=== PATIENT | male | born 1950 | race Caucasian/White ===

== ENCOUNTER 2022-02-26 16:44 | Outpatient (CLI) | payer OTHER, SELFPAY | END 2022-02-26 16:45 | disposition home or self-care (01) | LOC: AMB 03-10 21:57 | PROVIDERS: PCP Family Medicine; Visit Provider Internal Medicine | DX: R42 Dizziness and giddiness (principal) | CPT/HCPCS: A0425; A0427 ==

== ENCOUNTER 2022-02-26 17:18 | Emergency (ER) | payer OTHER, SELFPAY ==
[2022-02-26 17:26] VITALS: BP 117/80; PULSE 68; RESP 20; TEMP 36.4; O2SAT 98; BMI 25.1
[2022-02-26 17:40] VITALS: BP 122/75; PULSE 65; RESP 20; O2SAT 96
[2022-02-26 18:03] LABS: Basophils Absolute Auto 0.03 K/uL (0.00-0.30); Basophils Percent Auto 0.6 % (0.0-3.0); Eosinophils Absolute Auto 0.11 K/uL (0.00-0.50); Eosinophils Percent Auto 2.3 % (0.0-7.0); Hematocrit 35.3 % (37.0-53.0); Hemoglobin* 12.3 gm/dL (13.5-17.5); Lymphocytes Absolute Auto 1.26 K/uL (0.90-2.90); Mean Corpuscular HGB Conc 35 gm/dL (32-36); Mean Corpuscular Hemoglobin 33 pg (26-34); Mean Corpuscular Volume 96 fL (80-100); Monocytes Percent Auto 7.9 % (0.0-11.0); Neutrophils Absolute Auto 3.06 K/uL (1.7-7.0); Neutrophils Percent Auto 63.2 % (42.0-72.0); Platelet Count* 150 K/uL (140-440); Red Blood Count 3.69 m/uL (4.30-5.90); White Blood Count* 4.84 K/uL (4.50-11.00)
[2022-02-26 18:05] LABS: Slide Review Reflex No
[2022-02-26] MEDS: 0.9 % SODIUM CHLORIDE 500 ML 500 ML IV (18:14)
[2022-02-26 18:40] VITALS: BP 114/69; PULSE 64; RESP 20; O2SAT 97
[2022-02-26 18:41] LABS: Chloride* 96 mmol/L (96-114); Potassium* 4.1 mmol/L (3.6-5.1); Sodium* 126 mmol/L (135-149)
[2022-02-26 18:44] LABS: Blood Urea Nitrogen* 16 mg/dL (7-30); Calcium* 8.4 mg/dL (8.4-10.6); Carbon Dioxide* 19 mmol/L (20-32); Estimated Glomerular Filt Rate 81 ml/min; Glucose* 83 mg/dL (60-115)
[2022-02-26 18:45] LABS: Ethanol* 0.13 % (0.01-0.03)
--- NOTE | 2022-02-26 19:08 | ED.GENADULT ---
HPI - General Adult General Chief complaint: Dizziness/Vertigo Stated complaint: Weakness Time Seen by Provider: 02/26/22 17:29 History of Present Illness HPI narrative: Patient is a 71-year-old transgender woman who has been drinking today. She went home and after sitting on the couch stood up and got lightheaded. She did not pass out she had no seizure activity and was not incontinent. Due to the lightheadedness she did call for an ambulance. Of note she has no air conditioning in her apartment. It is not really that warm out today. Patient states that she is feeling better and is not certain why she became lightheaded. He has no vertigo symptoms and otherwise is back to her baseline. Related Data Home Medications Medication Instructions Recorded Confirmed allopurinol 300 mg tablet mg 02/26/22 amlodipine 10 mg tablet mg 02/26/22 Allergies Allergy/AdvReac Type Severity Reaction Status Date / Time No Known Drug Allergies Allergy Verified 02/26/22 17:28 Review of Systems Status of ROS: Reports: 10 or more systems reviewed and unremarkable except as noted in History and below [facility] Medical History ETOH abuse GERD (gastroesophageal reflux disease) Hypertension Surgical History History of knee replacement Social History Smoking Status: Former smoker How often do you have a drink containing alcohol: 4 or more times a week AUDIT-C Alcohol total score: 4 Exam Narrative: Exam Narrative: EXAM GENERAL: Patient appears comfortable and well. EYES: No scleral icterus. LYMPH: No supraclavicular or cervical lymphadenopathy. SKIN: Visible skin seen during exam normal or with benign process only. EXT: No dependent lower extremity pedal edema. HEART: Regular rate and rhythm with no murmurs, rubs, or gallops. LUNGS: Clear to auscultation bilaterally with no crackles or wheezes. ABD: Soft, non tender, non distended. PSYCH: Good eye contact, speech is not pressured. Const: Vital Signs, click to edit/add: Vital Signs - 24 hr 02/26/22 17:26 Temperature 97.5 F L Pulse Rate [Pulse Oximeter] 68 Respiratory Rate 20 Blood Pressure [Le ft Upper Arm] 117/80 Pulse Oximetry 98 Oxygen Delivery Me thod Room Air Course Course Hospital Course: Patient given fluid bolus CBC basic metabolic panel ETOH ordered. EKG upon my review shows normal sinus rhythm with first-degree AV block. Reevaluation(s) Reevaluation #1: Patient has received 500 mL bolus of saline. She is feeling fine. She does have a sodium of 126 with a previous baseline of 130. Her blood alcohol is 0.13. Remainder of the labs are largely unremarkable. Time: 19:10 Vital Signs Vital signs: Initial Vital Signs Temperature 97.5 F L 02/26/22 17:26 Temperature Source Temporal Artery Scan 02/26/22 17:26 Pulse Rate 68 02/26/22 17:26 Respiratory Rate 20 02/26/22 17:26 Blood Pressure 117/80 02/26/22 17:26 Blood Pressure Mean 92 02/26/22 17:26 Blood Pressure Position Supine 02/26/22 17:26 Pulse Oximetry 98 02/26/22 17:26 Oxygen Delivery Method 02/26/22 17:26 Vital Signs Temperature 97.5 F L 02/26/22 17:26 Pulse Rate 68 02/26/22 17:26 Respiratory Rate 20 02/26/22 17:26 Blood Pressure 117/80 02/26/22 17:26 Pulse Oximetry 98 02/26/22 17:26 Oxygen Delivery Method 02/26/22 17:26 Temperature 97.5 F L 02/26/22 17:26 Pulse Rate 68 02/26/22 17:26 Respiratory Rate 20 02/26/22 17:26 Blood Pressure 117/80 02/26/22 17:26 Pulse Oximetry 98 02/26/22 17:26 Oxygen Delivery Method 02/26/22 17:26 Medical Decision Making Lab Data Labs: Lab Results 02/26/22 02/26/22 02/26/22 Range/Units 17:56 17:56 17:56 WBC 4.84 (4.50-11.00) K/uL RBC 3.69 L (4.30-5.90) m/uL Hgb 12.3 L (13.5-17.5) gm/dL Hct 35.3 L (37.0-53.0) % MCV 96 (80-100) fL MCH 33 (26-34) pg MCHC 35 (32-36) gm/dL RDW Coeff of Delvis 14.0 (11.5-15.5) % Plt Count 150 (140-440) K/uL Neut % (Auto) 63.2 (42.0-72.0) % Lymph % (Auto) 26.0 (20-44) % [place] % (Auto) 7.9 (0.0-11.0) % Eos % (Auto) 2.3 (0.0-7.0) % Baso % (Auto) 0.6 (0.0-3.0) % Neut # (Auto) 3.06 (1.7-7.0) K/uL Lymph # (Auto) 1.26 (0.90-2.90) K/uL Bowman # (Auto) 0.40 (0.00-0.90) K/UL Eos # (Auto) 0.11 (0.00-0.50) K/uL Baso # (Auto) 0.03 (0.00-0.30) K/uL Abs Immat Gran (auto) 0.00 (0.00-0.30) K/uL Sodium 126 L (135-149) mmol/L Potassium 4.1 (3.6-5.1) mmol/L Chloride 96 (96-114) mmol/L Carbon Dioxide 19 L (20-32) mmol/L BUN 16 (7-30) mg/dL Creatinine 1.0 (0.5-1.5) mg/dL Estimated Creat Clear 66.50 Estimated GFR 81 ml/min Glucose 83 (60-115) mg/dL Calcium 8.4 (8.4-10.6) mg/dL Ethyl Alcohol 0.13 H (0.01-0.03) % Discharge Plan Discharge Clinical Impression: Alcohol intoxication, Chronic hyponatremia Patient Disposition: Home, Self-Care Condition: Stable Instructions: Alcohol Intoxication (ED) Additional Instructions: Limited alcohol intake Activity Level: No Restrictions Discharge Diet: Regular Prescriptions: No Action amlodipine 10 mg tablet Label Comments: TAKE 1 TABLET BY MOUTH AT BEDTIME allopurinol 300 mg tablet Label Comments: TAKE 1 TABLET BY MOUTH AT BEDTIME Follow Up/Referrals: Darcy Allen MD [Primary Care Provider] - Stand Alone Forms: [employer] Info Instructions
== END 2022-02-26 19:22 | disposition home or self-care (01) ==
PROVIDERS: Emergency Provider Internal Medicine; PCP Family Medicine
DX: F10.129 Alcohol abuse with intoxication, unspecified (principal); E87.1 Hypo-osmolality and hyponatremia
CPT/HCPCS: 36415; 80048; 82077; 85025; 93005; 99283; 99284; J7120

== ENCOUNTER 2022-04-02 14:59 | Outpatient (CLI) | payer OTHER, SELFPAY | END 2022-04-02 15:00 | disposition home or self-care (01) | PROVIDERS: PCP Family Medicine; Visit Provider Internal Medicine | DX: F10.129 Alcohol abuse with intoxication, unspecified (principal) | CPT/HCPCS: A0425; A0429 ==

== ENCOUNTER 2022-04-02 15:36 | Observation (INO) | payer OTHER, SELFPAY ==
[2022-04-02] VITALS (8 sets, daily range): BP systolic 112–144; BP diastolic 78–89; PULSE 71–88; RESP 16–20; TEMP 36.1–36.6; O2SAT 97–100; BMI 24.3
--- NOTE | 2022-04-02 16:33 | ED_ITS ---
HPI - General Adult General Chief complaint: Weakness Stated complaint: ETOH Time Seen by Provider: 04/02/22 15:51 History of Present Illness HPI narrative: Pt is a 72 year old transgender woman who began feeling week at [employer] where is has been having cocktails this afternoon. Pt likes to go there as he can get some food with his alcohol. He's not sure if he has had any food today though. Pt began feeling weak and unwell. No chest pain, sob, fevers, chills, rash or focal defects. Pt did not fall or have any injuries. Pt did not vomit and is not nauseated. Pt actually feels back to normal now that he is here. Uncertain how much alcohol he has drunk today. Related Data Home Medications Medication Instructions Recorded Confirmed allopurinol 300 mg tablet mg 02/26/22 amlodipine 10 mg tablet mg 02/26/22 Allergies Allergy/AdvReac Type Severity Reaction Status Date / Time No Known Drug Allergies Allergy Verified 04/02/22 15:43 Review of Systems Status of ROS: Reports: 10 or more systems reviewed and unremarkable except as noted in History and below [facility] Medical History ETOH abuse GERD (gastroesophageal reflux disease) Hypertension Surgical History History of knee replacement Social History Smoking Status: Former smoker Do you use any of these nicotine containing products: None Second hand tobacco smoke exposure: No How often do you have a drink containing alcohol: 4 or more times a week How many standard drinks containing alcohol do you have on a typical day: 3 or 4 How often do you have six or more drinks on one occasion: Weekly AUDIT-C Alcohol total score: 8 Non-prescribed substance use: denies use service: Yes Exam Narrative: Exam Narrative: EXAM GENERAL: Patient appears comfortable and well. EYES: No scleral icterus. ENT: Tympanic membranes and oropharynx normal. THYROID: no thyroid nodules or thyromegaly. LYMPH: No supraclavicular or cervical lymphadenopathy. SKIN: Visible skin seen during exam normal or with benign process only. EXT: No dependent lower extremity pedal edema. HEART: Regular rate and rhythm with no murmurs, rubs, or gallops. LUNGS: Clear to auscultation bilaterally with no crackles or wheezes. ABD: Soft, non tender, non distended. PSYCH: Good eye contact, speech is not pressured. Pt appears intoxicated. Const: Vital Signs, click to edit/add: Vital Signs - 24 hr 04/02/22 15:39 04/02/22 15:57 Temperature 97.8 F Pulse Rate [Pulse Oximeter] 78 71 Respiratory Rate 20 18 Blood Pressure [Le ft Upper Arm] 130/80 112/80 Pulse Oximetry 100 97 Oxygen Delivery Me thod Room Air Room Air Course Course Hospital Course: EKG shows sinus rhythm with 1st degree AV Block upon my review. CBC, CMP, Amylase, Lactate, UA ordered. Pt resting comfortably currently. Reevaluation(s) Reevaluation #1: Lactate was noted to be elevated and sodium at 125. Pt given 1 liter of normal saline with second liter to follow. ETOH 0.17. Lactate only came down to 4.0 after 1 liter. Blood cultures urine culture collected. Pts UA and chest x ray unremarkable. Pt states he has no food and can not provide for himself. Time: 20:01 Vital Signs Vital signs: Initial Vital Signs Temperature 97.8 F 04/02/22 15:39 Temperature Source Temporal Artery Scan 04/02/22 15:39 Pulse Rate 78 04/02/22 15:39 Pulse Rhythm 04/02/22 15:39 Respiratory Rate 20 04/02/22 15:39 Blood Pressure 130/80 04/02/22 15:39 Blood Pressure Mean 96 04/02/22 15:39 Blood Pressure Position Sitting 04/02/22 15:39 Pulse Oximetry 100 04/02/22 15:39 Oxygen Delivery Method 04/02/22 15:39 Vital Signs Temperature 97.8 F 04/02/22 15:39 Pulse Rate 78 04/02/22 15:39 Respiratory Rate 20 04/02/22 15:39 Blood Pressure 130/80 04/02/22 15:39 Pulse Oximetry 100 04/02/22 15:39 Oxygen Delivery Method 04/02/22 15:39 Temperature 97.8 F 04/02/22 15:39 Pulse Rate 71 04/02/22 15:57 Respiratory Rate 18 04/02/22 15:57 Blood Pressure 112/80 04/02/22 15:57 Pulse Oximetry 97 04/02/22 15:57 Oxygen Delivery Method 04/02/22 15:57 Medical Decision Making MDM Narrative Medical decision making narrative: Pt is a chronic etoh drinker who presents intoxicated with elevated lactate and lower than normal sodium. Cultures collected. No obvious infection. Pt given IV hydration. Pt states he has no food and cant take care of self. Admitted for further evaluation and treatment. Differential Diagnosis Differential Diagnosis: Chronic Alcoholism, Hyponatremia, Infection, Wernickes, Failure to Thrive Lab Data Labs: Lab Results 04/02/22 04/02/22 04/02/22 Range/Units 16:30 16:30 16:30 WBC 8.73 (4.50-11.00) K/uL RBC 3.76 L (4.30-5.90) m/uL Hgb 12.7 L (13.5-17.5) gm/dL Hct 36.4 L (37.0-53.0) % MCV 97 (80-100) fL MCH 34 (26-34) pg MCHC 35 (32-36) gm/dL RDW Coeff of Delvis 13.4 (11.5-15.5) % Plt Count 193 (140-440) K/uL Neut % (Auto) 81.4 H (42.0-72.0) % Lymph % (Auto) 10.9 L (20-44) % [place] % (Auto) 6.4 (0.0-11.0) % Eos % (Auto) 0.6 (0.0-7.0) % Baso % (Auto) 0.6 (0.0-3.0) % Neut # (Auto) 7.10 H (1.7-7.0) K/uL Lymph # (Auto) 1.00 (0.90-2.90) K/uL [place] # (Auto) 0.60 (0.00-0.90) K/UL Eos # (Auto) 0.05 (0.00-0.50) K/uL Baso # (Auto) 0.05 (0.00-0.30) K/uL Abs Immat Gran (auto) 0.01 (0.00-0.30) K/uL Sodium 125 L (135-149) mmol/L Potassium 4.2 (3.6-5.1) mmol/L Chloride 93 L (96-114) mmol/L Carbon Dioxide 19 L (20-32) mmol/L BUN 15 (7-30) mg/dL Creatinine 1.3 (0.5-1.5) mg/dL Estimated Creat Clear 50.42 Estimated GFR 59 ml/min Glucose 85 (60-115) mg/dL Lactate 4.9 H* (0.5-1.9) mmol/L Calcium 8.8 (8.4-10.6) mg/dL Total Bilirubin 0.6 (0.1-1.5) mg/dL AST 26 (12-35) U/L ALT 10 (4-50) U/L Alkaline Phosphatase 63 (40-150) U/L Troponin I 0.02 (0.01-0.04) ng/mL Total Protein 7.1 (6.0-8.3) g/dL Albumin 4.3 (3.3-5.0) g/dL Urine Color (Yellow) Urine Appearance (Clear) Urine pH (5.0-8.5) Ur Specific [place] (1.000-1.030) Urine Protein (Negative) Urine Glucose (UA) (Negative) Urine Ketones (Negative) Urine Blood (Negative) Urine Nitrite (Negative) Urine Bilirubin (Negative) Urine Urobilinogen (0.2-1.0) Ur Leukocyte Esterase (Negative) Urine Opiates Screen (Negative) Ur Oxycodone Screen (Negative) Urine Methadone Screen (Negative) Ur Propoxyphene Screen (Negative) Ur Barbiturates Screen (Negative) U Tricyclic Antidepress (Negative) Ur Phencyclidine Scrn (Negative) Ur Amphetamines Screen (Negative) U Methamphetamines Scrn (Negative) U Benzodiazepines Scrn (Negative) Urine Cocaine Screen (Negative) U Marijuana (THC) Screen (Negative) Ur Drug Screen Comment Ethyl Alcohol 0.17 H (0.01-0.03) % 04/02/22 04/02/22 04/02/22 Range/Units 17:00 17:00 19:24 WBC (4.50-11.00) K/uL RBC (4.30-5.90) m/uL Hgb (13.5-17.5) gm/dL Hct (37.0-53.0) % MCV (80-100) fL MCH (26-34) pg MCHC (32-36) gm/dL RDW Coeff of Delvis (11.5-15.5) % Plt Count (140-440) K/uL Neut % (Auto) (42.0-72.0) % Lymph % (Auto) (20-44) % [place] % (Auto) (0.0-11.0) % Eos % (Auto) (0.0-7.0) % Baso % (Auto) (0.0-3.0) % Neut # (Auto) (1.7-7.0) K/uL Lymph # (Auto) (0.90-2.90) K/uL [place] # (Auto) (0.00-0.90) K/UL Eos # (Auto) (0.00-0.50) K/uL Baso # (Auto) (0.00-0.30) K/uL Abs Immat Gran (auto) (0.00-0.30) K/uL Sodium (135-149) mmol/L Potassium (3.6-5.1) mmol/L Chloride (96-114) mmol/L Carbon Dioxide (20-32) mmol/L BUN (7-30) mg/dL Creatinine (0.5-1.5) mg/dL Estimated Creat Clear Estimated GFR ml/min Glucose (60-115) mg/dL Lactate 4.0 H (0.5-1.9) mmol/L Calcium (8.4-10.6) mg/dL Total Bilirubin (0.1-1.5) mg/dL AST (12-35) U/L ALT (4-50) U/L Alkaline Phosphatase (40-150) U/L Troponin I (0.01-0.04) ng/mL Total Protein (6.0-8.3) g/dL Albumin (3.3-5.0) g/dL Urine Color Yellow (Yellow) Urine Appearance Clear (Clear) Urine pH 5.5 (5.0-8.5) Ur Specific [place] 1.015 (1.000-1.030) Urine Protein Negative (Negative) Urine Glucose (UA) Negative (Negative) Urine Ketones 1+ A (Negative) Urine Blood Negative (Negative) Urine Nitrite Negative (Negative) Urine Bilirubin Negative (Negative) Urine Urobilinogen 0.2 (0.2-1.0) Ur Leukocyte Esterase Negative (Negative) Urine Opiates Screen Negative (Negative) Ur Oxycodone Screen Negative (Negative) Urine Methadone Screen Negative (Negative) Ur Propoxyphene Screen Negative (Negative) Ur Barbiturates Screen Negative (Negative) U Tricyclic Antidepress Negative (Negative) Ur Phencyclidine Scrn Negative (Negative) Ur Amphetamines Screen Negative (Negative) U Methamphetamines Scrn Negative (Negative) U Benzodiazepines Scrn Negative (Negative) Urine Cocaine Screen Negative (Negative) U Marijuana (THC) Screen Negative (Negative) Ur Drug Screen Comment See Note Ethyl Alcohol (0.01-0.03) % Discharge Plan Discharge Clinical Impression: Intoxication, Chronic hyponatremia Patient Disposition: Admitted As Inpatient Condition: Stable Activity Level: Other Discharge Diet: Other Prescriptions: No Action amlodipine 10 mg tablet Label Comments: TAKE 1 TABLET BY MOUTH AT BEDTIME allopurinol 300 mg tablet Label Comments: TAKE 1 TABLET BY MOUTH AT BEDTIME Follow Up/Referrals: Darcy Allen MD [Primary Care Provider] -
[2022-04-02 16:36] LABS: Basophils Absolute Auto 0.05 K/uL (0.00-0.30); Basophils Percent Auto 0.6 % (0.0-3.0); Eosinophils Absolute Auto 0.05 K/uL (0.00-0.50); Eosinophils Percent Auto 0.6 % (0.0-7.0); Hematocrit 36.4 % (37.0-53.0); Hemoglobin* 12.7 gm/dL (13.5-17.5); Immature Granulocytes Abs Auto 0.01 K/uL (0.00-0.30); Lymphocytes Percent Auto 10.9 % (20-44); Mean Corpuscular HGB Conc 35 gm/dL (32-36); Mean Corpuscular Hemoglobin 34 pg (26-34); Mean Corpuscular Volume 97 fL (80-100); Monocytes Percent Auto 6.4 % (0.0-11.0); Neutrophils Percent Auto 81.4 % (42.0-72.0); Platelet Count* 193 K/uL (140-440); RDW Coefficient of Variation % 13.4 % (11.5-15.5); Red Blood Count 3.76 m/uL (4.30-5.90); White Blood Count* 8.73 K/uL (4.50-11.00)
[2022-04-02 16:42] LABS: Lactate* 4.9 mmol/L (0.5-1.9); Slide Review Reflex No
--- NOTE | 2022-04-02 16:43 | PC.NURSE ---
lactate 4.9, aware
[2022-04-02 16:59] LABS: Albumin* 4.3 g/dL (3.3-5.0)
[2022-04-02 17:00] LABS: Chloride* 93 mmol/L (96-114); Potassium* 4.2 mmol/L (3.6-5.1); Sodium* 125 mmol/L (135-149)
[2022-04-02 17:02] LABS: Aspartate Amino Transferase* 26 U/L (12-35); Bilirubin Total* 0.6 mg/dL (0.1-1.5); Carbon Dioxide* 19 mmol/L (20-32); Creatinine* 1.3 mg/dL (0.5-1.5); Est. Creatinine Clearance* 50.42; Estimated Glomerular Filt Rate 59 ml/min
[2022-04-02 17:03] LABS: Alanine Aminotransferase* 10 U/L (4-50); Alkaline Phosphatase* 63 U/L (40-150); Blood Urea Nitrogen* 15 mg/dL (7-30); Calcium* 8.8 mg/dL (8.4-10.6); Ethanol* 0.17 % (0.01-0.03); Glucose* 85 mg/dL (60-115); Total Protein* 7.1 g/dL (6.0-8.3)
[2022-04-02 17:13] LABS: Troponin I* 0.02 ng/mL (0.01-0.04)
[2022-04-02 17:22] LABS: Appearance Urine Clear (Clear); Bilirubin Urine Negative (Negative); Blood Urine Negative (Negative); Color Urine Yellow (Yellow); Glucose Urine Negative (Negative); Ketones Urine 1+ (Negative); Leukocyte Esterase Urine Negative (Negative); Nitrite Urine Negative (Negative); Protein Urine Negative (Negative); Specific Gravity Urine 1.015 (1.000-1.030); Urobilinogen Urine 0.2 (0.2-1.0); pH Urine 5.5 (5.0-8.5)
--- NOTE | 2022-04-02 17:24 | CRLHL7_ITS ---
For Patients: As a result of the Century Cures Act, medical imaging exams and procedure reports are released immediately into your electronic medical record. You may view this report before your referring provider. If you have questions, please contact your health care provider. INDICATION: Weakness. TECHNIQUE: Chest 1 views. COMPARISON: 04/05/2019. FINDINGS: Cardiovascular and mediastinum: Heart size and vasculature are normal in caliber and appearance. Lungs and pleural spaces: Lungs are clear. No sign of infiltrate or mass. No sign of pleural effusion. No pneumothorax. Bones and soft tissues: No significant findings. IMPRESSION: No acute findings and no significant changes from the prior exam. Dictated by Micky Rajan MD @ 04/02/2022 6:12:50 PM (Electronically Signed)
[2022-04-02 17:29] LABS: Amphetamine Screen Urine Negative (Negative); Barbiturate Screen Urine Negative (Negative); Benzodiazepines Screen Urine Negative (Negative); Cannabinoid Screen Urine Negative (Negative); Cocaine Screen Urine Negative (Negative); Methadone Screen Urine Negative (Negative); Methamphetamines Screen Urine Negative (Negative); Opiate Screen Urine Negative (Negative); Oxycodone Screen Urine Negative (Negative); Phencyclidine Screen Urine Negative (Negative); Tricyclic Antidepressant Urine Negative (Negative)
[2022-04-02] MEDS: 0.9 % SODIUM CHLORIDE 1000 ml 1,000 ML IV ×2 (17:41→20:00)
--- NOTE | 2022-04-02 23:12 | P.IMHP_ITS ---
Hospitalist- H&P: HPI History of Present Illness Time Seen by Provider: 23:00 Date Seen: 04/02/22 Chief complaint: Weakness Narrative: Danielito Valenzuela Sr is a 72 year old man who tells me he presents today at the behest of friends for concern of his becoming increasingly weak. This has been evolving over the last several weeks. Was recently seen in our emergency department when he had a very similar presentation with a serum sodium of 126 and elevated blood alcohol level at 0.16. Today's serum sodium is 125 blood alcohol level is 0.17. Has been having more episodes of falls. Manages to get up sometimes with help. Uses walker. Denies any head trauma, injury, loss of consciousness. Noteworthy is that the patient has chronic alcoholism. Eats 1 meal today, usually at noon, at a restaurant in town called [employer] and concurrently drinks 4-5 beers per day at that time. He tells me this is about all he eats or drinks all day. Takes only his prescribed medications of amlodipine and allopurinol. Does not take thiamin, folate, or multivitamin. Review of Systems Status of ROS: Reports: 10 or more systems reviewed and unremarkable except as noted in History and below Narrative: Denies fevers, rigors, diaphoresis. Denies dysuria, urgency, frequency, hematuria. Denies any skin lesions. Denies any cough or shortness o f breath. Denies any other focal or localizing symptoms. Denies angina, anginal equivalent, syncope, near syncope, nausea, vomiting, palpitations, paroxysmal nocturnal dyspnea, orthopnea. Has chronic intermittent bilateral lower extremity edema. Has not had unilateral edema. He acknowledges history of deep venous thrombosis of lower extremity. No longer on any anticoagulants. Denies focal motor neurologic deficits. Denies polyuria, polydipsia, polyphagia. Denies heat or cold intolerance. Acknowledges slow, gradual weight loss. [facility] Medical History (Updated 04/02/22 @ 23:47 by Franklin Mojica MD) Alcoholism Cognitive decline ETOH abuse GERD (gastroesophageal reflux disease) History of DVT of lower extremity Hypertension Multiple falls Personal history of peptic ulcer disease Polyarticular gout Poor dentition Unstable gait Wernicke encephalopathy Wernicke-Korsakoff syndrome Surgical History History of knee replacement Family History Father No problems noted. 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 Lives alone. Full resuscitation in event of cardiopulmonary demise. Designates son, Danielito, and daughter, Britta, as his power of deputy attorney general for health should that be required. Highest level of school completed/degree received: don't know Smoking Status: Former smoker Do you use any of these nicotine containing products: None Second hand tobacco smoke exposure: No How often do you have a drink containing alcohol: 4 or more times a week Alcohol type: beer How many standard drinks containing alcohol do you have on a typical day: 3 or 4 How often do you have six or more drinks on one occasion: Weekly AUDIT-C Alcohol total score: 8 Non-prescribed substance use: denies use service: Yes Meds Home Medications and Allergies Home Medications Medication Instructions Recorded Confirmed Type allopurinol 300 mg tablet mg 02/26/22 History amlodipine 10 mg tablet mg 02/26/22 History Allergies Allergy/AdvReac Type Severity Reaction Status Date / Time No Known Drug Allergies Allergy Verified 04/02/22 15:43 Exam Narrative: Exam Narrative: No acute distress. Appears comfortable. Disheveled. Poorly kempt. Cooperative, friendly. Articulate. Alert, oriented to self, place, time, and in great measure to situation. Seems to have difficulty with executive function including understanding the severity of his line condition, the association of his condition to his chronic consumption of alcohol, lacking insight about his limitations physically and possibly cognitively as well. Muscle wasting of upper and lower extremities. Accentuated bony prominences of face and neck. Chronic decreased hearing, not new. Vision grossly normal. Poor dentition. Dry buccal mucosa. No icterus or jaundice. Lungs are clear to auscultation, without wheezing, rhonchi. Heart tones with regular rhythm, normal S1-S2, without murmur, gallop, or rub. Abdomen with active bowel sounds, soft, nontender. Slight protuberant abdomen. Trace edema of bilateral lower extremities. Chronic bilateral lower extremity venous insufficiency changes. No focal motor neurologic deficits. Broad-based gait, need support from walker to transfer and ambulate short distances. Const: Vital Signs, click to edit/add: Vital Signs - 24 hr 04/02/22 15:39 04/02/22 15:57 04/02/22 19:00 Temperature 97.8 F Pulse Rate [Left B rachial] Pulse Rate [Pulse Oximeter] 78 71 80 Respiratory Rate 20 18 16 Blood Pressure [Le ft Arm] Blood Pressure [Le ft Upper Arm] 130/80 112/80 135/89 Pulse Oximetry 100 97 99 Oxygen Delivery Me thod Room Air Room Air 04/02/22 20:30 04/02/22 22:33 04/02/22 22:36 Temperature 97 F L Pulse Rate [Left B rachial] 88 Pulse Rate [Pulse Oximeter] 81 Respiratory Rate 18 16 Blood Pressure [Le ft Arm] 137/82 Blood Pressure [Le ft Upper Arm] 123/78 Pulse Oximetry 99 99 Oxygen Delivery Me thod Room Air Room Air Room Air Documenting provider has reviewed patient's vital signs: yes Hospitalist - H&P: Result Labs Labs: Short CBC 04/02/22 Range/Units 16:30 WBC 8.73 (4.50-11.00) K/uL Hgb 12.7 L (13.5-17.5) gm/dL Hct 36.4 L (37.0-53.0) % Plt Count 193 (140-440) K/uL BMP 04/02/22 16:30 Sodium 125 L Potassium 4.2 Chloride 93 L Carbon Dioxide 19 L BUN 15 Creatinine 1.3 Glucose 85 Calcium 8.8 Cardiac Enzymes 04/02/22 Range/Units 16:30 Troponin I 0.02 (0.01-0.04) ng/mL Liver Function 04/02/22 Range/Units 16:30 Total Bilirubin 0.6 (0.1-1.5) mg/dL AST 26 (12-35) U/L ALT 10 (4-50) U/L Alkaline Phosphatase 63 (40-150) U/L Albumin 4.3 (3.3-5.0) g/dL Urine 04/02/22 Range/Units 17:00 Urine Color Yellow (Yellow) Urine Appearance Clear (Clear) Urine pH 5.5 (5.0-8.5) Ur Specific [place] 1.015 (1.000-1.030) Urine Protein Negative (Negative) Urine Glucose (UA) Negative (Negative) ECG Attestation: I personally reviewed and interpreted this ECG as follows: ECG interpretation date: 04/02/22 ECG interpretation time: 23:30 Prior ECG tracings: not available for review Interpretation: Normal sinus rhythm. First-degree AV block. Voltage criteria for left ventricular hypertrophy, without ischemic or infarct pattern. Imaging Chest x-ray: Attestation: I have reviewed the pertinent imaging results. Radiologist's impression: No acute changes noted. Assessment and Plan Assessment and plan (1) Acute hyponatremia: Status: Acute Assessment and Plan: 1. Normal saline IV fluid. 2. Regular diet. 3. 1500 mL fluid restriction. 4. Consider oral saline tablets. 5. Monitor serum sodium. 6. Stop alcohol consumption. (2) Chronic hyponatremia: Status: Acute (3) Weakness: Status: Acute (4) Intoxication: Problem comment: Alcohol intoxication with blood alcohol level 0.17 Status: Acute Assessment and Plan: 1. CIWA protocol with lorazepam as needed. (5) Alcoholism: Status: Acute Assessment and Plan: 1. Pre contemplative about management of alcohol consumption. He tells me does not believe he has a problem. 2. I am concerned that is Wernicke he Korsakoff's syndrome is advanced enough so that he has lost a lot of his executive function in that he might not even benefit from chemical dependency treatment efforts due to his poor insight. (6) Wernicke-Korsakoff syndrome: Status: Acute Assessment and Plan: 1. Treat with thiamin 100 mg orally daily. 2. Also initiate folic acid 1 mg daily. 3. Also initiate multivitamin daily. 4. Physical therapy and occupational therapy consultation. (7) Poor dentition: Status: Acute Assessment and Plan: 1. A clear manifestation of his inability to care for himself or his apathy about caring for himself. (8) Mild protein-calorie malnutrition: Status: Acute Assessment and Plan: 1. Will ask our dietitian to see the patient in consultation and advise. (9) Dehydration: Status: Acute Assessment and Plan: 1. Rehydration. 2. Check orthostatic blood pressure and pulse tomorrow morning. 3. Daily weights. (10) High serum lactate: Status: Acute Assessment and Plan: 1. Blood cultures and urine cultures obtained. No obvious sepsis. Most likely related to dehydration. 2. Monitor lactate levels. 3. Alcohol consumption and rehydrate. (11) Unstable gait: Status: Acute Assessment and Plan: 1. Initiate thiamin. 2. Physical therapy to assist with assessment. (12) Adult failure to thrive: Status: Acute Assessment and Plan: 1. Hand Candy Cutter consultation to assist with discharge disposition planning. 2. It seems like he would benefit from placement in shelter facility possibly even for the long run. Clearly demonstrating inability to care for himself safely any longer at this juncture. Plan 1. Reviewed my impression with the patient. Answered his questions. 2. Patient agreeable to admission to the hospital this time with efforts directed toward addressing his hyponatremia, weakness. 3. Agreeable to assess for possible short-term transitional rehabilitation and possibly even long-term placement.
[2022-04-03] MEDS: 0.9 % SODIUM CHLORIDE 1000 ml 1,000 ML 125 ML IV ×2 (00:28→07:52)
[2022-04-03] MEDS: THIAMINE 100 MG TABLET PO (00:28)
[2022-04-03 04:08] VITALS: BP 140/72; PULSE 84; RESP 16; TEMP 36.5; O2SAT 97
--- NOTE | 2022-04-03 04:45 | PC.NURSE ---
[id number]: patient up with assist of 1 and cane, alert/oriented/cooperative. CIWAs remain 0, no pain or nausea. no c/o dizziness overnight.
[2022-04-03 06:11] LABS: SARS PCR* Negative SARS-CoV-2 (Negative)
[2022-04-03 07:20] LABS: HCO3 VBG 23 mmol/L (21-28); Lactate* 1.1 mmol/L (0.5-1.9); PCO2 VBG 40 mmHG (40-50); PO2 VBG 41.8 mmHG (25-47); pH VBG 7.361 (7.32-7.43)
[2022-04-03 07:45] VITALS: BP 135/78; PULSE 75; RESP 16; TEMP 36.7; O2SAT 99
[2022-04-03 07:51] LABS: Hemoglobin* 12.8 gm/dL (13.5-17.5)
--- NOTE | 2022-04-03 07:53 | CRLHL7_ITS ---
For Patients: As a result of the Century Cures Act, medical imaging exams and procedure reports are released immediately into your electronic medical record. You may view this report before your referring provider. If you have questions, please contact your health care provider. INDICATION: Gait change. Poor memory. TECHNIQUE: Multiplanar multisequence MR imaging acquired through the brain prior to and following intravenous contrast. COMPARISON: None. FINDINGS Prominence of the ventricles and sulci compatible with [id number] diffuse cerebral volume loss. No mass effect or midline shift. Patchy and confluent T2 FLAIR hyperintensities in the supratentorial white matter and jeovanny, typical for advanced chronic microvascular ischemic changes. 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 No pathologic intracranial enhancement. No recent intracranial hemorrhage or pathologic extra-axial fluid collection. No diffusion restriction to suggest acute infarction. The major arterial flow voids of the skullbase are preserved. The globes are symmetric. Minimal paranasal sinus mucosal thickening. Trace mastoid fluid bilaterally. IMPRESSION: 1. No acute intracranial abnormality. 2. 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 3. Advanced chronic microvascular ischemic changes and mild to moderate diffuse cerebral volume loss. Dictated by Christiano Hernandez MD @ 04/03/2022 12:15:55 PM (Electronically Signed)
[2022-04-03 07:55] LABS: Sodium* 130 mmol/L (135-149)
[2022-04-03 07:59] LABS: Magnesium* 1.7 mg/dL (1.5-2.6); Phosphorus* 3.5 mg/dL (2.5-4.5)
[2022-04-03 08:07] LABS: C Reactive Protein* < 0.5 mg/dL (0.5-1.0)
[2022-04-03 08:29] LABS: Iron* 81 ug/dL (49-181)
[2022-04-03 08:38] LABS: Percent Iron Saturation 25 % (20-50); Total Iron Binding Capacity 321 ug/dL (261-462)
[2022-04-03 08:49] LABS: Blood Urea Nitrogen* 13 mg/dL (7-30); Carbon Dioxide* 17 mmol/L (20-32); Chloride* 107 mmol/L (96-114); Potassium* 4.6 mmol/L (3.6-5.1)
[2022-04-03 08:50] LABS: Calcium* 8.6 mg/dL (8.4-10.6); Est. Creatinine Clearance* 67.75; Estimated Glomerular Filt Rate 80 ml/min; Gamma Glutamyl Transpeptidase* 26 U/L (8-55); Glucose* 81 mg/dL (60-115)
[2022-04-03] MEDS: AMLODIPINE 10 MG TABLET PO (09:36)
[2022-04-03] MEDS: MULTIVITAMIN/MINERALS 1 TABLET 1 TAB PO (09:37)
[2022-04-03] MEDS: FOLIC ACID 1 MG TABLET PO (09:37)
[2022-04-03] MEDS: THIAMINE 250 MG in 0.9 % SODIUM CHLORIDE 100 ml 100 ML 102.5 MG IVPB ×3 (09:39→21:15)
[2022-04-03 12:21] VITALS: BP 124/78; PULSE 98; RESP 16; TEMP 36.6; O2SAT 98
--- NOTE | 2022-04-03 14:35 | PC.NURSE ---
end of shift. pt has been pleasant. no pain. he prefers male pronouns. he is up with 1-2 assist walker and cane. CIWAs remain 0, he has been NPO since breakfast. he has a U/S at 1600. IV is patent. ua is needed/
--- NOTE | 2022-04-03 14:38 | PC.SOCIAL ---
Met with pt. who lives independently here in [place]. It has been recommended numerous times in the past that pt. move to an assisted living. Pt. states he eats out for his main meal each day and otherwise goes to the food shelf. Pt. was interested in exploring AL options again and was in agreement to have his information sent to [facility] [place] in [facility] at [phone], fax#[phone]. Pt. has had his information sent to [facility] in the past when he was a resident at the [facility] for rehab. [facility] has a policy now that they will not accept pt.'s with ETOH Hx unless they have had 6 months of sobriety. Pt. does not want to pursue going to a SNF. Updated pt.'s son Danielito on the recommendation that pt. move to an AL, also to see if pt. needs his apartment cleaned again and if he needs food at the food shelf. Metz prefers to lemon picker pt. this evening rather that tomorrow due to his work schedule. Updated the charge nurse on his preference.
--- NOTE | 2022-04-03 14:40 | P.DS_ITS ---
DS: Providers Provider Date Seen: 04/03/22 Date of admission: 04/02/22 23:18 Primary care physician: Darcy Allen MD Admitting Clinician: Franklin Mojica MD Consults: 04/02/22 23:12 Consult to Physical Therapy [CONS] Routine Comment: Reason(s) for PT Consult:: Evaluate and Treat Any Restrictions?:: See Comment Comment: unsteady gait; ataxia Consult to Anime Artist [CONS] Routine Comment: Reason for Consult:: Discharge Planning Needs 04/02/22 23:17 Consult to Occupational Therapy [CONS] Routine Comment: Reason(s) for OT Consult:: Evaluate and Treat Any Restrictions?:: No Restrictions Comment: ?memory; ?ADLs Attending Physician on discharge: Tiffanie Rodriguez MD [facility] Date of Discharge: 04/03/22 DS: Diagnosis Discharge Diagnosis (1) Wernicke-Korsakoff syndrome: Status: Acute (2) Chronic hyponatremia: Status: Acute (3) Adult failure to thrive: Status: Acute DS: Summary Hospital Course Hospital Course: EKG shows sinus rhythm with 1st degree AV Block upon my review. CBC, CMP, Amylase, Lactate, UA ordered. Pt resting comfortably currently. Time Spent with Patient Time attestation: Total time spent providing and/or coordinating discharge services: Exam Const: Vital Signs, click to edit/add: Vital Signs - 24 hr 04/02/22 15:39 04/02/22 15:57 04/02/22 19:00 Temperature 97.8 F Pulse Rate [Left B rachial] Pulse Rate [Pulse Oximeter] 78 71 80 Respiratory Rate 20 18 16 Blood Pressure [Le ft Arm] Blood Pressure [Le ft Upper Arm] 130/80 112/80 135/89 Pulse Oximetry 100 97 99 Oxygen Delivery Me thod Room Air Room Air 04/02/22 20:30 04/02/22 22:33 04/02/22 22:36 Temperature 97 F L Pulse Rate [Left B rachial] 88 Pulse Rate [Pulse Oximeter] 81 Respiratory Rate 18 16 Blood Pressure [Le ft Arm] 137/82 Blood Pressure [Le ft Upper Arm] 123/78 Pulse Oximetry 99 99 Oxygen Delivery Me thod Room Air Room Air Room Air 04/02/22 23:12 04/02/22 23:00 04/02/22 23:24 Temperature 97.7 F 97.7 F Pulse Rate [Left B rachial] 78 78 78 Pulse Rate [Pulse Oximeter] Respiratory Rate 16 16 16 Blood Pressure [Le ft Arm] 144/82 H 144/82 H Blood Pressure [Le ft Upper Arm] Pulse Oximetry 97 97 Oxygen Delivery Me thod Room Air Room Air 04/03/22 04:08 04/03/22 07:45 04/03/22 07:45 Temperature 97.7 F 98.1 F Pulse Rate [Left B rachial] 84 75 75 Pulse Rate [Pulse Oximeter] Respiratory Rate 16 16 16 Blood Pressure [Le ft Arm] 140/72 H 135/78 Blood Pressure [Le ft Upper Arm] Pulse Oximetry 97 99 Oxygen Delivery Me thod Room Air Room Air 04/03/22 12:21 Temperature 97.9 F Pulse Rate [Left B rachial] 98 Pulse Rate [Pulse Oximeter] Respiratory Rate 16 Blood Pressure [Le ft Arm] 124/78 Blood Pressure [Le ft Upper Arm] Pulse Oximetry 98 Oxygen Delivery Me thod Room Air DS: Data Data Completed and Pending Labs on day of discharge: Labs from last 24 hours 04/03/22 04/03/22 04/03/22 06:36 06:36 06:36 WBC RBC Hgb Hct MCV MCH MCHC RDW Coeff of [place] Plt Count Neut % (Auto) Lymph % (Auto) [place] % (Auto) Eos % (Auto) Baso % (Auto) Neut # (Auto) Lymph # (Auto) [place] # (Auto) Eos # (Auto) Baso # (Auto) Abs Immat Gran (auto) VBG pH 7.361 VBG pCO2 40 VBG pO2 41.8 VBG HCO3 23 Sodium 130 L Potassium 4.6 Chloride 107 Carbon Dioxide 17 L BUN 13 Creatinine 1.0 Estimated Creat Clear 67.75 Estimated GFR 80 Glucose 81 Lactate 1.1 Calcium 8.6 Phosphorus 3.5 Magnesium 1.7 Iron TIBC % Saturation Total Bilirubin GGT 26 AST ALT Alkaline Phosphatase Troponin I C-Reactive Protein < 0.5 L Total Protein Albumin TSH 2.480 Urine Color Urine Appearance Urine pH Ur Specific [place] Urine Protein Urine Glucose (UA) Urine Ketones Urine Blood Urine Nitrite Urine Bilirubin Urine Urobilinogen Ur Leukocyte Esterase Urine Opiates Screen Ur Oxycodone Screen Urine Methadone Screen Ur Propoxyphene Screen Ur Barbiturates Screen U Tricyclic Antidepress Ur Phencyclidine Scrn Ur Amphetamines Screen U Methamphetamines Scrn U Benzodiazepines Scrn Urine Cocaine Screen U Marijuana (THC) Screen Ur Drug Screen Comment Ethyl Alcohol SARS-CoV-2 (PCR) 04/03/22 04/03/22 04/02/22 06:36 06:36 20:25 WBC RBC Hgb 12.8 L Hct MCV MCH MCHC RDW Coeff of [place] Plt Count Neut % (Auto) Lymph % (Auto) [place] % (Auto) Eos % (Auto) Baso % (Auto) Neut # (Auto) Lymph # (Auto) [place] # (Auto) Eos # (Auto) Baso # (Auto) Abs Immat Gran (auto) VBG pH VBG pCO2 VBG pO2 VBG HCO3 Sodium Potassium Chloride Carbon Dioxide BUN Creatinine Estimated Creat Clear Estimated GFR Glucose Lactate Calcium Phosphorus Magnesium Iron 81 TIBC 321 % Saturation 25 Total Bilirubin GGT AST ALT Alkaline Phosphatase Troponin I C-Reactive Protein Total Protein Albumin TSH Urine Color Urine Appearance Urine pH Ur Specific [place] Urine Protein Urine Glucose (UA) Urine Ketones Urine Blood Urine Nitrite Urine Bilirubin Urine Urobilinogen Ur Leukocyte Esterase Urine Opiates Screen Ur Oxycodone Screen Urine Methadone Screen Ur Propoxyphene Screen Ur Barbiturates Screen U Tricyclic Antidepress Ur Phencyclidine Scrn Ur Amphetamines Screen U Methamphetamines Scrn U Benzodiazepines Scrn Urine Cocaine Screen U Marijuana (THC) Screen Ur Drug Screen Comment Ethyl Alcohol SARS-CoV-2 (PCR) Negative SARS-CoV-2 04/02/22 04/02/22 04/02/22 19:24 17:00 17:00 WBC RBC Hgb Hct MCV MCH MCHC RDW Coeff of [place] Plt Count Neut % (Auto) Lymph % (Auto) [place] % (Auto) Eos % (Auto) Baso % (Auto) Neut # (Auto) Lymph # (Auto) [place] # (Auto) Eos # (Auto) Baso # (Auto) Abs Immat Gran (auto) VBG pH VBG pCO2 VBG pO2 VBG HCO3 Sodium Potassium Chloride Carbon Dioxide BUN Creatinine Estimated Creat Clear Estimated GFR Glucose Lactate 4.0 H Calcium Phosphorus Magnesium Iron TIBC % Saturation Total Bilirubin GGT AST ALT Alkaline Phosphatase Troponin I C-Reactive Protein Total Protein Albumin TSH Urine Color Yellow Urine Appearance Clear Urine pH 5.5 Ur Specific [place] 1.015 Urine Protein Negative Urine Glucose (UA) Negative Urine Ketones 1+ A Urine Blood Negative Urine Nitrite Negative Urine Bilirubin Negative Urine Urobilinogen 0.2 Ur Leukocyte Esterase Negative Urine Opiates Screen Negative Ur Oxycodone Screen Negative Urine Methadone Screen Negative Ur Propoxyphene Screen Negative Ur Barbiturates Screen Negative U Tricyclic Antidepress Negative Ur Phencyclidine Scrn Negative Ur Amphetamines Screen Negative U Methamphetamines Scrn Negative U Benzodiazepines Scrn Negative Urine Cocaine Screen Negative U Marijuana (THC) Screen Negative Ur Drug Screen Comment See Note Ethyl Alcohol SARS-CoV-2 (PCR) 04/02/22 04/02/22 04/02/22 16:30 16:30 16:30 WBC 8.73 RBC 3.76 L Hgb 12.7 L Hct 36.4 L MCV 97 MCH 34 MCHC 35 RDW Coeff of [place] 13.4 Plt Count 193 Neut % (Auto) 81.4 H Lymph % (Auto) 10.9 L [place] % (Auto) 6.4 Eos % (Auto) 0.6 Baso % (Auto) 0.6 Neut # (Auto) 7.10 H Lymph # (Auto) 1.00 [place] # (Auto) 0.60 Eos # (Auto) 0.05 Baso # (Auto) 0.05 Abs Immat Gran (auto) 0.01 VBG pH VBG pCO2 VBG pO2 VBG HCO3 Sodium 125 L Potassium 4.2 Chloride 93 L Carbon Dioxide 19 L BUN 15 Creatinine 1.3 Estimated Creat Clear 50.42 Estimated GFR 59 Glucose 85 Lactate 4.9 H* Calcium 8.8 Phosphorus Magnesium Iron TIBC % Saturation Total Bilirubin 0.6 GGT AST 26 ALT 10 Alkaline Phosphatase 63 Troponin I 0.02 C-Reactive Protein Total Protein 7.1 Albumin 4.3 TSH Urine Color Urine Appearance Urine pH Ur Specific [place] Urine Protein Urine Glucose (UA) Urine Ketones Urine Blood Urine Nitrite Urine Bilirubin Urine Urobilinogen Ur Leukocyte Esterase Urine Opiates Screen Ur Oxycodone Screen Urine Methadone Screen Ur Propoxyphene Screen Ur Barbiturates Screen U Tricyclic Antidepress Ur Phencyclidine Scrn Ur Amphetamines Screen U Methamphetamines Scrn U Benzodiazepines Scrn Urine Cocaine Screen U Marijuana (THC) Screen Ur Drug Screen Comment Ethyl Alcohol 0.17 H SARS-CoV-2 (PCR) Discharge Plan Discharge Date of Admission: 04/02/22 23:18 Attending Physician on Admission: Franklin Mojica Primary Care Provider: Darcy Allen Condition: Stable Discharge Medications: No Action esomeprazole magnesium 20 mg capsule,delayed release(DR/EC) 20 mg PO DAILY amlodipine 10 mg tablet 10 mg PO HS allopurinol 300 mg tablet 300 mg PO HS Activity Level: Other Discharge Diet: Other Follow Up Appointments: Darcy Allen MD [Primary Care Provider] - Hospital Course: EKG shows sinus rhythm with 1st degree AV Block upon my review. CBC, CMP, Amylase, Lactate, UA ordered. Pt resting comfortably currently.
[2022-04-03 16:09] VITALS: BP 123/76; PULSE 83; RESP 20; TEMP 36.3; O2SAT 99
--- NOTE | 2022-04-03 16:24 | PM.IMPN1 ---
Progress Note: A&P Assessment and plan (1) Wernicke-Korsakoff syndrome: Problem details: Continue OT and PT. patient has chronic cerebrovascular changes, chronic alcoholism, patient should receive PT and OT as long as possible and cooperative. He should not be driving. He should be in a correction or some assisted living plan. Status: Acute (2) Chronic hyponatremia: Problem details: Improved, chronically low Status: Acute (3) Adult failure to thrive: Problem details: Summation of poor life choices, chronic alcoholism and addiction. Status: Acute Subjective Date Seen: 04/03/22 Interval history: Daily Progress Note - Hospital Medicine Day #: 2 CC: Chronic alcoholism with acute coarse cough, cerebrovascular disease OVERNIGHT UPDATES FROM STAFF & MED, LAB, IMAGING UPDATES Danielito had a relatively uneventful night. CIWA scales have been low. He is receiving IV thiamin. He has received PT and OT services here. The team seems to know him well. His brain MRI today was abnormal showing multiple areas of previous infarction with no acute abnormalities. His hemoglobin is stable this morning. His blood gas was unremarkable. Sodium has improved to 130. He is mildly probably chronically metabolically acidotic. His lactate is return to normal. Brain MRI 1. No acute intracranial abnormality. 2. 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 3. Advanced chronic microvascular ischemic changes and mild to moderate diffuse cerebral volume loss. Liver ultrasound pending at this time. Review of Systems: See subjective Cardiac: No new chest pain/pressure/palpitations. Respiratory: no new dyspnea. GI: No abdominal bloating Objective: Vitals: see above Lungs: Clear. Cardiac: S1S2. Disposition/Potential discharge - Likely to return to previous living situation. Total time is 35 minutes with greater than 50% spent in counseling and coordination of care. Exam Const: Vital Signs, click to edit/add: Vital Signs - 24 hr 04/02/22 19:00 04/02/22 20:30 04/02/22 22:33 Temperature Pulse Rate [Left B rachial] Pulse Rate [Pulse Oximeter] 80 81 Respiratory Rate 16 18 Blood Pressure [Le ft Arm] Blood Pressure [Le ft Upper Arm] 135/89 123/78 Pulse Oximetry 99 99 Oxygen Delivery Me thod Room Air Room Air 04/02/22 22:36 04/02/22 23:12 04/02/22 23:00 Temperature 97 F L 97.7 F Pulse Rate [Left B rachial] 88 78 78 Pulse Rate [Pulse Oximeter] Respiratory Rate 16 16 16 Blood Pressure [Le ft Arm] 137/82 144/82 H Blood Pressure [Le ft Upper Arm] Pulse Oximetry 99 97 Oxygen Delivery Me thod Room Air Room Air 04/02/22 23:24 04/03/22 04:08 04/03/22 07:45 Temperature 97.7 F 97.7 F 98.1 F Pulse Rate [Left B rachial] 78 84 75 Pulse Rate [Pulse Oximeter] Respiratory Rate 16 16 16 Blood Pressure [Le ft Arm] 144/82 H 140/72 H 135/78 Blood Pressure [Le ft Upper Arm] Pulse Oximetry 97 97 99 Oxygen Delivery Tx thod Room Air Room Air Room Air 04/03/22 07:45 04/03/22 12:21 Temperature 97.9 F Pulse Rate [Left B rachial] 75 98 Pulse Rate [Pulse Oximeter] Respiratory Rate 16 16 Blood Pressure [Le ft Arm] 124/78 Blood Pressure [Le ft Upper Arm] Pulse Oximetry 98 Oxygen Delivery Tx thod Room Air Labs Labs: Laboratory Results - last 24 hr 04/02/22 04/02/22 04/02/22 16:30 16:30 16:30 WBC 8.73 RBC 3.76 L Hgb 12.7 L Hct 36.4 L MCV 97 MCH 34 MCHC 35 RDW Coeff of Delvis 13.4 Plt Count 193 Neut % (Auto) 81.4 H Lymph % (Auto) 10.9 L [place] % (Auto) 6.4 Eos % (Auto) 0.6 Baso % (Auto) 0.6 Neut # (Auto) 7.10 H Lymph # (Auto) 1.00 [place] # (Auto) 0.60 Eos # (Auto) 0.05 Baso # (Auto) 0.05 Abs Immat Gran (auto) 0.01 VBG pH VBG pCO2 VBG pO2 VBG HCO3 Sodium 125 L Potassium 4.2 Chloride 93 L Carbon Dioxide 19 L BUN 15 Creatinine 1.3 Estimated Creat Clear 50.42 Estimated GFR 59 Glucose 85 Lactate 4.9 H* Calcium 8.8 Phosphorus Magnesium Iron TIBC % Saturation Total Bilirubin 0.6 GGT AST 26 ALT 10 Alkaline Phosphatase 63 Troponin I 0.02 C-Reactive Protein Total Protein 7.1 Albumin 4.3 TSH Urine Color Urine Appearance Urine pH Ur Specific [place] Urine Protein Urine Glucose (UA) Urine Ketones Urine Blood Urine Nitrite Urine Bilirubin Urine Urobilinogen Ur Leukocyte Esterase Urine Opiates Screen Ur Oxycodone Screen Urine Methadone Screen Ur Propoxyphene Screen Ur Barbiturates Screen U Tricyclic Antidepress Ur Phencyclidine Scrn Ur Amphetamines Screen U Methamphetamines Scrn U Benzodiazepines Scrn Urine Cocaine Screen U Marijuana (THC) Screen Ur Drug Screen Comment Ethyl Alcohol 0.17 H SARS-CoV-2 (PCR) 04/02/22 04/02/22 04/02/22 17:00 17:00 19:24 WBC RBC Hgb Hct MCV MCH MCHC RDW Coeff of [place]vis Plt Count Neut % (Auto) Lymph % (Auto) [place] % (Auto) Eos % (Auto) Baso % (Auto) Neut # (Auto) Lymph # (Auto) [place] # (Auto) Eos # (Auto) Baso # (Auto) Abs Immat Gran (auto) VBG pH VBG pCO2 VBG pO2 VBG HCO3 Sodium Potassium Chloride Carbon Dioxide BUN Creatinine Estimated Creat Clear Estimated GFR Glucose Lactate 4.0 H Calcium Phosphorus Magnesium Iron TIBC % Saturation Total Bilirubin GGT AST ALT Alkaline Phosphatase Troponin I C-Reactive Protein Total Protein Albumin TSH Urine Color Yellow Urine Appearance Clear Urine pH 5.5 Ur Specific [place] 1.015 Urine Protein Negative Urine Glucose (UA) Negative Urine Ketones 1+ A Urine Blood Negative Urine Nitrite Negative Urine Bilirubin Negative Urine Urobilinogen 0.2 Ur Leukocyte Esterase Negative Urine Opiates Screen Negative Ur Oxycodone Screen Negative Urine Methadone Screen Negative Ur Propoxyphene Screen Negative Ur Barbiturates Screen Negative U Tricyclic Antidepress Negative Ur Phencyclidine Scrn Negative Ur Amphetamines Screen Negative U Methamphetamines Scrn Negative U Benzodiazepines Scrn Negative Urine Cocaine Screen Negative U Marijuana (THC) Screen Negative Ur Drug Screen Comment See Note Ethyl Alcohol SARS-CoV-2 (PCR) 04/02/22 04/03/22 04/03/22 20:25 06:36 06:36 WBC RBC Hgb 12.8 L Hct MCV MCH MCHC RDW Coeff of Delvis Plt Count Neut % (Auto) Lymph % (Auto) [place] % (Auto) Eos % (Auto) Baso % (Auto) Neut # (Auto) Lymph # (Auto) [place] # (Auto) Eos # (Auto) Baso # (Auto) Abs Immat Gran (auto) VBG pH VBG pCO2 VBG pO2 VBG HCO3 Sodium Potassium Chloride Carbon Dioxide BUN Creatinine Estimated Creat Clear Estimated GFR Glucose Lactate Calcium Phosphorus Magnesium Iron 81 TIBC 321 % Saturation 25 Total Bilirubin GGT AST ALT Alkaline Phosphatase Troponin I C-Reactive Protein Total Protein Albumin TSH Urine Color Urine Appearance Urine pH Ur Specific [place] Urine Protein Urine Glucose (UA) Urine Ketones Urine Blood Urine Nitrite Urine Bilirubin Urine Urobilinogen Ur Leukocyte Esterase Urine Opiates Screen Ur Oxycodone Screen Urine Methadone Screen Ur Propoxyphene Screen Ur Barbiturates Screen U Tricyclic Antidepress Ur Phencyclidine Scrn Ur Amphetamines Screen U Methamphetamines Scrn U Benzodiazepines Scrn Urine Cocaine Screen U Marijuana (THC) Screen Ur Drug Screen Comment Ethyl Alcohol SARS-CoV-2 (PCR) Negative SARS-CoV-2 04/03/22 04/03/22 04/03/22 06:36 06:36 06:36 WBC RBC Hgb Hct MCV MCH MCHC RDW Coeff of [place] Plt Count Neut % (Auto) Lymph % (Auto) [place] % (Auto) Eos % (Auto) Baso % (Auto) Neut # (Auto) Lymph # (Auto) [place] # (Auto) Eos # (Auto) Baso # (Auto) Abs Immat Gran (auto) VBG pH 7.361 VBG pCO2 40 VBG pO2 41.8 VBG HCO3 23 Sodium 130 L Potassium 4.6 Chloride 107 Carbon Dioxide 17 L BUN 13 Creatinine 1.0 Estimated Creat Clear 67.75 Estimated GFR 80 Glucose 81 Lactate 1.1 Calcium 8.6 Phosphorus 3.5 Magnesium 1.7 Iron TIBC % Saturation Total Bilirubin GGT 26 AST ALT Alkaline Phosphatase Troponin I C-Reactive Protein < 0.5 L Total Protein Albumin TSH 2.480 Urine Color Urine Appearance Urine pH Ur Specific [place] Urine Protein Urine Glucose (UA) Urine Ketones Urine Blood Urine Nitrite Urine Bilirubin Urine Urobilinogen Ur Leukocyte Esterase Urine Opiates Screen Ur Oxycodone Screen Urine Methadone Screen Ur Propoxyphene Screen Ur Barbiturates Screen U Tricyclic Antidepress Ur Phencyclidine Scrn Ur Amphetamines Screen U Methamphetamines Scrn U Benzodiazepines Scrn Urine Cocaine Screen U Marijuana (THC) Screen Ur Drug Screen Comment Ethyl Alcohol SARS-CoV-2 (PCR)
[2022-04-03 20:00] VITALS: BP 127/75; PULSE 78; RESP 20; TEMP 37; O2SAT 97
[2022-04-03] MEDS: allopurinoL 300 MG TABLET PO (21:15)
[2022-04-04] VITALS (8 sets, daily range): BP systolic 118–156; BP diastolic 63–86; PULSE 62–91; RESP 16–20; TEMP 36.7–37.2; O2SAT 96–100
--- NOTE | 2022-04-04 06:38 | PC.NURSE ---
Shift note: No c/o pain overnight, voiding, no BM during this shift, CIWA 0-1
[2022-04-04 06:53] LABS: HCO3 VBG 21 mmol/L (21-28); Ionized Calcium* 1.13 mmol/L (1.11-1.30); PCO2 VBG 33 mmHG (40-50); PO2 VBG 58.6 mmHG (25-47); pH VBG 7.412 (7.32-7.43)
[2022-04-04 07:05] LABS: Hematocrit 34.9 % (37.0-53.0); Hemoglobin* 12.3 gm/dL (13.5-17.5); Mean Corpuscular HGB Conc 35 gm/dL (32-36); Mean Corpuscular Hemoglobin 34 pg (26-34); Mean Corpuscular Volume 96 fL (80-100); Platelet Count* 171 K/uL (140-440); Red Blood Count 3.62 m/uL (4.30-5.90); White Blood Count* 5.76 K/uL (4.50-11.00)
[2022-04-04 07:06] LABS: Slide Review Reflex No
[2022-04-04 07:35] LABS: Albumin* 3.4 g/dL (3.3-5.0); Chloride* 107 mmol/L (96-114); Potassium* 4.3 mmol/L (3.6-5.1); Sodium* 131 mmol/L (135-149)
[2022-04-04 07:37] LABS: Aspartate Amino Transferase* 34 U/L (12-35); Bilirubin Total* 1.2 mg/dL (0.1-1.5); Carbon Dioxide* 17 mmol/L (20-32); Est. Creatinine Clearance* 67.75; Estimated Glomerular Filt Rate 80 ml/min
[2022-04-04 07:38] LABS: Alanine Aminotransferase* 8 U/L (4-50); Alkaline Phosphatase* 45 U/L (40-150); Blood Urea Nitrogen* 14 mg/dL (7-30); Calcium* 8.3 mg/dL (8.4-10.6); Glucose* 92 mg/dL (60-115); Total Protein* 6.1 g/dL (6.0-8.3)
[2022-04-04 07:39] LABS: Magnesium* 1.8 mg/dL (1.5-2.6)
[2022-04-04 07:41] LABS: NT Pro B Type NatriureticPept* 1060 PG/mL (0-125)
[2022-04-04] MEDS: AMLODIPINE 10 MG TABLET PO (09:08)
[2022-04-04] MEDS: FOLIC ACID 1 MG TABLET PO (09:08)
[2022-04-04] MEDS: MULTIVITAMIN/MINERALS 1 TABLET 1 TAB PO (09:09)
[2022-04-04] MEDS: THIAMINE 250 MG in 0.9 % SODIUM CHLORIDE 100 ml 100 ML 102.5 MG IVPB ×3 (09:09→21:18)
--- NOTE | 2022-04-04 14:11 | PC.SOCIAL ---
Physician met with pt. and his son and they would like to placement in an AL. Unfortunately, no AL will take pt. without medical assistance unless pt. has money. [facility] has pt. on their waiting list. Updated pt.'s son Danielito and met with pt. Discussed that pt. will not be able to go directly to a AL and a SNF could be pursued if pt. qualifies until he get's on MA. If not pt. would most likely discharge home with home care in place. Social work the last time pt. was in the [facility] filled out an MA application for pt. and listed son as the member services representative to get information regarding his MA status. Pt. and his son Danielito have no idea if pt. was ever approved for MA and state they never received paperwork on his status. Filled out another MA application with pt. today and sent this in to [facility] with income proof. Lorraine Bernard from [facility] called and said she got a self-neglect [facility] report on pt. She said to put her name on pt.'s application and she can follow-up to get necessary proofs. Lorraine has no options on assisted livings either if pt. has no MA approved. Pt. also has [employer] insurance so it is limited on who can accept this. [facility] is the only facility that takes [employer] with openings and is assessing pt.
--- NOTE | 2022-04-04 15:34 | PC.NURSE ---
End of shift summary: assessment: pt vss and in good spirits making need known. pt is an assist x1 with walker in the room. Plan: echo today and await results and planning for safe discharge. Family: not present at bedside during shift today.
--- NOTE | 2022-04-04 15:37 | PM.IMPN1 ---
Progress Note: A&P Assessment and plan (1) Wernicke-Korsakoff syndrome: Problem details: Continue OT and PT. patient has chronic cerebrovascular changes, chronic alcoholism, patient should receive PT and OT as long as possible and cooperative. He should not be driving. He should be in a fci or some assisted living plan. He is a vulnerable adult without a safe discharge plan. Status: Acute (2) Chronic hyponatremia: Problem details: Improved, chronically low Status: Acute (3) Adult failure to thrive: Problem details: Summation of poor life choices, chronic alcoholism and addiction. Status: Acute Subjective Date Seen: 04/04/22 Interval history: Daily Progress Note - Hospital Medicine Day #: 3 CC: Chronic alcoholism, cerebrovascular disease OVERNIGHT UPDATES FROM STAFF & MED, LAB, IMAGING UPDATES Danielito had a relatively uneventful night. CIWA scales have been low. He is receiving IV thiamin. He has received PT and OT services here. The team seems to know him well. His brain MRI yesterday was abnormal showing multiple areas of previous infarction with no acute abnormalities. Hemoglobin is stable today. Probably chronic metabolic acidosis. Mild chronic hyponatremia. Echo results today show LVH with normal global systolic function. EF 73. No significant valvular findings. AAA at 4.1 cm Notably, I ordered a right upper quadrant ultrasound yesterday. After speaking to the survey data technician, these were nondiagnostic images. She was not able to image, for unclear reasons, the liver. I do not see a pending result and or read from that exam. Objective: Chronically disheveled. Poor dentition. Alert. Happily dismissive Vitals: see above Lungs: Clear. Cardiac: S1S2. Disposition/Potential discharge - Likely to return to previous living situation. Total time is 35 minutes with greater than 50% spent in counseling and coordination of care. Exam Const: Vital Signs, click to edit/add: Vital Signs - 24 hr 04/03/22 16:09 04/03/22 16:04/03/22 20:00 Temperature 97.4 F L 97.4 F L 98.6 F Pulse Rate [Left B rachial] 83 83 78 Respiratory Rate 20 20 20 Blood Pressure [Le ft Arm] 123/76 123/76 127/75 Pulse Oximetry 99 99 97 Oxygen Delivery Me thod Room Air Room Air Room Air 04/04/22 00:00 04/04/22 03:48 04/04/22 07:45 Temperature 98.7 F 98.9 F Pulse Rate [Left B rachial] 67 62 77 Respiratory Rate 18 18 16 Blood Pressure [Le ft Arm] 133/86 156/84 H Pulse Oximetry 97 96 100 Oxygen Delivery Me thod Room Air Room Air Room Air 04/04/22 07:20 04/04/22 07:45 04/04/22 11:36 Temperature 98.9 F 98.6 F Pulse Rate [Left B rachial] 77 77 91 Respiratory Rate 16 16 16 Blood Pressure [Le ft Arm] 156/84 H 121/81 Pulse Oximetry 100 97 Oxygen Delivery Me thod Room Air Room Air Labs Labs: Laboratory Results - last 24 hr 04/04/22 04/04/22 04/04/22 06:23 06:23 06:23 WBC 5.76 RBC 3.62 L Hgb 12.3 L Hct 34.9 L MCV 96 MCH 34 MCHC 35 Plt Count 171 VBG pH 7.412 VBG pCO2 33 L VBG pO2 58.6 H VBG HCO3 21 Sodium 131 L Potassium 4.3 Chloride 107 Carbon Dioxide 17 L BUN 14 Creatinine 1.0 Estimated Creat Clear 67.75 Estimated GFR 80 Glucose 92 Calcium 8.3 L Ionized Calcium Lynne 1.13 Magnesium 1.8 Total Bilirubin 1.2 AST 34 ALT 8 Alkaline Phosphatase 45 NT-Pro-B Natriuret Pep 1060 H Total Protein 6.1 Albumin 3.4
[2022-04-04] MEDS: allopurinoL 300 MG TABLET PO (21:17)
--- NOTE | 2022-04-04 23:52 | PC.NURSE ---
[id number]: Patient cooperative with cares. A&O x2, unsure of date. CIWA's unremarkable. Denies pain. A1,RYAN mauricio. Moves well.
[2022-04-05] VITALS (8 sets, daily range): BP systolic 104–140; BP diastolic 62–85; PULSE 64–82; RESP 16–18; TEMP 36.5–36.8; O2SAT 96–99
--- NOTE | 2022-04-05 06:17 | PC.NURSE ---
Shift note: Pt rested throughout the night, no complains verbalized or concerns noted by RN
[2022-04-05] MEDS: AMLODIPINE 10 MG TABLET PO (09:00)
[2022-04-05] MEDS: MULTIVITAMIN/MINERALS 1 TABLET 1 TAB PO (09:06)
[2022-04-05] MEDS: FOLIC ACID 1 MG TABLET PO (09:07)
[2022-04-05] MEDS: SODIUM CHLORIDE 0.9 % (FLUSH) 10 ML SYRINGE 5 ML IVF ×2 (09:08→20:44)
[2022-04-05] MEDS: THIAMINE 250 MG in 0.9 % SODIUM CHLORIDE 100 ml 100 ML 102.5 MG IVPB ×3 (09:08→20:44)
--- NOTE | 2022-04-05 14:24 | PM.IMPN1 ---
Progress Note: A&P Assessment and plan (1) Wernicke-Korsakoff syndrome: Problem details: Continue OT and PT. patient has chronic cerebrovascular changes, chronic alcoholism, patient should receive PT and OT as long as possible and cooperative. He should not be driving. He should be in a residential or some assisted living plan. He is a vulnerable adult without a safe discharge plan. Status: Acute (2) Chronic hyponatremia: Problem details: Improved, chronically low Status: Acute (3) Adult failure to thrive: Problem details: Summation of poor life choices, chronic alcoholism and addiction. There is not a safe discharge plan: he continues to drink daily, ED visits for ataxia/intoxication. poor nutrition and ascess to basic necessities. poor family support. The question is does he have the decisional capacity to realize he shouldn't drink and drive and navigate the community as a vulnerable adult. I've asked our social work dept to work hard and steadfastly for a solution. Status: Acute (4) At risk for adverse event after discharge: Status: Acute (5) Unstable gait: Status: Acute (6) Mild protein-calorie malnutrition: Status: Acute (7) Alcoholism: Status: Acute (8) Wernicke encephalopathy: Problem details: thiamine replaced IV x 3 days, continue folic acid, MVM, oral thiamine Status: Acute (9) Poor dentition: Status: Acute Subjective Date Seen: 04/05/22 Interval history: Daily Progress Note - Hospital Medicine Day #: 4 CC: Chronic alcoholism, cerebrovascular disease OVERNIGHT UPDATES FROM STAFF & MED, LAB, IMAGING UPDATES Danielito had a relatively uneventful night. CIWA scales have been low. He is receiving IV thiamin. He has received PT and OT services here. The team seems to know him well. No new events. Now new labs. Echo results today show LVH with normal global systolic function. EF 73. No significant valvular findings. AAA at 4.1 cm Notably, I ordered a right upper quadrant ultrasound yesterday. After speaking to the nuclear medicine technician, these were nondiagnostic images. She was not able to image, for unclear reasons, the liver. I do not see a pending result and or read from that exam. Objective: Chronically disheveled. Poor dentition. Alert. Happily dismissive Vitals: see above Lungs: Clear. Cardiac: S1S2. Disposition/Potential discharge - There is not a safe discharge plan: he continues to drink daily, ED visits for ataxia/intoxication. poor nutrition and ascess to basic necessities. poor family support. The question is does he have the decisional capacity to realize he shouldn't drink and drive and navigate the community as a vulnerable adult. I've asked our social work dept to work hard and steadfastly for a solution. Total time is 35 minutes with greater than 50% spent in counseling and coordination of care. Exam Const: Vital Signs, click to edit/add: Vital Signs - 24 hr 04/04/22 15:00 04/04/22 15:00 04/04/22 19:00 Temperature 98.1 F 98.1 F 98.9 F Pulse Rate [Left B rachial] 78 78 72 Pulse Rate [orthos tatic lying] Pulse Rate [orthos tatic sitting] Pulse Rate [orthos tatic standing] Respiratory Rate 18 18 20 Blood Pressure [Le ft Arm] 123/75 123/75 118/63 Blood Pressure [or thostatic lying] Blood Pressure [or thostatic sitting] Blood Pressure [or thostatic standing ] Pulse Oximetry 98 98 96 Oxygen Delivery Me thod Room Air Room Air Room Air 04/04/22 19:00 04/04/22 23:00 04/05/22 03:00 Temperature 98.9 F 98.8 F Pulse Rate [Left B rachial] 72 73 64 Pulse Rate [orthos tatic lying] Pulse Rate [orthos tatic sitting] Pulse Rate [orthos tatic standing] Respiratory Rate 20 18 16 Blood Pressure [Le ft Arm] 118/63 129/75 Blood Pressure [or thostatic lying] Blood Pressure [or thostatic sitting] Blood Pressure [or thostatic standing ] Pulse Oximetry 96 98 98 Oxygen Delivery Me thod Room Air Room Air Room Air 04/05/22 07:00 04/05/22 07:30 04/05/22 11:00 Temperature 97.7 F 97.7 F Pulse Rate [Left B rachial] 70 70 Pulse Rate [orthos tatic lying] 70 Pulse Rate [orthos tatic sitting] 73 Pulse Rate [orthos tatic standing] 82 Respiratory Rate 18 18 Blood Pressure [Le ft Arm] 105/70 105/70 Blood Pressure [or thostatic lying] 105/70 Blood Pressure [or thostatic sitting] 120/85 Blood Pressure [or thostatic standing ] 118/82 Pulse Oximetry 98 98 Oxygen Delivery Me thod Room Air Room Air 04/05/22 07:30 04/05/22 11:30 Temperature 97.7 F 97.8 F Pulse Rate [Left B rachial] 70 74 Pulse Rate [orthos tatic lying] Pulse Rate [orthos tatic sitting] Pulse Rate [orthos tatic standing] Respiratory Rate 18 18 Blood Pressure [Le ft Arm] 105/70 131/72 Blood Pressure [or thostatic lying] Blood Pressure [or thostatic sitting] Blood Pressure [or thostatic standing ] Pulse Oximetry 98 99 Oxygen Delivery Me thod Room Air Room Air
--- NOTE | 2022-04-05 15:17 | PC.NURSE ---
Pt CIWA scores 0 out of 10 on day shift. Orthostatic bps taken and results given to Dr. Rodriguez. No dysphagia with meds, pt pleasant calm and cooperative. Pt's IV R forearm tender and erythemic this afternoon. New IV to left wrist #22 per Gurinder De La Garza RN placed for bag 8 of 9 Thiamine infusion. Report to Katie BRIDGES for evening shift, continue plan of care.
[2022-04-05] MEDS: allopurinoL 300 MG TABLET PO (20:43)
[2022-04-06] VITALS (8 sets, daily range): BP systolic 103–125; BP diastolic 69–91; PULSE 66–74; RESP 16–18; TEMP 36.2–36.6; O2SAT 94–99
--- NOTE | 2022-04-06 06:25 | PC.NURSE ---
[id number]: Patient pleasant and cooperative with cares. Denies pain. A&O to self and situation. CIWA's unremarkable. Appeared to rest well during noc.
[2022-04-06] MEDS: AMLODIPINE 10 MG TABLET PO (09:16)
[2022-04-06] MEDS: FOLIC ACID 1 MG TABLET PO (09:16)
[2022-04-06] MEDS: MULTIVITAMIN/MINERALS 1 TABLET 1 TAB PO (09:16)
[2022-04-06] MEDS: SODIUM CHLORIDE 0.9 % (FLUSH) 10 ML SYRINGE 5 ML IVF ×2 (09:17→21:19)
--- NOTE | 2022-04-06 15:05 | PM.IMPN1 ---
Progress Note: A&P Assessment and plan (1) Wernicke-Korsakoff syndrome: Problem details: Patient has chronic cerebrovascular changes, chronic alcoholism, patient should receive PT and OT as long as possible and cooperative. He should not be driving. He should be in a nursing home or some assisted living plan. He is a vulnerable adult without a safe discharge plan. Status: Acute (2) Chronic hyponatremia: Status: Acute (3) Adult failure to thrive: Problem details: Summation of poor life choices, chronic alcoholism and addiction. There is not a safe discharge plan: he continues to drink daily, ED visits for ataxia/intoxication. poor nutrition and ascess to basic necessities. poor family support. The question is does he have the decisional capacity to realize he shouldn't drink and drive and navigate the community as a vulnerable adult. Social work dept helping with a solution. Status: Acute (4) At risk for adverse event after discharge: Status: Acute (5) Unstable gait: Status: Acute (6) Mild protein-calorie malnutrition: Status: Acute (7) Alcoholism: Status: Acute (8) Wernicke encephalopathy: Problem details: thiamine replaced IV x 3 days, continue folic acid, MVM, oral thiamine Status: Acute (9) Poor dentition: Status: Acute Time Spent With Patient Total time spent: Vulnerable adult with Wernicke-Korsakoff syndrome (he continues to drink daily, ED visits for ataxia/intoxication. poor nutrition and ascess to basic necessities. poor family support). Continue PT and OT. Currently no safe discharge plan. Seeking placement in nursing home or assisted living. Subjective Time Seen by Provider: 10:45 Date Seen: 04/06/22 Interval history: Day #: 5 CC: Chronic alcoholism, cerebrovascular disease Danielito tells me he is well today with no new concerns. There is no safe discharge option for him at present. He is awaiting placement. EXAM General: No acute distress. Awake, alert, oriented to self. Cardiovascular: Regular rate and rhythm. No murmurs, gallops, or rubs. Respiratory: Clear to auscultation bilaterally. No wheezes or crackles. Abdomen: Bowel sounds present. Soft, nondistended, nontender. Exam Const: Vital Signs, click to edit/add: Vital Signs - 24 hr 04/05/22 19:00 04/05/22 19:00 04/05/22 23:00 Temperature 98.2 F 98.2 F 97.9 F Pulse Rate [Left B rachial] 68 68 66 Respiratory Rate 18 18 18 Blood Pressure [Le ft Arm] 140/81 H 140/81 H 135/77 Pulse Oximetry 96 96 98 Oxygen Delivery Me thod Room Air Room Air Room Air 04/05/22 23:00 04/06/22 03:00 04/06/22 09:00 Temperature 97.9 F 97.6 F 97.9 F Pulse Rate [Left B rachial] 66 67 74 Respiratory Rate 18 18 16 Blood Pressure [Le ft Arm] 135/77 124/80 113/69 Pulse Oximetry 98 96 99 Oxygen Delivery Me thod Room Air Room Air Room Air 04/06/22 13:00 Temperature 97.2 F L Pulse Rate [Left B rachial] 70 Respiratory Rate 16 Blood Pressure [Le ft Arm] 103/70 Pulse Oximetry 97 Oxygen Delivery Me thod Room Air
--- NOTE | 2022-04-06 19:30 | PC.NURSE ---
End of Shift: Patient pleasant and cooperative. Afebrile. Denies pain. Up to chair and bathroom with SBA, walker and gait belt. Tolerating regular diet with no nausea.
[2022-04-06] MEDS: allopurinoL 300 MG TABLET PO (21:19)
[2022-04-07 03:00] VITALS: RESP 16
--- NOTE | 2022-04-07 05:14 | PC.NURSE ---
[id number]: Patient friendly and cooperative with cares. Used call light to communicate needs. SBA w/walker. Steady. Rested well during noc. Denies pain.
[2022-04-07 07:00] VITALS: BP 118/72; PULSE 72; RESP 16; TEMP 36.4; O2SAT 98
[2022-04-07] MEDS: AMLODIPINE 10 MG TABLET PO (08:47)
[2022-04-07] MEDS: FOLIC ACID 1 MG TABLET PO (08:47)
[2022-04-07] MEDS: SODIUM CHLORIDE 0.9 % (FLUSH) 10 ML SYRINGE 5 ML IVF ×2 (08:48→21:34)
[2022-04-07] MEDS: MULTIVITAMIN/MINERALS 1 TABLET 1 TAB PO (08:48)
[2022-04-07 11:00] VITALS: BP 111/73; PULSE 70; RESP 16; TEMP 36.6; O2SAT 97
--- NOTE | 2022-04-07 11:16 | P.IMPN_ITS ---
Progress Note: A&P Assessment and plan (1) Wernicke-Korsakoff syndrome: Problem details: Patient has chronic cerebrovascular changes, chronic alcoholism, patient should receive PT and OT as long as possible and cooperative. He should not be driving. He should be in a half-way or some assisted living plan. He is a vulnerable adult without a safe discharge plan. Status: Acute (2) Chronic hyponatremia: Status: Acute (3) Adult failure to thrive: Problem details: Summation of poor life choices, chronic alcoholism and addiction. There is not a safe discharge plan: he continues to drink daily, ED visits for ataxia/intoxication. poor nutrition and ascess to basic necessities. poor family support. The question is does he have the decisional capacity to realize he shouldn't drink and drive and navigate the community as a vulnerable adult. Social work dept helping with a solution. Status: Acute (4) At risk for adverse event after discharge: Status: Acute (5) Unstable gait: Status: Acute (6) Mild protein-calorie malnutrition: Status: Acute (7) Alcoholism: Status: Acute (8) Wernicke encephalopathy: Problem details: thiamine replaced IV x 3 days, now starting po thiamine, continue folic acid, MVM Status: Acute (9) Poor dentition: Status: Acute Time Spent With Patient Total time spent: Vulnerable adult with Wernicke-Korsakoff syndrome (he continues to drink daily, ED visits for ataxia/intoxication. poor nutrition and ascess to basic necessities. poor family support). Continue PT and OT. Currently no safe discharge plan. Seeking placement in half-way or assisted living. Subjective Time Seen by Provider: 07:50 Date Seen: 04/07/22 Interval history: Danielito feels well. Denies concerns. There is no safe discharge option for him at present. He is awaiting placement. EXAM General: No acute distress. Awake, alert, oriented to self. Poor dentition, missing many teeth, others discolored and deteriorating. Cardiovascular: Regular rate and rhythm. No murmurs, gallops, or rubs. Respiratory: Clear to auscultation bilaterally. No wheezes or crackles. Exam Const: Vital Signs, click to edit/add: Vital Signs - 24 hr 04/06/22 13:00 04/06/22 15:00 04/06/22 17:00 Temperature 97.2 F L 97.4 F L Pulse Rate [Left B rachial] 70 66 66 Respiratory Rate 16 16 16 Blood Pressure [Le ft Arm] 103/70 115/70 Pulse Oximetry 97 [facility] 04/06/22 19:00 04/06/22 23:00 04/07/22 03:00 Temperature 97.4 F L 97.9 F Pulse Rate [Left B rachial] 74 67 Respiratory Rate 18 18 16 Blood Pressure [Le ft Arm] 115/91 H 125/69 Pulse Oximetry 97 94 [facility] 04/07/22 07:00 04/07/22 07:00 Temperature 97.6 F Pulse Rate [Left B rachial] 72 72 Respiratory Rate 16 16 Blood Pressure [Le ft Arm] 118/72 Pulse Oximetry 98 [facility]
[2022-04-07 15:00] VITALS: BP 130/89; PULSE 72; RESP 16; TEMP 36.3; O2SAT 96
[2022-04-07 19:00] VITALS: BP 121/78; PULSE 79; RESP 16; TEMP 36.6; O2SAT 99
[2022-04-07] MEDS: allopurinoL 300 MG TABLET PO (21:34)
[2022-04-07 23:00] VITALS: BP 132/78; PULSE 67; RESP 16; TEMP 36.8; O2SAT 95
[2022-04-08 03:00] VITALS: BP 122/78; PULSE 67; RESP 16; TEMP 36.6; O2SAT 97
--- NOTE | 2022-04-08 06:16 | PC.NURSE ---
[id number]: Patient friendly and cooperative with cares. SBA w/walker. Moves well. Denies pain. Waiting for placement.
[2022-04-08 07:58] VITALS: BP 113/80; PULSE 85; RESP 18; TEMP 36.4; O2SAT 100
[2022-04-08] MEDS: FOLIC ACID 1 MG TABLET PO (08:40)
[2022-04-08] MEDS: AMLODIPINE 10 MG TABLET PO (08:40)
[2022-04-08] MEDS: THIAMINE 100 MG TABLET PO (08:40)
[2022-04-08] MEDS: MULTIVITAMIN/MINERALS 1 TABLET 1 TAB PO (08:40)
[2022-04-08] MEDS: SODIUM CHLORIDE 0.9 % (FLUSH) 10 ML SYRINGE 5 ML IVF (08:41)
--- NOTE | 2022-04-08 09:27 | PM.DS1 ---
DS: Providers Provider Time Seen by Provider: 08:05 Date Seen: 04/08/22 Date of admission: 04/02/22 21:19 Primary care physician: Darcy Allen MD Admitting Clinician: Franklin Mojica MD Consults: 04/02/22 23:12 Consult to Physical Therapy [CONS] Routine Comment: Reason(s) for PT Consult:: Evaluate and Treat Any Restrictions?:: See Comment Comment: unsteady gait; ataxia Consult to 3Rd Grade Teacher [CONS] Routine Comment: Reason for Consult:: Discharge Planning Needs 04/02/22 23:17 Consult to Occupational Therapy [CONS] Routine Comment: Reason(s) for OT Consult:: Evaluate and Treat Any Restrictions?:: No Restrictions Comment: ?memory; ?ADLs Attending Physician on discharge: Cindy Conde MD Date of Discharge: 04/08/22 DS: Diagnosis Discharge Diagnosis (1) Adult failure to thrive: Status: Acute Problem details: Summation of poor life choices, chronic alcoholism and addiction. There is not a safe discharge plan: he continues to drink daily, ED visits for ataxia/intoxication. poor nutrition and ascess to basic necessities. poor family support. The question is does he have the decisional capacity to realize he shouldn't drink and drive and navigate the community as a vulnerable adult. Social work dept helping with a solution. (2) Unstable gait: Status: Acute (3) High serum lactate: Status: Acute (4) Dehydration: Status: Acute (5) Mild protein-calorie malnutrition: Status: Acute (6) Weakness: Status: Acute (7) Wernicke-Korsakoff syndrome: Status: Acute Problem details: Patient has chronic cerebrovascular changes, chronic alcoholism, patient should receive PT and OT as long as possible and cooperative. He should not be driving. He should be in a long-term or some assisted living plan. He is a vulnerable adult without a safe discharge plan. (8) Poor dentition: Status: Acute (9) Wernicke encephalopathy: Status: Acute Problem details: thiamine replaced IV x 3 days, now starting po thiamine, continue folic acid, MVM (10) Alcoholism: Status: Acute (11) Acute hyponatremia: Status: Acute (12) Intoxication: Status: Acute Problem details: Alcohol intoxication with blood alcohol level 0.17 (13) Chronic hyponatremia: Status: Acute (14) At risk for adverse event after discharge: Status: Acute DS: Summary Hospital Course Hospital Course: Danielito is a 72-year-old male with chronic alcoholism had become increasingly weak over a few weeks and having more frequent falls. He was found to have a sodium of 125 and blood alcohol level of 0.17. He was treated for hyponatremia with IV saline and an oral fluid restriction. He was treated for alcohol withdrawal with the CIWA protocol. It is notable that he had were in a keys encephalopathy on admission and was treated with IV thiamin for 3 days. Is a history of Wernicke Korsakoff syndrome which is becoming more advanced. creative services writer, physical therapy, and Occupational therapy were consulted. He return to his baseline ambulation and functioning and is discharged home today in stable condition. I vulnerable adult had been filed during this admission. We have worked with his family to start the process for medical assistance so that he can then get into assisted living once that is complete. Our social media sr strategy manager has called and spoke with someone from the [facility] who will be following to see when the MA paperwork goes through to help the family then get Danielito into assisted living. Status at Discharge Functional status at discharge: uses cane/walker Time Spent with Patient Time attestation: Total time spent providing and/or coordinating discharge services: Time spent: Less than 30 minutes Exam Narrative: Exam Narrative: General:? No acute distress.? Awake, alert, oriented to self. Poor dentition, missing many teeth, others discolored and deteriorating. Cardiovascular:? Regular rate and rhythm.? No murmurs, gallops, or rubs. Respiratory:? Clear to auscultation bilaterally.? No wheezes or crackles. Const: Vital Signs, click to edit/add: Vital Signs - 24 hr 04/07/22 11:00 04/07/22 15:00 04/07/22 15:00 Temperature 97.8 F 97.3 F L Pulse Rate [Left B rachial] 70 72 72 Respiratory Rate 16 16 16 Blood Pressure [Le ft Arm] 111/73 130/89 Pulse Oximetry 97 96 Oxygen Delivery [facility] Room Air Room Air 04/07/22 19:00 04/07/22 23:00 04/08/22 03:00 Temperature 97.9 F 98.2 F 97.8 F Pulse Rate [Left B rachial] 79 67 67 Respiratory Rate 16 16 16 Blood Pressure [Le ft Arm] 121/78 132/78 122/78 Pulse Oximetry 99 95 97 Oxygen Delivery Me thod Room Air Room Air Room Air 04/08/22 07:58 Temperature 97.6 F Pulse Rate [Left B rachial] 85 Respiratory Rate 18 Blood Pressure [Le ft Arm] 113/80 Pulse Oximetry 100 Oxygen Delivery Me [facility]od Room Air Discharge Plan Discharge Disposition: Home, Self-Care Date of Admission: 04/02/22 21:19 Attending Provider on Discharge: Cindy Conde Primary Care Provider: Darcy Allen Condition: Stable Anticipated Discharge Date/Time: 04/08/22 09:29 Discharge Medications: New folic acid 1 mg Tablet 1 mg PO DAILY Qty: 30 0RF thiamine mononitrate (vit B1) [Vitamin B-1 (mononitrate)] 100 mg Tablet 100 mg PO DAILY Qty: 30 0RF multivitamin with folic acid [Thera] 400 mcg Tablet 1 tab PO DAILY Qty: 30 0RF Continued esomeprazole magnesium 20 mg capsule,delayed release(DR/EC) 20 mg PO DAILY amlodipine 10 mg tablet 10 mg PO HS allopurinol 300 mg tablet 300 mg PO HS Discharge Orders: Discharge Order (Routine); Ordered 04/08/22 Ordered By: Cindy Conde Patient Education: Hyponatremia (DC), Alcohol Dependence (DC) Activity Restrictions/Additional Instructions: Community fish agent in 48 hours. No driving. Activity Level: Up with assist and Use Walker Discharge Diet: Regular Follow Up Appointments: Darcy Allen MD [Primary Care Provider] - (One week) Forms: [employer] Info Instructions
[2022-04-08 11:38] VITALS: BP 105/66; PULSE 72; RESP 18; TEMP 36.3; O2SAT 100
--- NOTE | 2022-04-08 14:02 | PC.SOCIAL ---
Pt. will discharge home with the community student development advisor. Made a referral to the [facility] for pt. assistance with moving to an [place], getting medical assistance, managing finances, and a home arjun aide. Updated Lorraine Bernard at [facility] on his discharge, the referral to the [facility], and that the recommendation is to an assisted living but none will accept without pt. getting medical assistance. Updated pt.'s son Danielito and Danielito's spouse Buffy will case picker pt. at 2:45 to take home.
--- NOTE | 2022-04-08 14:47 | PC.NURSE ---
Discharge: patient pleasant and cooperative. Up with SBA and cane. Vitals stable and WNL. Denies pain or SOB. IV removed with catheter intact. Discharge instructions and medications reviewed, questions answered as needed. Patient daughter here to take home, discharged via wheelchair from floor @ 1424.
== END 2022-04-08 14:27 | disposition home or self-care (01) ==
LOC: ED 20:06 → MEDSURG 22:13
PROVIDERS: Family Medicine; Admitting Provider Internal Medicine; Emergency Provider Internal Medicine; PCP Family Medicine; Visit Provider Internal Medicine
DX: F10.26 Alcohol dependence with alcohol-induced persisting amnestic disorder (principal); E87.1 Hypo-osmolality and hyponatremia; F10.229 Alcohol dependence with intoxication, unspecified; Y90.6 Blood alcohol level of 120-199 mg/100 ml; K21.9 Gastro-esophageal reflux disease without esophagitis; I10 Essential (primary) hypertension; Z86.718 Personal history of other venous thrombosis and embolism; E86.0 Dehydration; E44.1 Mild protein-calorie malnutrition; R62.7 Adult failure to thrive; R53.1 Weakness; E51.2 Wernicke's encephalopathy; K08.9 Disorder of teeth and supporting structures, unspecified; R27.0 Ataxia, unspecified
CPT/HCPCS: 36415; 70553; 71045; 80048; 80053; 80306; 81003; 82077; 82330; 82803; 82977; 83540; 83550; 83605; 83735; 83880; 84100; 84132; 84295; 84443; 84484; 85018; 85025; 85027; 86140; 87040; 87086; 87635; 93005; 93306; 96361; 96365; 96366; 97116; 97161; 97165; 99284; 99285; A9153; A9270; A9575; G0378; G0379; J3411; J7030

== ENCOUNTER 2022-04-16 11:34 | Outpatient (CLI) | payer OTHER, SELFPAY ==
--- OUTSIDE RECORDS SUMMARY | 2022-04-16 11:57 | XMS_ITS | Clinical Summary ---
:1950 Demographics Address [address] [place] [address] Mobile Phone Home Phone Phone Preferred Language Yakut Marital Status Unknown Rastafarian Affiliation Does not wish to list Race White Ethnic Group Not or Author Organization [facility] [place] [address] Care Team Providers Name Role Phone Darcy Allen MD Primary Care Provider [phone] Allergies Active Allergy Reactions Severity Noted Date Comments Indomethacin *None-Radiology Only Medications Medication Sig Dispensed Refills Start Date End Date Status amLODIPine (NORVASC) Take 1 tablet by 30 tablet 0 08/09/2016 Active 10 mg mouth once daily. tabletIndications: Hypertension acetaminophen Take 2 tablets by 0 09/27/2016 Active (TYLENOL) 325 mg mouth every 4 hours tabletIndications: if needed (For mild Pain pain.). Max acetaminophen dose: 4000mg in 24 hrs. omeprazole Take 20 mg by mouth 0 Active (PRILOSEC) 20 mg once daily before a Delayed-Release meal. capsule ferrous sulfate, 65 Take 325 mg by mouth 0 Active mg elemental, tablet once daily with a meal. allopurinol Take 300 mg by mouth 0 Active (ZYLOPRIM) 300 mg once daily. tablet oxyCODONE Take 1 tablet by 30 tablet 0 12/05/2016 Ac tive (ROXICODONE) 5 mg mouth every 6 hours immediate release if needed for Pain tabletIndications: Abdominal pain, unspecified location predniSONE Take 3 tablets by 30 tablet 0 12/05/2016 Active (DELTASONE) 5 mg mouth once daily tabletIndications: with a meal. Polyarticular gout Active Problems Problem Noted Date Intra-abdominal abscess 10/02/2016 Fever 10/02/2016 Palliative care encounter 08/08/2016 Overview: Palliative care inpatient consult () to address care goals and advance care planning, in setting of complicated hospital course following perforated duodenal ulcer. Anasarca 08/01/2016 CONSTANTIN (acute kidney injury) 08/01/2016 Acute encephalopathy 08/01/2016 Polyarticular gout 08/01/2016 ACP (advance care planning) 07/27/2016 Overview: Formatting of this note is dif ferent from the original. Patient has identified Health Care Agent (s): Yes Add Health Care Agents: Yes Health Care Agent(s): Primary Health Care Agent: Danielito Bustos ship: Son Secondary Health Care Agent: Britta Oliveros son Third health care agent: Allegra Caruso nship: Daughter Relationship: Friend Conservator: Relationship: Phone: Guardian: Relationship: Phone: Patient has Advance Care Plan Documents (Health Care Directive, POLST): No, .. Patient has identified Specific Treatmen t Preferences: Yes Specific Treatment Preferences: a.) Code Status: CPR/Attempt Resuscitation Duodenal ulcer 07/25/2016 Overview: S/p perf with surgical repair 07/25/16 Status post total right knee replacement 07/25/2016 Alcohol use disorder 07/25/2016 Overview: Drinks 4-5 beers daily Osteoarthritis 07/25/2016 Hx of perforated duodenal ulcer 07/25/2016 Anemia 07/25/2016 Thrombocytopenia 07/25/2016 Hyponatremia 07/25/2016 Secondhand smoke exposure 09/21/2010 Unspecified essential hypertension 01/01/2008 Headache(784.0) 11/26/2006 Overview: h/o H/A and scalp pain Gout, unspecified Unspecified arthropathy, multiple sites Overview: arthritis in all joints mostly on left s pacheco Colonic fistula Fistula Resolved Problems Problem Noted Date Resolved Date Fever 09/17/2016 10/02/2016 Fever 08/01/2016 10/02/2016 Encounters Date Type Specialty Care Team Description 04/04/2022 Orders Only <No scans attac hed> from Last 3 Months Immunizations Name Administration Dates Next Due Influenza, IIV3 (Age >=3 years) 06/20/2008 Influenza, IIV4 04/20/2016 Tdap 03/16/2012 Family History Medical History Relation Name Comments Heart Disease Father Stroke Mother Relation Name Status Comments Father Mother (Age 60) Social History Tobacco Use Types Packs/Day Years Used Date Former Smoker Cigarettes 1 Quit: 07/21/18 87 Smokeless Tobacco: Never Used Alcohol Use Standard Drinks/Week Comments Yes 20 (1 standard drink = 0.6 oz pure 4-5 c ans of beer per day, after alcohol) work Alcohol Habits Answer Date Recorded How often do you have a drink Not asked containing alcohol? How many drinks containing alcohol do Not asked you have on a typical day when you are drinking? How often do you have six or more Not asked drinks on one occasion? Comment: 4-5 cans of beer per day, after 07/25/19 17 work Sex Assigned at Date Recorded Not on file Obstetrics History Last Filed Vital Signs Vital Sign Reading Time Taken Comments Blood Pressure 158/106 03/25/2017 1:03 PM CDT Pulse 80 03/25/2017 1:03 PM CDT Temperature 36.7 ??C (98.1 ??F) 03/25/2017 1:03 PM CDT Respiratory Rate 16 12/05/2016 4:00 PM CDT Oxygen Saturation 97% 12/05/2016 4:00 PM CDT Inhaled Oxygen Concentration - - Weight 92.5 kg (204 lb) 03/25/2017 1:03 PM CDT Height 177.8 cm (5' 10) 03/25/2017 1:03 PM CDT Body Mass Index 29.27 03/25/2017 1:03 PM CDT Plan of Treatment Health Maintenance Due Date Last Done Comments Pneumococcal series for age 65+ (1 1957 - PCV) Depression screening for age 12+ 1963 Hepatitis C screening for age 0803/07/1969 18-79 Zoster (shingles) series for age 0803/07/1970 50+ (1 of 2) Colonoscopy through age 75 1996 Lipids for age 45-75 03/21/2016 03/21/2011, 12/29/2007, 12/04/2005 BMI (ht and wt on same day) for 03/25/2018 03/25/2017, 01/18, age 18+ 12/09/2016, Additional history exists COVID-19 vaccine series (2 - 06/19/2021 05/22/2021 Moderna series) Tetanus booster 03/16/2022 03/16/2012 Influenza for age 65+ 03/21/2022 04/20/2016, 06/20/2008 Tdap Completed 03/16/2012 Procedures Procedure Name Priority Date/Time Associated Diagnosis Comme nts ECHO COMPLETE WO Routine 04/04/2022 1:20 PM Alcoholic heart Re sults for this CONTRAST CDT muscle disease (HC) procedur e are in the results section. from Last 3 Months Results ECHO COMPLETE WO CONTRAST (04/04/2022 1:20 PM CDT) P athologist Signature AORTIC VALVE 4 mmHg MEAN PG EJECTION 73 % FRACTION PEAK TR 2.3 m/s VELOCITY LVEDD 3.9 cm Anatomical Region Laterality Modality HEART Ultrasound Specimen (Source) Anatomical Collection Method Collection Time Re ceived Time Location / / Volume Laterality 04/04/2022 12:40 PM CDT Narrative 04/04/2022 3:02 PM CDT ECHOCARDIOGRAM DANIELITO VALENZUELA ? Accessi on#: ?? [id number] : ?1950 72 years Study Date: ?? 04/04/2022 12:40:46 PM Gender: M ?BP: ? 121/81 mmHg Height: 175.00 cm ?BSA: ?1.95 m? ?? Weight: 79.00 kg ? Tech: ? MCK ? Referring MD: JAY WATKINS Site: ? [facility] Reading Location: [facility] Procedure: 2D, Color Doppler and Spectra l Doppler. Indication for study: Alcoholic heart mu scle disease Cardiac Rhythm: Regular.Study quality: F air. Final Impressions: 1. Normal left ventricular size, severe ly increased wall thickness, normal global systolic function, calculated EF of 73 %. 2. The mitral valve is normal and scler otic, mild to moderate mitral regurgitation. 3. 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 Chamber Sizes and Function Normal left ventricular size, severely i ncreased wall thickness, normal global systolic function, calculated EF of 73 %. Left atrial size is normal. Right ventricular cavity size is normal, global systo lic RV function is normal. RV wall thick ness is normal. The right atrium is normal. Right atrial volume index is 7 ml/m? ??. Right atrial area is 9 cm? ??. The pulmonary artery is of normal size and zia gin. The sinus of Valsalva is dilated. T he ascending aorta is normal sized. Valves, RV Pressures and Diastolic Funct ion The aortic valve is trileaflet, no steno sis and trivial regurgitation. The mitral valve is normal in structure and sclerotic, mild to moderate mitral regurgitation. Indeterminate pattern of LV diastolic filling. The tricuspid valve is normal in structure. Tricuspid regurgitation is trace regurgitation. The tricuspid regurgitant velocity is 2.3 m/s, the estimated right ventricular systolic pressure is 21 mmHg plus right atrial pressure. Ther e is normal estimated pulmonary pressure by tricuspid regurgitation velocity and right atrial pressure. The pulmonic valve is normal. No pulmonary regurgitation. Masses, Effusion, Shunts There is no pericardial effusion. The in ferior vena cava is not well visualized, respiratory size variation not well visualized. Interatrial septum is not well visualized. MEASUREMENTS AND CALCULATIONS 2-D Measurements and LV Function: LVID (d) 3.9 cm Planimetered EF 73 % LVID (s) 2.4 cm LV FS% (2D) ? 39 % IVS (d) ??1.6 cm LVOT diameter ?? 2.3 cm LVPW (d) 1.5 cm HR ?6 2 bpm Ao Sinus 4.1 cm LA Vol index ?19 ml/ m2 Asc Ao ?? 3.8 cm RA Vol index ?7 ml/ m2 LA ? 4.5 cm RA area ? 9 cm?RV Max 4C (d) ?? 3.5 cm Diastology: Mitral ?Tissue Doppler E Peak 0.7 m/s ??e', Septum ? 0.05 m /s A Peak 1.0 m/s ??e', Lateral ?0.09 m /s E/A ?0.7 ?E/e' Average ?? 9.7 9 DT ? 306 msec IVRT ?? 135 msec Aortic Valve: Vmax ? 1.4 m/s ??LISA (V) ?? 3.60 cm? ?? VTI ?0.28 m ?? LISA (I ) ?? 3.80 cm? ?? LVOT V max ? 1.2 m/s ??Max PG ?8 mmHg LVOT VTI ? 0.26 m ?? Mean PG ? ? 4 mmHg SV ? 106 ml ?? Dim In dex 0.95 SV index ? 55 ml/m? ?? CO ?6.6 l/min AV Ejection Time 0.31 sec CI ? 3.4 l/min/m? ?? AV Flow Rate ? 348 ml/s Mitral Valve: MVA ?2.5 cm? ?? MR TVI 1.82 m MV P 1/2 89 msec Tricuspid Valve and estimated PA pressur es: TR Vmax 2.3 m/s TAPSE 2.2 cm TR maxG 21 mmHg . This study was interpreted by an [facility] redited facility. CC: [facility] [place], Med/ Surg - IP [facility]. ??Final ?? Procedure Note Deniz Mao MD - 04/04/2022Fo rmatting of this note might be different from the original. ECHOCARDIOGRAM DANIELITO VALENZUELA : 1950 72 years Study Date: 04/04 12:40:46 PM Gender: M BP: 121/81 mmHg Height: 175.00 cm BSA: 1.95 m? ?? Weight: 79.00 kg Tech: EDGAR Referring MD: JAY WATKINS Site: [facility] Reading Location: [facility] Procedure: 2D, Color Doppler and Spectra l Doppler. Indication for study: Alcoholic heart mu scle disease Cardiac Rhythm: Regular.Study quality: F air. Final Impressions: 1. Normal left ventricular size, severe ly increased wall thickness, normal global systolic function, calculated EF of 73 %. 2. The mitral valve is normal and scler otic, mild to moderate mitral regurgitation. 3. 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 Chamber Sizes and Function Normal left ventricular size, severely i ncreased wall thickness, normal global systolic function, calculated EF of 73 %. Left atrial size is normal. Right ventricular cavity size is normal, global systolic RV function is normal. RV wall thickness is normal. The right atrium is normal. Right atrial volume index is 7 ml/m? ??. Right atrial area is 9 cm? ??. The pulmonary artery is of normal size and origin. The sinus of Valsalva is dilated. The ascending aorta is normal sized. Valves, RV Pressures and Diastolic Funct ion The aortic valve is trileaflet, no steno sis and trivial regurgitation. The mitral valve is normal in structure and sclerotic, mild to moderate mitral regurgitation. Indeterminate pattern of LV diastolic filling. The tricuspid valve is normal in structure. Tricuspid regurgitation is trace regurgitation. The tricuspid regurgitant velocity is 2.3 m/s, the estimated right ventricular systolic pressure is 21 mmHg plus right atrial pressure. There is normal estimated pulm onary pressure by tricuspid regurgitation velocity and right atrial pressure. The pulmonic valve is normal. No pulmonary regurgitation. Masses, Effusion, Shunts There is no pericardial effusion. The in ferior vena cava is not well visualized, respiratory size variation not well visualized. Interatrial septum is not well visualized. MEASUREMENTS AND CALCULATIONS 2-D Measurements and LV Function: LVID (d) 3.9 cm Planimetered EF 73 % LVID (s) 2.4 cm LV FS% (2D) 39 % IVS (d) 1.6 cm LVOT diameter 2.3 cm LVPW (d) 1.5 cm HR 62 bpm Ao Sinus 4.1 cm LA Vol index 19 ml/m2 Asc Ao 3.8 cm RA Vol index 7 ml/m2 LA 4.5 cm RA area 9 cm? ?? RV Max 4C (d) 3.5 cm Diastology: Mitral Tissue Doppler E Peak 0.7 m/s e', Septum 0.05 m/s A Peak 1.0 m/s e', Lateral 0.09 m/s E/A 0.7 E/e' Average 9.79 DT 306 msec IVRT 135 msec Aortic Valve: Vmax 1.4 m/s LISA (V) 3.60 cm? ?? VTI 0.28 m LISA (I) 3.80 cm? ?? LVOT V max 1.2 m/s Max PG 8 mmHg LVOT VTI 0.26 m Mean PG 4 mmHg SV 106 ml Dim Index 0.95 SV index 55 ml/m? ?? CO 6.6 l/min AV Ejection Time 0.31 sec CI 3.4 l/min/m ? ?? AV Flow Rate 348 ml/s Mitral Valve: MVA 2.5 cm? ?? MR TVI 1.82 m MV P 1/2 89 msec Tricuspid Valve and estimated PA pressur es: TR Vmax 2.3 m/s TAPSE 2.2 cm TR maxG 21 mmHg . This study was interpreted by an [facility] redited facility. CC: [facility] [place], Med/ Surg - IP [facility]. Final Jay Watkins ECHO ORD from Last 3 Months Additional Health Concerns Infection Onset Date Last Indicated [id number]: Order contact precautions. Order consult 10/07/2016 to Infection Prevention to determine if patient may be removed from precautions. Insurance Payer Benefit Plan / Subscriber ID Effective Dates Phone Addre ss Type Group MEDICARE PART A MEDICARE PART A [id number] 2016-Present ATTN: CLAIMS - HB USE ONLY HB ONLY [address] [place] [address] MEDICARE PART B MEDICARE PART B [id number] 2016-Present ATTN: CLAIMS - HB USE ONLY HB ONLY [address] [place] [address] HUMANA GOLD MR HUMANA CHOICE [id number] 2020-Present [address] [address] PPO [employer] [place] [phone] Guarantor Name Account Type Relation to Date of Phone Billing Address Patient Danielito Valenzuela Personal/Family Self 1950 [address] [place] [address] [employer] (Home) PAYABLE [address] [place] [address] Advance Directives Documents on File Type Date Recorded 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 Explanati on POLST 10/08/2016 11:11 AM 09/30/2016 Latest Code Status on File Code Status Date Activated Date Inactivated Comments Full Code 12/03/2016 4:20 PM 12/05/2016 10:17 PM Code Status Discussion: Not Discussed Per Existing Order Full Code 10/04/2016 3:41 PM 10/11/2016 3:23 PM Full Code 10/02/2016 2:33 PM 10/04/2016 3:41 PM Full Code 09/17/2016 4:11 PM 09/27/2016 1:00 PM Code Status Discussion: Discussed DNR 08/15/2016 3:29 PM 08/22/2016 6:11 PM Code Status Discussion: Discussed with patient's s on, who discussed with his siblings Care Teams Police Chief Deputy Relationship Specialty Start Date End Date Darcy Allen MD PCP - General Family Practice 07/24/161999 [place] [address]
--- OUTSIDE RECORDS SUMMARY | 2022-04-16 11:57 | XMS_ITS | Encounter Summary ---
:1950 Author Organization [facility] Address [address] [place] [address] Phone Care Team Providers Name Role Phone Unavailable Primary Care Provider Unavailable Encounter Details Date Type Department Care Team Description 05/23/2021 Orders Only [facility] Film Room Provider, Outside Referral of patient (Primary Dx); [facility] OUTSIDE PROVIDER [facility] [place], [place] Radiology Department [id number] [facility] [address] [address] Social History Tobacco Use Types Packs/Day Years Used Date Smoking Tobacco: Never Assessed Sex Assigned at Date Recorded Not on file COVID-19 Exposure Response Date Recorded In the last month, have you been in contact with No / Unsure 05/31/2021 2:44 PM HUMANITIES COORDINATOR someone who was confirmed or suspected to have Coronavirus / COVID-19? documented as of this encounter Plan of Treatment Not on filedocumented as of this encounter Results XR UPPER EXTREMITY OUTSIDE FILMS (05/21/2021 2:05 PM CDT) Specimen (Source) Anatomical Location Collection Method / Collectio n Time Received Time / Laterality Volume Narrative Dummy, [id number]-[id number]-Nwubybxab - 12:57 PM CDT Outside Film Only Outside Provider OUTSIDE FILMS ULT VASCULAR OUTSIDE FILMS (05/15/2021 11:12 AM CDT) Specimen (Source) Anatomical Location Collection Method / Collectio n Time Received Time / Laterality Volume Narrative Dummy, [id number]-Kynjrt-Lzcfywyqh - 12:58 PM CDT Outside Film Only Outside Provider OUTSIDE FILMS XR UPPER EXTREMITY OUTSIDE FILMS (05/13/2021 12:59 PM CDT) Specimen (Source) Anatomical Location Collection Method / Collectio n Time Received Time / Laterality Volume Narrative Dummy, Kczt-Gllugm-Dnxpxtvlw - 12:56 PM CDT Outside Film Only Outside Provider OUTSIDE FILMS XR UPPER EXTREMITY OUTSIDE FILMS (05/13/2021 12:50 PM CDT) Specimen (Source) Anatomical Location Collection Method / Collectio n Time Received Time / Laterality Volume Narrative Dummy, [id number]-Lvjalt-Syhrnbute - 12:57 PM CDT Outside Film Only Outside Provider OUTSIDE FILMS XR UPPER EXTREMITY OUTSIDE FILMS (05/13/2021 12:49 PM CDT) Specimen (Source) Anatomical Location Collection Method / Collectio n Time Received Time / Laterality Volume Narrative Dummy, [id number]-Uqwqnj-Qpvbkehac - 12:57 PM CDT Outside Film Only Outside Provider OUTSIDE FILMS ULT VASCULAR OUTSIDE FILMS (05/13/2021 12:11 PM CDT) Specimen (Source) Anatomical Location Collection Method / Collectio n Time Received Time / Laterality Volume Narrative Dummy, Ejai-Wqvmcu-Prucctmqe - 12:58 PM CDT Outside Film Only Outside Provider OUTSIDE FILMS ULT VASCULAR OUTSIDE FILMS (05/13/2021 11:54 AM CDT) Specimen (Source) Anatomical Location Collection Method / Collectio n Time Received Time / Laterality Volume Narrative Dummy, Zlin-Rvhfme-Uadjyohie - 1 12:58 PM CDT Outside Film Only Outside Provider OUTSIDE FILMS XR UPPER EXTREMITY OUTSIDE FILMS (05/11/2021 6:37 PM CDT) Specimen (Source) Anatomical Location Collection Method / Collectio n Time Received Time / Laterality Volume Narrative Dummy, [id number]-Koztzc-Gmgfsdcun - 12:56 PM CDT Outside Film Only Outside Provider OUTSIDE FILMS documented in this encounter Visit Diagnoses Diagnosis Referral of patient - Primary Referral of patient without examination or treatment Humerus fracture Closed fracture of unspecified part of h umerus documented in this encounter
--- OUTSIDE RECORDS SUMMARY | 2022-04-16 11:57 | XMS_ITS | Clinical Summary ---
:1950 Author Organization [facility] Address [address] [place] [address] Phone Care Team Providers Name Role Phone Unavailable Primary Care Provider Unavailable Source Comments Leondra music is fully rolled out on Pow[employer]. Last update 12/23/08.AdTotum Medications Be aware that medications may not be up to date as of this document. Always verify current medications with patient. No known medications Social History Tobacco Use Types Packs/Day Years Used Date Smoking Tobacco: Never Assessed Sex Assigned at Date Recorded Not on file Plan of Treatment Health Maintenance Due Date Last Done Comments CT Colonography 1950 Colonoscopy 1950 Colorectal Cancer Screening 1950 Dental Oral Exam 1950 Dental Prophylaxis 1950 Dental X-Ray: Bitewings 1950 FIT/Cologuard 1950 Hepatitis C Screening 1950 Sigmoidoscopy 1950 iFOB/FIT 1950 Lipid Screening 1951 Periodontal Maintenance 1965 Medicare Annual Wellness 1969 PREVENTATIVE VISIT 1969 HEALTH MAINTENANCE PROTOCOL 1970 Abdominal Aortic Aneurysm 2016 (AAA) Screening Osteoporosis Screening (Dexa 2016 Scan) COVID-19 Vaccine (2 - Moderna 06/19/2021 05/22/2021 series) INFLUENZA VACCINE 03/21/2022 05/03/2021, 05/31/2018, 04/20/2016 TD/TDAP ADULTS 03/17/2028 03/17/2018, 04/16/2012, 03/16/2012 PNEUMOCOCCAL IMMUNIZATION > 65 Completed 02/10/2019 YRS HIB Aged Out No longer eligib le based on patient's age to complete this to [facility] HPV Aged Out No longer eligib le based on patient's age to complete this to [facility] Insurance Payer Benefit Plan Subscriber ID Effective Dates Phone Address Type / Group HUMANA HUMANA [id number] 2021-Jenn [phone] [address] Medicare (MEDICARE nt [address] [place], [facility] [place] [id number]
--- OUTSIDE RECORDS SUMMARY | 2022-04-16 11:57 | XMS_ITS | Encounter Summary ---
:1950 Author Organization [facility] Address [address] [place] [address] Phone Care Team Providers Name Role Phone Unavailable Primary Care Provider Unavailable Reason for Visit Reason Comments Appointment Encounter Details Date Type Department Care Team Description 05/23/2021 Documentation Only Clinic & Specialty Porsha Flores ie, Appointment Center Orthopedic Cl darryl VALDEZ [address] [place] [address] [place], [place] [phone] (Wo rk) Social History Tobacco Use Types Packs/Day Years Used Date Smoking Tobacco: Never Assessed Sex Assigned at Date Recorded Not on file documented as of this encounter Progress Notes Rosa Godfrey - 05/23/2021 2:46 PM CDT I called Jory Valdez, Nurse Cake Froster, at the [facility] (3 times) to schedule a visit for patient's right shoulder. However, she did not return my phone calls. I called main number and spoke with Lisa. I gave her the appointment information and will fax a confirmation to her and Jory at [phone]. Jory's . NO PORTER documented in this encounter Plan of Treatment Not on filedocumented as of this encounter Visit Diagnoses Not on filedocumented in this encounter
--- OUTSIDE RECORDS SUMMARY | 2022-04-16 11:57 | XMS_ITS | Encounter Summary ---
:1950 Author Organization [facility] Address [address] [place] [address] Phone Care Team Providers Name Role Phone Unavailable Primary Care Provider Unavailable Reason for Visit Reason Onset Date Comments ER F/U 05/23/2021 Encounter Details Date Type Department Care Team Description 05/23/2021 Telephone Clinic & Specialty Center Ai Nuñez RN ER F/U Orthopedic [facility] [address] [place] [address] Social History Tobacco Use Types Packs/Day Years Used Date Smoking Tobacco: Never Assessed Sex Assigned at Date Recorded Not on file documented as of this encounter Miscellaneous Notes Telephone Encounter - Cathy Massey RN - 05/23/2021 2:44 PM CDT Reviewed with Dr Flores. Kirsta will schedule pt 05/31/21 with xrays prior. Telephone Encounter - Ai Mccarthy RN - 05/23/2021 9:47 AM CDT D: Referral received per message below for Danielito for ED F/U S/P 05/13/2021 right proximal humerus fracture (DOI reported as 05/11/2021). A/R/P: Attempt was made to access records under Care Everywhere from [facility] where Krista reports Danielito was evaluated but no documents were found. Will await receipt of images via PACS to determine appropriate scheduling with the correct provider. Ai Mccarthy RN, 05/23/2021 10:54 AM ----- Message from Rosa Godfrey sent at 05/23/2021 7:56 AM CDT ----- A referral arrived via Fax , from [facility], re: above patient. He has a right angulated right upper extremity 2 part proximal humerus fx . Xrays are being sent over (PACS). (Injury was05/11/21, seen in ED 05/13/21) Pt's physician Is Dr. Nathanael Ospina and recommending a possible TSA.Not sure who I should schedule with?? Jory is the Nurse Access Specialist at the facility, and I left her a VMrequesting they expedite the XR's (Her phone#[phone]) documented in this encounter Plan of Treatment Not on filedocumented as of this encounter Visit Diagnoses Not on filedocumented in this encounter
--- OUTSIDE RECORDS SUMMARY | 2022-04-16 11:57 | XMS_ITS | Encounter Summary ---
:1950 Author Organization [facility] Address [address] [place] [address] Phone Care Team Providers Name Role Phone Unavailable Primary Care Provider Unavailable Encounter Details Date Type Department Care Team Description 05/31/2021 Hospital Encounter Clinic & Specialty Porsha Flores, Center ROSALBA VALDEZ [address] [place] [address] [address] [place], [place] [phone] (Wo rk) Social History Tobacco Use Types Packs/Day Years Used Date Smoking Tobacco: Never Assessed Sex Assigned at Date Recorded Not on file COVID-19 Exposure Response Date Recorded In the last month, have you been in contact with No / Unsure 05/31/2021 2:44 PM BASKETBALL ASSEMBLER someone who was confirmed or suspected to have Coronavirus / COVID-19? documented as of this encounter Plan of Treatment Not on filedocumented as of this encounter Procedures Procedure Name Priority Date/Time Associated Diagnosis Comme nts XR SHOULDER RIGHT Routine 05/31/2021 3:13 PM Humerus fracture Results for this 4/5 VIEWS BASKETBALL ASSEMBLER procedure are i n the results section. documented in this encounter Results XR SHOULDER RIGHT 4/5 VIEWS (05/31/2021 3:13 PM BASKETBALL ASSEMBLER) Anatomical Region Laterality Modality Upper Arm Digital Radiography Specimen (Source) Anatomical Collection Method Collection Time Re ceived Time Location / / Volume Laterality 05/31/2021 3:22 PM BASKETBALL ASSEMBLER Impressions 05/31/2021 3:23 PM BASKETBALL ASSEMBLER Impression: Stable alignment. Reading Radiologist: Isac Franks Narrative 05/31/2021 3:23 PM BASKETBALL ASSEMBLER Indication: proximal humerus fx- Dr Flores's preferred views ?? Comparison: 05/21/2021 Findings: Proximal humeral fracture agai n seen. Exuberant callus formation. Alignment is stable. Visualized right lung apex is clear. Procedure Note Isac Franks, MBBS - 05/31/2021Forma tting of this note might be different from the original. Indication: proximal humerus fx- Dr Tejas espinoza'lori preferred views Comparison: 05/21/2021 Findings: Proximal humeral fracture agai n seen. Exuberant callus formation. Alignment is stable. Visualized right lung apex is clear. IMPRESSION Impression: Stable alignment. Reading Radiologist: Isac Franks Porsha Flores MD X-RAY documented in this encounter Visit Diagnoses Diagnosis Humerus fracture Closed fracture of unspecified part of h umerus documented in this encounter
--- OUTSIDE RECORDS SUMMARY | 2022-04-16 11:57 | XMS_ITS | Encounter Summary ---
:1950 Author Organization [facility] Address [address] [place] [address] Phone Care Team Providers Name Role Phone Unavailable Primary Care Provider Unavailable Reason for Visit Reason Comments Shoulder Pain Encounter Details Date Type Department Care Team Description 05/31/2021 Office Visit Clinic & Specialty Porsha Flores Closed fr acture of [place] Venita White MD proximal end of right Clinic [address] [facility] humerus, unspecified [address] G2 fracture morphology, [place], [place] [address] [place], [place] initial encounter [phone] (Primary Dx) Social History Tobacco Use Types Packs/Day Years Used Date Smoking Tobacco: Never Assessed Sex Assigned at Date Recorded Not on file COVID-19 Exposure Response Date Recorded In the last month, have you been in contact with No / Unsure 05/31/2021 2:44 PM VALVE FITTER someone who was confirmed or suspected to have Coronavirus / COVID-19? documented as of this encounter Patient Instructions Patient InstructionsCathy Massey RN - 05/31/2021 3:15 PM CST No lifting with right arm more then a coffee cup Use sling except for pendulum exercises, hand, wrist, elbow motion Passive ROM to start 06/11 with physical therapy- details in [place] paperwork Arm sleeve for edema control RTC [address] Ospina in [place]- if needed you can follow up at [facility] FITTER documented in this encounter Progress Notes Porsha Flores MD - 05/31/2021 3:15 PM CST [facility] [place] [address] Orthopaedic Surgery Clinic - New Patient DATE OF INJURY: 05/11/2021 INJURY: Right proximal humerus fracture MECHANISM: Ground level fall CHIEF CONCERN: Right proximal humerus fracture HISTORY OF PRESENT ILLNESS: Danielito Valenzuela is a 71 y.o. male 3 weeks s/p right proximal humerus fracture. He rates his pain as 4/10 with activity. He has been managing his pain with tylenol and oxycodone. He sustained this fracture when he fell backwards 3 weeks prior at his home in [facility]. He reports not hitting his head. Since he fell he has been seen by Dr. Ospina who referred him to [facility] for evaluation. He has been wearing a sling on his injured arm at almost all times. He describes working with physical therapy since his injury, but mostly focused on ambulation. He also reports being confined to his room at his facility until last since he had not been vaccinated for Covid-19 before then. PAST MEDICAL HISTORY: HTN PAST SURGICAL HISTORY: B/L TKA from Dr. Ospina Left 1 years prior, Right 2 years prior SOCIAL HISTORY: Tobacco: Quit 50 years prior Alcohol: 3-4 beers/day with dinner Illicit Drugs: Denies Occupation: Retired Activity: Ambulates with a cane since knee operations FAMILY HISTORY: Has no known family history of problems with bleeding, clotting, or anesthesia. ALLERGIES: Indomethacin MEDICATIONS: Amlodipine 10 mg QD REVIEW OF SYSTEMS: A complete ROS was conducted and was negative other than as in the HPI above. PHYSICAL EXAM: There is no height or weight on file to calculate BMI. General: Alert. Oriented to person, place, and time. Appears well-developed and well-nourished. No distress. Head: Normocephalic and atraumatic. Eyes: EOM are normal. Resp: Effort normal. Skin: Warm and well-perfused. Psych: Normal mood and affect. Musculoskeletal: Focused exam of RUE: Significant edema through fingertips PROM FF 0-60, ER 0-20 CMS intact IMAGIN views of right shoulder x-rays dated 05/31/2021 reviewed and personally interpreted. Demonstrates healing 2 part fracture of proximal humerus with callous formation near fracture and superior. MEDICAL DECISION MAKINyM 3 weeks s/p right humeral shaft fracture to be managed nonoperatively. - Given compression glove and sleeve to reduce swelling - Instructed on need to remove sling from time to time to prevent stiffness/work on range of motion of shoulder, elbow, wrist and fingers - Instructions given to halfway care facility for physical therapy for right upper extremity - To follow up in [address] Ospina with x-rays, we are happy to assist with care of this patient should any questions arise Rafael Berry, MS4 Orthopaedic Surgery Addendum to follow FACULTY NOTE I saw and evaluated the patient 05/31/21. I discussed with the student and agree with the resident???s findings and plan documented in the resident???s note from above. Any revisions by me are documented. Reviewed above. Sent for further evaluation about his displaced proximal humerus fracture. F/u imaging shows reasonable alignment with healing noted. Would not recommend any surgery at this point. Discussed he can expect a functional outcome but will loose ROM. Patient understands. Happy to continue to treat or he can f/u with Dr Ospina closer to home. Would recommend starting physical therapy by 06/09, as written on physician orders. - compression sleeve provided - sling for comfort; recommend pendulums/elbow/wrist/hand ROM; prom to begin on 06/09 in all directions - pt to start on 06/09 - f/u in 3 weeks with xrays (either Dr Ospina or myself) Porsha Flores MD, 06/01/2021 6:23 PM E FITTER documented in this encounter Plan of Treatment Not on filedocumented as of this encounter Visit Diagnoses Diagnosis Closed fracture of proximal end of right humerus, unspecified fracture morphology, initial encounter - Primary documented in this encounter
--- OUTSIDE RECORDS SUMMARY | 2022-04-16 11:57 | XMS_ITS | Encounter Summary ---
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 documented as of this encounter Plan of Treatment Not on filedocumented as of this encounter Visit Diagnoses Not on filedocumented in this encounter
[2022-04-16 15:08] LABS: Albumin* 4.2 g/dL (3.3-5.0)
[2022-04-16 15:09] LABS: Chloride* 102 mmol/L (96-114); Potassium* 4.2 mmol/L (3.6-5.1); Sodium* 136 mmol/L (135-149)
[2022-04-16 15:11] LABS: Bilirubin Total* 0.6 mg/dL (0.1-1.5); Carbon Dioxide* 25 mmol/L (20-32); Cholesterol* 178 mg/dL (90-199); Creatinine* 1.2 mg/dL (0.5-1.5); Estimated Glomerular Filt Rate 65 ml/min
[2022-04-16 15:12] LABS: Alanine Aminotransferase* 13 U/L (4-50); Alkaline Phosphatase* 79 U/L (40-150); Aspartate Amino Transferase* 25 U/L (12-35); Blood Urea Nitrogen* 13 mg/dL (7-30); Calcium* 9.5 mg/dL (8.4-10.6); Glucose* 104 mg/dL (60-115); Triglycerides* 93 mg/dL (40-149)
[2022-04-16 15:13] LABS: HDL Cholesterol* 51 mg/dL (>=40); LDL Cholesterol Calculated 109 mg/dL (<100)
== END 2022-04-16 11:35 | disposition home or self-care (01) ==
PROVIDERS: PCP Family Medicine; Visit Provider Family Medicine
DX: E87.1 Hypo-osmolality and hyponatremia (principal); F10.20 Alcohol dependence, uncomplicated; Z13.220 Encounter for screening for lipoid disorders
CPT/HCPCS: 80053; 80061

== ENCOUNTER 2022-04-23 11:54 | Outpatient (CLI) | payer OTHER, SELFPAY ==
--- OUTSIDE RECORDS SUMMARY | 2022-05-06 11:41 | XMS_ITS | Encounter Summary ---
:1950 Author Organization [facility] Address [address] [place] [address] Phone Care Team Providers Name Role Phone Unavailable Primary Care Provider Unavailable Encounter Details Date Type Department Care Team Description 05/31/2021 Hospital Encounter Clinic & Specialty Porsha Flores, Center ROSALBA VALDEZ [address] [place] [address] [address] [place], [place] [phone] (Wo rk) Social History Tobacco Use Types Packs/Day Years Used Date Smoking Tobacco: Never Assessed Sex Assigned at Date Recorded Not on file COVID-19 Exposure Response Date Recorded In the last month, have you been in contact with No / Unsure 05/31/2021 2:44 PM SALES TRADER someone who was confirmed or suspected to have Coronavirus / COVID-19? documented as of this encounter Plan of Treatment Not on filedocumented as of this encounter Procedures Procedure Name Priority Date/Time Associated Diagnosis Comme nts XR SHOULDER RIGHT Routine 05/31/2021 3:13 PM Humerus fracture Results for this 4/5 VIEWS SALES TRADER procedure are i n the results section. documented in this encounter Results XR SHOULDER RIGHT 4/5 VIEWS (05/31/2021 3:13 PM SALES TRADER) Anatomical Region Laterality Modality Upper Arm Digital Radiography Specimen (Source) Anatomical Collection Method Collection Time Re ceived Time Location / / Volume Laterality 05/31/2021 3:22 PM SALES TRADER Impressions 05/31/2021 3:23 PM SALES TRADER Impression: Stable alignment. Reading Radiologist: Isac Franks Narrative 05/31/2021 3:23 PM SALES TRADER Indication: proximal humerus fx- Dr Flores's preferred [...]
--- OUTSIDE RECORDS SUMMARY | 2022-05-06 11:41 | XMS_ITS | Clinical Summary ---
:1950 Demographics Address [address] [place] [address] Mobile Phone Home Phone Phone Preferred Language Bulgarian Marital Status Unknown Presybeterian Affiliation Does not wish to list Race White Ethnic Group Not or Author Organization [facility] [place] [address] Care Team Providers Name Role Phone Darcy Allen MD Primary Care Provider [phone] Allergies Active Allergy Reactions Severity Noted [...] ECHOCARDIOGRAM DANIELITO VALENZUELA ? Accessi on#: ?? [id number] : ?1950 72 years Study Date: ?? 04/04/2022 12:40:46 PM Gender: M ?BP: ? 121/81 mmHg Height: 175.00 cm ?BSA: ?1.95 m? ?? Weight: 79.00 kg ? Tech: ? MCK ? Referring MD: JAY WATKINS [facility] Location: [...] . This study was interpreted by an [facility] redited facility. CC: [facility] [place], Med/ Surg - IP [facility]. ??Final ?? Procedure Note Deniz Mao MD - 04/04/2022Fo rmatting of this note might be different from the original. ECHOCARDIOGRAM DANIELITO VALENZUELA : 1950 72 years Study Date: 04/04 12:40:46 PM Gender: M BP: 121/81 mmHg Height: 175.00 cm BSA: 1.95 m? ?? Weight: 79.00 kg Tech: EDGAR Referring MD: JAY WATKINS Site: [facility] Reading Location: [facility] Procedure: 2D, [...] . This study was interpreted by an [facility] redited facility. CC: [facility] [place], Med[facility]urg - IP [facility]. Final Jay Watkins ECHO ORD from Last 3 Months Additional Health Concerns Infection Onset Date Last Indicated MDRO-GNBComment: Order contact precautions. Order consult 10/07/2016 to Infection Prevention to determine if patient may be removed from precautions. Insurance Payer Benefit Plan / Subscriber ID Effective Dates Phone Addre ss Type Group MEDICARE PART A MEDICARE PART A [id number] 2016-Present ATTN: CLAIMS - HB USE ONLY HB ONLY [address] [place] [address] MEDICARE PART B MEDICARE PART B [id number] 2016-Present ATTN: CLAIMS - HB USE ONLY HB ONLY [address] [facility] [place] [address] HUMANA GOLD MR HUMANA CHOICE [id number] 2020-Present [address] [address] PPO [employer] [id number] Guarantor Name Account Type Relation to Date of Phone Billing Address Patient Danielito Valenzuela Personal/Family Self 1950 [address] [place] [address] [employer] (Home) PAYABLE [address] [place] [address] Advance Directives Documents on File Type Date Recorded Patient Otc Clerk Explanati on POLST 10/08/2016 11:11 AM 09/30/2016 [...] who discussed with his siblings Care Teams Development Executive Relationship Specialty Start Date End Date Darcy Allen MD PCP - General Family Practice 07/24/161999 [place] [address]
--- OUTSIDE RECORDS SUMMARY | 2022-05-06 11:41 | XMS_ITS | Encounter Summary ---
:1950 Author Organization [facility] Address [address] [place] [address] Phone Care Team Providers Name Role Phone [...] with No / Unsure 05/31/2021 2:44 PM CONTROL PANEL BUILDER someone who was confirmed or suspected to have Coronavirus / COVID-19? documented as of this encounter Plan of Treatment Not on filedocumented as of this encounter Visit Diagnoses Not on filedocumented in this encounter
--- OUTSIDE RECORDS SUMMARY | 2022-05-06 11:41 | XMS_ITS | Encounter Summary ---
:1950 Author Organization [facility] Address [address] [place] [address] Phone Care Team Providers Name Role Phone Unavailable Primary Care Provider Unavailable Reason for Visit Reason Onset Date Comments ER F/U 05/23/2021 Encounter Details Date Type Department Care Team Description 05/23/2021 Telephone Clinic & Specialty Center Ai Nuñez RN ER F/U Orthopedic [facility] [address] [place] [address] Social History Tobacco Use Types Packs/Day Years [...] to access records under Care Everywhere from [facility] where Krista reports Danielito was evaluated but no documents were found. Will await receipt of images via PACS to determine appropriate scheduling with the correct provider. Ai Mccarthy RN, 05/23/2021 10:54 AM ----- Message from Rosa Godfrey sent at 05/23/2021 7:56 AM CDT ----- A referral arrived via Fax , from [facility], re: above patient. He has a right angulated right upper extremity 2 part proximal humerus fx . Xrays are being sent over (PACS). (Injury was05/11/21, seen in ED 05/13/21) Pt's physician Is Dr. Nathanael Ospina and recommending a possible TSA.Not sure who I should schedule with?? Jory is the Nurse House Mover at the facility, and I left her a VMrequesting they expedite the XR's (Her phone#[phone]) documented in this encounter Plan of Treatment Not on filedocumented as of this encounter Visit Diagnoses Not on filedocumented in this encounter
--- OUTSIDE RECORDS SUMMARY | 2022-05-06 11:41 | XMS_ITS | Encounter Summary ---
:1950 Author Organization [facility] Address [address] [place] [address] Phone Care Team Providers Name Role Phone Unavailable Primary Care Provider Unavailable Encounter Details Date Type Department Care Team Description 05/23/2021 Orders Only [facility] Film Room Provider, Outside Referral of patient (Primary Dx); [facility] OUTSIDE PROVIDER [facility] [place], [place] Radiology Department [id number] [facility] [address] [address] Social History Tobacco Use Types Packs/Day Years Used Date Smoking Tobacco: Never Assessed Sex Assigned at Date Recorded Not on file COVID-19 Exposure Response Date Recorded In the last month, have you been in contact with No / Unsure 05/31/2021 2:44 PM 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 documented as of this encounter Plan of Treatment Not on filedocumented as of this encounter Results XR UPPER EXTREMITY OUTSIDE FILMS (05/21/2021 2:05 PM CDT) Specimen (Source) Anatomical Location Collection Method / Collectio n Time Received Time / Laterality Volume Narrative Dummy, Osvf-Xoahlt-Lpcbtabwp - 12:57 PM CDT Outside Film Only Outside Provider OUTSIDE FILMS ULT VASCULAR OUTSIDE FILMS (05/15/2021 11:12 AM CDT) Specimen (Source) Anatomical Location Collection Method / Collectio n Time Received Time / Laterality Volume Narrative Dummy, Gzck-Pvkdud-Anqdzjjcl - 12:58 PM CDT Outside Film Only Outside Provider OUTSIDE FILMS XR UPPER EXTREMITY OUTSIDE FILMS (05/13/2021 12:59 PM CDT) Specimen (Source) Anatomical Location Collection Method / Collectio n Time Received Time / Laterality Volume Narrative Dummy, Lphh-Hdqxcm-Vzzsdildc - 12:56 PM CDT Outside Film Only Outside Provider OUTSIDE FILMS XR UPPER EXTREMITY OUTSIDE FILMS (05/13/2021 12:50 PM CDT) Specimen (Source) Anatomical Location Collection Method / Collectio n Time Received Time / Laterality Volume Narrative Dummy, Zmrf-Rttzan-Rwozsmrla - 12:57 PM CDT Outside Film Only Outside Provider OUTSIDE FILMS XR UPPER EXTREMITY OUTSIDE FILMS (05/13/2021 12:49 PM CDT) Specimen (Source) Anatomical Location Collection Method / Collectio n Time Received Time / Laterality Volume Narrative Dummy, Aaic-Ixbzps-Lcorikqzo - 12:57 PM CDT Outside Film Only Outside Provider OUTSIDE FILMS ULT VASCULAR OUTSIDE FILMS (05/13/2021 12:11 PM CDT) Specimen (Source) Anatomical Location Collection Method / Collectio n Time Received Time / Laterality Volume Narrative Dummy, Lnjs-Qnrvpy-Enjjwlsmw - 12:58 PM CDT Outside Film Only Outside Provider OUTSIDE FILMS ULT VASCULAR OUTSIDE FILMS (05/13/2021 11:54 AM CDT) Specimen (Source) Anatomical Location Collection Method / Collectio n Time Received Time / Laterality Volume Narrative Dummy, Avpb-Selafs-Mruktxvcl - 1 12:58 PM CDT Outside Film Only Outside Provider OUTSIDE FILMS XR UPPER EXTREMITY OUTSIDE FILMS (05/11/2021 6:37 PM CDT) Specimen (Source) Anatomical Location Collection Method / Collectio n Time Received Time / Laterality Volume Narrative Dummy, Iagj-Ohyakq-Mxklcivpv - 12:56 PM CDT Outside Film Only Outside Provider OUTSIDE FILMS documented in this encounter Visit Diagnoses Diagnosis Referral of patient - Primary Referral of patient without examination or treatment Humerus fracture Closed fracture of unspecified part of h umerus documented in this encounter
--- OUTSIDE RECORDS SUMMARY | 2022-05-06 11:41 | XMS_ITS | Encounter Summary ---
:1950 Author Organization [facility] Address [address] [place] [address] Phone Care Team Providers Name Role Phone Unavailable Primary Care Provider Unavailable Reason for Visit Reason Comments Appointment Encounter Details Date Type Department Care Team Description 05/23/2021 Documentation Only Clinic & Specialty Porsha Flores ie, Appointment Center Orthopedic Cl darryl VALDEZ [address] [place] [address] [place], [place] [phone] (Wo rk) Social History Tobacco Use Types Packs/Day Years Used Date Smoking Tobacco: Never Assessed Sex Assigned at Date Recorded Not on file documented as of this encounter Progress Notes Rosa Godfrey - 05/23/2021 2:46 PM CDT I called Jory Valdez, Nurse Candy Spreader, at the [facility] (3 times) to schedule a visit for patient's right shoulder. However, she did not return my phone calls. I called main number and spoke with Lisa. I gave her the appointment information and will fax a confirmation to her and Jory at [phone]. Jory's . OYMENT SECURITY OFFICER documented in this encounter Plan of Treatment Not on filedocumented as of this encounter Visit Diagnoses Not on filedocumented in this encounter
--- OUTSIDE RECORDS SUMMARY | 2022-05-06 11:41 | XMS_ITS | Encounter Summary ---
:1950 Author Organization [facility] Address [address] [place] [address] Phone Care Team Providers Name Role Phone Unavailable Primary Care Provider Unavailable Reason for Visit Reason Comments Shoulder Pain Encounter Details Date Type Department Care Team Description 05/31/2021 Office Visit Clinic & Specialty Porsha Flores Closed fr acture of [place] Venita White MD proximal end of right Clinic [address] [facility] humerus, unspecified [address] G2 fracture morphology, [place], [place] [address] [place], [place] initial encounter [phone] (Primary Dx) Social History Tobacco Use Types Packs/Day Years Used Date Smoking Tobacco: Never Assessed Sex Assigned at Date Recorded Not on file COVID-19 Exposure Response Date Recorded In the last month, have you been in contact with No / Unsure 05/31/2021 2:44 PM 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 documented as of this encounter Patient Instructions Patient InstructionsCathy Massey RN - 05/31/2021 3:15 PM CST No lifting with right arm more then a coffee cup Use sling except for pendulum exercises, hand, wrist, elbow motion Passive ROM to start 06/11 with physical therapy- details in OR paperwork Arm sleeve for edema control RTC [address] Ospina in [place]- if needed you can follow up at [facility] T PILE DRIVER OPERATOR documented in this encounter Progress Notes Porsha Flores MD - 05/31/2021 3:15 PM CST [facility] [place] [address] Orthopaedic Surgery Clinic - New Patient DATE [...] 3 weeks prior at his home in [facility]. He reports not hitting his head. Since he fell he has been seen by Dr. Ospina who referred him to [facility] for evaluation. He has been wearing a [...] wrist and fingers - Instructions given to long-term care facility for physical therapy for right [...] myself) Porsha Flores MD, 06/01/2021 6:23 PM T PILE DRIVER OPERATOR documented in this encounter Plan of Treatment Not on filedocumented as of this encounter Visit Diagnoses Diagnosis Closed fracture of proximal end of right humerus, unspecified fracture morphology, initial encounter - Primary documented in this encounter
== END 2022-04-23 11:55 | disposition home or self-care (01) ==
PROVIDERS: PCP Family Medicine; Visit Provider Family Medicine
DX: S01.01XA Laceration without foreign body of scalp, initial encounter (principal); W18.30XA Fall on same level, unspecified, initial encounter; Y92.830 Public park as the place of occurrence of the external cause
CPT/HCPCS: A0425; A0429

== ENCOUNTER 2022-04-23 12:17 | Emergency (ER) | payer OTHER, SELFPAY ==
--- NOTE | 2022-04-23 12:23 | CRLHL7_ITS ---
For Patients: As a result of the Century Cures Act, medical imaging exams and procedure reports are released immediately into your electronic medical record. You may view this report before your referring provider. If you have questions, please contact your health care provider. INDICATION: fall and hematoma, head injury TECHNIQUE: Head CT without contrast. COMPARISON: MRI head 04/03/2022. FINDINGS: There are advanced nonspecific low attenuation white matter changes consistent with chronic microvascular disease. Prominence of the ventricles and sulci compatible with [id number] diffuse cerebral volume loss. No intracranial hemorrhage or extra-axial fluid collection. Numerous chronic infarcts are again seen within the supratentorial and infratentorial cerebellum better visualized and characterized on MRI from 04/03/2022. The mastoid air cells are clear. Mild mucosal thickening of the right maxillary sinus. The visualized orbits are grossly unremarkable. No skull fractures. Small left frontoparietal scalp contusion. IMPRESSION: Small left frontoparietal scalp contusion without evidence of skull fracture or intracranial hemorrhage. Redemonstration of advanced chronic microvascular ischemic changes and multiple chronic supratentorial and infratentorial infarcts. Please note that all CT scans at this facility use dose modulation, iterative reconstruction, and/or weight-based dosing when appropriate to reduce radiation dose to as low as reasonably achievable. Dictated by Arnulfo Marrero MD @ 04/23/2022 1:40:45 PM (Electronically Signed)
--- NOTE | 2022-04-23 12:24 | CRLHL7_ITS ---
For Patients: As a result of the Century Cures Act, medical imaging exams and procedure reports are released immediately into your electronic medical record. You may view this report before your referring provider. If you have questions, please contact your health care provider. INDICATION: fall and hematoma, head injury TECHNIQUE: CT cervical spine without contrast. COMPARISON: CT cervical spine April 05, 2019. FINDINGS: Vertebrae: Straightening of expected cervical lordosis. Grade 1 anterolisthesis of C2 on C3. Minimal retrolisthesis of C3 on C4. Grade 1 anterolisthesis of C4 on C5. There are no fractures or suspicious bony lesions. Discs and facet joints: Multilevel intervertebral disc space narrowing facet arthropathy. Disc space narrowing most advanced at C4-C5 and C5-C6. Extraspinal findings: Paraspinous soft tissues are unremarkable. IMPRESSION: 1. No sign of acute cervical spine fracture. 2. Advanced multilevel degenerate spondylosis. Multilevel listhesis is similar to prior exam including grade 1 anterolisthesis of C4 on C5. Please note that all CT scans at this facility use dose modulation, iterative reconstruction, and/or weight-based dosing when appropriate to reduce radiation dose to as low as reasonably achievable. Dictated by Arnulfo Marrero MD @ 04/23/2022 1:46:33 PM (Electronically Signed)
[2022-04-23 12:27] VITALS: BP 120/81; PULSE 73; RESP 18; TEMP 36.5; O2SAT 96; BMI 25.8
--- NOTE | 2022-04-23 12:43 | ED.NURSE ---
has a laceration on the left side of his head-scalp.
--- OUTSIDE RECORDS SUMMARY | 2022-04-23 13:27 | XMS_ITS | Clinical Summary ---
:1950 Author Organization [facility] Address [address] [place] [address] Phone Care Team Providers Name Role Phone Unavailable Primary Care Provider Unavailable Source Comments Isentropic is fully rolled out on [employer]. Last update 12/23/08.Superplayer Medications Be aware that medications may not [...] on patient's age to complete this to [facility] HPV Aged Out No longer eligib le based on patient's age to complete this to [facility] Insurance Payer Benefit Plan Subscriber ID Effective Dates Phone Address Type / Group HUMANA HUMANA [id number] 2021-Jenn [phone] [address] [address] Medicare (MEDICARE nt 4 [place], [facility] C [place]ANTAGE) [place] [address]
--- OUTSIDE RECORDS SUMMARY | 2022-04-23 13:27 | XMS_ITS | Clinical Summary ---
:1950 Demographics Address [address] [place] [address] Mobile Phone Home Phone Phone Preferred Language Angolan Marital Status Unknown Mormon Affiliation Does not wish to list Race White Ethnic Group Not or Author Organization [facility] [place] [address] Care Team Providers Name Role Phone Darcy Allen MD Primary Care Provider [phone] Allergies Active Allergy Reactions Severity Noted [...] ECHOCARDIOGRAM DANIELITO VALENZUELA ? Accessi on#: ?? [id number] : ?1950 72 years Study Date: ?? 04/04/2022 12:40:46 PM Gender: M ?BP: ? 121/81 mmHg Height: 175.00 cm ?BSA: ?1.95 m? ?? Weight: 79.00 kg ? Tech: ? MCK ? Referring MD: JAY WATKINS [facility] Location: [facility] Procedure: [...] . This study was interpreted by an [facility] redited facility. CC: [facility], Med/ Surg - IP [facility]. ??Final ?? Procedure Note Deniz Mao MD - 04/04/2022Fo rmatting of this note might be different from the original. ECHOCARDIOGRAM DANIELITO VALENZUELA : 1950 72 years Study Date: 04/04 12:40:46 PM Gender: M BP: 121/81 mmHg Height: 175.00 cm BSA: 1.95 m? ?? Weight: 79.00 kg Tech: EDGAR Referring MD: JAY WATKINS Site: [facility] Reading Location: [facility] Procedure: 2D, [...] . This study was interpreted by an [facility] redited facility. CC: [facility], Med/ Surg - IP [facility]. Final Jay Watkins ECHO ORD from Last 3 Months Additional Health Concerns Infection Onset Date Last Indicated MDRO-GNBComment: Order contact precautions. Order consult 10/07/2016 to Infection Prevention to determine if patient may be removed from precautions. Insurance Payer Benefit Plan / Subscriber ID Effective Dates Phone Addre ss Type Group MEDICARE PART A MEDICARE PART A [id number] 2016-Present ATTN: CLAIMS - HB USE ONLY HB ONLY [address] [place] [address] MEDICARE PART B MEDICARE PART B [id number] 2016-Present ATTN: CLAIMS - HB USE ONLY HB ONLY [address] [facility] [address] HUMANA GOLD MR HUMANA CHOICE [id number] 2020-Present [address] [address] PPO [employer] [id number] Guarantor Name Account Type Relation to Date of Phone Billing Address Patient Danielito Valenzuela Personal/Family Self 1950 [address] [place] [address] [employer] (Home) PAYABLE [address] [place] [address] Advance Directives Documents on File Type Date Recorded 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
--- OUTSIDE RECORDS SUMMARY | 2022-04-23 13:27 | XMS_ITS | Encounter Summary ---
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 documented as of this encounter Plan of Treatment Not on filedocumented as of this encounter Visit Diagnoses Not on filedocumented in this encounter
--- OUTSIDE RECORDS SUMMARY | 2022-04-23 13:28 | XMS_ITS | Encounter Summary ---
:1950 [address] [facility] Address [address] [place] [address] Phone Care Team Providers Name Role Phone Unavailable Primary Care Provider Unavailable Encounter Details Date Type Department Care Team Description 05/23/2021 Orders Only [facility] Provider, Outside Referral of patient (Primary Dx); [facility] OUTSIDE PROVIDER Humerus [facility] [place], [place] Radiology Department [id number] [facility] [address] [address] Social History Tobacco Use Types Packs/Day Years Used Date Smoking Tobacco: Never Assessed Sex Assigned at Date Recorded Not on file COVID-19 Exposure Response Date Recorded In the last month, have you been in contact with No / Unsure 05/31/2021 2:44 PM EDGE BASTER someone who was confirmed or suspected to have Coronavirus / COVID-19? documented as of this encounter Plan of Treatment Not on filedocumented as of this encounter Results XR UPPER EXTREMITY OUTSIDE FILMS (05/21/2021 2:05 PM CDT) Specimen (Source) Anatomical Location Collection Method / Collectio n Time Received Time / Laterality Volume Narrative Dummy, Rhcu-Xtcjpx-Pefaifhgu - 12:57 PM CDT Outside Film Only Outside Provider OUTSIDE FILMS ULT VASCULAR OUTSIDE FILMS (05/15/2021 11:12 AM CDT) Specimen (Source) Anatomical Location Collection Method / Collectio n Time Received Time / Laterality Volume Narrative Dummy, Dwau-Qibfcu-Ekebjqrcf - 12:58 PM CDT Outside Film Only Outside Provider OUTSIDE FILMS XR UPPER EXTREMITY OUTSIDE FILMS (05/13/2021 12:59 PM CDT) Specimen (Source) Anatomical Location Collection Method / Collectio n Time Received Time / Laterality Volume Narrative Dummy, Kxfb-Iztzel-Akdgbjwry - 12:56 PM CDT Outside Film Only Outside Provider OUTSIDE FILMS XR UPPER EXTREMITY OUTSIDE FILMS (05/13/2021 12:50 PM CDT) Specimen (Source) Anatomical Location Collection Method / Collectio n Time Received Time / Laterality Volume Narrative Dummy, Deaj-Bovnad-Kewkdvtzo - 12:57 PM CDT Outside Film Only Outside Provider OUTSIDE FILMS XR UPPER EXTREMITY OUTSIDE FILMS (05/13/2021 12:49 PM CDT) Specimen (Source) Anatomical Location Collection Method / Collectio n Time Received Time / Laterality Volume Narrative Dummy, Onoe-Zbvqew-Tamkdtcbi - 12:57 PM CDT Outside Film Only Outside Provider OUTSIDE FILMS ULT VASCULAR OUTSIDE FILMS (05/13/2021 12:11 PM CDT) Specimen (Source) Anatomical Location Collection Method / Collectio n Time Received Time / Laterality Volume Narrative Dummy, Bklg-Awmuxv-Nhmqkmbvy - 12:58 PM CDT Outside Film Only Outside Provider OUTSIDE FILMS ULT VASCULAR OUTSIDE FILMS (05/13/2021 11:54 AM CDT) Specimen (Source) Anatomical Location Collection Method / Collectio n Time Received Time / Laterality Volume Narrative Dummy, Bcsu-Olurvn-Amxeqtexh - 1 12:58 PM CDT Outside Film Only Outside Provider OUTSIDE FILMS XR UPPER EXTREMITY OUTSIDE FILMS (05/11/2021 6:37 PM CDT) Specimen (Source) Anatomical Location Collection Method / Collectio n Time Received Time / Laterality Volume Narrative Dummy, Qmhp-Wpyuro-Mqoiuxdvw - 12:56 PM CDT Outside Film Only Outside Provider OUTSIDE FILMS documented in this encounter Visit Diagnoses Diagnosis Referral of patient - Primary Referral of patient without examination or treatment Humerus fracture Closed fracture of unspecified part of h umerus documented in this encounter
--- OUTSIDE RECORDS SUMMARY | 2022-04-23 13:28 | XMS_ITS | Encounter Summary ---
:1950 Author Organization [facility] Address [address] [place] [address] Phone Care Team Providers Name Role Phone Unavailable Primary Care Provider Unavailable Reason for Visit Reason Onset Date Comments ER F/U 05/23/2021 Encounter Details Date Type Department Care Team Description 05/23/2021 Telephone Clinic & Specialty Center Ai Nuñez RN ER F/U Orth[facility] [address] [place] [address] Social History Tobacco Use Types Packs/Day Years Used Date Smoking Tobacco: Never Assessed Sex Assigned at Date Recorded Not on file documented as of this encounter Miscellaneous Notes Telephone Encounter - Cathy Massey RN - 05/23/2021 2:44 PM CDT Reviewed with Dr Flores. Krista will schedule pt 05/31/21 with xrays prior. Telephone Encounter - Ai Mccarthy RN - 05/23/2021 9:47 AM CDT D: Referral received per message below for Danielito for ED F/U S/P 05/13/2021 right proximal humerus fracture (DOI reported as 05/11/2021). A/R/P: Attempt was made to access records under Care Everywhere from [facility] where Krista reports Danielito was evaluated but no documents were found. Will await receipt of images via PACS to determine appropriate scheduling with the correct provider. Ai Mccarthy RN, 05/23/2021 10:54 AM ----- Message from Rosa Godfrey sent at 05/23/2021 7:56 AM CDT ----- A referral arrived via Fax , from [facility], re: above patient. He has a right angulated right upper extremity 2 part proximal humerus fx . Xrays are being sent over (PACS). (Injury was05/11/21, seen in ED 05/13/21) Pt's physician Is Dr. Nathanael Ospina and recommending a possible TSA.Not sure who I should schedule with?? Jory is the Nurse Application Developer Manager at the facility, and I left her a VMrequesting they expedite the XR's (Her phone#[phone]) documented in this encounter Plan of Treatment Not on filedocumented as of this encounter Visit Diagnoses Not on filedocumented in this encounter
--- OUTSIDE RECORDS SUMMARY | 2022-04-23 13:28 | XMS_ITS | Encounter Summary ---
:1950 Author Organization [facility] Address [address] [place] [address] Phone Care Team Providers Name Role Phone Unavailable Primary Care Provider Unavailable Encounter Details Date Type Department Care Team Description 05/31/2021 Hospital Encounter Clinic & Specialty Porsha Flores, Center ROSALBA VALDEZ [address] [place] [address] [address] [place], [place] [phone] (Wo rk) Social History Tobacco Use Types Packs/Day Years Used Date Smoking Tobacco: Never Assessed Sex Assigned at Date Recorded Not on file COVID-19 Exposure Response Date Recorded In the last month, have you been in contact with No / Unsure 05/31/2021 2:44 PM HEALTH INFORMATION ASSISTANT someone who was confirmed or suspected to have Coronavirus / COVID-19? documented as of this encounter Plan of Treatment Not on filedocumented as of this encounter Procedures Procedure Name Priority Date/Time Associated Diagnosis Comme nts XR SHOULDER RIGHT Routine 05/31/2021 3:13 PM Humerus fracture Results for this 4/5 VIEWS HEALTH INFORMATION ASSISTANT procedure are i n the results section. documented in this encounter Results XR SHOULDER RIGHT 4/5 VIEWS (05/31/2021 3:13 PM HEALTH INFORMATION ASSISTANT) Anatomical Region Laterality Modality Upper Arm Digital Radiography Specimen (Source) Anatomical Collection Method Collection Time Re ceived Time Location / / Volume Laterality 05/31/2021 3:22 PM HEALTH INFORMATION ASSISTANT Impressions 05/31/2021 3:23 PM HEALTH INFORMATION ASSISTANT Impression: Stable alignment. Reading Radiologist: Isac Franks Narrative 05/31/2021 3:23 PM HEALTH INFORMATION ASSISTANT Indication: proximal humerus fx- Dr Flores's preferred [...]
--- OUTSIDE RECORDS SUMMARY | 2022-04-23 13:28 | XMS_ITS | Encounter Summary ---
:1950 Author Organization [facility] Address [address] [place] [address] Phone Care Team Providers Name Role Phone Unavailable Primary Care Provider Unavailable Reason for Visit Reason Comments Appointment Encounter Details Date Type Department Care Team Description 05/23/2021 Documentation Only Clinic & Specialty Porsha Flores ie, Appointment Center Orthopedic Cl darryl VALDEZ [address] [place] [address]89 [address] [place], [place] [phone] (Wo rk) Social History Tobacco Use Types Packs/Day Years Used Date Smoking Tobacco: Never Assessed Sex Assigned at Date Recorded Not on file documented as of this encounter Progress Notes Rosa Godfrey - 05/23/2021 2:46 PM CDT I called Jory Valdez, Nurse Christian Science Practitioner, at the [facility] (3 times) to schedule a visit for patient's right shoulder. However, she did not return my phone calls. I called main number and spoke with Lisa. I gave her the appointment information and will fax a confirmation to her and Jory at [phone]. Jory's . STANT BOOKKEEPER documented in this encounter Plan of Treatment Not on filedocumented as of this encounter Visit Diagnoses Not on filedocumented in this encounter
--- OUTSIDE RECORDS SUMMARY | 2022-04-23 13:28 | XMS_ITS | Encounter Summary ---
:1950 Author Organization [facility] Address [address] [place] [address] Phone Care Team Providers Name Role Phone Unavailable Primary Care Provider Unavailable Reason for Visit Reason Comments Shoulder Pain Encounter Details Date Type Department Care Team Description 05/31/2021 Office Visit Clinic & Specialty Porsha Flores Closed fr acture of Bertrand Venita White MD proximal end of right Clinic [address] [facility] humerus, unspecified [address] G2 fracture morphology, [place], [place] [address] [place], [place] initial encounter [phone] (Primary Dx) Social History Tobacco Use Types Packs/Day Years Used Date Smoking Tobacco: Never Assessed Sex Assigned at Date Recorded Not on file COVID-19 Exposure Response Date Recorded In the last month, have you been in contact with No / Unsure 05/31/2021 2:44 PM SEISMOGRAPH SHOOTER someone who was confirmed or suspected to have Coronavirus / COVID-19? documented as of this encounter Patient Instructions Patient InstructionsCathy Massey RN - 05/31/2021 3:15 PM CST No lifting with right arm more then a coffee cup Use sling except for pendulum exercises, hand, wrist, elbow motion Passive ROM to start 06/11 with physical therapy- details in [place] paperwork Arm sleeve for edema control RTC [address] Ospina in [place]- if needed you can follow up at [facility] MOGRAPH SHOOTER documented in this encounter Progress Notes Porsha Flores MD - 05/31/2021 3:15 PM CST [facility] [place] [address] Orthopaedic Surgery Clinic - New Patient DATE [...] 3 weeks prior at his home in [facility]. He reports not hitting his head. Since he fell he has been seen by Dr. Ospina who referred him to [facility] for evaluation. He has been wearing a [...] wrist and fingers - Inst[facility] for [facility] for right [...] myself) Porsha Flores MD, 06/01/2021 6:23 PM MOGRAPH SHOOTER documented in this encounter Plan of Treatment Not on filedocumented as of this encounter Visit Diagnoses Diagnosis Closed fracture of proximal end of right humerus, unspecified fracture morphology, initial encounter - Primary documented in this encounter
[2022-04-23 14:28] VITALS: BP 119/91; PULSE 73; RESP 16; TEMP 36.1; O2SAT 99
--- NOTE | 2022-04-23 14:34 | ED.NURSE ---
Patient was cleared by physician. C-collar removed. Ambulated to bathroom with sba with cane. Called for cab. 20min arrival. DC instructions given to patient. All questions answered and left via wheelchair.
--- NOTE | 2022-04-23 16:50 | ED.FALL ---
HPI - Fall General Date Seen: 04/23/22 Chief Complaint: Fall/Minor Trauma Stated Complaint: Fall Time Seen by Provider: 04/23/22 12:23 Source: patient Mode of arrival: ambulatory Limitations: no limitations History of Present Illness HPI Narrative: Patient is a 72-year-old gentleman who was at the grocery store when fell against the car when he was in the parking lot. He tripped and fell, and this was not a syncopal episode. Does have a history of alcohol consumption, but denies this is a course currently. Complains of pain in his head, he is brought in by EMS, in a collar, he is speaking to me normally, alert oriented, with a GCS of 15/15. Tells me there is a bump on the top of his head this occurred within the last 30 minutes. complaint: fall Onset (ago): minute(s) (Thirty) Fall from: standing Fall witnessed: yes, by bystander Place fall occurred: other Loss of consciousness: No Prolonged down time: no Symptoms prior to fall: none Context: tripped/slipped Location of injury: head Related Data Home Medications Medication Instructions Recorded Confirmed allopurinol 300 mg tablet 300 mg PO HS 02/26/22 04/16/22 esomeprazole magnesium 20 mg 20 mg PO DAILY 04/03/22 04/16/22 capsule,delayed release Previous Rx's Medication Instructions Recorded folic acid 1 mg tablet 1 mg PO DAILY #30 tabs 04/08/22 multivitamin with folic acid 400 1 tab PO DAILY #30 tabs 04/08/22 mcg tablet (Thera) thiamine mononitrate (vit B1) 100 100 mg PO DAILY #30 tabs 04/08/22 mg tablet (Vitamin B-1 (mononitrate)) amlodipine 10 mg tablet 10 mg PO HS #90 tabs 04/19/22 Allergies Allergy/AdvReac Type Severity Reaction Status Date / Time Indomethacin Allergy Unknown unknown Uncoded 04/16/22 11:08 Review of Systems Status of ROS: Reports: 10 or more systems reviewed and unremarkable except as noted in History and below [facility] Medical History Alcoholism Anemia Cellulitis of right hand excluding fingers and thumb Cognitive decline Durable power of deputy attorney general in chart (05/31/21) Encounter for long-term (current) use of non-steroidal anti-inflammatories ETOH abuse GERD (gastroesophageal reflux disease) Gout (2016) Health care directive on file (05/31/21) History of DVT of lower extremity (~04/2021) Hypertension Multiple falls Personal history of peptic ulcer disease Polyarticular gout Poor dentition Postoperative intra-abdominal abscess (2017) Unstable gait Wernicke encephalopathy Wernicke-Korsakoff syndrome Surgical History History of abdominal surgery (07/2016) History of anterior cruciate ligament surgery (2005) History of total knee 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 Lives alone. Full resuscitation in event of cardiopulmonary demise. Designates son, Danielito, and daughter, Britta, as his power of deputy attorney general for health should that be required. Highest level of school completed/degree received: don't know Smoking Status: Former smoker Do you use any of these nicotine containing products: None Second hand tobacco smoke exposure: No How often do you have a drink containing alcohol: 4 or more times a week Alcohol type: beer How many standard drinks containing alcohol do you have on a typical day: 3 or 4 How often do you have six or more drinks on one occasion: Weekly AUDIT-C Alcohol total score: 8 Non-prescribed substance use: denies use service: Yes Exam Narrative: Exam Narrative: Patient is seen in room 3 in no apparent distress, his pupils are equal round reactive to light there is no scleral icterus redness is TMs are normal his oropharynx is normal, there is no palpable tenderness over his neck, but given the history of fall. There is a small area on his the septal area. This is more approximately 1 x 2 mm, not acutely bleeding, with no hematoma. There is no step-off deformity, mouth opening is normal, cranial nerves 3-12 are normal, there is no lymphadenopathy anterior posterior chains, his chest clear by with no wheezing crackles noted heart sounds are normal, abdomen is soft there is no guarding pelvis is normal stable moves all extremities independently well both proximal distal muscle strength is normal, any symmetrical Const: Vital Signs, click to edit/add: Vital Signs - 24 hr 04/23/22 12:27 04/23/22 14:28 Temperature 97.7 F 96.9 F L Pulse Rate [Pulse Oximeter] 73 73 Respiratory Rate 18 16 Blood Pressure [Ri t Upper Arm] 120/81 119/91 H Pulse Oximetry 96 99 Oxygen Delivery Me thod Room Air Room Air Documenting provider has reviewed patient's vital signs: yes Course Vital Signs Vital signs: Initial Vital Signs Temperature 97.7 F 04/23/22 12:27 Temperature Source Temporal Artery Scan 04/23/22 12:27 Pulse Rate 73 04/23/22 12:27 Pulse Rhythm 04/23/22 12:27 Respiratory Rate 18 04/23/22 12:27 Blood Pressure 120/81 04/23/22 12:27 Blood Pressure Mean 94 04/23/22 12:27 Pulse Oximetry 96 04/23/22 12:27 Oxygen Delivery Method 04/23/22 12:27 Vital Signs Temperature 97.7 F 04/23/22 12:27 Pulse Rate 73 04/23/22 12:27 Respiratory Rate 18 04/23/22 12:27 Blood Pressure 120/81 04/23/22 12:27 Pulse Oximetry 96 04/23/22 12:27 Oxygen Delivery Method 04/23/22 12:27 Temperature 96.9 F L 04/23/22 14:28 Pulse Rate 73 04/23/22 14:28 Respiratory Rate 16 04/23/22 14:28 Blood Pressure 119/91 H 04/23/22 14:28 Pulse Oximetry 99 04/23/22 14:28 Oxygen Delivery Method 04/23/22 14:28 MDM - Fall MDM Narrative Medical decision making narrative: Life-threatening differential diagnosis is considered include: Subarachnoid hemorrhage, subdural hemorrhage, epidural hemorrhage. Other differential diagnosis considered include concussion, closed head injury, or neck fracture. Differential Diagnosis Differential diagnosis: Likely syncope, compression fracture, concussion with loss of consciousness and concussion without loss of consciousness Medical Records Attestation: I reviewed the patient's medical records. Imaging Data CT scan - head: Attestation: I have reviewed the pertinent imaging results. My impression: No acute findings Radiologist's impression: Patient: DANIELITO BHATTI Facility: [facility] Site . Site : 1950 Study: CT Head WITHOUT-04/23/2022 12:52:44 PM Ordering Physician: Db Otero Final Report: INDICATION: fall and hematoma, head injury TECHNIQUE: Head CT without contrast. COMPARISON: MRI head 04/03/2022. FINDINGS: There are advanced nonspecific low attenuation white matter changes consistent with chronic microvascular disease. Prominence of the ventricles and sulci compatible with [id number] diffuse cerebral volume loss. No intracranial hemorrhage or extra-axial fluid collection. Numerous chronic infarcts are again seen within the supratentorial and infratentorial cerebellum better visualized and characterized on MRI from 04/03/2022. The mastoid air cells are clear. Mild mucosal thickening of the right maxillary sinus. The visualized orbits are grossly unremarkable. No skull fractures. Small left frontoparietal scalp contusion. IMPRESSION: Small left frontoparietal scalp contusion without evidence of skull fracture or intracranial hemorrhage. Redemonstration of advanced chronic microvascular ischemic changes and multiple chronic supratentorial and infratentorial infarcts. Please note that all CT scans at this facility use dose modulation, iterative reconstruction, and/or weight-based dosing when appropriate to reduce radiation dose to as low as reasonably achievable. Dictated by Arnulfo Marrero MD @ 04/23/2022 1:40:45 PM (Electronic Signature) Final Report Patient: DANIELITO BHATTI Facility: [facility] Site . Site : 1950 Study: CT Spine Cervical -04/23/2022 12:53:07 PM Ordering Physician: Db Otero Final Report: INDICATION: fall and hematoma, head injury TECHNIQUE: CT cervical spine without contrast. COMPARISON: CT cervical spine April 05, 2019. FINDINGS: Vertebrae: Straightening of expected cervical lordosis. Grade 1 anterolisthesis of C2 on C3. Minimal retrolisthesis of C3 on C4. Grade 1 anterolisthesis of C4 on C5. There are no fractures or suspicious bony lesions. Discs and facet joints: Multilevel intervertebral disc space narrowing facet arthropathy. Disc space narrowing most advanced at C4-C5 and C5-C6. Extraspinal findings: Paraspinous soft tissues are unremarkable. IMPRESSION: 1. No sign of acute cervical spine fracture. 2. Advanced multilevel degenerate spondylosis. Multilevel listhesis is similar to prior exam including grade 1 anterolisthesis of C4 on C5. Please note that all CT scans at this facility use dose modulation, iterative reconstruction, and/or weight-based dosing when appropriate to reduce radiation dose to as low as reasonably achievable. Dictated by Arnulfo Marrero MD @ 04/23/2022 1:46:33 PM (Electronic Signature) Discharge Plan Discharge Clinical Impression: Laceration, Head injury Patient Disposition: Home, Self-Care Condition: Stable Instructions: Head Injury (ED), Head Laceration (ED) Additional Instructions: Home rest the laceration is very small and I do not think stitches or deena will make a huge difference here. I would put some daily bacitracin on this area to prevent infection, and that would be the best if we leave it open and allow it to slightly drain. No alcohol for the next 48-72 hours, return if increasing fevers chills nausea vomiting or other issues. Prescriptions: No Action esomeprazole magnesium 20 mg capsule,delayed release(DR/EC) 20 mg PO DAILY folic acid 1 mg Tablet 1 mg PO DAILY Qty: 30 0RF thiamine mononitrate (vit B1) [Vitamin B-1 (mononitrate)] 100 mg Tablet 100 mg PO DAILY Qty: 30 0RF multivitamin with folic acid [Thera] 400 mcg Tablet 1 tab PO DAILY Qty: 30 0RF allopurinol 300 mg tablet 300 mg PO HS amlodipine 10 mg tablet 10 mg PO HS Qty: 90 1RF Follow Up/Referrals: Darcy Allen MD [Primary Care Provider] - Stand Alone Forms: [employer] Info Instructions
== END 2022-04-23 14:35 | disposition home or self-care (01) ==
PROVIDERS: Emergency Provider Family Medicine; PCP Family Medicine
DX: S09.90XA Unspecified injury of head, initial encounter (principal); S01.01XA Laceration without foreign body of scalp, initial encounter; W01.198A Fall on same level from slipping, tripping and stumbling with subsequent striking against other object, initial encounter; Y93.89 Activity, other specified; Y92.481 Parking lot as the place of occurrence of the external cause; Y99.8 Other external cause status
CPT/HCPCS: 70450; 72125; 99284

== ENCOUNTER 2022-07-18 10:48 | Outpatient (CLI) | payer OTHER, SELFPAY ==
[2022-07-18 12:23] LABS: Albumin* 4.4 g/dL (3.3-5.0); Chloride* 104 mmol/L (96-114); Potassium* 4.6 mmol/L (3.6-5.1); Sodium* 138 mmol/L (135-149)
[2022-07-18 12:25] LABS: Carbon Dioxide* 25 mmol/L (20-32); Cholesterol* 175 mg/dL (90-199); Creatinine* 1.4 mg/dL (0.5-1.5); Estimated Glomerular Filt Rate 54 ml/min
[2022-07-18 12:26] LABS: Alanine Aminotransferase* 16 U/L (4-50); Alkaline Phosphatase* 74 U/L (40-150); Aspartate Amino Transferase* 24 U/L (12-35); Bilirubin Total* 0.6 mg/dL (0.1-1.5); Blood Urea Nitrogen* 18 mg/dL (7-30); Calcium* 9.5 mg/dL (8.4-10.6); Glucose* 96 mg/dL (60-115); Total Protein* 7.2 g/dL (6.0-8.3); Triglycerides* 134 mg/dL (40-149)
[2022-07-18 12:27] LABS: HDL Cholesterol* 45 mg/dL (>=40); LDL Cholesterol Calculated 103 mg/dL (<100)
[2022-07-19 11:38] LABS: Iron* 112 ug/dL (49-181)
[2022-07-19 11:48] LABS: Percent Iron Saturation 40 % (20-50); Total Iron Binding Capacity 281 ug/dL (261-462)
[2022-07-19 12:15] LABS: Ferritin* 67.3 ng/mL (17.9-464.0)
[2022-07-19 12:29] LABS: Vitamin B12* 422 pg/mL (243-894)
== END 2022-07-18 10:49 | disposition home or self-care (01) ==
PROVIDERS: PCP Family Medicine; Visit Provider Family Medicine
DX: Z00.00 Encounter for general adult medical examination without abnormal findings (principal); E87.1 Hypo-osmolality and hyponatremia; R53.83 Other fatigue; I10 Essential (primary) hypertension; Z13.6 Encounter for screening for cardiovascular disorders
CPT/HCPCS: 80053; 80061; 82607; 82728; 83540; 83550

== ENCOUNTER 2023-06-24 15:04 | Outpatient (CLI) | payer OTHER, SELFPAY ==
--- OUTSIDE RECORDS SUMMARY | 2023-06-26 05:54 | XMS_ITS | Continuity of Care Document ---
Author Name Unknown Organization [facility] Address [address] [address] [place] [address] Phone Care Team Providers Care Cloud Physicist Name Role Phone Dileep Strange MD Unavailable Unavailable Procedures Procedure Date Subsqt Hosp-da E&m Minr Compl 7 Ugi Endo; W/dilat Outlet-any M 17 Unlisted Proc Intestine Init Inpt Cons New/est Mod-hi 7 Advance Directives Directive Yes / No Effective Date File Name No Information Encounters Encounter Description Practice Location Reason(s) For Visit Diagnoses Date Provider Providers Copied on Encounter [facility], [address] [address], [place], [place], [id number], [place] tel:[phone] [facility] No Information 7 Alexandr Falk. [address] [place] [address], [id number], [place]. tel:[phone] Subsqt Hosp-da E&m Minr Compl [facility], [address] [address], [place], [place], [id number], [place] tel:[phone] [facility] No Information 7 Kris Franklin. [address] [place] [address], [id number], [place]. tel:[phone] Referring Provider: Darcy Allen MD, [address] [place], [address]. tel:[phone] [facility], [address] [address], [place], [place], [id number], [place] tel:[phone] [facility] No Information 7 Tin Aparicio. [address] [facility] [address], [place], [place], [id number], [place]. tel:[phone] Referring Provider: Darcy Allen MD, [address] [place], [address]. tel:[phone] Init Inpt Cons New/est Mod-hi [facility], [address] [address], [place], [place], [id number], tel:[phone] [facility] No Information Sep- 0 Mariya Jacobs. [address] [facility] [address], [place], [place], [id number], [place]. tel:[phone] Referring Provider: Darcy Allen MD, [address] [place], [address]. tel:[phone] Family History Family Member Type Diagnosis Age At Onset No Information Payers Payer name Insurance type Covered green party ID Xavi mckenna(s) Blue [employer] Of [facility] [id number] Medicare NGS MB [id number] Social History Type Description Quantity Date Captured [...]
--- OUTSIDE RECORDS SUMMARY | 2023-06-26 05:54 | XMS_ITS | Continuity of Care Document ---
Author Name Unknown Organization [facility] Address [address] [place] [address] Phone Care Team Providers Care Stone Sawyer Name Role Phone Uziel Turner MD Unavailable Unavailable Procedures Procedure Date Initial Hospital Care Advance Directives Directive Yes / No Effective Date File Name No Information Encounters Encounter Description Practice Location Reason(s) For Visit Diagnoses Date Provider Providers Copied on Encounter Initial Hospital Care [facility], [address], [place], [address], [place] tel:[phone] [facility] No Information 0-201 7 Yue Triplett. [facility] [address], [place], [address], [place]. tel:[phone] Referring Provider: Uziel Soriano, [facility] [address], [place], [address]. tel:[phone] Family History Family Member Type Diagnosis Age At Onset No Information Payers Payer name Insurance type Covered constitution party ID Authoriza tijoseol(s) [facility] [id number] Medicare [place] [id number] Social History Type Description Quantity Date Captured [...]
== END 2023-06-24 15:05 | disposition home or self-care (01) ==
LOC: NFLDREF 06-26 05:52
PROVIDERS: PCP Family Medicine; Referring Provider Family Medicine; Visit Provider Family Medicine
DX: I10 Essential (primary) hypertension (principal); M10.9 Gout, unspecified; K21.9 Gastro-esophageal reflux disease without esophagitis; R62.7 Adult failure to thrive; E78.5 Hyperlipidemia, unspecified; D64.9 Anemia, unspecified; F10.20 Alcohol dependence, uncomplicated; R26.81 Unsteadiness on feet; R41.3 Other amnesia
CPT/HCPCS: 80053; 80061; 84550

== ENCOUNTER 2024-01-30 08:19 | Outpatient (CLI) | payer MEDICARE, SELFPAY | END 2024-01-30 08:20 | disposition home or self-care (01) | PROVIDERS: PCP Family Medicine; Visit Provider Family Medicine | DX: I10 Essential (primary) hypertension (principal); D72.829 Elevated white blood cell count, unspecified; E87.1 Hypo-osmolality and hyponatremia; F10.20 Alcohol dependence, uncomplicated | CPT/HCPCS: 80053; 82977 ==

== ENCOUNTER 2024-01-30 15:17 | Outpatient (CLI) | payer MEDICARE, MEDICAID, SELFPAY ==
--- OUTSIDE RECORDS SUMMARY | 2024-02-04 20:21 | XMS_ITS | Clinical Summary ---
Author Organization [facility] Address [place], [place] [address] Care Team Providers Care Receivables Specialist Name Role Phone Darcy Allen MD Primary Care Provider + Allergies Active Allergy Reactions Criticality Noted Date Comments Indomethacin *None-Radiology Only Medications Medication Sig Dispensed Refills Start Date End Date Status amLODIPine (NORVASC) 10 mg tabletIndications: Hypertension Take 1 tablet by mouth once daily. 30 tablet 08/09/2016 Active acetaminophen (TYLENOL) 325 mg tabletIndications: Pain Take 2 tablets by mouth every 4 hours if needed (For mild pain.). Max acetaminophen dose: 4000mg in 24 hrs. 0 09/27/2016 Active omeprazole (PRILOSEC) 20 mg Delayed-Release capsule Take 20 mg by mouth once daily before a meal. Active ferrous sulfate, 65 mg elemental, tablet Take 325 mg by mouth once daily with a meal. Active allopurinol (ZYLOPRIM) 300 mg tablet Take 300 mg by mouth once daily. Active oxyCODONE (ROXICODONE) 5 mg immediate release tabletIndications: Abdominal pain, unspecified location Take 1 tablet by mouth every 6 hours if needed for Pain 30 tablet 12/05/2016 Active predniSONE (DELTASONE) 5 mg tabletIndications: Polyarticular gout Take 3 tablets by mouth once daily with a meal. 30 tablet 12/05/2016 Active Active Problems Problem Noted Date Diagnosed Date Intra-abdominal abscess 10/02/2016 Fever 10/02/2016 Palliative care encounter 08/08/2016 Overview: Palliative care inpatient consult (08/07/16) to address care goals and advance care planning, in setting of complicated hospital course following perforated duodenal ulcer. 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 Patient has identified Specific Treatment Preferences: Yes Specific Treatment Preferences: a.) Code Status: CPR/Attempt Resuscitation Duodenal ulcer 07/25/2016 Overview: S/p perf with surgical repair 07/25/16 Status post total right knee replacement 017 Alcohol use disorder 07/25/2016 Overview: Drinks 4-5 beers daily Osteoarthritis 07/25/2016 Hx of perforated duodenal ulcer 07/25/2016 Anemia 07/25/2016 Thrombocytopenia 07/25/2016 Hyponatremia 07/25/2016 Secondhand smoke exposure 09/21/2010 Unspecified essential hypertension 01/01/2008 Headache(784.0) 11/26/2006 Overview: h/o H/A and scalp pain Gout, unspecified Unspecified arthropathy, multiple sites Overview: arthritis in all joints mostly on left side Colonic fistula Fistula Resolved Problems Problem Noted Date Diagnosed Date Resolved Date Fever 09/17/2016 10/02/2016 Fever 08/01/2016 10/02/2016 Immunizations Name Administration Dates Next Due Influenza, IIV3 (Age >=3 years) 06/20/2008 Influenza, IIV4 04/20/2016 Tdap 03/16/2012 Family History Medical History Relation Name Comments Heart Disease Father Stroke Mother Relation Name Status Comments Father Mother (Age 60) Social History Tobacco Use Types Packs/Day Years Used Date Smoking Tobacco: Former Cigarettes Q uit: 07/21/1986 Smokeless Tobacco: Never Alcohol Use Standard Drinks/Week Comments Yes 20 (1 standard drink = 0.6 oz pure alcohol) 4-5 cans of beer per day, after work Sex and Gender Information Value Date Recorded Sex Assigned at Not on file Gender Identity Not on file Sexual Orientation Not on file Obstetrics History Last Filed Vital Signs Vital Sign Reading Time Taken Comments Blood Pressure 158/106 03/25/2017 1:03 PM CDT Pulse 80 03/25/2017 1:03 PM CDT Temperature 36.7 ??C (98.1 ??F) 03/25/2017 1:03 PM CD T Respiratory Rate 16 12/05/2016 4:00 PM CDT Oxygen Saturation 97% 12/05/2016 4:00 PM CDT Inhaled Oxygen Concentration - - Weight 92.5 kg (204 lb) 03/25/2017 1:03 PM CDT Height 177.8 cm (5' 10) 03/25/2017 1:03 PM CDT Body Mass Index 29.27 03/25/2017 1:03 PM CDT Plan of Treatment Health Maintenance Due Date Last Done Comments Depression screening for age 12+ 1963 Hepatitis C screening for ag e 18-79 1969 Colonoscopy through age 75 1996 Zoster (shingles) series for age 50+ (1 of 2) 2001 Pneumococcal series for age 65+ (1 of 1 - PCV) 2016 Lipids for age 45-75 03/21/2016 03/21/2011, 12/29/2007, 12/04/2005 BMI (ht and wt on same day) for age 18+ 03/25/2018 03/25/2017, 01/30/2017, 12/09/2016, Additional history exists Tetanus booster 03/16/2022 03/16/2012 COVID-19 vaccine series ( season) 2023 05/22/2021 Influenza for age 65+ 03/21/2024 04/20/2016, 008 Tdap Completed 03/16/2012 Procedures Procedure Name Priority Date/Time Associated Diagnosis Comments LIPID PANEL W REFLEX MEASURED LDL Routine 03/21/2011 7:49 AM CDT Lipid screening from Last 3 Months or Most Recently Relevant to Health Maintenance Results * (ABNORMAL) LIPID PANEL W REFLEX MEASURED LDL (03/21/2011 7:49 AM CDT) CHOLESTEROL,TOTAL 189 110 - 199 mg/dL [facility] TRIGLYCERIDES 162(H) <150 mg/dL [facility] HDL CHOLESTEROL 50 >40 mg/dL [facility] CHOL/HDL RATIO 3.78 <4.51 [facility] LDL CHOLESTEROL 107 <131 mg/dL [facility] PATIENT STATUS Fasting [facility] Blood specimen (specimen) BLOOD SPECIMEN / Unknown 03/21/2011 7:49 AM CDT 03/21/2011 7:44 AM CDT Jenni Monroe MD CHEMISTRY [facility] [address] [place] [address] from Last 3 Months or Most Recently Relevant to Health Maintenance Additional Health Concerns Infection Onset Date Last Indicated [id number] Comment:Order contact precautions. Order consult to Infection Prevention to determine if patient may be removed from precautions. 10/07/2016 10/07/2016 Guarantor Name Account Type Relation to Patient Date of Phone Billing Address Danielito Valenzuela Personal/Family Self 1950 [address] [place] [address] Switch Identity Governance [facility] [employer] Employer ATTN [employer] PAYABLE [address] [place] [address] Advance Directives Documents on File Type Date Recorded Patient Airline Stewardess Laure PUENTE 10/08/2016 11:11 AM 09/30/2016 * Full Code (Latest Code Status on File) Date Activated Date Inactivated Comments 12/03/2016 4:20 PM 12/05/2016 10:17 PM Question Answer Comments Code Status Discussion: Not DiscussedPer Existin g Order * Full Code Date Activated Date Inactivated Comments 10/04/2016 3:41 PM 10/11/2016 3:23 PM * Full Code Date Activated Date Inactivated Comments 10/02/2016 2:33 PM 10/04/2016 3:41 PM * Full Code Date Activated Date Inactivated Comments 09/17/2016 4:11 PM 09/27/2016 1:00 PM Question Answer Comments Code Status Discussion: Discussed * DNR Date Activated Date Inactivated Comments 08/15/2016 3:29 PM 08/22/2016 6:11 PM Question Answer Comments Code Status Discussion: Discussed with francisco kline's son, who discussed with his siblings Care Teams Receivables Specialist Relationship Specialty Start Date End Date Darcy Allen MD [address] [place] [address] PCP - General Family Practice 07/24/16
== END 2024-01-30 15:18 | disposition home or self-care (01) ==
LOC: AMB 02-04 20:19
PROVIDERS: PCP Family Medicine; Visit Provider Family Medicine
DX: F10.129 Alcohol abuse with intoxication, unspecified (principal); R42 Dizziness and giddiness
CPT/HCPCS: A0998

== ENCOUNTER 2024-04-23 11:00 | Outpatient (CLI) | payer MEDICARE, SELFPAY ==
--- OUTSIDE RECORDS SUMMARY | 2024-04-26 22:56 | XMS_ITS | Clinical Summary ---
Author Organization [employer] [facility] Address [place], [place] [address] Care Team Providers Care Force Dispatcher Name Role Phone Darcy Allen MD Primary [...] CDT) CHOLESTEROL,TOTAL 189 110 - 199 mg/dL [facility] TRIGLYCERIDES 162(H) <150 mg/dL [facility] HDL CHOLESTEROL 50 >40 mg/dL [facility] CHOL/HDL RATIO 3.78 <4.51 [facility] LDL CHOLESTEROL 107 <131 mg/dL [facility] PATIENT STATUS Fasting [facility] Blood specimen (specimen) BLOOD SPECIMEN / Unknown 03/21/2011 7:49 AM CDT 03/21/2011 7:44 AM CDT Jenni Monroe MD CHEMISTRY [facility] [address] [place] [address] from Last 3 Months or Most Recently Relevant to Health Maintenance Additional Health Concerns Infection Onset Date Last Indicated ESBL Comment:Order contact precautions. Order consult to Infection Prevention to determine if patient may be removed from precautions. 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
--- OUTSIDE RECORDS SUMMARY | 2024-04-26 22:56 | XMS_ITS | Continuity of Care Document ---
Author Organization [facility] Address [address] [address] [place] [address] Phone Care Team Providers Care Works Manager Name Role Phone Dileep Strange MD Unavailable Unavailable Procedures Procedure Date Subsqt Hosp-da E&m Minr Compl 7 Ugi Endo; W/dilat Outlet-any M 17 Unlisted Proc Intestine Init Inpt Cons New/est Mod-hi 7 Advance Directives Directive Yes / No Effective Date File Name No Information Encounters Encounter Description Practice Location Reason(s) For Visit Diagnoses Date Provider Providers Copied on Encounter [facility], [address] [address], [place], [place], [id number], tel:[phone] [facility] No Information 7 Alexandr Falk. [address] [place] [address], [id number], [place]. tel:[phone] Subsqt Hosp-da E&m Minr Compl [facility], [address] [address], [place], [place], [id number], [place] tel:[phone] [facility] No Information 7 Kris Franklin. [address], [id number], [place]. tel:[phone] Referring Provider: Darcy Allen MD, [address] [place], [address]. tel:[phone] [facility], [address] [address], [place], [place], [id number], tel:[phone] [facility] No Information 7 Tin Aparicio. [address] [facility], [facility] [address], [place], [place], [id number], [place]. tel:[phone] Referring Provider: Darcy Allen MD, [address] [place], [address]. tel:[phone] Init Inpt Cons New/est Mod-hi [facility], [address] [address], [place], [place], [id number], [place] tel:[phone] [facility] No Information Mar-2 0 7 Mariya Jacobs. [address] [facility], [facility] [address], [place], [place], [id number], [place]. tel:[phone] Referring Provider: Darcy Allen MD, [address] [place], [address]. tel:[phone] Family History Family Member Type Diagnosis Age At Onset No Information Payers Payer name Insurance type Covered democrat ID Authorgisella mckenna(s) [employer] Of [facility] [id number] Medicare NGS MB [id number] Social History Type Description Quantity Date Captured [...]
--- OUTSIDE RECORDS SUMMARY | 2024-04-26 22:56 | XMS_ITS | Continuity of Care Document ---
Author Organization [facility] Address [address] [place] [address] Phone Care Team Providers Care Kennel Helper Name Role Phone Uziel Turner MD Unavailable Unavailable Procedures Procedure Date Initial Hospital Care Advance Directives Directive Yes / No Effective Date File Name No Information Encounters Encounter Description Practice Location Reason(s) For Visit Diagnoses Date Provider Providers Copied on Encounter Initial Hospital Care [facility], [address], [place], [address], [place] tel:[phone] [facility] No Information 0-201 7 Yue Triplett. [facility] [address], [place], [address], [place]. tel:[phone] Referring Provider: Uziel Soriano, [facility] [address], [place], [address]. tel:[phone] Family History Family Member Type Diagnosis Age At Onset No Information Payers Payer name Insurance type Covered constitution party ID Authorgisella mckenna(s) [facility] [id number] Medicare MB [id number] Social History Type Description Quantity Date Captured [...]
== END 2024-04-23 11:01 | disposition home or self-care (01) ==
LOC: AMB 04-26 22:55
PROVIDERS: PCP Family Medicine; Visit Provider Emergency Medicine Emergency Medical Services
DX: R53.1 Weakness (principal); R41.82 Altered mental status, unspecified
CPT/HCPCS: A0425; A0429

== ENCOUNTER 2024-04-23 11:51 | Inpatient (IN) | payer MEDICARE, SELFPAY ==
[2024-04-23] VITALS (20 sets, daily range): BP systolic 120–147; BP diastolic 68–121; PULSE 82–99; RESP 16–20; TEMP 36.7–37; O2SAT 93–99; BMI 19.8; BMI 27.1
--- NOTE | 2024-04-23 12:00 | ED.GENADULT ---
HPI - General Adult General Time Seen by Provider: 12:00 Date Seen: 04/23/24 Chief complaint: Weakness Stated complaint: confusion Time Seen by Provider: 04/23/24 11:59 Source: patient and EMS Mode of arrival: EMS History of Present Illness HPI narrative: This 74-year-old male to female transgender patient is brought in by EMS for confusion and a fall. Patient resides in independent apartments in [place]. Neighbors heard him yelling, he was found on his floor incontinent of urine. He tells me he fell, timeline is unknown. He knows that he did fall, does tell me that he was wandering around the shop to try to get help after that. This obviously is part of his confusion, he was down on his floor in his apartment. Patient knows that he was brought to [facility] but thinks the year might be 1992. He is able to tell me he fell, is not hurting anywhere specific, does not report loss of consciousness but do not believe that we can be sure of this. Patient has a history of alcohol use but states he has not drank alcohol all week. He was unable to get up off the floor, required full assistance to get him on the EMS caught, he was reportedly too weak. He has no specific pain complaints at this time. States he is able to move his arms and legs without any pain. There is no reported fevers, no chest pain, no cough or cold symptoms. His history is significant for history of peptic ulcer disease, GERD, balance issues, gout, hypertension, memory impairment, unstable gait, Wernicke-Korsakoff syndrome, alcoholism, chronic hyponatremia. Current medications are allopurinol, amlodipine, Nexium, folic acid, multivitamin, thiamin. Related Data Previous Rx's ?Medication ?Instructions ?Recorded multivitamin with folic acid 400 1 tab PO DAILY #90 tabs 08/14/22 mcg tablet (Thera) thiamine mononitrate (vit B1) 100 100 mg PO DAILY #90 tabs 08/28/23 mg tablet (Vitamin B-1 (mononitrate)) allopurinol 300 mg tablet 300 mg PO HS #90 tabs 12/24/23 amlodipine 10 mg tablet 10 mg PO HS #90 tabs 02/11/24 esomeprazole magnesium 20 mg 20 mg PO DAILY #90 caps 02/11/24 capsule,delayed release folic acid 1 mg tablet 1 mg PO DAILY #90 tabs 02/11/24 Allergies Allergy/AdvReac Type Severity Reaction Status Date / Time indomethacin Allergy Verified 01/30/24 07:43 Review of Systems Status of ROS: Reports: unobtainable due to mental status (Patient denies any specific symptoms at this time but is confused.) [facility] Medical History Adult failure to thrive (~03/2022) ?R62.7 - Adult failure to thrive (ICD-10) Memory deficit ?R41.3 - Other amnesia (ICD-10) POLST (Physician Orders for Life-Sustaining Treatment) ?Z78.9 - Other specified health status (ICD-10) Recurrent falls while walking (04/2021) ?R29.6 - Repeated falls (ICD-10) Gout (2016) ?M10.9 - Gout, unspecified (ICD-10) Postoperative intra-abdominal abscess (2016) ?T81.43XA - Infection following a procedure, organ and space surgical site, initial encounter (ICD-10) Normal stress echocardiography (~04/2017) Health care directive on file (05/31/21) ?Z78.9 - Other specified health status (ICD-10) Durable power of laundry clerk in chart (05/31/21) Duodenal ulcer with perforation (07/2016) ?K26.5 - Chronic or unspecified duodenal ulcer with perforation (ICD-10) Closed fracture of proximal end of right humerus ?S42.201A - Unspecified fracture of upper end of right humerus, initial encounter for closed fracture (ICD-10) Cellulitis of right hand excluding fingers and thumb (~03/2022) ?L03.113 - Cellulitis of right upper limb (ICD-10) Anemia ?D64.9 - Anemia, unspecified (ICD-10) Abnormal ultrasound of abdomen (~04/2021) ?R93.5 - Abnormal findings on diagnostic imaging of other abdominal regions, including retroperitoneum (ICD-10) Mild protein-calorie malnutrition ?E44.1 - Mild protein-calorie malnutrition (ICD-10) Wernicke-Korsakoff syndrome (~03/2022) ?F04 - Amnestic disorder due to known physiological condition (ICD-10) Poor dentition ?K08.9 - Disorder of teeth and supporting structures, unspecified (ICD-10) Alcoholism ?F10.20 - Alcohol dependence, uncomplicated (ICD-10) Cognitive decline ?R41.89 - Other symptoms and signs involving cognitive functions and awareness (ICD-10) Unstable gait ?R26.81 - Unsteadiness on feet (ICD-10) History of DVT of lower extremity (~04/2021) ?Z86.718 - Personal history of other venous thrombosis and embolism (ICD-10) Personal history of peptic ulcer disease ?Z87.11 - Personal history of peptic ulcer disease (ICD-10) Polyarticular gout ?M10.9 - Gout, unspecified (ICD-10) GERD (gastroesophageal reflux disease) ?K21.9 - Gastro-esophageal reflux disease without esophagitis (ICD-10) Hypertension ?I10 - Essential (primary) hypertension (ICD-10) Surgical History History of anterior cruciate ligament surgery (2005) ?Z98.890 - Other specified postprocedural states (ICD-10) History of ventral hernia repair (2017) ?Z98.890 - Other specified postprocedural states (ICD-10) ?Z87.19 - Personal history of other diseases of the digestive system (ICD-10) Status post left knee replacement (04/2019) ?Z96.652 - Presence of left artificial knee joint (ICD-10) History of total knee replacement (07/2016) ?Z96.659 - Presence of unspecified artificial knee joint (ICD-10) History of abdominal surgery (07/2016) ?Z98.890 - Other specified postprocedural states (ICD-10) Family History Father No problems noted. 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 . 3 adult kids. Lives in [place] independent living, non does not drive Non smoker, quit age 31 10 pack years prior 4 /drinks a week, chronic alcoholism Designates sonDanielito, and daughter, Britta, as his power of laundry clerk for health should that be required. What is your current living situation?: I presently have a place to live Problems where you live: no known problems In the past 12 months, utilities in danger of being shut off: no In past 12 months, lack of transportation kept you from medical appts, meetings, work, or getting things needed for daily living: no In the past 12 mos, have been you worried that your food would run out before you had money to buy more?: never true In the past 12 mos, the food you bought just didn't last and you didn't have money to buy more?: never true Highest level of school completed/degree received: don't know Smoking Status: Former smoker What tobacco products do you use: cigarettes Years smoked: 0.5 Smoking quit date/years: <= 15 years ago and cigars Do you use any of these nicotine containing products: None Second hand tobacco smoke exposure: No How often do you have a drink containing alcohol: 4 or more times a week Alcohol type: beer How many standard drinks containing alcohol do you have on a typical day: 3 or 4 How often do you have six or more drinks on one occasion: Weekly AUDIT-C Alcohol total score: 8 Non-prescribed substance use: denies use How often does anyone, including family, friends and others, physically hurt you: never How often does anyone, including family, friends and others, insult or talk down to you: never How often does anyone, including family, friends and others, threaten you with harm: never How often does anyone, including family, friends and others, scream or curse at you: never Little interest or pleasure in doing things: several days Feeling down, depressed, or hopeless: not at all service: Yes Exam Const: Vital Signs, click to edit/add: Vital Signs - 24 hr 04/23/24 11:47 04/23/24 11:53 04/23/24 12:00 Temperature 98.6 F Pulse Rate [Pulse Oximeter] 94 Respiratory Rate 18 Blood Pressure [Ri ght Upper Arm] 132/95 H Pulse Oximetry 96 93 96 Oxygen Delivery Me thod Room Air 04/23/24 12:00 04/23/24 12:00 04/23/24 12:01 Temperature Pulse Rate [Pulse Oximeter] Respiratory Rate 20 Blood Pressure [Ri ght Upper Arm] 132/95 H Pulse Oximetry 95 95 Oxygen Delivery Me thod 04/23/24 12:10 04/23/24 12:20 04/23/24 12:30 Temperature Pulse Rate [Pulse Oximeter] Respiratory Rate Blood Pressure [Ri ght Upper Arm] Pulse Oximetry 97 96 99 Oxygen Delivery Me thod 04/23/24 12:40 04/23/24 12:50 04/23/24 13:00 Temperature Pulse Rate [Pulse Oximeter] Respiratory Rate 20 Blood Pressure [Ri ght Upper Arm] 147/97 H Pulse Oximetry 99 99 Oxygen Delivery Me thod Room Air 04/23/24 13:00 04/23/24 13:17 04/23/24 13:18 Temperature Pulse Rate [Pulse Oximeter] Respiratory Rate Blood Pressure [Ri ght Upper Arm] Pulse Oximetry 97 95 96 Oxygen Delivery Me thod 04/23/24 13:20 04/23/24 13:21 Temperature Pulse Rate [Pulse Oximeter] Respiratory Rate Blood Pressure [Ri ght Upper Arm] Pulse Oximetry 97 96 Oxygen Delivery Me thod 74-year-old male is lying in bed, disheveled and smells of urine but is otherwise alert and interactive. He is oriented to self and place but not time. Believes it was 1992 when I asked him. Up face atraumatic, no noted scalp traumatic changes. Pupils are equal round reactive. Symmetrical facial function, speech is appropriate normal, not slurred. Oropharynx with definite dry mucosa, poor dentition but no traumatic change noted. Neck is supple, no masses, no adenopathy, no midline tenderness over his cervical spine. Lungs are clear, good air entry, no wheezing or crackles. Does not complain of any pain when I palpate his chest wall. CV regular rate and rhythm, no murmur, normal S1-S2, no S3-S4. Abdomen is soft, nontender, nondistended, no rebound or guarding, no masses organomegaly noted. He moves his upper extremities, small abrasion that is superficial over the left lateral elbow, no focal areas of tenderness on examination of his upper extremities. He can move his lower extremities, do not observe any traumatic changes of his lower extremities. Rotation of his hips produces no pain. Documenting provider has reviewed patient's vital signs: yes Course Course ED Course: This 74-year-old male with underlying balance and issues with chronic alcoholism is coming in with a fall, unknown how long he has been down. Will start with head CT, cervical spine imaging and obtain a chest x-ray on him. May need to consider other imaging should there be development of any noted orthopedic pains or issues while here, continue to monitor. Will have a whole workup done with labs. Need to consider infectious etiology which could be respiratory could be viral, could be urinary. Also need to consider alcoholism, EtOH will be obtained. This could be metabolic. Will rule out traumatic HEEL STIFFENER changes with head CT. Will be getting a CK just to ensure no rhabdomyolysis given unknown down time. It is unlikely given his current state that he will be able to safely discharged back to independent apartment at this time. Consultations Consultation #1: Have spoken with the hospitalist, they accept patient for observation. Time: 14:16 Vital Signs Vital signs: Initial Vital Signs Temperature 98.6 F 04/23/24 11:47 Temperature Source Temporal Artery Scan 04/23/24 11:47 Pulse Rate 94 04/23/24 11:47 Respiratory Rate 18 04/23/24 11:47 Blood Pressure 132/95 H 04/23/24 11:47 Blood Pressure Mean 107 H 04/23/24 11:47 Pulse Oximetry 96 04/23/24 11:47 Oxygen Delivery Method Room Air 04/23/24 11:47 Vital Signs Temperature 98.6 F 04/23/24 11:47 Pulse Rate 94 04/23/24 11:47 Respiratory Rate 18 04/23/24 11:47 Blood Pressure 132/95 H 04/23/24 11:47 Pulse Oximetry 96 04/23/24 11:47 Oxygen Delivery Method Room Air 04/23/24 11:47 Temperature 98.6 F 04/23/24 11:47 Pulse Rate 94 04/23/24 11:47 Respiratory Rate 20 04/23/24 13:00 Blood Pressure 147/97 H 04/23/24 13:00 Pulse Oximetry 96 04/23/24 13:21 Oxygen Delivery Method Room Air 04/23/24 13:00 Medications Administered Medications: Discontinued Medications Generic Name Dose Route Start Last Admin Trade Name Freq PRN Reason Stop Dose Admin Sodium Chloride 1,000 mls @ 500 mls/hr 04/23/24 12:07 04/23/24 14:12 0.9 % Sodium Chloride 1000 Ml IV 04/23/24 14:06 500 mls/hr .Q2H MAYELA Administration Medical Decision Making Lab Data Lab results reviewed: Yes I reviewed the patient's lab results Labs: Lab Results 04/23/24 04/23/24 04/23/24 Range/Units 12:42 12:42 12:55 WBC 13.32 H (4.50-11.00) K/uL RBC 4.60 (4.30-5.90) m/uL Hgb 14.7 (13.5-17.5) gm/dL Hct 42.8 (37.0-53.0) % MCV 93 (80-100) fL MCH 32 (26-34) pg MCHC 34 (32-36) gm/dL RDW Coeff of Delvis 12.9 (11.5-15.5) % Plt Count 247 (140-440) K/uL Neut % (Auto) 87.2 H (42.0-72.0) % Lymph % (Auto) 5.9 L (20-44) % Towner % (Auto) 5.9 (0.0-11.0) % Eos % (Auto) 0.5 (0.0-7.0) % Baso % (Auto) 0.3 (0.0-3.0) % Neut # (Auto) 11.60 H (1.7-7.0) K/uL Lymph # (Auto) 0.80 L (0.90-2.90) K/uL Towner # (Auto) 0.80 (0.00-0.90) K/UL Eos # (Auto) 0.10 (0.00-0.50) K/uL Baso # (Auto) 0.00 (0.00-0.30) K/uL Abs Immat Gran (auto) 0.00 (0.00-0.30) K/uL Imm/Tot Granulo (auto) 0.2 % INR 0.87 L (0.91-1.10) APTT 33 (23-33) Seconds Sodium 130 L (135-149) mmol/L Potassium 3.8 (3.6-5.1) mmol/L Chloride 99 (96-114) mmol/L Carbon Dioxide 21 (20-32) mmol/L Anion Gap 10 (7-15) mEq/L BUN 17 (7-30) mg/dL Creatinine 1.1 (0.5-1.5) mg/dL Estimated Creat Clear 49.88 Estimated GFR 71 ml/min Glucose 90 (60-115) mg/dL Lactate 1.5 (0.5-1.9) mmol/L Calcium 9.7 (8.4-10.6) mg/dL Magnesium 2.2 (1.5-2.6) mg/dL Total Bilirubin 1.4 (0.1-1.5) mg/dL Direct Bilirubin 0.5 (0.0-0.5) mg/dL AST 121 H (12-35) U/L ALT 41 (4-50) U/L Alkaline Phosphatase 102 (40-150) U/L Ammonia < 9.0 L (13.1-30.0) umol/L Total Creatine Kinase 2323 H (54-186) U/L Troponin I 0.02 (0.01-0.04) ng/mL C-Reactive Protein 6.1 H (0.5-1.0) mg/dL NT-Pro-B Natriuret Pep 1050 pg/mL Total Protein 8.4 H (6.0-8.3) g/dL Albumin 4.8 (3.3-5.0) g/dL Procalcitonin 0.15 (<0.50) ng/mL TSH 2.130 (0.270-4.200) uIU/mL Ethyl Alcohol < 0.01 L Cancelled (0.01-0.03) % SARS-CoV-2 (PCR) Negative SARS-CoV-2 (Negative) Influenza Type A (PCR) Negative PCR FLU A (Negative) Influenza Type B (PCR) Negative PCR FLU B (Negative) RSV (PCR) Negative PCR RSV (Negative) Imaging Data CT scan - head: Attestation: I have reviewed the pertinent imaging results. Radiologist's impression: Patient: DANIELITO BHATTI Facility:?[facility] Patient ID:?[id number] Site Patient ID:?[id number]. Site :?1950 Study:?CT-Head WO-04/23/2024 1:33:20 PM Ordering Physician:?Leta Anand Final Report: INDICATION: Fall, altered mental status TECHNIQUE: CT head without contrast. COMPARISON: CT head 04/23/2022 FINDINGS: MASS EFFECT & VENTRICLES: No significant midline shift. The lateral ventricles are symmetric. Basal cisterns patent. No sulcal effacement. The ventricles, cisterns, and other CSF containing spaces are symmetrically prominent secondary to diffuse parenchymal volume loss but are otherwise normal as to shape and position. BRAIN: Diffuse cerebral volume loss. Periventricular and subcortical hypodensities likely secondary to age-related microvascular ischemic changes. Similar encephalomalacia in the right frontal lobe and right occipital lobe. No acute infarct or hemorrhage. VASCULAR: No acute abnormalities of the cavernous carotids and vertebral vessels on noncontrast exam. EXTRA-AXIAL: Extra-axial spaces are normal. EXTRA-CRANIAL: No acute calvarial or facial fractures. Moderate scattered sinus mucosal thickening. Mastoids are clear. Orbits are normal. IMPRESSION: No acute intracranial abnormality. Sequela of multiple prior infarctions. Please note that all CT scans at this facility use dose modulation, iterative reconstruction, and/or weight-based dosing when appropriate to reduce radiation dose to as low as reasonably achievable. Dictated by Gin Rai MD @ 04/23/2024 1:46:22 PM (Electronic Signature) CT cervical spine: Attestation: I have reviewed the pertinent imaging results. Radiologist's impression: Patient: DANIELITO BHATTI Facility:?[facility] Patient ID:?[id number] Site Patient ID:?[id number]. Site :?1950 Study:?CT-Spine Cervical WO-04/23/2024 1:34:09 PM Ordering Physician:?Leta Anand Final Report: INDICATION: Fall TECHNIQUE: CT cervical spine without contrast. COMPARISON: CT cervical spine FINDINGS: Vertebrae: Diffuse osseous demineralization. Straightening of normal cervical lordosis. Similar trace anterolisthesis of C4 on C5. No acute fractures. Discs and facet joints: [id number] diffuse degenerative changes in the disc spaces and facet joints. No areas of severe central or neural foraminal stenosis. Extraspinal findings: Paraspinous soft tissues are unremarkable. IMPRESSION: 1. No sign of acute injury. 2. Multilevel degenerative spondylosis. Please note that all CT scans at this facility use dose modulation, iterative reconstruction, and/or weight-based dosing when appropriate to reduce radiation dose to as low as reasonably achievable. Dictated by Gin Ria MD @ 04/23/2024 1:50:03 PM (Electronic Signature) Chest x-ray: Attestation: I have reviewed the pertinent imaging results. Radiologist's impression: Patient: DANIELITO BHATTI Facility:?[facility] Patient ID:?[id number] Site Patient ID:?[id number]. Site :?1950 Study:?XRay-Chest PORTABLE 1 VIEW-04/23/2024 12:58:49 PM Ordering Physician:Edwina Anand Final Report: Indication: Fall, confusion Technique: Chest 1 view Comparison: Chest x-ray 04/02/2022 Findings/Impression: Cardiovascular and mediastinum: Normal heart size with aortic tortuosity. Lungs and pleural space: Mild elevation of the right hemidiaphragm, similar to prior. No pleural effusion or pneumothorax. No focal consolidation. Bones and soft tissues: Mild deformity of the right proximal humerus, similar to the prior exam consistent with an old fracture deformity. Age-indeterminate left 8th rib fracture. Dictated by Herrera Jc MD @ 04/23/2024 1:00:24 PM (Electronic Signature) ECG Data Attestation: I personally reviewed and interpreted this ECG as follows: (Normal sinus rhythm, 91 beats per minute. There is artifact confounding this EKG but appears to have left anterior fascicular block.) Prior ECG tracings: available for review (Compared to 2021, more baseline artifact today.) Discharge Plan Discharge Clinical Impression: Weakness Rhabdomyolysis Qualifiers: Rhabdomyolysis type: traumatic Encounter type: initial encounter Qualified Code(s): T79.6XXA - Traumatic ischemia of muscle, initial encounter Prescriptions: No Action multivitamin with folic acid [Thera] 400 mcg tablet 1 tab PO DAILY Qty: 90 3RF thiamine mononitrate (vit B1) [Vitamin B-1 (mononitrate)] 100 mg tablet 100 mg PO DAILY Qty: 90 2RF allopurinol 300 mg tablet 300 mg PO HS Qty: 90 1RF amlodipine 10 mg tablet 10 mg PO HS Qty: 90 3RF esomeprazole magnesium 20 mg capsule,delayed release(DR/EC) 20 mg PO DAILY Qty: 90 3RF folic acid 1 mg tablet 1 mg PO DAILY Qty: 90 3RF Follow Up/Referrals: Darcy Allen MD [Primary Care Provider] -
--- NOTE | 2024-04-23 12:05 | CRLHL7_ITS ---
For Patients: As a result of the Century Cures Act, medical imaging exams and procedure reports are released immediately into your electronic medical record. You may view this report before your referring provider. If you have questions, please contact your health care provider. INDICATION: Fall TECHNIQUE: CT cervical spine without contrast. COMPARISON: CT cervical spine FINDINGS: Vertebrae: Diffuse osseous demineralization. Straightening of normal cervical lordosis. Similar trace anterolisthesis of C4 on C5. No acute fractures. Discs and facet joints: Dnjukxst-[id number] diffuse degenerative changes in the disc spaces and facet joints. No areas of severe central or neural foraminal stenosis. Extraspinal findings: Paraspinous soft tissues are unremarkable. IMPRESSION: 1. No sign of acute injury. 2. Multilevel degenerative spondylosis. Please note that all CT scans at this facility use dose modulation, iterative reconstruction, and/or weight-based dosing when appropriate to reduce radiation dose to as low as reasonably achievable. Dictated by Gin Rai MD @ 04/23/2024 1:50:03 PM (Electronically Signed)
--- NOTE | 2024-04-23 12:05 | CRLHL7_ITS ---
For Patients: As a result of the Century Cures Act, medical imaging exams and procedure reports are released immediately into your electronic medical record. You may view this report before your referring provider. If you have questions, please contact your health care provider. INDICATION: Fall, altered mental status TECHNIQUE: CT head without contrast. COMPARISON: CT head 04/23/2022 FINDINGS: ventricles are symmetric. Basal cisterns patent. No sulcal effacement. The ventricles, cisterns, and other CSF containing spaces are symmetrically prominent secondary to diffuse parenchymal volume loss but are otherwise normal as to shape and position. BRAIN: Diffuse cerebral volume loss. Periventricular and subcortical hypodensities likely secondary to age-related microvascular ischemic changes. Similar encephalomalacia in the right frontal lobe and right occipital lobe. No acute infarct or hemorrhage. VASCULAR: No acute abnormalities of the cavernous carotids and vertebral vessels on noncontrast exam. EXTRA-AXIAL: Extra-axial spaces are normal. EXTRA-CRANIAL: No acute calvarial or facial fractures. Moderate scattered sinus mucosal thickening. Mastoids are clear. Orbits are normal. IMPRESSION: No acute intracranial abnormality. Sequela of multiple prior infarctions. Please note that all CT scans at this facility use dose modulation, iterative reconstruction, and/or weight-based dosing when appropriate to reduce radiation dose to as low as reasonably achievable. Dictated by Gin Rai MD @ 04/23/2024 1:46:22 PM (Electronically Signed)
--- NOTE | 2024-04-23 12:05 | CRLHL7_ITS ---
For Patients: As a result of the Cures Act, medical imaging exams and procedure reports are released immediately into your electronic medical record. You may view this report before your referring provider. If you have questions, please contact your health care provider. Indication: Fall, confusion Technique: Chest 1 view Comparison: Chest x-ray 04/02/2022 Findings/Impression: Cardiovascular and mediastinum: Normal heart size with aortic tortuosity. Lungs and pleural space: Mild elevation of the right hemidiaphragm, similar to prior. No pleural effusion or pneumothorax. No focal consolidation. Bones and soft tissues: Mild deformity of the right proximal humerus, similar to the prior exam consistent with an old fracture deformity. Age-indeterminate left 8th rib fracture. Dictated by Hererra Jc MD @ 04/23/2024 1:00:24 PM (Electronically Signed)
[2024-04-23 12:53] LABS: Lactate* 1.5 mmol/L (0.5-1.9)
[2024-04-23 13:00] LABS: Basophils Percent Auto 0.3 % (0.0-3.0); Eosinophils Percent Auto 0.5 % (0.0-7.0); Hematocrit 42.8 % (37.0-53.0); Hemoglobin* 14.7 gm/dL (13.5-17.5); Immature Granulocytes Pct Auto 0.2 %; Lymphocytes Percent Auto 5.9 % (20-44); Mean Corpuscular HGB Conc 34 gm/dL (32-36); Mean Corpuscular Hemoglobin 32 pg (26-34); Mean Corpuscular Volume 93 fL (80-100); Monocytes Percent Auto 5.9 % (0.0-11.0); Neutrophils Percent Auto 87.2 % (42.0-72.0); Platelet Count* 247 K/uL (140-440); RDW Coefficient of Variation % 12.9 % (11.5-15.5); White Blood Count* 13.32 K/uL (4.50-11.00)
[2024-04-23 13:02] LABS: Slide Review Reflex No
[2024-04-23 13:09] LABS: Albumin* 4.8 g/dL (3.3-5.0); Chloride* 99 mmol/L (96-114)
[2024-04-23 13:10] LABS: Potassium* 3.8 mmol/L (3.6-5.1); Sodium* 130 mmol/L (135-149)
[2024-04-23 13:11] LABS: INR 0.87 (0.91-1.10); Prothrombin Time 12.3 Seconds
[2024-04-23 13:12] LABS: Creatinine* 1.1 mg/dL (0.5-1.5); Est. Creatinine Clearance* 49.88; Estimated Glomerular Filt Rate 71 ml/min; Partial Thromboplastin Time* 33 Seconds (23-33)
[2024-04-23 13:13] LABS: Alanine Aminotransferase* 41 U/L (4-50); Alkaline Phosphatase* 102 U/L (40-150); Anion Gap 10 mEq/L (7-15); Aspartate Amino Transferase* 121 U/L (12-35); Bilirubin Direct* 0.5 mg/dL (0.0-0.5); Bilirubin Total* 1.4 mg/dL (0.1-1.5); Blood Urea Nitrogen* 17 mg/dL (7-30); Calcium* 9.7 mg/dL (8.4-10.6); Carbon Dioxide* 21 mmol/L (20-32); Glucose* 90 mg/dL (60-115); Magnesium* 2.2 mg/dL (1.5-2.6); Total Protein* 8.4 g/dL (6.0-8.3)
[2024-04-23 13:16] LABS: C Reactive Protein* 6.1 mg/dL (0.5-1.0)
[2024-04-23 13:19] LABS: Ammonia* < 9.0 umol/L (13.1-30.0)
[2024-04-23 13:20] LABS: Ethanol* < 0.01 % (0.01-0.03)
[2024-04-23 13:23] LABS: Creatine Kinase* 2323 U/L (54-186); NT Pro B Type NatriureticPept* 1050 pg/mL
[2024-04-23 13:24] LABS: Troponin I* 0.02 ng/mL (0.01-0.04)
[2024-04-23 13:29] LABS: Procalcitonin* 0.15 ng/mL (<0.50)
--- OUTSIDE RECORDS SUMMARY | 2024-04-23 13:48 | XMS_ITS | Continuity of Care Document ---
Author Organization [facility] Address [address] [place] [address] Phone Care Team Providers Care Printed Circuit Boards Inspector Name Role Phone Uziel Turner MD Unavailable Unavailable Procedures Procedure Date Initial Hospital Care Advance Directives Directive Yes / No Effective Date File Name No Information Encounters Encounter Description Practice Location Reason(s) For Visit Diagnoses Date Provider Providers Copied on Encounter Initial Hospital Care [facility], [address], [place], [address], [place] tel:[phone] [facility] No Information 0-201 7 Yue Triplett. [facility] [address], [place], [address], [place]. tel:[phone] Referring Provider: Uziel Soriano, [facility] [address], [place], [address]. tel:[phone] Family History Family Member Type Diagnosis Age At Onset No Information Payers Payer name Insurance type Covered green party ID Authorgisella mckenna(s) [facility] [id number] Medicare [place] [id number] Social History Type Description Quantity Date Captured [...]
--- OUTSIDE RECORDS SUMMARY | 2024-04-23 13:48 | XMS_ITS | Clinical Summary ---
Author Organization [facility] Address [place], [place] [address] Care Team Providers Care Driller Portable Name Role Phone Darcy Allen MD Primary [...] 10/02/2016 Fever 10/02/2016 Palliative care encounter 08/08/2016 Overview (08/08/2016): Palliative care inpatient consult (08/07/16) to address care goals and advance care planning, in setting of complicated hospital course following perforated duodenal ulcer. Anasarca 08/01/2016 CONSTANTIN (acute kidney injury) 08/01/2016 Acute encephalopathy 08/01/2016 Polyarticular gout 08/01/2016 ACP (advance care planning) 07/27/2016 Overview (07/27/2016): Patient has identified Health Care Agent(s): Yes [...] Code Status: CPR/Attempt Resuscitation Duodenal ulcer 07/25/2016 Overview (07/25/2016): S/p perf with surgical repair 07/25/16 Status post total right knee replacement 017 Alcohol use disorder 07/25/2016 Overview (07/25/2016): Drinks 4-5 beers daily Osteoarthritis 07/25/2016 Hx of perforated duodenal ulcer 07/25/2016 Anemia 07/25/2016 Thrombocytopenia 07/25/2016 Hyponatremia 07/25/2016 Secondhand smoke exposure 09/21/2010 Unspecified essential hypertension 01/01/2008 Headache(784.0) 11/26/2006 Overview (11/26/2006): h/o H/A and scalp pain Gout, unspecified Unspecified arthropathy, multiple sites Overview (02/25/2008): arthritis in all joints mostly on left [...] 03/16/2022 03/16/2012 COVID-19 vaccine series ( season) 2024 05/22/2021 Influenza for age 65+ 03/21/2024 04/20/2016, 008 Tdap Completed 03/16/2012 Procedures Procedure Name Priority Date/Time Associated Diagnosis Comments LIPID PANEL W REFLEX MEASURED LDL Routine 03/21/2011 7:49 AM CDT Lipid screening from Last 3 Months or Most Recently Relevant to Health Maintenance Results * (ABNORMAL) LIPID PANEL W REFLEX MEASURED LDL (03/21/2011 7:49 AM CDT) CHOLESTEROL,TOTAL 189 110 - 199 mg/dL [facility] TRIGLYCERIDES 162(H) <150 mg/dL [facility] HDL CHOLESTEROL 50 >40 mg/dL [facility] CHOL/HDL RATIO 3.78 <4.51 [facility] LDL CHOLESTEROL 107 <131 mg/dL [facility] PATIENT STATUS Fasting [facility] Blood specimen (specimen) BLOOD SPECIMEN / Unknown 03/21/2011 7:49 AM CDT 03/21/2011 7:44 AM CDT Jenni Monroe MD CHEMISTRY [facility] [address] [place] [address] from Last 3 Months or Most Recently Relevant to Health Maintenance Additional Health Concerns Infection Onset Date Last Indicated ESBL Comment:Order contact precautions. Order consult to Infection Prevention to determine if patient may be removed from precautions. 10/07/2016 10/07/2016 Advance Directives Documents on File Type Date Recorded Patient Multimedia Services Manager Laure PUENTE 10/08/2016 11:11 AM 09/30/2016 * [...] who discussed with his siblings Care Teams Driller Portable Relationship Specialty Start Date End Date Darcy Allen MD [address] [place] [address] PCP - General Family Practice 07/24/16
[2024-04-23 13:49] LABS: PCR FLU A Negative PCR FLU A (Negative); PCR FLU B Negative PCR FLU B (Negative); PCR RSV Negative PCR RSV (Negative); SARS PCR* Negative SARS-CoV-2 (Negative)
[2024-04-23] MEDS: 0.9 % SODIUM CHLORIDE 1000 ml 1,000 ML 500 ML IV (14:12)
[2024-04-23 14:46] LABS: Appearance Urine Cloudy (Clear); Bilirubin Urine 1+ (Negative); Blood Urine 1+ (Negative); Color Urine Yellow (Yellow); Glucose Urine Negative (Negative); Ketones Urine Trace (Negative); Leukocyte Esterase Urine 1+ (Negative); Nitrite Urine Negative (Negative); Protein Urine 2+ (Negative)
[2024-04-23 14:53] LABS: Amphetamine Screen Urine Negative (Negative); Barbiturate Screen Urine Negative (Negative); Benzodiazepines Screen Urine Negative (Negative); Cannabinoid Screen Urine Negative (Negative); Cocaine Screen Urine Negative (Negative); Methadone Screen Urine Negative (Negative); Methamphetamines Screen Urine Negative (Negative); Opiate Screen Urine Negative (Negative); Oxycodone Screen Urine Negative (Negative); Phencyclidine Screen Urine Negative (Negative); Tricyclic Antidepressant Urine Negative (Negative)
[2024-04-23 15:10] LABS: Bacteria Urine Many; RBC Urine 0-2 (0-2); Squamous Epithelial Cell Urine Few (None-Few)
--- NOTE | 2024-04-23 15:21 | PM.IMHP1 ---
Hospitalist- H&P: HPI History of Present Illness Date Seen: 04/23/24 Chief complaint: confusion Narrative: Danielito Valenzuela is a 74 year old male with past medical history of being a transgender woman, chronic dementia, hypertension, gout, history of perforated duodenal ulcer and colonic fistula, anemia, chronic hyponatremia, and alcohol use disorder who presents to the ED after he was brought in by EMS due to confusion and a fall. Patient was found on the floor of his apartment by his neighbors with urine incontinence. Patient is unreliable historian, and obviously confused, he things that he was at work when he fell down then he added I do not know what I was doing at work though I am retired. He he lives an independent apartment in [place]. He has chronic balance problems he uses a walker. He does not drive. Patient unsure of the time line of the fall. Patient is unsure when was his last alcohol drink. Patient denies headache, visual changes, chest pain, shortness O breath, abdominal pain, urinary changes or bowel movements except that he notes that he noticed that he is incontinent recently. No history of fevers or chills per the patient. At the ED patient was hemodynamically stable, mild elevation of white blood cells at around 13, elevated CRP at 6, normal creatinine of and and elevation of his CK more than 2300. CT head showed multiple old infarcts, other than that no acute pathology, chest x-ray unremarkable. EKG normal sinus rhythm nonspecific T-wave changes. 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 ?I69.319 - Unspecified symptoms and signs involving cognitive functions following cerebral infarction (ICD-10) Left rib fracture ?S22.32XA - Fracture of one rib, left side, initial encounter for closed fracture (ICD-10) Right humeral fracture ?S42.301A - Unspecified fracture of shaft of humerus, right arm, initial encounter for closed fracture (ICD-10) Adult failure to thrive (~03/2022) ?R62.7 - Adult failure to thrive (ICD-10) Memory deficit ?R41.3 - Other amnesia (ICD-10) POLST (Physician Orders for Life-Sustaining Treatment) ?Z78.9 - Other specified health status (ICD-10) Recurrent falls while walking (04/2021) ?R29.6 - Repeated falls (ICD-10) Gout (2017) ?M10.9 - Gout, unspecified (ICD-10) Postoperative intra-abdominal abscess (2017) ?T81.43XA - Infection following a procedure, organ and space surgical site, initial encounter (ICD-10) Normal stress echocardiography (~04/2017) Health care directive on file (05/31/21) ?Z78.9 - Other specified health status (ICD-10) Durable power of civil rights attorney in chart (05/31/21) Duodenal ulcer with perforation (07/2016) ?K26.5 - Chronic or unspecified duodenal ulcer with perforation (ICD-10) Closed fracture of proximal end of right humerus ?S42.201A - Unspecified fracture of upper end of right humerus, initial encounter for closed fracture (ICD-10) Cellulitis of right hand excluding fingers and thumb (~03/2022) ?L03.113 - Cellulitis of right upper limb (ICD-10) Anemia ?D64.9 - Anemia, unspecified (ICD-10) Abnormal ultrasound of abdomen (~04/2021) ?R93.5 - Abnormal findings on diagnostic imaging of other abdominal regions, including retroperitoneum (ICD-10) Mild protein-calorie malnutrition ?E44.1 - Mild protein-calorie malnutrition (ICD-10) Wernicke-Korsakoff syndrome (~03/2022) ?F04 - Amnestic disorder due to known physiological condition (ICD-10) Poor dentition ?K08.9 - Disorder of teeth and supporting structures, unspecified (ICD-10) Alcoholism ?F10.20 - Alcohol dependence, uncomplicated (ICD-10) Cognitive decline ?R41.89 - Other symptoms and signs involving cognitive functions and awareness (ICD-10) Unstable gait ?R26.81 - Unsteadiness on feet (ICD-10) History of DVT of lower extremity (~04/2021) ?Z86.718 - Personal history of other venous thrombosis and embolism (ICD-10) Personal history of peptic ulcer disease ?Z87.11 - Personal history of peptic ulcer disease (ICD-10) Polyarticular gout ?M10.9 - Gout, unspecified (ICD-10) GERD (gastroesophageal reflux disease) ?K21.9 - Gastro-esophageal reflux disease without esophagitis (ICD-10) Hypertension ?I10 - Essential (primary) hypertension (ICD-10) Surgical History History of anterior cruciate ligament surgery (2005) ?Z98.890 - Other specified postprocedural states (ICD-10) History of ventral hernia repair (2017) ?Z98.890 - Other specified postprocedural states (ICD-10) ?Z87.19 - Personal history of other diseases of the digestive system (ICD-10) Status post left knee replacement (04/2019) ?Z96.652 - Presence of left artificial knee joint (ICD-10) History of total knee replacement (07/2016) ?Z96.659 - Presence of unspecified artificial knee joint (ICD-10) History of abdominal surgery (07/2016) ?Z98.890 - Other specified postprocedural states (ICD-10) Family History Father No problems noted. 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 . 3 adult kids. Lives in [facility] independent living, non does not drive Non smoker, quit age 31 10 pack years prior 4 /drinks a week, chronic alcoholism Designates sonDanielito, and daughter, Britta, as his power of civil rights attorney for health should that be required. What is your current living situation?: I presently have a place to live Problems where you live: pests, such as bugs, ants, or mice Problems where you live details: spring bugs In the past 12 months, utilities in danger of being shut off: no In past 12 months, lack of transportation kept you from medical appts, meetings, work, or getting things needed for daily living: yes In the past 12 mos, have been you worried that your food would run out before you had money to buy more?: never true In the past 12 mos, the food you bought just didn't last and you didn't have money to buy more?: never true Highest level of school completed/degree received: some college, no degree Smoking Status: Former smoker What tobacco products do you use: cigarettes Years smoked: 0.5 Smoking quit date/years: >15 years ago and cigars Do you use any of these nicotine containing products: None Second hand tobacco smoke exposure: No How often do you have a drink containing alcohol: 4 or more times a week Alcohol type: beer How many standard drinks containing alcohol do you have on a typical day: 3 or 4 How often do you have six or more drinks on one occasion: Less than monthly AUDIT-C Alcohol total score: 6 Non-prescribed substance use: denies use Caffeine: Yes (pop) How often does anyone, including family, friends and others, physically hurt you: never How often does anyone, including family, friends and others, insult or talk down to you: never How often does anyone, including family, friends and others, threaten you with harm: never How often does anyone, including family, friends and others, scream or curse at you: sometimes Little interest or pleasure in doing things: several days Feeling down, depressed, or hopeless: not at all service: Yes (medic in [facility]) Meds Home Medications and Allergies Allergies Allergy/AdvReac Type Severity Reaction Status Date / Time indomethacin Allergy Verified 01/30/24 07:43 Exam Narrative: Exam Narrative: Physical exam GENERAL: Confused, unkempt, no acute distress. HEAD AND NECK: Atraumatic, normocephalic CARDIOVASCULAR: RRR. Normal S1, S2. No murmurs. RESPIRATORY: Clear to auscultation B/L. Good air entry B/L. No wheezes or rhonchi. CHEST: No focal pain on palpation of his ribs, in addition patient was able to take deep breaths without pain. GASTROINTESTINAL: Not distended, not tender to palpation. NEUROLOGY: Alert, awake, confused. Normal speech. And bilateral upper extremity and lower extremity weakness, left upper extremity and lower extremity weakness worse than the right side . He has strong supervisor mold yard of my fingers. Musculoskeletal: Deformities of bilateral feet, hammertoes. Const: Vital Signs, click to edit/add: Vital Signs - 24 hr 04/23/24 11:47 04/23/24 11:53 04/23/24 12:00 Temperature 98.6 F Pulse Rate [Pulse Oximeter] 94 Respiratory Rate 18 Blood Pressure [Ri ght Upper Arm] 132/95 H Pulse Oximetry 96 93 96 Oxygen Delivery Me thod Room Air 04/23/24 12:00 04/23/24 12:00 04/23/24 12:01 Temperature Pulse Rate [Pulse Oximeter] Respiratory Rate 20 Blood Pressure [Ri ght Upper Arm] 132/95 H Pulse Oximetry 95 95 Oxygen Delivery Me thod 04/23/24 12:10 04/23/24 12:20 04/23/24 12:30 Temperature Pulse Rate [Pulse Oximeter] Respiratory Rate Blood Pressure [Ri ght Upper Arm] Pulse Oximetry 97 96 99 Oxygen Delivery Dc thod 04/23/24 12:40 04/23/24 12:50 04/23/24 13:00 Temperature Pulse Rate [Pulse Oximeter] Respiratory Rate 20 Blood Pressure [Ri ght Upper Arm] 147/97 H Pulse Oximetry 99 99 [facility] 04/23/24 13:00 04/23/24 13:00 04/23/24 13:17 Temperature Pulse Rate [Pulse Oximeter] 87 Respiratory Rate 18 Blood Pressure [Ri ght Upper Arm] 141/98 H Pulse Oximetry 97 95 95 Oxygen Delivery [facility] Room Air 04/23/24 13:18 04/23/24 13:20 04/23/24 13:21 Temperature Pulse Rate [Pulse Oximeter] Respiratory Rate Blood Pressure [Ri ght Upper Arm] Pulse Oximetry 96 97 96 Oxygen Delivery [facility] Hospitalist - H&P: Result Labs Labs: Short CBC 04/23/24 Range/Units 12:42 WBC 13.32 H (4.50-11.00) K/uL Hgb 14.7 (13.5-17.5) gm/dL Hct 42.8 (37.0-53.0) % Plt Count 247 (140-440) K/uL BMP 04/23/24 12:42 Sodium 130 L Potassium 3.8 Chloride 99 Carbon Dioxide 21 BUN 17 Creatinine 1.1 Glucose 90 Calcium 9.7 Cardiac Enzymes 04/23/24 Range/Units 12:42 Total Creatine Kinase 2323 H (54-186) U/L Troponin I 0.02 (0.01-0.04) ng/mL Liver Function 04/23/24 Range/Units 12:42 Total Bilirubin 1.4 (0.1-1.5) mg/dL Direct Bilirubin 0.5 (0.0-0.5) mg/dL AST 121 H (12-35) U/L ALT 41 (4-50) U/L Alkaline Phosphatase 102 (40-150) U/L Albumin 4.8 (3.3-5.0) g/dL Urine 04/23/24 Range/Units 15:00 Urine Color Yellow (Yellow) Urine Appearance Cloudy A (Clear) Urine pH 6.0 (5.0-8.5) Ur Specific Gonzales 1.020 (1.000-1.030) Urine Protein 2+ A (Negative) Urine Glucose (UA) Negative (Negative) ECG Attestation: I personally reviewed and interpreted this ECG as follows: ECG interpretation date: 04/23/24 Interpretation: Normal sinus rhythm, nonspecific ST wave/interval changes no ischemia. QTC at borderline. Imaging CT scan - head: Radiologist's impression: TECHNIQUE: CT head without contrast. COMPARISON: CT head 04/23/2022 FINDINGS: ventricles are symmetric. Basal cisterns patent. No sulcal effacement. The ventricles, cisterns, and other CSF containing spaces are symmetrically prominent secondary to diffuse parenchymal volume loss but are otherwise normal as to shape and position. BRAIN: Diffuse cerebral volume loss. Periventricular and subcortical hypodensities likely secondary to age-related microvascular ischemic changes. Similar encephalomalacia in the right frontal lobe and right occipital lobe. No acute infarct or hemorrhage. VASCULAR: No acute abnormalities of the cavernous carotids and vertebral vessels on noncontrast exam. EXTRA-AXIAL: Extra-axial spaces are normal. EXTRA-CRANIAL: No acute calvarial or facial fractures. Moderate scattered sinus mucosal thickening. Mastoids are clear. Orbits are normal. IMPRESSION: No acute intracranial abnormality. Sequela of multiple prior infarctions. Please note that all CT scans at this facility use dose modulation, iterative reconstruction, and/or weight-based dosing when appropriate to reduce radiation dose to as low as reasonably achievable. Dictated by Gin Rai MD @ 04/23/2024 1:46:22 PM Chest x-ray: Radiologist's impression: Chest 1 view Comparison: Chest x-ray 04/02/2022 Findings/Impression: Cardiovascular and mediastinum: Normal heart size with aortic tortuosity. Lungs and pleural space: Mild elevation of the right hemidiaphragm, similar to prior. No pleural effusion or pneumothorax. No focal consolidation. Bones and soft tissues: Mild deformity of the right proximal humerus, similar to the prior exam consistent with an old fracture deformity. Age-indeterminate left 8th rib fracture. Dictated by Herrera Jc MD @ 04/23/2024 1:00:24 PM Assessment and Plan Assessment and plan (1) Rhabdomyolysis: Problem comment: -likely status post being found on the floor, unknown period of time. -elevation of his CK more than 2300. -f/up CK at 4:00 a.m. -IV fluids Status: Acute (2) Acute encephalopathy: Problem comment: -acute on chronic dementia , reported by his primary care physician -CT head showed an multiple old infarcts other than that no acute pathology Status: Acute (3) Memory impairment: Problem comment: -acute on chronic dementia , reported by his primary care physician Status: Chronic (4) Fall: Problem comment: Found on the floor by his neighbors CT head negative for acute changes CXR: Mild deformity of the right proximal humerus, similar to the prior exam consistent with an old fracture deformity. Age-indeterminate left 8th rib fracture Examination shows weakness of hold of his limbs especially left-sided. 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 Status: Acute (6) Unstable gait: Problem comment: uses walker, lives [place] independent Ordered PT OT Status: Chronic (7) Leukocytosis: Problem comment: Leukocytosis, today WBC is around 13 Leukocytosis noticed by PCP in January,, f/up Chest x-ray within normal limits Pending urinalysis Status: Acute (8) Alcoholism: Problem comment: Patient mentioned 6 beers a day drivers license taken away Not sure when was his last drink We will put on CIWA, Ordered , thiamine , folic acid Status: Chronic (9) Wernicke-Korsakoff syndrome: Problem comment: Patient has chronic cerebrovascular changes, chronic alcoholism Ordered , thiamine , folic acid Status: Acute (10) Chronic hyponatremia: Problem comment: Mild chronic hyponatremia Sodium is 130 Follow-up Status: Chronic (11) Transaminitis: Problem comment: AST 120 ALT 40. Transaminitis likely secondary to alcohol use disorder Patient will need liver workup as an outpatient Status: Acute (12) Abnn-cp-ekoodo transgender person: Status: Acute (13) Personal history of peptic ulcer disease: Problem comment: h/o perforated duodenal ulcer Ordered PPI orally Status: Acute (14) GERD (gastroesophageal reflux disease): Status: Chronic (15) Gout: Problem comment: Patient is not sure if he is taking allopurinol Status: Chronic (16) Hypertension: Problem comment: Patient is not sure what blood pressure medications that he is using at home Status: Acute (17) Left rib fracture: Problem comment: chest x-ray: Age-indeterminate left 8th rib fracture P/E: No focal pain on palpation of his ribs, in addition patient was able to take deep breaths without pain. Status: Suspected (18) Right humeral fracture: Problem comment: CXR: Mild deformity of the right proximal humerus, similar to the prior exam consistent with an old fracture deformity. Status: Chronic Plan As above Total Time Spent Total Time Spent: Time spent: Today I spent 75 minutes seeing the patient, discussing the patient with ER staff, reviewing Expanse and EPIC notes/diagnostics, discussing the care plan with our care time that includes social work, PT/OT, pharmacy and documenting my impressions and plan in the medical record.
[2024-04-23] MEDS: THIAMINE 100 MG TABLET PO (16:55)
[2024-04-23] MEDS: FOLIC ACID 1 MG TABLET PO (16:55)
[2024-04-23] MEDS: 0.9 % SODIUM CHLORIDE 1000 ml 1,000 ML 100 ML IV (18:28)
--- NOTE | 2024-04-23 19:21 | PC.NURSE ---
Nursing Care Hours: [id number] Pt this shift calm and cooperative. Alert and oriented to self and place and situation. When asked what the year is, pt said 2009. Pt answering questions inconsistently such as how much he drinks. Patrol Captain asked and pt said 3-4 drinks a day. When hospitalist asked, pt said 6 a day. Intermittent sporadic fleeting eye movements like pt is scanning the room. VSS. Denies pain. Tele shows sinus arrhythmia with PAC's. Pt arrived to unit with strong urine odor and snarly hair. Bed bath given and hair washed and combed by aids. skin intact, red moisture rash to sacrum. Zinc oxide applied. Pivot transfer to scale and then to bed. Takes pills whole one at a time. IV bleeding. Site cleaned and dressing changed. IV patent and running fluids.
[2024-04-23] MEDS: ENOXAPARIN 40 MG/0.4 ML INJ SUBCUT (21:29)
[2024-04-23] MEDS: SODIUM CHLORIDE 0.9 % (FLUSH) 10 ML SYRINGE 5 ML IVF (21:30)
[2024-04-24] VITALS (9 sets, daily range): BP systolic 115–138; BP diastolic 69–82; PULSE 75–89; RESP 14–18; TEMP 36.8–37.1; O2SAT 93–97
[2024-04-24] MEDS: 0.9 % SODIUM CHLORIDE 1000 ml 1,000 ML 100 ML IV (05:14)
[2024-04-24] MEDS: OMEPRAZOLE 20 MG CAPSULE DR 40 MG PO (06:34)
--- NOTE | 2024-04-24 06:40 | PC.NURSE ---
Pt is alert and oriented to self only. Afebrile. Pt denies pain, chest pain, and N/V. Pt is up A2 to pivot to commode with walker and gait belt. Pt is voiding, tolerating a regular diet and slept throughout most of night. ?
[2024-04-24 07:27] LABS: Basophils Absolute Auto 0.05 K/uL (0.00-0.30); Basophils Percent Auto 0.6 % (0.0-3.0); Eosinophils Absolute Auto 0.28 K/uL (0.00-0.50); Eosinophils Percent Auto 3.4 % (0.0-7.0); Hematocrit 34.6 % (37.0-53.0); Hemoglobin* 11.8 gm/dL (13.5-17.5); Immature Granulocytes Abs Auto 0.02 K/uL (0.00-0.30); Immature Granulocytes Pct Auto 0.2 %; Lymphocytes Percent Auto 11.7 % (20-44); Mean Corpuscular HGB Conc 34 gm/dL (32-36); Mean Corpuscular Hemoglobin 32 pg (26-34); Mean Corpuscular Volume 94 fL (80-100); Monocytes Percent Auto 7.7 % (0.0-11.0); Neutrophils Percent Auto 76.4 % (42.0-72.0); Platelet Count* 179 K/uL (140-440); Red Blood Count 3.68 m/uL (4.30-5.90); White Blood Count* 8.29 K/uL (4.50-11.00)
[2024-04-24 07:56] LABS: Slide Review Reflex No
[2024-04-24 08:32] LABS: Chloride* 107 mmol/L (96-114)
[2024-04-24 08:33] LABS: Albumin* 3.4 g/dL (3.3-5.0); Potassium* 3.2 mmol/L (3.6-5.1); Sodium* 133 mmol/L (135-149)
[2024-04-24 08:35] LABS: Anion Gap 6 mEq/L (7-15); Carbon Dioxide* 20 mmol/L (20-32); Creatinine* 1.2 mg/dL (0.5-1.5); Est. Creatinine Clearance* 53.04; Estimated Glomerular Filt Rate 64 ml/min
[2024-04-24 08:36] LABS: Alanine Aminotransferase* 33 U/L (4-50); Alkaline Phosphatase* 74 U/L (40-150); Aspartate Amino Transferase* 70 U/L (12-35); Bilirubin Total* 0.7 mg/dL (0.1-1.5); Blood Urea Nitrogen* 21 mg/dL (7-30); Calcium* 8.5 mg/dL (8.4-10.6); Creatine Kinase* 876 U/L (54-186); Glucose* 96 mg/dL (60-115); Total Protein* 6.3 g/dL (6.0-8.3)
[2024-04-24] MEDS: POTASSIUM CHLORIDE 10 MEQ CAPSULE ER 40 MEQ PO (09:10)
[2024-04-24] MEDS: MULTIVITAMIN/MINERALS 1 TABLET 1 TAB PO (09:11)
[2024-04-24] MEDS: FOLIC ACID 1 MG TABLET PO (09:11)
--- NOTE | 2024-04-24 11:09 | P.IMPN_ITS ---
Progress Note: A&P Assessment and plan (1) Rhabdomyolysis: Problem details: -likely status post being found on the floor, unknown period of time. -elevation of his CK more than 2300 on 1st presentation and down to 800 on 04/24/2024. -f/up CK tomorrow morning -continue with IV fluids Status: Acute (2) Acute encephalopathy: Problem details: -acute on chronic dementia , reported by his primary care physician -CT head showed an multiple old infarcts other than that no acute pathology -will ask Occupational therapy to help assess and recommendations Status: Acute (3) Memory impairment: Problem details: -acute on chronic dementia , reported by his primary care physician Status: Chronic (4) Fall: Problem details: Found on the floor by his neighbors CT head negative for acute changes CXR: Mild deformity of the right proximal humerus, similar to the prior exam consistent with an old fracture deformity. Age-indeterminate left 8th rib fracture Examination shows weakness of hold of his limbs especially left-sided. Known Wernicke encephalopathy and ataxia associated there with and ordinarily utilizes walker for ambulation. 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 Status: Acute (6) Unstable gait: Problem details: uses walker, lives [place] Ordered PT OT Status: Chronic (7) Leukocytosis: Problem details: Leukocytosis, on admission WBC is around 13 and this normalizes by 04/24/2024 Leukocytosis noticed by PCP in January,, f/up Chest x-ray within normal limits Pending urine culture Status: Acute (8) Alcoholism: Problem details: Patient mentioned 6 beers a day in the past and more recently 4 beers per day drivers license taken away Not sure when was his last drink We will put on CIWA, Ordered , thiamine , folic acid Status: Chronic (9) Wernicke-Korsakoff syndrome: Problem details: Patient has chronic cerebrovascular changes, chronic alcoholism Ordered , thiamine , folic acid Status: Acute (10) Chronic hyponatremia: Problem details: Mild chronic hyponatremia Sodium is 130 Follow-up Status: Chronic (11) Transaminitis: Problem details: AST 120 ALT 40. Transaminitis likely secondary to alcohol use disorder Patient will need liver workup as an outpatient Status: Acute (12) [id number] transgender person: Status: Acute (13) Personal history of peptic ulcer disease: Problem details: h/o perforated duodenal ulcer Ordered PPI orally Status: Acute (14) GERD (gastroesophageal reflux disease): Status: Chronic (15) Gout: Problem details: Patient is not sure if he is taking allopurinol Status: Chronic (16) Hypertension: Problem details: Patient is not sure what blood pressure medications that he is using at home Status: Acute (17) Left rib fracture: Problem details: chest x-ray: Age-indeterminate left 8th rib fracture P/E: No focal pain on palpation of his ribs, in addition patient was able to take deep breaths without pain. Status: Suspected (18) Right humeral fracture: Problem details: CXR: Mild deformity of the right proximal humerus, similar to the prior exam consistent with an old fracture deformity. Status: Chronic Plan 1. Reviewed impression with patient 2. Reviewed plans and recommendations with patient 3. Answered patient's questions to satisfaction 4. Patient agreeable with above stated plans and recommendations Time Spent With Patient Total time spent: Fifty minutes Subjective Date Seen: 04/24/24 Interval history: Admission history of present illness: ?74 year old male with past medical history of being a transgender woman, chronic dementia, hypertension, gout, history of perforated duodenal ulcer and colonic fistula, anemia, chronic hyponatremia, and alcohol use disorder who presents to the ED after he was brought in by EMS due to confusion and a fall. Patient was found on the floor of his apartment by his neighbors with urine incontinence. Patient is unreliable historian, and obviously confused, he things that he was at work when he fell down then he added I do not know what I was doing at work though I am retired. He he lives an independent apartment in [facility]. He has chronic balance problems he uses a walker. He does not drive. Patient unsure of the time line of the fall. Patient is unsure when was his last alcohol drink. Patient denies headache, visual changes, chest pain, sh ortness O breath, abdominal pain, urinary changes or bowel movements except that he notes that he noticed that he is incontinent recently. No history of fevers or chills per the patient. ?At the ED patient was hemodynamically stable, mild elevation of white blood cells at around 13, elevated CRP at 6, normal creatinine of and and elevation of his CK more than 2300. CT head showed multiple old infarcts, other than that no acute pathology, chest x-ray unremarkable. EKG normal sinus rhythm nonspecific T-wave changes.? Hospital day 2. Admitted 04/23/2024 for observation. Patient prefers to be called Ree. Ree also responds to her name of Danielito. Ree indicates feeling a little stronger today than yesterday. Has chronic sense of imbalance and routinely utilizes walker at home for ambulation. Able to tolerate walking from bedside to bathroom and back this morning. Does not recall what happened in her home. Does not recall falling. Does not recall how long she laid on the floor. Does not recall who found her on the floor or how she came to the hospital. Tells me she has been cutting back on her alcohol intake. For the last several weeks has been drinking about 4 beers per day. Prior to that drank about 6 beers per day. Denies binge drinking recently. States that a friend brings over the beer for her. Receives a box of meal on wheels once every 2 weeks. States generally eats enough. Denies fever, rigors, diaphoresis. Denies dyspnea, cough, dysuria, urgency, frequency, hematuria. Denies any wounds or rashes. Exam Narrative: Exam Narrative: I examine her in her hospital room. Appears comfortable no acute distress. Alert and oriented to self and place, not to time or situation. Thought today was . Unaware of events leading up to her coming to the hospital. Remarkably lungs are clear to auscultation. Heart tones with regular rhythm. Abdomen with active bowel sounds. Transfers from supine to sitting and sitting to standing with standby assist to minimal assist with use of walker and gait belt. No focal motor neurologic deficits. Ecchymoses and contusions on upper and lower extremities, more so the upper extremities. Skin otherwise intact. Const: Vital Signs, click to edit/add: Vital Signs - 24 hr 04/23/24 11:47 04/23/24 11:53 04/23/24 12:00 Temperature 98.6 F Pulse Rate Pulse Rate [Pulse Oximeter] 94 Pulse Rate [Right Pulse Oximeter] Respiratory Rate 18 Blood Pressure [Le ft Arm] Blood Pressure [Ri ght Upper Arm] 132/95 H Pulse Oximetry 96 93 96 Oxygen Delivery Me thod Room Air 04/23/24 12:00 04/23/24 12:00 04/23/24 12:01 Temperature Pulse Rate Pulse Rate [Pulse Oximeter] Pulse Rate [Right Pulse Oximeter] Respiratory Rate 20 Blood Pressure [Le ft Arm] Blood Pressure [Ri ght Upper Arm] 132/95 H Pulse Oximetry 95 95 Oxygen Delivery Me thod 04/23/24 12:10 04/23/24 12:20 04/23/24 12:30 Temperature Pulse Rate Pulse Rate [Pulse Oximeter] Pulse Rate [Right Pulse Oximeter] Respiratory Rate Blood Pressure [Le ft Arm] Blood Pressure [Ri ght Upper Arm] Pulse Oximetry 97 96 99 Oxygen Delivery Me thod 04/23/24 12:40 04/23/24 12:50 04/23/24 13:00 Temperature Pulse Rate Pulse Rate [Pulse Oximeter] Pulse Rate [Right Pulse Oximeter] Respiratory Rate 20 Blood Pressure [Le ft Arm] Blood Pressure [Ri ght Upper Arm] 147/97 H Pulse Oximetry 99 99 Oxygen Delivery Me thod Room Air 04/23/24 13:00 04/23/24 13:00 04/23/24 13:17 Temperature Pulse Rate Pulse Rate [Pulse Oximeter] 87 Pulse Rate [Right Pulse Oximeter] Respiratory Rate 18 Blood Pressure [Le ft Arm] Blood Pressure [Ri ght Upper Arm] 141/98 H Pulse Oximetry 97 95 95 Oxygen Delivery Me thod Room Air 04/23/24 13:18 04/23/24 13:20 04/23/24 13:21 Temperature Pulse Rate Pulse Rate [Pulse Oximeter] Pulse Rate [Right Pulse Oximeter] Respiratory Rate Blood Pressure [Le ft Arm] Blood Pressure [Ri ght Upper Arm] Pulse Oximetry 96 97 96 Oxygen Delivery Me thod 04/23/24 14:00 04/23/24 15:17 04/23/24 15:18 Temperature 98.3 F 98.3 F Pulse Rate Pulse Rate [Pulse Oximeter] 91 Pulse Rate [Right Pulse Oximeter] 99 94 Respiratory Rate 18 18 18 Blood Pressure [Le ft Arm] 142/121 H 133/75 Blood Pressure [Ri ght Upper Arm] 147/97 H Pulse Oximetry 96 96 93 Oxygen Delivery Me thod Room Air Nasal [place] Room Air Room Air 04/23/24 19:53 04/23/24 22:15 04/23/24 22:15 Temperature 98.0 F 98.3 F Pulse Rate Pulse Rate [Pulse Oximeter] Pulse Rate [Right Pulse Oximeter] 90 89 Respiratory Rate 18 16 Blood Pressure [Le ft Arm] 123/79 120/68 Blood Pressure [Ri ght Upper Arm] Pulse Oximetry 94 95 95 Oxygen Delivery Me thod Room Air Room Air 04/23/24 23:00 04/24/24 05:04 04/24/24 07:29 Temperature 98.8 F 98.7 F Pulse Rate 82 Pulse Rate [Pulse Oximeter] Pulse Rate [Right Pulse Oximeter] 76 80 Respiratory Rate 16 14 Blood Pressure [Le ft Arm] 138/74 132/76 Blood Pressure [Ri ght Upper Arm] Pulse Oximetry 93 95 Oxygen Delivery Me thod Room Air Room Air 04/24/24 07:29 04/24/24 07:29 04/24/24 07:29 Temperature 98.7 F Pulse Rate Pulse Rate [Pulse Oximeter] Pulse Rate [Right Pulse Oximeter] 80 80 Respiratory Rate 14 14 Blood Pressure [Le ft Arm] 132/76 Blood Pressure [Ri ght Upper Arm] Pulse Oximetry 95 95 Oxygen Delivery Me thod Room Air 04/24/24 07:57 Temperature Pulse Rate 81 Pulse Rate [Pulse Oximeter] Pulse Rate [Right Pulse Oximeter] Respiratory Rate Blood Pressure [Le ft Arm] Blood Pressure [Ri ght Upper Arm] Pulse Oximetry Oxygen Delivery Me thod Labs Labs: Laboratory Results - last 24 hr 04/23/24 04/23/24 04/23/24 12:06 12:42 12:42 WBC 13.32 H RBC 4.60 Hgb 14.7 Hct 42.8 MCV 93 MCH 32 MCHC 34 RDW Coeff of Delvis 12.9 Plt Count 247 Neut % (Auto) 87.2 H Lymph % (Auto) 5.9 L [place] % (Auto) 5.9 Eos % (Auto) 0.5 Baso % (Auto) 0.3 Neut # (Auto) 11.60 H Lymph # (Auto) 0.80 L [place] # (Auto) 0.80 Eos # (Auto) 0.10 Baso # (Auto) 0.00 Abs Immat Gran (auto) 0.00 Imm/Tot Granulo (auto) 0.2 INR 0.87 L APTT 33 Sodium 130 L Potassium 3.8 Chloride 99 Carbon Dioxide 21 Anion Gap 10 BUN 17 Creatinine 1.1 Estimated Creat Clear 49.88 Estimated GFR 71 Glucose 90 Lactate 1.5 Calcium 9.7 Magnesium 2.2 Total Bilirubin 1.4 Direct Bilirubin 0.5 AST 121 H ALT 41 Alkaline Phosphatase 102 Ammonia < 9.0 L Total Creatine Kinase 2323 H Troponin I 0.02 C-Reactive Protein 6.1 H NT-Pro-B Natriuret Pep 1050 Total Protein 8.4 H Albumin 4.8 Procalcitonin 0.15 TSH 2.130 Urine Color Urine Appearance Urine pH Ur Specific [place] Urine Protein Urine Glucose (UA) Urine Ketones Urine Blood Urine Nitrite Urine Bilirubin Urine Urobilinogen Ur Leukocyte Esterase Urine RBC Urine WBC Ur Squamous Epith Cells Urine Bacteria Urine Opiates Screen Negative Ur Oxycodone Screen Negative Urine Methadone Screen Negative Ur Barbiturates Screen Negative U Tricyclic Antidepress Negative Ur Phencyclidine Scrn Negative Ur Amphetamines Screen Negative U Methamphetamines Scrn Negative U Benzodiazepines Scrn Negative Urine Cocaine Screen Negative U Marijuana (THC) Screen Negative Ur Drug Screen Comment See Note Ethyl Alcohol < 0.01 L Cancelled SARS-CoV-2 (PCR) Influenza Type A (PCR) Influenza Type B (PCR) RSV (PCR) 04/23/24 04/23/24 04/24/24 12:55 15:00 07:15 WBC 8.29 RBC 3.68 L Hgb 11.8 L Hct 34.6 L MCV 94 MCH 32 MCHC 34 RDW Coeff of [place]vis 13.0 Plt Count 179 Neut % (Auto) 76.4 H Lymph % (Auto) 11.7 L [place] % (Auto) 7.7 Eos % (Auto) 3.4 Baso % (Auto) 0.6 Neut # (Auto) 6.30 Lymph # (Auto) 1.00 Runnels # (Auto) 0.60 Eos # (Auto) 0.28 Baso # (Auto) 0.05 Abs Immat Gran (auto) 0.02 Imm/Tot Granulo (auto) 0.2 INR APTT Sodium 133 L Potassium 3.2 L Chloride 107 Carbon Dioxide 20 Anion Gap 6 L BUN 21 Creatinine 1.2 Estimated Creat Clear 53.04 Estimated GFR 64 Glucose 96 Lactate Calcium 8.5 Magnesium Total Bilirubin 0.7 Direct Bilirubin AST 70 H ALT 33 Alkaline Phosphatase 74 Ammonia Total Creatine Kinase 876 H Troponin I C-Reactive Protein NT-Pro-B Natriuret Pep Total Protein 6.3 Albumin 3.4 Procalcitonin TSH Urine Color Yellow Urine Appearance Cloudy A Urine pH 6.0 Ur Specific [place] 1.020 Urine Protein 2+ A Urine Glucose (UA) Negative Urine Ketones Trace A Urine Blood 1+ A Urine Nitrite Negative Urine Bilirubin 1+ A Urine Urobilinogen 1.0 Ur Leukocyte Esterase 1+ A Urine RBC 0-2 Urine WBC 10-25 A Ur Squamous Epith Cells Few Urine Bacteria Many A Urine Opiates Screen Ur Oxycodone Screen Urine Methadone Screen Ur Barbiturates Screen U Tricyclic Antidepress Ur Phencyclidine Scrn Ur Amphetamines Screen U Methamphetamines Scrn U Benzodiazepines Scrn Urine Cocaine Screen U Marijuana (THC) Screen Ur Drug Screen Comment Ethyl Alcohol SARS-CoV-2 (PCR) Negative SARS-CoV-2 Influenza Type A (PCR) Negative PCR FLU A Influenza Type B (PCR) Negative PCR FLU B RSV (PCR) Negative PCR RSV
[2024-04-24] MEDS: THIAMINE 100 MG TABLET PO (15:46)
--- NOTE | 2024-04-24 18:04 | PC.NURSE ---
End of Shift: Patient pleasant and cooperative, patient oriented to self, month, year, and at times day of the week. Patient vitally stable, lungs clear, BS WNL, IV SL and intact. Patient with +1 pitting edema in LEs. Patient denies pain. Patient 1 assist/walker/gb. Patient incontinent of bowel and bladder, urinating and had 1 BM. Patient has been up in the chair all shift and has walked the halls. Patient tolerating regular diet.
[2024-04-24] MEDS: ENOXAPARIN 40 MG/0.4 ML INJ SUBCUT (20:44)
[2024-04-24] MEDS: SODIUM CHLORIDE 0.9 % (FLUSH) 10 ML SYRINGE 5 ML IVF (20:45)
[2024-04-25] VITALS (7 sets, daily range): BP systolic 105–154; BP diastolic 75–86; PULSE 77–101; RESP 16–20; TEMP 36.5–37; O2SAT 93–98
[2024-04-25 06:26] LABS: Basophils Absolute Auto 0.04 K/uL (0.00-0.30); Basophils Percent Auto 0.5 % (0.0-3.0); Eosinophils Absolute Auto 0.26 K/uL (0.00-0.50); Eosinophils Percent Auto 3.5 % (0.0-7.0); Hematocrit 33.6 % (37.0-53.0); Hemoglobin* 11.3 gm/dL (13.5-17.5); Immature Granulocytes Abs Auto 0.06 K/uL (0.00-0.30); Immature Granulocytes Pct Auto 0.8 %; Immature Reticulocyte Fraction 5.1 % (2.3-13.4); Lymphocytes Percent Auto 14.3 % (20-44); Mean Corpuscular HGB Conc 34 gm/dL (32-36); Mean Corpuscular Hemoglobin 32 pg (26-34); Mean Corpuscular Volume 96 fL (80-100); Monocytes Percent Auto 9.6 % (0.0-11.0); Neutrophils Absolute Auto 5.24 K/uL (1.7-7.0); Neutrophils Percent Auto 71.3 % (42.0-72.0); Platelet Count* 188 K/uL (140-440); RDW Coefficient of Variation % 13.5 % (11.5-15.5); Reticulocyte Hemoglobin Equivi 32.1 pg (29.0-35.0); Reticulocyte Percent 0.8 % (0.5-2.0); Reticulocytes Absolute 0.03 # (0.03-0.08); White Blood Count* 7.36 K/uL (4.50-11.00)
[2024-04-25 06:27] LABS: Slide Review Reflex No
--- NOTE | 2024-04-25 06:32 | PC.NURSE ---
END OF SHIFT NOTE: PT PLEASANT AND COOPERATIVE. A&O; OCCASIONAL CONFUSION (PT UNABLE TO RECALL DATE OR DAY OF THE WEEK). DENIES CP, SOB, N/V. AMBULATES WITH A1/4WW.?TELE=NSR. VSS ON RA; AFEBRILE. PT SLEPT ON/OFF THROUGHOUT NIGHT.?BED ALARM ON AND CALL LIGHT WITHIN PT?S REACH.?
[2024-04-25] MEDS: OMEPRAZOLE 20 MG CAPSULE DR 40 MG PO (06:39)
[2024-04-25 06:42] LABS: Lactate* 0.5 mmol/L (0.5-1.9)
[2024-04-25 07:02] LABS: Chloride* 111 mmol/L (96-114); Potassium* 3.7 mmol/L (3.6-5.1); Sodium* 136 mmol/L (135-149)
[2024-04-25 07:04] LABS: Creatine Kinase* 446 U/L (54-186); Creatinine* 1.1 mg/dL (0.5-1.5); Est. Creatinine Clearance* 57.86; Estimated Glomerular Filt Rate 71 ml/min
[2024-04-25 07:05] LABS: Anion Gap 4 mEq/L (7-15); Blood Urea Nitrogen* 20 mg/dL (7-30); Calcium* 8.6 mg/dL (8.4-10.6); Carbon Dioxide* 21 mmol/L (20-32); Glucose* 101 mg/dL (60-115); Phosphorus* 3.8 mg/dL (2.5-4.5)
[2024-04-25 07:06] LABS: Magnesium* 2.1 mg/dL (1.5-2.6)
[2024-04-25 07:08] LABS: C Reactive Protein* 4.1 mg/dL (0.5-1.0)
[2024-04-25 07:38] LABS: Aspartate Amino Transferase* 54 U/L (12-35)
--- NOTE | 2024-04-25 08:03 | CRLHL7_ITS ---
For Patients: As a result of the Century Cures Act, medical imaging exams and procedure reports are released immediately into your electronic medical record. You may view this report before your referring provider. If you have questions, please contact your health care provider. INDICATION: Fall TECHNIQUE: Three views of the left elbow FINDINGS/IMPRESSION: Normal alignment. No acute fracture or acute osseous abnormalities are visualized. Bones are demineralized. Arthritic changes of the elbow olecranon spur. No definite fracture seen. Dictated by Vika Hollins MD @ 04/25/2024 9:46:22 AM (Electronically Signed)
--- NOTE | 2024-04-25 08:03 | CRLHL7_ITS ---
For Patients: As a result of the Century Cures Act, medical imaging exams and procedure reports are released immediately into your electronic medical record. You may view this report before your referring provider. If you have questions, please contact your health care provider. Indication: Pain status post fall. Technique: Two view(s) of the right humerus. Comparison: 05/13/2021. Findings: Cortical irregularity at the radial neck, age-indeterminate as priors do not include this region in the field of view. Healed fracture deformity of the proximal humerus. Irregularity of the inferior glenoid, similar to dedicated shoulder radiographs. Osseous demineralization. Dystrophic posterior elbow calcifications. Impression: 1. Healed fracture deformity of the proximal humerus. 2. Osseous irregularity of the inferior glenoid concerning for age indeterminate osseous Bankart lesion. 3. Possible radial neck fracture. Recommend correlation with tenderness in this region and consider elbow radiographs as indicated. Dictated by Stefania Johnston MD @ 04/25/2024 9:22:38 AM (Electronically Signed)
--- NOTE | 2024-04-25 08:03 | CRLHL7_ITS ---
For Patients: As a result of the Century Cures Act, medical imaging exams and procedure reports are released immediately into your electronic medical record. You may view this report before your referring provider. If you have questions, please contact your health care provider. Indication: Pain status post fall. Technique: Three view(s) of the right shoulder. Comparison: 08/01/2021. Findings: Healed posttraumatic deformity of the proximal humerus. Mild inferior subluxation of the glenohumeral joint. Osseous irregularity along the inferior glenoid is possibly new compared to prior. Acromioclavicular alignment is anatomic. Osseous demineralization. Visualized right lung is clear. Impression: 1. Healed posttraumatic deformity of the proximal humerus. 2. Inferior subluxation of the glenohumeral joint, possibly related to joint effusion. 3. Osseous irregularity of the inferior glenoid, difficult to determine if this was present on prior imaging. Findings suspicious for age-indeterminate osseous Bankart lesion related to prior glenohumeral dislocation. Dictated by Stefania Johnston MD @ 04/25/2024 9:20:19 AM (Electronically Signed)
[2024-04-25] MEDS: MULTIVITAMIN/MINERALS 1 TABLET 1 TAB PO (09:13)
[2024-04-25] MEDS: FOLIC ACID 1 MG TABLET PO (09:13)
[2024-04-25] MEDS: SODIUM CHLORIDE 0.9 % (FLUSH) 10 ML SYRINGE 5 ML IVF ×2 (09:14→20:46)
--- NOTE | 2024-04-25 10:02 | P.IMPN_ITS ---
Progress Note: A&P Assessment and plan (1) Rhabdomyolysis: Problem details: -likely status post being found on the floor, unknown period of time. -elevation of his CK more than 2300 on 1st presentation and down to 800 on 04/24/2024 and 400 on 04/25/2024. -f/up CK tomorrow morning -discontinue with IV fluids Status: Acute (2) Acute encephalopathy: Problem details: -acute on chronic dementia , reported by his primary care physician -CT head showed an multiple old infarcts other than that no acute pathology -cognition normalizing on 04/24/2024 and 04/25/2024. -Occupational therapy to continue to help assess and provide recommendations. It is not clear to me that patient can safely return home at this time yet. Will have PT and OT work with her again on 04/25/2024 with intent of establishing a safe discharge disposition plan and recommendation if at all possible. Status: Acute (3) Memory impairment: Problem details: -acute on chronic dementia , reported by his primary care physician Status: Chronic (4) Fall: Problem details: Found on the floor by his neighbors CT head negative for acute changes CXR: Mild deformity of the right proximal humerus, similar to the prior exam consistent with an old fracture deformity. Age-indeterminate left 8th rib fracture Examination shows weakness of hold of his limbs especially left-sided. Right shoulder, humerus, and elbow x-rays demonstrate no acute pathology or fractures. Known Wernicke encephalopathy and ataxia associated there with and ordinarily utilizes walker for ambulation. 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 Status: Acute (6) Unstable gait: Problem details: uses walker, lives [place] Appears to ambulate adequately with use of walker. Bigger concern is her cognitive state and ability to make safe choices and not be impulsive. Status: Chronic (7) Leukocytosis: Problem details: Leukocytosis, on admission WBC is around 13 and this normalizes by 04/24/2024 Leukocytosis noticed by PCP in January,, f/up Chest x-ray within normal limits Urine culture eventually grew out E coli greater than 105,000 colony-forming units/ml as well as Proteus mirabilis [id number] colony-forming units per mL, both pansensitive except for the Proteus mirabilis is resistant to nitrofurantoin. Will give a single dose of ceftriaxone 2 g IV on 04/25/2024 and start amoxicillin 500 mg p.o. t.i.d. x1 week beginning on 04/26/2024. Status: Acute (8) Alcoholism: Problem details: Patient mentioned 6 beers a day in the past and more recently 4 beers per day drivers license taken away Not sure when was his last drink We will put on CIWA, Ordered , thiamine , folic acid Status: Chronic (9) Wernicke-Korsakoff syndrome: Problem details: Patient has chronic cerebrovascular changes, chronic alcoholism Ordered , thiamine , folic acid Status: Acute (10) Chronic hyponatremia: Problem details: Mild chronic hyponatremia Sodium is 130 Follow-up Status: Chronic (11) Transaminitis: Problem details: AST 120 ALT 40 on presentation. Transaminitis likely secondary to alcohol use disorder. ALT down to 33 on 04/24/2024. AST still normalizing, was 70 on 04/24/2024 and down to 54 on 04/25/2024. Patient may need liver workup as an outpatient Status: Acute (12) Gbal-rw-pulyjq transgender person: Status: Acute (13) Personal history of peptic ulcer disease: Problem details: h/o perforated duodenal ulcer Ordered PPI orally Status: Acute (14) GERD (gastroesophageal reflux disease): Status: Chronic (15) Gout: Problem details: Patient is not sure if he is taking allopurinol Status: Chronic (16) Hypertension: Problem details: Patient is not sure what blood pressure medications that he is using at home Status: Acute (17) Left rib fracture: Problem details: chest x-ray: Age-indeterminate left 8th rib fracture P/E: No focal pain on palpation of his ribs, in addition patient was able to take deep breaths without pain. Status: Suspected (18) Right humeral fracture: Problem details: CXR: Mild deformity of the right proximal humerus, similar to the prior exam consistent with an old fracture deformity. Status: Chronic (19) Urinary tract infection: Problem details: -04/25/2024: Urine culture grew out greater than 100,000 colony-forming units/ml of E coli and [id number] colony-forming units per mL of Proteus mirabilis, both pansensitive except Proteus mirabilis resistant to nitrofurantoin. A single dose of ceftriaxone 2 g IV given on 04/25/2024. Will start amoxicillin 500 mg p.o. t.i.d. on 04/26/2024 x1 week. Status: Acute Plan 1. Reviewed impression with patient 2. Reviewed plans and recommendations with patient 3. Answered her questions to her satisfaction 4. She is agreeable with above stated plans and recommendations Time Spent With Patient Total time spent: 40 minutes Subjective Date Seen: 04/25/24 Interval history: Admission history of present illness: ?74 year old male with past medical history of being a transgender woman, chronic dementia, hypertension, gout, history of perforated duodenal ulcer and colonic fistula, anemia, chronic hyponatremia, and alcohol use disorder who presents to the ED after he was brought in by EMS due to confusion and a fall. Patient was found on the floor of his apartment by his neighbors with urine incontinence. Patient is unreliable historian, and obviously confused, he things that he was at work when he fell down then he added I do not know what I was doing at work though I am retired. He he lives an independent apartment in [facility]. He has chronic balance problems he uses a walker. He does not drive. Patient unsure of the time line of the fall. Patient is unsure when was his last alcohol drink. Patient denies headache, visual changes, chest pain, shortness O breath, abdominal pain, urinary changes or bowel movements except that he notes that he noticed that he is incontinent recently. No history of fevers or chills per the patient. ?At the ED patient was hemodynamically stable, mild elevation of white blood cells at around 13, elevated CRP at 6, normal creatinine of and and elevation of his CK more than 2300. CT head showed multiple old infarcts, other than that no acute pathology, chest x-ray unremarkable. EKG normal sinus rhythm nonspecific T-wave changes.? Hospital day 3. Admitted 04/23/2024 for observation. Patient prefers to be called Ree. Ree also responds to her name of Danielito. Ree indicates feeling a little stronger today than yesterday. Has chronic sense of imbalance and routinely utilizes walker at home for ambulation. Able to tolerate walking from bedside to bathroom and back with walker. Tells me her right upper extremity from the elbow to the shoulder is a little more uncomfortable today than it was yesterday. Acknowledges baseline discomfort in this shoulder and elbow in particular which waxes and wanes. Acknowledges awareness of decreased cognitive abilities and reliance on neighbors for help. Does not receive home care services at this time. Tells me she receives a box of food every 2 weeks which helps a great deal. Does not recall what happened in her home. Does not recall falling. Does not recall how long she laid on the floor. Does not recall who found her on the [place] or or how she came to the hospital. Tells me she has been cutting back on her alcohol intake. For the last several weeks has been drinking about 4 beers per day. Prior to that drank about 6 beers per day. Denies binge drinking recently. States that a friend brings over the beer for her. Receives a box of meal on wheels once every 2 weeks. States generally eats enough. Denies fever, rigors, diaphoresis. Denies dyspnea, cough, dysuria, urgency, frequency, hematuria. Denies any wounds or rashes. Exam Narrative: Exam Narrative: Examined patient in her hospital room. Appears comfortable no acute distress. Right handed, and feeding herself with her left hand. Range of motion of right wrist, right elbow, right shoulder are mild to moderately decreased. No real tenderness to palpation anywhere. Does have chronic arthritic deformity particularly of that shoulder but also the elbow. Lungs are clear to auscultation. Heart tones with regular rhythm. Abdomen with active bowel sounds, soft, nontender. Transfers and ambulates with walker with standby assist. Const: Vital Signs, click to edit/add: Vital Signs - 24 hr 04/24/24 11:21 04/24/24 11:21 04/24/24 15:00 Temperature 98.7 F 98.7 F 98.3 F Pulse Rate Pulse Rate [Right Pulse Oximeter] 75 75 89 Respiratory Rate 16 16 18 Blood Pressure [Le ft Arm] Blood Pressure [Ri ght Arm] 115/75 115/75 129/80 Pulse Oximetry 96 96 97 Oxygen Delivery Me thod Room Air Room Air Room Air 04/24/24 15:00 04/24/24 15:00 04/24/24 15:00 Temperature 98.3 F Pulse Rate Pulse Rate [Right Pulse Oximeter] 89 89 Respiratory Rate 18 18 Blood Pressure [Le ft Arm] Blood Pressure [Ri ght Arm] 129/80 Pulse Oximetry 97 97 Oxygen Delivery Me thod Room Air 04/24/24 15:37 04/24/24 19:27 04/24/24 20:30 Temperature 98.3 F Pulse Rate 81 77 Pulse Rate [Right Pulse Oximeter] 85 Respiratory Rate 18 Blood Pressure [Le ft Arm] 136/69 Blood Pressure [Ri ght Arm] Pulse Oximetry 95 Oxygen Delivery Me thod Room Air 04/24/24 20:30 04/24/24 20:30 04/24/24 23:00 Temperature 98.3 F Pulse Rate Pulse Rate [Right Pulse Oximeter] 85 79 Respiratory Rate 18 18 Blood Pressure [Le ft Arm] 135/82 Blood Pressure [Ri ght Arm] Pulse Oximetry 95 96 Oxygen Delivery Me thod Room Air 04/25/24 03:10 04/25/24 09:10 04/25/24 09:10 Temperature 98.6 F 97.7 F 97.7 F Pulse Rate Pulse Rate [Right Pulse Oximeter] 77 101 H 101 H Respiratory Rate 16 16 16 Blood Pressure [Le ft Arm] 138/76 Blood Pressure [Ri ght Arm] 105/78 105/78 Pulse Oximetry 96 97 97 Oxygen Delivery Me thod Room Air Room Air Room Air 04/25/24 09:10 04/25/24 09:10 Temperature Pulse Rate Pulse Rate [Right Pulse Oximeter] 101 H Respiratory Rate 16 Blood Pressure [Le ft Arm] Blood Pressure [Ri ght Arm] Pulse Oximetry 97 Oxygen Delivery Me thod Labs Labs: Laboratory Results - last 24 hr 04/25/24 04/25/24 05:36 07:15 WBC 7.36 RBC 3.50 L Hgb 11.3 L Hct 33.6 L MCV 96 MCH 32 MCHC 34 RDW Coeff of Delvis 13.5 Plt Count 188 Neut % (Auto) 71.3 Lymph % (Auto) 14.3 L Surry % (Auto) 9.6 Eos % (Auto) 3.5 Baso % (Auto) 0.5 Neut # (Auto) 5.24 Lymph # (Auto) 1.10 Surry # (Auto) 0.70 Eos # (Auto) 0.26 Baso # (Auto) 0.04 Abs Immat Gran (auto) 0.06 Imm/Tot Granulo (auto) 0.8 Absolute Retic 0.03 Percent Retic 0.8 Immature Retic Fraction 5.1 Retic Hgb Equivalent 32.1 Sodium 136 Potassium 3.7 Chloride 111 Carbon Dioxide 21 Anion Gap 4 L BUN 20 Creatinine 1.1 Estimated Creat Clear 57.86 Estimated GFR 71 Glucose 101 Lactate 0.5 Calcium 8.6 Phosphorus 3.8 Magnesium 2.1 Ferritin 66.0 AST 54 H Total Creatine Kinase 446 H C-Reactive Protein 4.1 H Lab Acknowledgement Test Added Imaging Right shoulder, humerus, and elbow x-rays: Attestation: I have reviewed the pertinent imaging results. Radiologist's impression: Right shoulder x-ray: 1. Healed posttraumatic deformity of the proximal humerus. 2. Inferior subluxation of the glenohumeral joint, possibly related to joint effusion. 3. Osseous irregularity of the inferior glenoid, difficult to determine if this was present on prior imaging. Findings suspicious for age-indeterminate osseous Bankart lesion related to prior glenohumeral dislocation. Right humerus x-ray: 1. Healed fracture deformity of the proximal humerus. 2. Osseous irregularity of the inferior glenoid concerning for age indeterminate osseous Bankart lesion. 3. Possible radial neck fracture. Recommend correlation with tenderness in this region and consider elbow radiographs as indicated. Right elbow x-ray: Normal alignment. No acute fracture or acute osseous abnormalities are visualized. Bones are demineralized. Arthritic changes of the elbow olecranon spur. No definite fracture seen.
[2024-04-25] MEDS: cefTRIAXone 2 GM in 0.9 % SODIUM CHLORIDE Mini-bag 100 ML IVPB (10:45)
[2024-04-25] MEDS: 0.9 % SODIUM CHLORIDE 250 ml IV (10:45)
[2024-04-25] MEDS: THIAMINE 100 MG TABLET PO (15:20)
--- NOTE | 2024-04-25 17:58 | PC.NURSE ---
End of Shift: Patient pleasant and cooperative, confusion on at off, at time oriented, at times not. Patient vitally stable, lungs clear, BS WNL, IV SL and intact. Patient denies pain. Patient 1 assist/walker/gb. Patient incontinent of urine but also uses the toilet, no BM this shift. Patient tolerating regular diet. Lower extremities pitting edema +1.
[2024-04-25] MEDS: ENOXAPARIN 40 MG/0.4 ML INJ SUBCUT (20:46)
[2024-04-26 02:50] VITALS: BP 133/85; PULSE 76; RESP 18; TEMP 37; O2SAT 96
[2024-04-26] MEDS: OMEPRAZOLE 20 MG CAPSULE DR 40 MG PO (06:07)
--- NOTE | 2024-04-26 06:31 | PC.NURSE ---
Pt is alert and oriented to self and place pt able to get month and year but has difficulties with date/day of week. Afebrile. Pt denies pain, chest pain, and N/V. Pt is up A1 with four wheeled walker and gait belt. Pt is voiding, tolerating a regular diet and slept throughout most of night. ?
[2024-04-26 06:34] LABS: Aspartate Amino Transferase* 42 U/L (12-35); Creatine Kinase* 211 U/L (54-186)
[2024-04-26 06:38] LABS: C Reactive Protein* 5.4 mg/dL (0.5-1.0)
[2024-04-26 07:00] VITALS: BP 151/86; PULSE 84; RESP 18; TEMP 37; O2SAT 97
[2024-04-26] MEDS: MULTIVITAMIN/MINERALS 1 TABLET 1 TAB PO (08:24)
[2024-04-26] MEDS: AMOXICILLIN 250 MG CAPSULE 500 MG PO ×3 (08:24→21:19)
[2024-04-26] MEDS: SODIUM CHLORIDE 0.9 % (FLUSH) 10 ML SYRINGE 5 ML IVF ×2 (08:24→21:20)
[2024-04-26] MEDS: FOLIC ACID 1 MG TABLET PO (08:24)
--- NOTE | 2024-04-26 09:20 | CRLHL7_ITS ---
For Patients: As a result of the Century Cures Act, medical imaging exams and procedure reports are released immediately into your electronic medical record. You may view this report before your referring provider. If you have questions, please contact your health care provider. Indication: Elbow pain, evaluate radial head. Technique: Two view(s) of the right elbow. Comparison: 04/25/2024. Findings: An elbow joint effusion is present. There is subtle cortical irregularity at the radial neck/head concerning for a minimally displaced fracture. No dislocation. No additional fracture is seen. Chondrocalcinosis. Small posterior olecranon enthesophyte and dystrophic calcifications. Atherosclerotic arterial calcifications. Impression: Minimally displaced radial head/neck fracture with elbow joint effusion. Dictated by Stefania Johnston MD @ 04/26/2024 10:09:22 AM (Electronically Signed)
--- NOTE | 2024-04-26 10:26 | PM.IMPN1 ---
Progress Note: A&P Assessment and plan (1) Rhabdomyolysis: Problem details: -likely status post being found on the floor, unknown period of time. -elevation of his CK more than 2300 on 1st presentation and down to 211, improved with IVF - discontinued Status: Acute (2) Fall: Problem details: Found on the floor by his neighbors CT head negative for acute changes CXR: Mild deformity of the right proximal humerus, similar to the prior exam consistent with an old fracture deformity. Age-indeterminate left 8th rib fracture Examination shows weakness of hold of his limbs especially left-sided. Right shoulder, humerus, and left elbow x-rays demonstrate no acute pathology or fractures. Right elbow x-ray shows minimally displaced radial head/neck fracture with elbow joint effusion Known Wernicke encephalopathy and ataxia associated there with and ordinarily utilizes walker for ambulation. Status: Acute (3) Acute encephalopathy: Problem details: -acute on chronic dementia , reported by his primary care physician -CT head showed an multiple old infarcts other than that no acute pathology -cognition normalizing on 04/24/2024 and 04/25/2024. -Occupational therapy to continue to help assess and provide recommendations. It is not clear to me that patient can safely return home at this time yet. Will have PT and OT work with her again on 04/25/2024 with intent of establishing a safe discharge disposition plan and recommendation if at all possible. 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 Status: Acute (6) Unstable gait: Problem details: uses walker, lives [place] Appears to ambulate adequately with use of walker. Bigger concern is her cognitive state and ability to make safe choices and not be impulsive. PT/OT Status: Chronic (7) Leukocytosis: Problem details: Leukocytosis, on admission WBC is around 13 and this normalizes by 04/24/2024 Leukocytosis noticed by PCP in January,, f/up Chest x-ray within normal limits Urine culture eventually grew out E coli greater than 105,000 colony-forming units/ml as well as Proteus mirabilis [id number] colony-forming units per mL, both pansensitive except for the Proteus mirabilis is resistant to nitrofurantoin. Will give a single dose of ceftriaxone 2 g IV on 04/25/2024 and start amoxicillin 500 mg p.o. t.i.d. x1 week beginning on 04/26/2024. Status: Acute (8) Alcoholism: Problem details: Patient mentioned 6 beers a day in the past and more recently 4 beers per day. 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 Transaminitis likely secondary to alcohol use disorder. ALT down to 33 on 04/24/2024. AST still normalizing, was 70 on 04/24/2024 and down to 54 on 04/25/2024. Patient may need liver workup as an outpatient Status: Acute (12) Tlig-oe-sxkydt transgender person: Problem details: Noted Status: Acute (13) Personal history of peptic ulcer disease: Problem details: h/o perforated duodenal ulcer Ordered PPI orally Status: Acute (14) GERD (gastroesophageal reflux disease): Problem details: PPI Status: Chronic (15) Gout: Problem details: Continue allopurinol Status: Chronic (16) Hypertension: Problem details: Continue amlodipine Status: Acute (17) Left rib fracture: Problem details: chest x-ray: Age-indeterminate left 8th rib fracture P/E: No focal pain on palpation of his ribs, in addition patient was able to take deep breaths without pain. Status: Suspected (18) Right humeral fracture: Problem details: Chronic. CXR shows Mild deformity of the right proximal humerus, similar to the prior exam consistent with an old fracture deformity Status: Chronic (19) Urinary tract infection: Problem details: -04/25/2024: Urine culture grew out greater than 100,000 colony-forming units/ml of E coli and [id number] colony-forming units per mL of Proteus mirabilis, both pansensitive except Proteus mirabilis resistant to nitrofurantoin. A single dose of ceftriaxone 2 g IV given on 04/25/2024. Will start amoxicillin 500 mg p.o. t.i.d. on 04/26/2024 x1 week. Status: Acute (20) Right radial fracture: Problem details: Right elbow film shows Minimally displaced radial head/neck fracture with elbow joint effusion. Suspect acute given recent fall Orthopedic consult Status: Acute Plan Awaiting orthopedic consult for right radial head/neck fracture. Continue PT/OT. Oral antibiotic for UTI. Education Liaison for discharge planning/placement needs - may be difficult given chronic daily alcohol use Time Spent With Patient Total time spent: Total time spent caring for the patient today was 45 minutes. This includes time spent for the visit reviewing the chart, time spent during the visit, time spent after the visit and documentation and planning in coordination of care. Subjective Date Seen: 04/26/24 Interval history: Patient is seen sitting up in a chair this morning, feeling better. Denies headache or dizziness. Denies chest pain or shortness of breath. Tolerating orals without nausea vomiting. Feels as though his strength is improving. Continues to work with PT/OT. Exam Narrative: Exam Narrative: PHYSICAL EXAM General: Pleasant, conversant, NAD HEENT: Normocephalic, atraumatic, sclera white, EOMI, oral mucosa moist Cardiovascular: RRR, S1S2. Trace edema Pulmonary: CTA bilaterally without rhonchi, rales, expiratory wheezes. No dyspnea Neurological: Alert, answering questions appropriately, cranial nerves intact, no focal findings Extremities: No gross joint deformity or swelling. AROMI. Neurovascularly intact Skin: Warm, dry. Const: Vital Signs, click to edit/add: Vital Signs - 24 hr 04/25/24 11:00 04/25/24 11:00 04/25/24 15:00 Temperature 98.4 F 98.4 F 98.5 F Pulse Rate [Right Pulse Oximeter] 81 81 79 Respiratory Rate 18 18 20 Blood Pressure [Le ft Arm] 143/86 H Blood Pressure [Ri ght Arm] 120/80 120/80 Pulse Oximetry 98 98 98 Oxygen Delivery Me thod Room Air Room Air Room Air 04/25/24 15:00 04/25/24 15:00 04/25/24 15:00 Temperature 98.5 F Pulse Rate [Right Pulse Oximeter] 79 79 Respiratory Rate 20 20 Blood Pressure [Le ft Arm] 143/86 H Blood Pressure [Ri ght Arm] Pulse Oximetry 98 98 Oxygen Delivery Me thod Room Air 04/25/24 19:41 04/25/24 22:17 04/25/24 23:00 Temperature 98.1 F 98.6 F Pulse Rate [Right Pulse Oximeter] 84 77 Respiratory Rate 20 16 Blood Pressure [Le ft Arm] 154/75 H 141/84 H Blood Pressure [Ri ght Arm] Pulse Oximetry 95 93 93 Oxygen Delivery Me thod Room Air Room Air 04/25/24 23:00 04/26/24 02:50 04/26/24 07:00 Temperature 98.6 F 98.6 F Pulse Rate [Right Pulse Oximeter] 80 76 84 Respiratory Rate 18 18 Blood Pressure [Le ft Arm] 133/85 Blood Pressure [Ri ght Arm] 151/86 H Pulse Oximetry 96 97 Oxygen Delivery Me thod Room Air Room Air 04/26/24 07:00 04/26/24 07:00 Temperature Pulse Rate [Right Pulse Oximeter] 84 Respiratory Rate 18 Blood Pressure [Le ft Arm] Blood Pressure [Ri ght Arm] Pulse Oximetry 97 Oxygen Delivery Me thod Labs Labs: Laboratory Results - last 24 hr 04/26/24 06:05 AST 42 H Total Creatine Kinase 211 H C-Reactive Protein 5.4 H
[2024-04-26 11:00] VITALS: BP 134/84; PULSE 85; RESP 18; TEMP 37; O2SAT 100
--- NOTE | 2024-04-26 13:53 | PC.SOCIAL ---
Discharge planning: support worker and social work applications intern met with pt today in their room. support worker completed an assessment with the pt and found out that the pt has [facility] for Home Health Aide on Mondays and . Pt also has intermediate through [facility] for medication management/set-up who comes one time a week. Pt also stated that an aide comes from [employer] [facility] once a week on Fridays for two hours to help with housekeeping, laundry and organizing. Pt also has a Rod Buster Payee through [employer]. Pt will be evaluated by the surgeon today to see what the course of action will be for pt's right arm fracture. Social work to follow-up as needed.
[2024-04-26 15:00] VITALS: BP 116/77; PULSE 84; RESP 18; TEMP 36.8; O2SAT 97
[2024-04-26 21:15] VITALS: BP 124/69; PULSE 69; RESP 16; TEMP 36.8; O2SAT 98
[2024-04-26] MEDS: AMLODIPINE 10 MG TABLET PO (21:19)
[2024-04-26] MEDS: allopurinoL 300 MG TABLET PO (21:19)
[2024-04-26] MEDS: ENOXAPARIN 40 MG/0.4 ML INJ SUBCUT (21:19)
[2024-04-26 23:50] VITALS: BP 131/81; PULSE 81; RESP 16; TEMP 36.7; O2SAT 95
[2024-04-27 03:50] VITALS: BP 135/73; PULSE 70; RESP 16; TEMP 36.7; O2SAT 97
[2024-04-27] MEDS: OMEPRAZOLE 20 MG CAPSULE DR 40 MG PO (06:44)
[2024-04-27 07:00] VITALS: BP 110/81; PULSE 72; RESP 16; TEMP 36.9; O2SAT 98
--- NOTE | 2024-04-27 07:32 | PC.NURSE ---
END OF SHIFT NOTE: PT WITH HX OF DEMENTIA. CIWA 1, 1, 1. BUTTOCK REDDENED; BLANCHABLE. INCONTINENT OF VOID x1. AMBULATES WITH A1/GB/WALKER.
[2024-04-27] MEDS: SODIUM CHLORIDE 0.9 % (FLUSH) 10 ML SYRINGE 5 ML IVF (09:06)
[2024-04-27] MEDS: THIAMINE 100 MG TABLET PO (09:06)
[2024-04-27] MEDS: FOLIC ACID 1 MG TABLET PO (09:06)
[2024-04-27] MEDS: AMOXICILLIN 250 MG CAPSULE 500 MG PO (09:06)
[2024-04-27] MEDS: MULTIVITAMIN/MINERALS 1 TABLET 1 TAB PO (09:06)
--- NOTE | 2024-04-27 10:09 | P.DS_ITS ---
DS: Providers Provider Date Seen: 04/27/24 Date of admission: 04/26/24 08:56 Primary care physician: Darcy Allen MD Admitting Clinician: Catarina Nguyễn MD Consults: 04/23/24 15:18 Consult to Occupational Therapy [CONS] Routine Comment: Reason(s) for OT Consult:: Evaluate and Treat Any Restrictions?:: No Restrictions Consult to Physical Therapy [CONS] Routine Comment: Reason(s) for PT Consult:: Evaluate and Treat Any Restrictions?:: No Restrictions 04/23/24 15:53 Consult to Occupational Therapy [CONS] Routine Comment: Reason(s) for OT Consult:: Evaluate and Treat Any Restrictions?:: No Restrictions Consult to Physical Therapy [CONS] Routine Comment: Reason(s) for PT Consult:: Evaluate and Treat Any Restrictions?:: No Restrictions Consult to Director Of Operations For Therapy [CONS] Routine Comment: lack of transportation in winter to [facility]. Reason for Consult:: Social Service Consult 04/26/24 10:28 Consult to Physician [CONS] Routine Comment: Minimally displaced radial head/neck fracture with Consulting Provider: Senthil Romero Has provider been notified: No Attending Physician on discharge: Ai Kang [facility] [place] [facility] Date of Discharge: 04/27/24 DS: Diagnosis Discharge Diagnosis (1) Rhabdomyolysis: Status: Resolved Problem details: -likely status post being found on the floor, unknown period of time. -elevation of his CK more than 2300 on 1st presentation and down to 211, improved with IVF - discontinued (2) Fall: Status: Acute Problem details: Acute on chronic, recurrent episodes, with previous trauma findings Found on the floor by his neighbors CT head negative for acute changes CXR: Mild deformity of the right proximal humerus, similar to the prior exam consistent with an old fracture deformity. Age-indeterminate left 8th rib fracture Examination shows weakness of hold of his limbs especially left-sided. Right shoulder, humerus, and left elbow x-rays demonstrate no acute pathology or fractures. Right elbow x-ray shows minimally displaced radial head/neck fracture with elbow joint effusion Known Wernicke encephalopathy and ataxia associated there with and ordinarily utilizes walker for ambulation. (3) Acute encephalopathy: Status: Acute Problem details: -acute on chronic dementia , reported by his primary care physician -CT head showed an multiple old infarcts other than that no acute pathology -cognition normalizing on 04/24/2024 and 04/25/2024. 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 (6) Unstable gait: Status: Chronic Problem details: uses walker, lives [place] independent Appears to ambulate adequately with use of walker. Bigger concern is her cognitive state and ability to make safe choices and not be impulsive. PT/OT assessed, okay to return home with ongoing HHC and additional PT/OT evaluations (7) Leukocytosis: Status: Acute Problem details: Leukocytosis, on admission WBC is around 13 and this normalizes by 04/24/2024 Leukocytosis noticed by PCP in January,, f/up Chest x-ray within normal limits Urine culture eventually grew out E coli greater than 105,000 colony-forming units/ml as well as Proteus mirabilis [id number] colony-forming units per mL, both pansensitive except for the Proteus mirabilis is resistant to nitrofurantoin. Will give a single dose of ceftriaxone 2 g IV on 04/25/2024 and start amoxicillin 500 mg p.o. t.i.d. beginning on 04/26/2024. (8) Alcoholism: Status: Chronic Problem details: Patient mentioned 6 beers a day in the past and more recently 4 beers per day. Friends supplying alcohol to him per report drivers license taken away Not sure when was his last drink We will put on CIWA, Ordered , thiamine , folic acid. Cessation encouraged. Ongoing risk for recurrent falls, weakness (9) Wernicke-Korsakoff syndrome: Status: Acute Problem details: Patient has chronic cerebrovascular changes, chronic alcoholism thiamine , folic acid (10) Chronic hyponatremia: Status: Chronic Problem details: Mild chronic hyponatremia, improved to 136 (11) Transaminitis: Status: Acute Problem details: AST 120 ALT 40 on presentation. Transaminitis likely secondary to alcohol use disorder. ALT down to 33 on 04/24/2024. AST still normalizing, was 70 on 04/24/2024 and down to 54 on 04/25/2024. Patient may need liver workup as an outpatient (12) Dusm-ey-cxbpfa transgender person: Status: Acute Problem details: Noted (13) Personal history of peptic ulcer disease: Status: Acute Problem details: h/o perforated duodenal ulcer Ordered PPI orally (14) GERD (gastroesophageal reflux disease): Status: Chronic Problem details: PPI (15) Gout: Status: Chronic Problem details: Continue allopurinol (16) Hypertension: Status: Acute Problem details: Continue amlodipine (17) Left rib fracture: Status: Suspected Problem details: chest x-ray: Age-indeterminate left 8th rib fracture P/E: No focal pain on palpation of his ribs, in addition patient was able to take deep breaths without pain. (18) Right humeral fracture: Status: Chronic Problem details: Chronic. CXR shows Mild deformity of the right proximal humerus, similar to the prior exam consistent with an old fracture deformity (19) Urinary tract infection: Status: Acute Problem details: -04/25/2024: Urine culture grew out greater than 100,000 colony-forming units/ml of E coli and [id number] colony-forming units per mL of Proteus mirabilis, both pansensitive except Proteus mirabilis resistant to nitrofurantoin. A single dose of ceftriaxone 2 g IV given on 04/25/2024. Will start amoxicillin 500 mg p.o. t.i.d. on 04/26/2024 x1 week. (20) Right radial fracture: Status: Acute Problem details: Right elbow film shows Minimally displaced radial head/neck fracture with elbow joint effusion. Suspect acute given recent fall Orthopedic consulted, recommending RUE sling for comfort, okay to weightbear through that arm as uses walker for ambulation Outpatient follow-up with PCP DS: Summary Hospital Course Hospital Course: [age] year old male past with multiple chronic medical history was admi tted to the medical floor for weakness, falls, rhabdomyolysis as had been found down. Course of care and details as noted above. Multiple chronic diseases requiring ongoing management with PCP. Has home health care in place currently and deemed okay to return home with these ongoing services as well as additional PT and OT which will begin next week per social group worker. Patient remains a bounce-back risk given chronic alcohol use, cognitive impairment, recurrent falls. Outpatient follow-up with PCP for resolution of UTI on oral antibiotic, re- evaluation right radial fracture with nonsurgical management, further workup transaminitis in setting of chronic alcohol use. Remainder of chronic medical comorbidities were monitored and managed with home medications. Status at Discharge Functional status at discharge: uses cane/walker Overall status at discharge: patient is back to baseline Time Spent with Patient Time attestation: Total time spent providing and/or coordinating discharge services: Time spent: Greater than 30 minutes Exam Narrative: Exam Narrative: PHYSICAL EXAM General: Pleasant, conversant, NAD Cardiovascular: RRR Pulmonary: No dyspnea Neurological: Alert,interactive, chronic confusion Skin: Warm, dry. Const: Vital Signs, click to edit/add: Vital Signs - 24 hr 04/26/24 11:00 04/26/24 15:00 04/26/24 15:00 Temperature 98.6 F 98.3 F Pulse Rate [Pulse Oximeter] Pulse Rate [Right Pulse Oximeter] 85 84 84 Respiratory Rate 18 18 18 Blood Pressure [Le ft Arm] 134/84 116/77 Pulse Oximetry 100 97 Oxygen Delivery Me od Room Air Room Air 04/26/24 15:00 04/26/24 21:15 04/26/24 21:15 Temperature 98.3 F Pulse Rate [Pulse Oximeter] Pulse Rate [Right Pulse Oximeter] 69 Respiratory Rate 16 Blood Pressure [Le ft Arm] 124/69 Pulse Oximetry 97 98 98 Oxygen Delivery Vt thod Room Air 04/26/24 21:15 04/26/24 23:50 04/27/24 03:50 Temperature 98.0 F 98.1 F Pulse Rate [Pulse Oximeter] 69 81 70 Pulse Rate [Right Pulse Oximeter] Respiratory Rate 16 16 16 Blood Pressure [Le ft Arm] 131/81 135/73 Pulse Oximetry 95 97 [facility] Air 04/27/24 07:00 04/27/24 07:00 04/27/24 07:00 Temperature 98.4 F Pulse Rate [Pulse Oximeter] 72 72 Pulse Rate [Right Pulse Oximeter] Respiratory Rate 16 16 Blood Pressure [Le ft Arm] 110/81 Pulse Oximetry 98 98 Oxygen Delivery [facility] DS: Data Imaging Right elbow x-ray: Attestation: I have reviewed the pertinent imaging results. Radiologist's impression: An elbow joint effusion is present. There is subtle cortical irregularity at the radial neck/head concerning for a minimally displaced fracture. No dislocation. No additional fracture is seen. Chondrocalcinosis. Small posterior olecranon enthesophyte and dystrophic calcifications. Atherosclerotic arterial calcifications. Impression: Minimally displaced radial head/neck fracture with elbow joint effusion. Right shoulder x-ray: Attestation: I have reviewed the pertinent imaging results. Radiologist's impression: Healed posttraumatic deformity of the proximal humerus. Mild inferior subluxation of the glenohumeral joint. Osseous irregularity along the inferior glenoid is possibly new compared to prior. Acromioclavicular alignment is anatomic. Osseous demineralization. Visualized right lung is clear. Impression: 1. Healed posttraumatic deformity of the proximal humerus. 2. Inferior subluxation of the glenohumeral joint, possibly related to joint effusion. 3. Osseous irregularity of the inferior glenoid, difficult to determine if this was present on prior imaging. Findings suspicious for age-indeterminate osseous Bankart lesion related to prior glenohumeral dislocation. Right humerus x-ray: Attestation: I have reviewed the pertinent imaging results. Radiologist's impression: Cortical irregularity at the radial neck, age-indeterminate as priors do not include this region in the field of view. Healed fracture deformity of the proximal humerus. Irregularity of the inferior glenoid, similar to dedicated shoulder radiographs. Osseous demineralization. Dystrophic posterior elbow calcifications. Impression: 1. Healed fracture deformity of the proximal humerus. 2. Osseous irregularity of the inferior glenoid concerning for age indeterminate osseous Bankart lesion. 3. Possible radial neck fracture. Recommend correlation with tenderness in this region and consider elbow radiographs as indicated. Left elbow x-ray: Attestation: I have reviewed the pertinent imaging results. Radiologist's impression: Normal alignment. No acute fracture or acute osseous abnormalities are visualized. Bones are demineralized. Arthritic changes of the elbow olecranon spur. No definite fracture seen. CT scan - head: Attestation: I have reviewed the pertinent imaging results. Radiologist's impression: ventricles are symmetric. Basal cisterns patent. No sulcal effacement. The ventricles, cisterns, and other CSF containing spaces are symmetrically prominent secondary to diffuse parenchymal volume loss but are otherwise normal as to shape and position. BRAIN: Diffuse cerebral volume loss. Periventricular and subcortical hypodensities likely secondary to age-related microvascular ischemic changes. Similar encephalomalacia in the right frontal lobe and right occipital lobe. No acute infarct or hemorrhage. VASCULAR: No acute abnormalities of the cavernous carotids and vertebral vessels on noncontrast exam. EXTRA-AXIAL: Extra-axial spaces are normal. EXTRA-CRANIAL: No acute calvarial or facial fractures. Moderate scattered sinus mucosal thickening. Mastoids are clear. Orbits are normal. IMPRESSION: No acute intracranial abnormality. Sequela of multiple prior infarctions. Chest x-ray: Attestation: I have reviewed the pertinent imaging results. Radiologist's impression: Cardiovascular and mediastinum: Normal heart size with aortic tortuosity. Lungs and pleural space: Mild elevation of the right hemidiaphragm, similar to prior. No pleural effusion or pneumothorax. No focal consolidation. Bones and soft tissues: Mild deformity of the right proximal humerus, similar to the prior exam consistent with an old fracture deformity. Age-indeterminate left 8th rib fracture. CT cervical spine: Attestation: I have reviewed the pertinent imaging results. Radiologist's impression: CT cervical spine without contrast. COMPARISON: CT cervical spine April 05, 2019. FINDINGS: Vertebrae: Straightening of expected cervical lordosis. Grade 1 anterolisthesis of C2 on C3. Minimal retrolisthesis of C3 on C4. Grade 1 anterolisthesis of C4 on C5. There are no fractures or suspicious bony lesions. Discs and facet joints: Multilevel intervertebral disc space narrowing facet arthropathy. Disc space narrowing most advanced at C4-C5 and C5-C6. Extraspinal findings: Paraspinous soft tissues are unremarkable. IMPRESSION: 1. No sign of acute cervical spine fracture. 2. Advanced multilevel degenerate spondylosis. Multilevel listhesis is similar to prior exam including grade 1 anterolisthesis of C4 on C5. Vertebrae: Diffuse osseous demineralization. Straightening of normal cervical lordosis. Similar trace anterolisthesis of C4 on C5. No acute fractures. Discs and facet joints: Ltwrseqg-bl-orszfw diffuse degenerative changes in the disc spaces and facet joints. No areas of severe central or neural foraminal stenosis. Extraspinal findings: Paraspinous soft tissues are unremarkable. IMPRESSION: 1. No sign of acute injury. 2. Multilevel degenerative spondylosis. Discharge Plan Discharge Disposition: Home, Self-Care Date of Admission: 04/26/24 08:56 Attending Provider on Discharge: Ai Kang Consulting Providers: Senthil Romero Primary Care Provider: Darcy Allen Condition: Stable Anticipated Discharge Date/Time: 04/27/24 10:00 Discharge Medications: New amoxicillin 250 mg Capsule 500 mg PO TID Qty: 15 0RF Continued multivitamin with folic acid [Thera] 400 mcg tablet 1 tab PO DAILY Qty: 90 3RF thiamine mononitrate (vit B1) [Vitamin B-1 (mononitrate)] 100 mg tablet 100 mg PO DAILY Qty: 90 2RF allopurinol 300 mg tablet 300 mg PO HS Qty: 90 1RF amlodipine 10 mg tablet 10 mg PO HS Qty: 90 3RF esomeprazole magnesium 20 mg capsule,delayed release(DR/EC) 20 mg PO DAILY Qty: 90 3RF folic acid 1 mg tablet 1 mg PO DAILY Qty: 90 3RF Discharge Orders: Discharge Order (Routine); Ordered 04/27/24 Ordered By: Ai Kang Patient Education: Amoxicillin (By mouth), Elbow Fracture (GEN), Urinary Tract Infection in Men (GEN) Additional Instructions: [facility] PT/OT TO EVALUATE - OK to initiate next week for earliest availability Finish the amoxicillin for your UTI. Activity Level: Activity as Tolerated Activity Detail: Sling to right upper extremity as needed for comfort. May weight bear through arm in order to use walker. Ice/heat to area as needed for pain relief. Discharge Diet: Regular Follow Up Appointments: Darcy Allen MD [Primary Care Provider] - 04/30/24 10:45 am ([facility] [address] [facility] for post hospital follow-up.) Forms: [employer] Info Instructions
--- NOTE | 2024-04-27 13:21 | PC.NURSE ---
Discharge today at 1245 accompanied by adult son to [facility] apartments. IV removed intact. VSS, afebrile, A/O x3. occasional confusion. Patient is ambulating with 4 ww/GB. Sling to right arm PRN and ice as needed for pain. Discharge instructions and belongings sheet signed. Patient sent home with discharge packet to give to homecare.
--- NOTE | 2024-04-27 14:10 | PC.SOCIAL ---
Discharge planning: Pt is able to return home today with all of the previous services in place. PT/OT will also be added to the home care services with [facility], [facility]. However, [facility]. is not able to start the PT/OT until next week due to staffing. fuller brush worker sent all the needed discharge orders to Marcy at [facility], [facility]. via secure email today. Pt's homemaking services with [facility] will also resume after discharge. Pt's son and/or goflzzbq-ky-lfc will be able to pic the pt up from the hospital at discharge. Social work to follow-up as needed.
== END 2024-04-27 12:45 | disposition home or self-care (01) | DRG 565 ==
LOC: ED 15:12 → MEDSURG 15:16
PROVIDERS: Internal Medicine; Admitting Provider Physician Assistant; Emergency Provider Family Medicine; PCP Family Medicine; Visit Provider Student in an Organized Health Care Education/Training Program
DX: T79.6XXA Traumatic ischemia of muscle, initial encounter (principal); E87.1 Hypo-osmolality and hyponatremia; S22.32XA Fracture of one rib, left side, initial encounter for closed fracture; G93.40 Encephalopathy, unspecified; N39.0 Urinary tract infection, site not specified; Z16.29 Resistance to other single specified antibiotic; W18.30XA Fall on same level, unspecified, initial encounter; Z91.81 History of falling; Y92.039 Unspecified place in apartment as the place of occurrence of the external cause; R53.1 Weakness; F03.90 Unspecified dementia, unspecified severity, without behavioral disturbance, psychotic disturbance, mood disturbance, and anxiety; F04 Amnestic disorder due to known physiological condition; I69.319 Unspecified symptoms and signs involving cognitive functions following cerebral infarction; R26.81 Unsteadiness on feet; D72.829 Elevated white blood cell count, unspecified; F10.20 Alcohol dependence, uncomplicated; Y90.0 Blood alcohol level of less than 20 mg/100 ml; R74.01 Elevation of levels of liver transaminase levels; F64.0 Transsexualism; Z87.11 Personal history of peptic ulcer disease; K21.9 Gastro-esophageal reflux disease without esophagitis; M10.9 Gout, unspecified; I10 Essential (primary) hypertension; Z86.718 Personal history of other venous thrombosis and embolism; M21.821 Other specified acquired deformities of right upper arm; B96.20 Unspecified Escherichia coli [E. coli] as the cause of diseases classified elsewhere; B96.4 Proteus (mirabilis) (morganii) as the cause of diseases classified elsewhere; S52.121A Displaced fracture of head of right radius, initial encounter for closed fracture; Z87.891 Personal history of nicotine dependence
CPT/HCPCS: 36415; 70450; 71045; 72125; 73030; 73060; 73070; 73080; 80048; 80053; 80306; 81001; 82077; 82140; 82248; 82550; 82728; 83605; 83735; 83880; 84100; 84145; 84443; 84450; 84484; 85025; 85045; 85610; 85730; 86140; 87081; 87086; 87186; 87631; 93005; 94761; 97116; 97161; 97165; 97530; 97535; 99284; 99285; G0378; A9153; A9270; J0696; J1650; J7030; J7050

== ENCOUNTER 2024-05-06 15:11 | Outpatient (CLI) | payer MEDICARE, SELFPAY ==
--- OUTSIDE RECORDS SUMMARY | 2024-05-06 15:13 | XMS_ITS | Continuity of Care Document ---
Author Organization [facility] Address [address] [place] [address] Phone Care Team Providers Care Scientist Engineer Name Role Phone Uziel Turner MD Unavailable Unavailable Procedures Procedure Date Initial Hospital Care Advance Directives Directive Yes / No Effective Date File Name No Information Encounters Encounter Description Practice Location Reason(s) For Visit Diagnoses Date Provider Providers Copied on Encounter Initial Hospital Care [facility], [address], [place], [address], [place] tel:[phone] [facility] No Information 0-201 7 Yue Triplett. [facility] [address], [place], [address], [place]. tel:[phone] Referring Provider: Uziel Soriano, [facility] [address], [place], [address]. tel:[phone] Family History Family Member Type Diagnosis Age At Onset No Information Payers Payer name Insurance type Covered alliance party ID Authorgisella mckenna(s) [facility] [id number] Medicare MB [id number] Social History Type Description Quantity Date Captured [...]
--- OUTSIDE RECORDS SUMMARY | 2024-05-06 15:15 | XMS_ITS | Clinical Summary ---
Author Organization [employer] [facility] Address [place], [place] [address] Care Team Providers Care Cyber Security Instructor Name Role Phone Darcy Allen MD Primary [...] CDT) CHOLESTEROL,TOTAL 189 110 - 199 mg/dL [facility] TRIGLYCERIDES 162(H) <150 mg/dL [facility] HDL CHOLESTEROL 50 >40 mg/dL [facility] CHOL/HDL RATIO 3.78 <4.51 [facility] LDL CHOLESTEROL 107 <131 mg/dL [facility] PATIENT STATUS Fasting [facility] Blood specimen (specimen) BLOOD SPECIMEN / Unknown 03/21/2011 7:49 AM CDT 03/21/2011 7:44 AM CDT Jenni Monroe MD CHEMISTRY [facility] [address] [place] [address] from Last 3 Months or Most Recently Relevant to Health Maintenance Additional Health Concerns Infection Onset Date Last Indicated ESBL Comment:Order contact precautions. Order consult to Infection Prevention to determine if patient may be removed from precautions. 10/07/2016 10/07/2016 Advance Directives Documents on File Type Date Recorded Patient Mid Level Provider Laure PUENTE 10/08/2016 11:11 AM 09/30/2016 * [...] who discussed with his siblings Care Teams Cyber Security Instructor Relationship Specialty Start Date End Date Darcy Allen MD [address] [place] [address] PCP - General Family Practice 07/24/16
== END 2024-05-06 15:12 | disposition home or self-care (01) ==
PROVIDERS: PCP Family Medicine; Visit Provider Family Medicine
DX: I10 Essential (primary) hypertension (principal); E87.1 Hypo-osmolality and hyponatremia; R74.01 Elevation of levels of liver transaminase levels; F10.20 Alcohol dependence, uncomplicated; N39.0 Urinary tract infection, site not specified
CPT/HCPCS: 80053; 82977; 87086; 87186

== ENCOUNTER 2024-09-20 15:17 | Outpatient (CLI) | payer MEDICARE, SELFPAY | END 2024-09-20 15:18 | disposition home or self-care (01) | LOC: AMB 09-21 14:13 | PROVIDERS: PCP Family Medicine; Visit Provider Family Medicine | DX: R53.1 Weakness (principal); F10.129 Alcohol abuse with intoxication, unspecified | CPT/HCPCS: A0425; A0429 ==

== ENCOUNTER 2024-09-20 15:54 | Emergency (ER) | payer MEDICARE, SELFPAY ==
--- OUTSIDE RECORDS SUMMARY | 2024-09-20 15:56 | XMS_ITS | Clinical Summary ---
Author Organization [facility] Address [address] [place] [id number] Care Team Providers Care Resident Care Technician Name Role Phone Darcy Allen MD Primary Care Provider + Allergies Active Allergy Reactions Criticality Noted Date Comments Indomethacin *None-Radiology Only Medications amLODIPine (NORVASC) 10 mg tabletIndicatio ns:Hypertension Take 1 tablet by mouth once daily. 30 tablet 7 Active acetaminophen (TYLENOL) 325 mg tabletIndicatio ns:Pain Take 2 tablets by mouth every 4 hours if needed (For mild pain.). Max acetaminophen dose: 4000mg in 24 hrs. 0 7 Active omeprazole (PRILOSEC) 20 mg Delayed-Release capsule Take 20 mg by mouth once daily before a meal. Active ferrous sulfate, 65 mg elemental, tablet Take 325 mg by mouth once daily with a meal. Active allopurinol (ZYLOPRIM) 300 mg tablet Take 300 mg by mouth once daily. Active oxyCODONE (ROXICODONE) 5 mg immediate release tabletIndicatio ns:Abdominal pain, unspecified location Take 1 tablet by mouth every 6 hours if needed for Pain 30 tablet 7 Active predniSONE (DELTASONE) 5 mg tabletIndicatio ns:Polyarticula r gout Take 3 tablets by mouth once daily with a meal. 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 Gender Identity Not on file Sexual Orientation Not on file Obstetrics History Last Filed Vital Signs Vital Sign Reading Time Taken Comments Blood Pressure 158/106 03/25/2017 1:03 PM CDT Pulse 80 03/25/2017 1:03 PM CDT Temperature 36.7 C (98.1 F) 03/25/2017 1:03 PM CDT Respiratory Rate 16 [...] 18-79 1969 Colonoscopy through age 75 1996 Pneumococcal series for age 50+ (1 of 1 - PCV) 2001 Zoster (shingles) series for age 50+ (1 of 2) 2001 Lipids for age 45-75 03/21/2016 03/21/2011, 12/29/2007, 12/04/2005 BMI (ht and wt on same day) for age 18+ 03/25/2018 03/25/2017, 01/30/2017, 12/09/2016, Additional history exists Tetanus booster 03/16/2022 03/16/2012 COVID-19 vaccine series ( season) 2024 05/22/2021 Influenza for age 65+ 03/21/2024 04/20/2016, 008 RSV vaccine for adults or (1 - 1-dose 75+ series) 2026 Tdap Completed 03/16/2012 Procedures Procedure Name Priority Date/Time Associated Diagnosis Comments LIPID PANEL W REFLEX MEASURED LDL Routine 03/21/2011 7:49 AM CDT Lipid screening from Last 3 Months or Most Recently Relevant to Health Maintenance Results * (ABNORMAL) LIPID PANEL W REFLEX MEASURED LDL (03/21/2011 7:49 AM CDT) CHOLESTEROL,TOTAL 189 110 - 199 mg/dL [facility] TRIGLYCERIDES 162(H) <150 mg/dL [facility] HDL CHOLESTEROL 50 >40 mg/dL [facility] CHOL/HDL RATIO 3.78 <4.51 [facility] LDL CHOLESTEROL 107 <131 mg/dL [facility] PATIENT STATUS Fasting [facility] Blood specimen (specimen) BLOOD SPECIMEN / Unknown 03/21/2011 7:49 AM CDT 03/21/2011 7:44 AM CDT us Jenni Monroe MD CHEMISTRY Final R esult [facility] [address] [phone] from Last 3 Months or Most Recently Relevant to Health Maintenance Additional Health Concerns Infection Onset Date Last Indicated ESBL Comment:Order contact precautions. Order consult to Infection Prevention to determine if patient may be removed from precautions. 10/07/2016 10/07/[phone] [place] [id number] MEDICARE PART B HB ONLY MEDICARE PART A HB ONLY [employer] CHOICE PPO MR Advance Directives Documents on File Type Date Recorded Patient Personal Injury Paralegal Expl jeremy POL 10/08/2016 11:11 AM 09/30/2016 * Full Code [...] who discussed with his siblings Care Teams Resident Care Technician Relationship Specialty Start Date End Date Darcy Allen MD [address] [place] [id number] PCP - General Family Practice 07/24/16
[2024-09-20 15:58] VITALS: BP 117/67; PULSE 68; RESP 18; TEMP 36.3; O2SAT 97; BMI 27.5
--- NOTE | 2024-09-20 16:19 | ED.DIZZY ---
HPI - Dizziness General Chief Complaint: Dizziness/Vertigo Stated Complaint: Dizzyness Time Seen by Provider: 09/20/24 15:56 History of Present Illness HPI Narrative: This 74-year-old male who dresses as a female comes in because of an episode of lightheadedness. He states that he has been experiencing this on occasion. Today he was lightheaded when getting up from a lying position. He states that he has not had anything to eat today. He did have 3 beers today by his report. He states that this is typical for him on a daily basis. He does take antihypertensive medicine and states that he typically takes this in the morning. He does not report any chest pain and has no other complaints. He states that he feels back to normal and arrives here with normal vital signs. Related Data Previous Rx's ?Medication ?Instructions ?Recorded multivitamin with folic acid 400 1 tab PO DAILY #90 tabs 08/14/22 mcg tablet (Thera) amlodipine 10 mg tablet 10 mg PO HS #90 tabs 02/11/24 esomeprazole magnesium 20 mg 20 mg PO DAILY #90 caps 02/11/24 capsule,delayed release allopurinol 300 mg tablet 300 mg PO HS #90 tabs 06/22/24 folic acid 1 mg tablet 1 mg PO DAILY #90 tabs 06/29/24 thiamine HCl (vitamin B1) 100 mg 100 mg PO DAILY #90 tabs 08/12/24 tablet (Vitamin B-1) Allergies Allergy/AdvReac Type Severity Reaction Status Date / Time indomethacin Allergy Verified 09/20/24 16:05 Review of Systems Status of ROS: Reports: 10 or more systems reviewed and unremarkable except as noted in History and below Narrative: Constitutional: No fevers, no weight gain or loss. Eyes: No discharge. No vision changes. HENT: No congestion, no sore throat, no ear pain. Cardiovascular: No chest pain, no palpitations. Respiratory: No shortness of breath, no wheezes, no cough. Gastrointestinal: No abdominal pain, no vomiting, no diarrhea. Genitourinary: No dysuria, no hematuria. Musculoskeletal: Normal range of motion. Skin: No rashes, no pruritis. Neurological: No weakness, sensory change, speech change. Lightheadedness episode as described above. Endo/Heme/Allergies: No bruising or bleeding. No polydipsia. Pysch: no suicidality, no anxiety, no insomnia. All other systems reviewed and are negative. 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 ?I69.319 - Unspecified symptoms and signs involving cognitive functions following cerebral infarction (ICD-10) Left rib fracture ?S22.32XA - Fracture of one rib, left side, initial encounter for closed fracture (ICD-10) Right humeral fracture ?S42.301A - Unspecified fracture of shaft of humerus, right arm, initial encounter for closed fracture (ICD-10) Adult failure to thrive (~03/2022) ?R62.7 - Adult failure to thrive (ICD-10) Memory deficit ?R41.3 - Other amnesia (ICD-10) POLST (Physician Orders for Life-Sustaining Treatment) ?Z78.9 - Other specified health status (ICD-10) Recurrent falls while walking (04/2021) ?R29.6 - Repeated falls (ICD-10) Gout (2017) ?M10.9 - Gout, unspecified (ICD-10) Postoperative intra-abdominal abscess (2017) ?T81.43XA - Infection following a procedure, organ and space surgical site, initial encounter (ICD-10) Normal stress echocardiography (~04/2017) Health care directive on file (05/31/21) ?Z78.9 - Other specified health status (ICD-10) Durable power of workers compensation attorney in chart (05/31/21) Duodenal ulcer with perforation (07/2016) ?K26.5 - Chronic or unspecified duodenal ulcer with perforation (ICD-10) Closed fracture of proximal end of right humerus ?S42.201A - Unspecified fracture of upper end of right humerus, initial encounter for closed fracture (ICD-10) Cellulitis of right hand excluding fingers and thumb (~03/2022) ?L03.113 - Cellulitis of right upper limb (ICD-10) Anemia ?D64.9 - Anemia, unspecified (ICD-10) Abnormal ultrasound of abdomen (~04/2021) ?R93.5 - Abnormal findings on diagnostic imaging of other abdominal regions, including retroperitoneum (ICD-10) Mild protein-calorie malnutrition ?E44.1 - Mild protein-calorie malnutrition (ICD-10) Wernicke-Korsakoff syndrome (~03/2022) ?F04 - Amnestic disorder due to known physiological condition (ICD-10) Poor dentition ?K08.9 - Disorder of teeth and supporting structures, unspecified (ICD-10) Alcoholism ?F10.20 - Alcohol dependence, uncomplicated (ICD-10) Cognitive decline ?R41.89 - Other symptoms and signs involving cognitive functions and awareness (ICD-10) Unstable gait ?R26.81 - Unsteadiness on feet (ICD-10) History of DVT of lower extremity (~04/2021) ?Z86.718 - Personal history of other venous thrombosis and embolism (ICD-10) Personal history of peptic ulcer disease ?Z87.11 - Personal history of peptic ulcer disease (ICD-10) Polyarticular gout ?M10.9 - Gout, unspecified (ICD-10) GERD (gastroesophageal reflux disease) ?K21.9 - Gastro-esophageal reflux disease without esophagitis (ICD-10) Hypertension ?I10 - Essential (primary) hypertension (ICD-10) Surgical History History of anterior cruciate ligament surgery (2005) ?Z98.890 - Other specified postprocedural states (ICD-10) History of ventral hernia repair (2017) ?Z98.890 - Other specified postprocedural states (ICD-10) ?Z87.19 - Personal history of other diseases of the digestive system (ICD-10) Status post left knee replacement (04/2019) ?Z96.652 - Presence of left artificial knee joint (ICD-10) History of total knee replacement (07/2016) ?Z96.659 - Presence of unspecified artificial knee joint (ICD-10) History of abdominal surgery (07/2016) ?Z98.890 - Other specified postprocedural states (ICD-10) Family History Father No problems noted. 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 . 3 adult kids. Lives in [place] independent living, non does not drive Non smoker, quit age 31 10 pack years prior 4 /drinks a week, chronic alcoholism Designates sonDanielito, and daughter, Britta, as his power of workers compensation attorney for health should that be required. What is your current living situation?: I presently have a place to live Problems where you live: pests, such as bugs, ants, or mice Problems where you live details: spring bugs In the past 12 months, utilities in danger of being shut off: no In past 12 months, lack of transportation kept you from medical appts, meetings, work, or getting things needed for daily living: yes In the past 12 mos, have been you worried that your food would run out before you had money to buy more?: never true In the past 12 mos, the food you bought just didn't last and you didn't have money to buy more?: never true Highest level of school completed/degree received: some college, no degree Smoking Status: Former smoker What tobacco products do you use: cigarettes Years smoked: 0.5 Smoking quit date/years: >15 years ago and cigars Do you use any of these nicotine containing products: None Second hand tobacco smoke exposure: No How often do you have a drink containing alcohol: 4 or more times a week Alcohol type: beer How many standard drinks containing alcohol do you have on a typical day: 3 or 4 How often do you have six or more drinks on one occasion: Less than monthly AUDIT-C Alcohol total score: 6 Non-prescribed substance use: denies use Caffeine: Yes (pop) How often does anyone, including family, friends and others, physically hurt you: never How often does anyone, including family, friends and others, insult or talk down to you: never How often does anyone, including family, friends and others, threaten you with harm: never How often does anyone, including family, friends and others, scream or curse at you: sometimes service: Yes (medic in 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[employer]) Health Related Social Needs: Inadequate housing (Z59.1), transportation insecurity (Z59.82) and Other personal risk factors, not elsewhere classified (Z91.89) Exam Narrative: Exam Narrative: Constitutional: Well-developed, well-nourished, no acute distress. HEENT: Normocephalic, atraumatic. Neck: Normal range of motion. Nontender. Supple. Heart: Regular. No murmurs. Normal rate. Intact distal pulses. Lungs: Clear to auscultation. No chest discomfort. No wheezes, rhonchi, or rales. Abdomen: Normal bowel sounds. Nontender. No rebound tenderness. Genitalia: Deferred. Back: No midline tenderness. Normal range of motion. Extremities: Normal range of motion. No injury. Skin: Intact. No rash. Warm. No erythema or pallor. Neurologic: No altered sensation. No weakness. Alert and oriented. Psychiatric: No suicidality. No anxiety or depression. No insomnia. Nursing notes and vitals signs are reviewed. Const: Vital Signs, click to edit/add: Vital Signs - 24 hr 09/20/24 15:58 Temperature 97.3 F L Pulse Rate [Right Pulse Oximeter] 68 Respiratory Rate 18 Blood Pressure [Ri ght Upper Arm] 117/67 Pulse Oximetry 97 Oxygen Delivery Me thod Room Air Course Vital Signs Vital signs: Initial Vital Signs Temperature 97.3 F L 09/20/24 15:58 Temperature Source Temporal Artery Scan 09/20/24 15:58 Pulse Rate 68 09/20/24 15:58 Pulse Rhythm Regular 09/20/24 15:58 Pulse Strength 3+ Normal 09/20/24 15:58 Respiratory Rate 18 09/20/24 15:58 Blood Pressure 117/67 09/20/24 15:58 Blood Pressure Mean 83 09/20/24 15:58 Blood Pressure Position Sitting 09/20/24 15:58 Pulse Oximetry 97 09/20/24 15:58 Oxygen Delivery Method Room Air 09/20/24 15:58 Vital Signs Temperature 97.3 F L 09/20/24 15:58 Pulse Rate 68 09/20/24 15:58 Respiratory Rate 18 09/20/24 15:58 Blood Pressure 117/67 09/20/24 15:58 Pulse Oximetry 97 09/20/24 15:58 Oxygen Delivery Method Room Air 09/20/24 15:58 Temperature 97.3 F L 09/20/24 15:58 Pulse Rate 68 09/20/24 15:58 Respiratory Rate 18 09/20/24 15:58 Blood Pressure 117/67 09/20/24 15:58 Pulse Oximetry 97 09/20/24 15:58 Oxygen Delivery Method Room Air 09/20/24 15:58 MDM - Dizziness MDM Narrative Medical decision making narrative: This patient comes in reporting a lightheadedness episode that occurred prior to arrival. He did not have loss of consciousness. He states that there are a few other occasions when he has had similar symptoms. He does take amlodipine in the morning. His blood pressure here is a systolic value of 117. I did check labs and EKG. Labs are reassuring except for his sodium is a bit low at 128. He is not on any sodium wasting medications. He states that he has not had anything to eat today but did have 3 drinks of alcohol. I advised him to add sodium to his diet for a few days. I also recommended that he take his amlodipine in the evening instead of the morning as this may be contributing to some lightheadedness episodes. Perhaps he does not need to be on an antihypertensive medicine and would need then to follow up with his primary physician for ongoing management. Lab Data Labs: Lab Results 09/20/24 Range/Units 16:30 WBC 8.78 (4.50-11.00) K/uL RBC 3.89 L (4.30-5.90) m/uL Hgb 12.6 L (13.5-17.5) gm/dL Hct 36.7 L (37.0-53.0) % MCV 94 (80-100) fL MCH 32 (26-34) pg MCHC 34 (32-36) gm/dL RDW Coeff of Delvis 13.8 (11.5-15.5) % Plt Count 198 (140-440) K/uL Neut % (Auto) 78.8 H (42.0-72.0) % Lymph % (Auto) 13.9 L (20-44) % Love % (Auto) 6.4 (0.0-11.0) % Eos % (Auto) 0.2 (0.0-7.0) % Baso % (Auto) 0.5 (0.0-3.0) % Neut # (Auto) 6.90 (1.7-7.0) K/uL Lymph # (Auto) 1.20 (0.90-2.90) K/uL Love # (Auto) 0.60 (0.00-0.90) K/UL Eos # (Auto) 0.02 (0.00-0.50) K/uL Baso # (Auto) 0.04 (0.00-0.30) K/uL Abs Immat Gran (auto) 0.02 (0.00-0.30) K/uL Imm/Tot Granulo (auto) 0.2 % Sodium 128 L (135-149) mmol/L Potassium 3.6 (3.6-5.1) mmol/L Chloride 96 (96-114) mmol/L Carbon Dioxide 20 (20-32) mmol/L Anion Gap 12 (7-15) mEq/L BUN 13 (7-30) mg/dL Creatinine 1.8 H (0.5-1.5) mg/dL Estimated Creat Clear 31.79 Estimated GFR 39 ml/min Glucose 102 (60-115) mg/dL Calcium 9.3 (8.4-10.6) mg/dL ECG Data Attestation: I personally reviewed and interpreted this ECG as follows: Interpretation: Normal sinus rhythm. Rate is 65 beats per minute. There are no ST or T-wave abnormalities. Discharge Plan Discharge Clinical Impression: Episodic lightheadedness Patient Disposition: Home, Self-Care Condition: Stable Additional Instructions: Okay to add sodium to your diet for a few days as your sodium was a bit low today. I recommend switching amlodipine daily from taking it in the morning to take it in the evening as this may be contributing to your lightheadedness episodes. I recommend also to follow-up with your primary physician to review medications as it may be appropriate to modify this treatment for hypertension. Prescriptions: No Action multivitamin with folic acid [Thera] 400 mcg tablet 1 tab PO DAILY Qty: 90 3RF amlodipine 10 mg tablet 10 mg PO HS Qty: 90 3RF esomeprazole magnesium 20 mg capsule,delayed release(DR/EC) 20 mg PO DAILY Qty: 90 3RF allopurinol 300 mg tablet 300 mg PO HS Qty: 90 0RF folic acid 1 mg tablet 1 mg PO DAILY Qty: 90 0RF thiamine HCl (vitamin B1) [Vitamin B-1] 100 mg tablet 100 mg PO DAILY Qty: 90 0RF Follow Up/Referrals: Darcy Allen MD [Primary Care Provider] - Stand Alone Forms: MyHealth Info Instructions
[2024-09-20 16:35] LABS: Basophils Absolute Auto 0.04 K/uL (0.00-0.30); Basophils Percent Auto 0.5 % (0.0-3.0); Eosinophils Absolute Auto 0.02 K/uL (0.00-0.50); Eosinophils Percent Auto 0.2 % (0.0-7.0); Hematocrit 36.7 % (37.0-53.0); Hemoglobin* 12.6 gm/dL (13.5-17.5); Immature Granulocytes Abs Auto 0.02 K/uL (0.00-0.30); Immature Granulocytes Pct Auto 0.2 %; Lymphocytes Percent Auto 13.9 % (20-44); Mean Corpuscular HGB Conc 34 gm/dL (32-36); Mean Corpuscular Hemoglobin 32 pg (26-34); Mean Corpuscular Volume 94 fL (80-100); Monocytes Percent Auto 6.4 % (0.0-11.0); Neutrophils Percent Auto 78.8 % (42.0-72.0); Platelet Count* 198 K/uL (140-440); RDW Coefficient of Variation % 13.8 % (11.5-15.5); Red Blood Count 3.89 m/uL (4.30-5.90); White Blood Count* 8.78 K/uL (4.50-11.00)
--- OUTSIDE RECORDS SUMMARY | 2024-09-20 16:38 | XMS_ITS | Clinical Summary ---
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 LDL CHOLESTEROL 107 <131 mg/dL [facility] PATIENT STATUS Fasting [facility] Blood specimen (specimen) BLOOD SPECIMEN / Unknown 03/21/2011 7:49 AM CDT 03/21/2011 7:44 AM CDT us Jenni Monroe MD CHEMISTRY Final R esult [facility] [address] [phone] from Last 3 Months or Most Recently Relevant to Health Maintenance Additional Health Concerns Infection Onset Date Last Indicated ESBL Comment:Order contact precautions. Order consult to Infection Prevention to determine if patient may be removed from precautions. 10/07/2016 10/07/[phone] [place] [id number] MEDICARE PART B HB ONLY MEDICARE PART A HB ONLY [employer] CHOICE PPO MR Advance Directives Documents on File Type Date Recorded Patient Hand Icer Expl jeremy POL 10/08/2016 11:11 AM 09/30/2016 [...] who discussed with his siblings Care Teams Hiv Prevention Specialist Relationship Specialty Start Date End Date Darcy Allen MD [address] [place] [id number] PCP - General Family Practice 07/24/16
[2024-09-20 16:41] LABS: Slide Review Reflex No
[2024-09-20 17:17] LABS: Chloride* 96 mmol/L (96-114); Potassium* 3.6 mmol/L (3.6-5.1); Sodium* 128 mmol/L (135-149)
[2024-09-20 17:20] LABS: Anion Gap 12 mEq/L (7-15); Blood Urea Nitrogen* 13 mg/dL (7-30); Calcium* 9.3 mg/dL (8.4-10.6); Carbon Dioxide* 20 mmol/L (20-32); Creatinine* 1.8 mg/dL (0.5-1.5); Est. Creatinine Clearance* 31.79; Estimated Glomerular Filt Rate 39 ml/min; Glucose* 102 mg/dL (60-115)
== END 2024-09-20 18:39 | disposition home or self-care (01) ==
PROVIDERS: Emergency Provider Emergency Medicine Emergency Medical Services; PCP Family Medicine
DX: R42 Dizziness and giddiness (principal)
CPT/HCPCS: 36415; 80048; 85025; 93005; 99284

== ENCOUNTER 2024-12-23 17:47 | Outpatient (CLI) | payer MEDICARE, SELFPAY | END 2024-12-23 17:48 | disposition home or self-care (01) | LOC: AMB 12-24 09:59 | PROVIDERS: PCP Family Medicine; Visit Provider Family Medicine | DX: R53.1 Weakness (principal) | CPT/HCPCS: A0998 ==

== ENCOUNTER 2025-01-20 14:57 | Outpatient (CLI) | payer MEDICARE, SELFPAY | END 2025-01-20 14:58 | disposition home or self-care (01) | LOC: AMB 01-24 10:30 | PROVIDERS: PCP Family Medicine; Visit Provider Family Medicine | DX: S59.912A Unspecified injury of left forearm, initial encounter (principal); W18.30XA Fall on same level, unspecified, initial encounter; Y92.038 Other place in apartment as the place of occurrence of the external cause | CPT/HCPCS: A0425; A0429 ==

== ENCOUNTER 2025-01-20 15:25 | Emergency (ER) | payer MEDICARE, SELFPAY ==
[2025-01-20] VITALS (7 sets, daily range): BP systolic 113–141; BP diastolic 71–94; PULSE 63–78; RESP 16–32; TEMP 36.2; O2SAT 94–98; BMI 25.8
--- OUTSIDE RECORDS SUMMARY | 2025-01-20 15:27 | XMS_ITS | Clinical Summary ---
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 Gender Identity Not on file Sexual Orientation [...] 12+ 1963 Hepatitis C screening for age 18-79 1969 Colonoscopy through age 75 1996 Pneumococcal series for age 50+ (1 of 1 - PCV) 2001 Zoster (shingles) series for age 50+ (1 of 2) 2001 Lipids for age 45-75 03/21/2016 03/21/2011, 12/29/2007, 12/04/2005 BMI (ht and wt on same day) for age 18+ 03/25/2018 03/25/2017, 01/30/2017, 12/09/2016, Additional history exists Tetanus booster 03/16/2022 03/16/2012 COVID-19 vaccine series (2 - 2024-25 season) 2024 05/22/2021 Influenza Vaccine (Season Ended) 2025 04/20/2016, 06/20/2008 RSV vaccine for adults or (1 - 1-dose 75+ series) 2026 (IA) Tdap Completed 03/16/2012 Hepatitis B series for 19+ Aged Out N o longer eligible based on patient's age to complete this topic Procedures Procedure Name Priority Date/Time Associated Diagnosis Comments LIPID PANEL W REFLEX MEASURED LDL Routine 03/21/2011 7:49 AM CDT Lipid screening from Last 3 Months or Most Recently Relevant to Health Maintenance Results * (ABNORMAL) LIPID PANEL W REFLEX MEASURED LDL (03/21/2011 7:49 AM CDT) CHOLESTEROL,TOTAL 189 110 - 199 mg/dL [facility] TRIGLYCERIDES 162(H) <150 mg/dL [facility] HDL CHOLESTEROL 50 >40 mg/dL [facility] CHOL/HDL RATIO 3.78 <4.51 [facility] LDL CHOLESTEROL 107 <131 mg/dL [facility] PATIENT STATUS Fasting [facility] Blood specimen (specimen) BLOOD SPECIMEN / Unknown 03/21/2011 7:49 AM CDT 03/21/2011 7:44 AM CDT us Jenni Monroe MD CHEMISTRY Final R esult [facility] [address] [place] [address] from Last 3 Months or Most Recently Relevant to Health Maintenance Additional Health Concerns Infection Onset Date Last Indicated ESBL Comment:Order contact precautions. Order consult to Infection Prevention to determine if patient may be removed from precautions. 10/07/2016 10/07/2016 Insurance * Guarantor: Danielito Valenzuela Account Type Relation to Patient Date of Phone Billing Address Personal/Family Self 1950 [address] [place] [address] MEDICARE PART B HB ONLY MEDICARE PART A HB ONLY [employer] CHOICE PPO MR * Guarantor: [employer] Account Type Relation to Patient Date of Phone Billing Address [facility] [employer] Employer ATTN STEVEN [address]Z [address] [place] [address] Advance Directives Documents on File Type Date Recorded Patient Service Manager Expl anation POLST 10/08/2016 11:11 AM 09/30/2016 * Full Code [...] who discussed with his siblings Care Teams Sales Service Supervisor Relationship Specialty Start Date End Date Darcy Allen MD [address] [place] [address] PCP - General Family Practice 07/24/16
--- NOTE | 2025-01-20 16:25 | CRLHL7_ITS ---
For Patients: As a result of the Century Cures Act, medical imaging exams and procedure reports are released immediately into your electronic medical record. You may view this report before your referring provider. If you have questions, please contact your health care provider. Indication: Fall Technique: Noncontrast axial CT of the cervical spine with coronal and sagittal reformats are provided. Comparison: CT 04/23/2024 Findings: Normal alignment with grade 1 anterolisthesis at C2-3, retrolisthesis at C3-4, anterolisthesis at C4-5, slight retrolisthesis at C5-6. No acute osseous or ligamentous abnormality. No prevertebral or paraspinal edema. The temporomandibular joints are unremarkable. Pannus formation posterior to the dens. Multilevel cervical spondylosis. C1-2: No spinal canal stenosis. Calcifications posterior to the dens could represent calcium pyrophosphate deposition disease. C2-3: No spinal canal stenosis or neural foramen narrowing. C3-4: Severe interspace narrowing. Disc osteophyte complex and uncovertebral joint hypertrophy. Mild neural foramina narrowing bilaterally. No significant spinal canal stenosis. C4-5: Grade 1 anterolisthesis. Severe interspace narrowing. Uncovertebral joint hypertrophy and facet arthrosis. Mild to moderate left neural foraminal narrowing and mild right neural foraminal narrowing. No significant spinal canal stenosis. C5-6: Severe disc space narrowing. Disc osteophyte complex and uncovertebral joint hypertrophy results in mild bilateral neural foraminal narrowing. No significant spinal canal stenosis. C7-T1: Uncovertebral joint hypertrophy and shallow disc osteophyte complex results in no significant spinal canal stenosis or neural foramen narrowing. C7-T1: No significant spinal canal stenosis or neural foramen narrowing. Impression: 1. No convincing radiographic evidence of acute osseous injury. 2. Scattered degenerative changes of the cervical spine. Please note that all CT scans at this facility use dose modulation, iterative reconstruction, and/or weight-based dosing when appropriate to reduce radiation dose to as low as reasonably achievable. Dictated by Amanuel Gracia MD @ 01/20/2025 6:16:37 PM (Electronically Signed)
--- NOTE | 2025-01-20 16:25 | CRLHL7_ITS ---
For Patients: As a result of the Century Cures Act, medical imaging exams and procedure reports are released immediately into your electronic medical record. You may view this report before your referring provider. If you have questions, please contact your health care provider. INDICATION: Fall TECHNIQUE: CT of the head without contrast. Coronal and sagittal reformats. Bone and soft tissue algorithms. COMPARISON: CT 04/23/2024. MRI 04/03/2022 FINDINGS: No acute intracranial hemorrhage or extra-axial collection. No evidence of acute cortical infarction. 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 No mass effect or midline shift. Moderate generalized parenchymal volume loss. Moderate regions of decreased attenuation within the periventricular and subcortical white matter of both cerebral hemispheres most likely reflect chronic microvascular ischemic disease and age related change in this patient. Vascular calcifications within the carotid siphons. Orbital contents are normal. No calvarial fractures. No lytic or sclerotic osseous lesions within the calvarium or skull base. Scalp and other imaged soft tissue structures are normal. Mastoid air cells are clear. IMPRESSION: 1. No acute intracranial abnormality. 2. 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 3. Similar moderate parenchymal volume loss and advanced chronic small vessel ischemic changes. 4. No calvarial fractures. Please note that all CT scans at this facility use dose modulation, iterative reconstruction, and/or weight-based dosing when appropriate to reduce radiation dose to as low as reasonably achievable. Dictated by Amanuel Gracia MD @ 01/20/2025 6:06:33 PM (Electronically Signed)
--- NOTE | 2025-01-20 16:27 | ED.FALL ---
HPI - Fall General Date Seen: 01/20/25 Chief Complaint: Fall/Minor Trauma Stated Complaint: Falls Time Seen by Provider: 01/20/25 15:59 Source: patient Mode of arrival: EMS Limitations: no limitations History of Present Illness HPI Narrative: Patient is a 74-year-old [place] female transgender patient with a history of Wernicke Korsakoff's syndrome, alcoholism, balance issues presenting to the emergency department for a fall. Patient was at the bar today and states they had 4 tall beers since noon. When patient got home they felt lightheaded and fell. Landed on the carpet. Denies loss of consciousness. Is not on any blood thinners. Feels mildly lightheaded still. Did get Ankit again a tear to left forearm the EMS bandaged up. Patient denies headache, neck pain, chest pain, shortness of breath, abdominal pain, nausea, vomiting, weakness, numbness, vision changes. He might turn no other concerns noted at this time. Related Data Previous Rx's ?Medication ?Instructions ?Recorded multivitamin with folic acid 400 1 tab PO DAILY #90 tabs 08/14/22 mcg tablet (Thera) amlodipine 10 mg tablet 10 mg PO HS #90 tabs 02/11/24 esomeprazole magnesium 20 mg 20 mg PO DAILY #90 caps 02/11/24 capsule,delayed release folic acid 1 mg tablet 1 mg PO DAILY #90 tabs 06/29/24 allopurinol 300 mg tablet 300 mg PO HS #90 tabs 09/21/24 thiamine HCl (vitamin B1) 100 mg 100 mg PO DAILY #90 tabs 11/09/24 tablet (Vitamin B-1) Allergies Allergy/AdvReac Type Severity Reaction Status Date / Time indomethacin Allergy Verified 01/20/25 15:36 Review of Systems Status of ROS: Reports: 10 or more systems reviewed and unremarkable except as noted in History and below [facility] Medical History Urinary tract infection ?N39.0 - Urinary tract infection, site not specified (ICD-10) 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 ?I69.319 - Unspecified symptoms and signs involving cognitive functions following cerebral infarction (ICD-10) Left rib fracture ?S22.32XA - Fracture of one rib, left side, initial encounter for closed fracture (ICD-10) Right humeral fracture ?S42.301A - Unspecified fracture of shaft of humerus, right arm, initial encounter for closed fracture (ICD-10) Adult failure to thrive (~03/2022) ?R62.7 - Adult failure to thrive (ICD-10) Memory deficit ?R41.3 - Other amnesia (ICD-10) POLST (Physician Orders for Life-Sustaining Treatment) ?Z78.9 - Other specified health status (ICD-10) Recurrent falls while walking (04/2021) ?R29.6 - Repeated falls (ICD-10) Gout (2017) ?M10.9 - Gout, unspecified (ICD-10) Postoperative intra-abdominal abscess (2017) ?T81.43XA - Infection following a procedure, organ and space surgical site, initial encounter (ICD-10) Normal stress echocardiography (~04/2017) Health care directive on file (05/31/21) ?Z78.9 - Other specified health status (ICD-10) Durable power of document review attorney in chart (05/31/21) Duodenal ulcer with perforation (07/2016) ?K26.5 - Chronic or unspecified duodenal ulcer with perforation (ICD-10) Closed fracture of proximal end of right humerus ?S42.201A - Unspecified fracture of upper end of right humerus, initial encounter for closed fracture (ICD-10) Cellulitis of right hand excluding fingers and thumb (~03/2022) ?L03.113 - Cellulitis of right upper limb (ICD-10) Anemia ?D64.9 - Anemia, unspecified (ICD-10) Abnormal ultrasound of abdomen (~04/2021) ?R93.5 - Abnormal findings on diagnostic imaging of other abdominal regions, including retroperitoneum (ICD-10) Mild protein-calorie malnutrition ?E44.1 - Mild protein-calorie malnutrition (ICD-10) Wernicke-Korsakoff syndrome (~03/2022) ?F04 - Amnestic disorder due to known physiological condition (ICD-10) Poor dentition ?K08.9 - Disorder of teeth and supporting structures, unspecified (ICD-10) Alcoholism ?F10.20 - Alcohol dependence, uncomplicated (ICD-10) Cognitive decline ?R41.89 - Other symptoms and signs involving cognitive functions and awareness (ICD-10) Unstable gait ?R26.81 - Unsteadiness on feet (ICD-10) History of DVT of lower extremity (~04/2021) ?Z86.718 - Personal history of other venous thrombosis and embolism (ICD-10) Personal history of peptic ulcer disease ?Z87.11 - Personal history of peptic ulcer disease (ICD-10) Polyarticular gout ?M10.9 - Gout, unspecified (ICD-10) GERD (gastroesophageal reflux disease) ?K21.9 - Gastro-esophageal reflux disease without esophagitis (ICD-10) Hypertension ?I10 - Essential (primary) hypertension (ICD-10) Surgical History History of anterior cruciate ligament surgery (2005) ?Z98.890 - Other specified postprocedural states (ICD-10) History of ventral hernia repair (2017) ?Z98.890 - Other specified postprocedural states (ICD-10) ?Z87.19 - Personal history of other diseases of the digestive system (ICD-10) Status post left knee replacement (04/2019) ?Z96.652 - Presence of left artificial knee joint (ICD-10) History of total knee replacement (07/2016) ?Z96.659 - Presence of unspecified artificial knee joint (ICD-10) History of abdominal surgery (07/2016) ?Z98.890 - Other specified postprocedural states (ICD-10) Family History Father No problems noted. 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 . 3 adult kids. Lives in [facility] independent living, non does not drive Non smoker, quit age 31 10 pack years prior 4 /drinks a week, chronic alcoholism Designates sonDanielito, and daughter, Britta, as his power of document review attorney for health should that be required. What is your current living situation?: I presently have a place to live Problems where you live: pests, such as bugs, ants, or mice Problems where you live details: spring bugs In the past 12 months, utilities in danger of being shut off: no In past 12 months, lack of transportation kept you from medical appts, meetings, work, or getting things needed for daily living: yes In the past 12 mos, have been you worried that your food would run out before you had money to buy more?: never true In the past 12 mos, the food you bought just didn't last and you didn't have money to buy more?: never true Highest level of school completed/degree received: some college, no degree Smoking Status: Former smoker What tobacco products do you use: cigarettes Years smoked: 0.5 Smoking quit date/years: >15 years ago and cigars Do you use any of these nicotine containing products: None Second hand tobacco smoke exposure: No How often do you have a drink containing alcohol: 4 or more times a week Alcohol type: beer How many standard drinks containing alcohol do you have on a typical day: 3 or 4 How often do you have six or more drinks on one occasion: Less than monthly AUDIT-C Alcohol total score: 6 Non-prescribed substance use: denies use Caffeine: Yes (pop) How often does anyone, including family, friends and others, physically hurt you: never How often does anyone, including family, friends and others, insult or talk down to you: never How often does anyone, including family, friends and others, threaten you with harm: never How often does anyone, including family, friends and others, scream or curse at you: sometimes service: Yes (medic in [facility]) Health Related Social Needs: Inadequate housing (Z59.1), transportation insecurity (Z59.82) and Other personal risk factors, not elsewhere classified (Z91.89) Exam Narrative: Exam Narrative: Const: Well-nourished, Well-developed, in mild distress Eyes: PERRL, no conjunctival injection, and symmetrical lids HENT: Atraumatic external nose and ears. Moist mucous membranes. Neck: Symmetric, trachea midline, No thyromegaly. CVS: RRR, No murmurs or gallops. Peripheral pulses 2+ and equal in all extremities RESP: Unlabored respiratory effort. Clear to auscultation bilaterally. GI: Nontender/Nondistended, No rebound or guarding. MSK:Extremities w/o deformity, Normal Active ROM Skin: Warm, Dry. Skin tear to left forearm Neuro: Normal Muscle tone, No focal neurological deficits. Psych: Awake, Alert, & Oriented x3. Appropriate mood and affect. Const: Vital Signs, click to edit/add: Vital Signs - 24 hr 01/20/25 15:37 01/20/25 18:36 01/20/25 18:45 Temperature 97.2 F L Pulse Rate 71 74 Pulse Rate [Pulse Oximeter] 63 Respiratory Rate 16 21 18 Blood Pressure Blood Pressure [Le ft Upper Arm] 113/71 Pulse Oximetry 95 98 97 Oxygen Delivery Me thod Room Air 01/20/25 19:00 01/20/25 19:02 Temperature Pulse Rate 78 Pulse Rate [Pulse Oximeter] Respiratory Rate 17 18 Blood Pressure 141/94 H Blood Pressure [Le ft Upper Arm] Pulse Oximetry Oxygen Delivery Me thod Course Vital Signs Vital signs: Initial Vital Signs Temperature 97.2 F L 01/20/25 15:37 Temperature Source Temporal Artery Scan 01/20/25 15:37 Pulse Rate 63 01/20/25 15:37 Respiratory Rate 16 01/20/25 15:37 Blood Pressure 113/71 01/20/25 15:37 Blood Pressure Mean 85 01/20/25 15:37 Blood Pressure Position High-Fowlers 01/20/25 15:37 Pulse Oximetry 95 01/20/25 15:37 Oxygen Delivery Method Room Air 01/20/25 15:37 Vital Signs Temperature 97.2 F L 01/20/25 15:37 Pulse Rate 63 01/20/25 15:37 Respiratory Rate 16 01/20/25 15:37 Blood Pressure 113/71 01/20/25 15:37 Pulse Oximetry 95 01/20/25 15:37 Oxygen Delivery Method Room Air 01/20/25 15:37 Temperature 97.2 F L 01/20/25 15:37 Pulse Rate 78 01/20/25 19:00 Respiratory Rate 18 01/20/25 19:02 Blood Pressure 141/94 H 01/20/25 19:02 Pulse Oximetry 97 01/20/25 18:45 Oxygen Delivery Method Room Air 01/20/25 15:37 MDM - Fall MDM Narrative Medical decision making narrative: Patient is a 74-year-old male presenting to emergency department after a near syncopal episode leading to a fall. Well differential for syncope includes alcohol intoxication, dehydration, electrolyte abnormalities, cardiac issues. Will do a CBC, BMP, ETOH level, EKG, troponin. Considering the patient did fall we will also do a CT scan of brain and cervical spine. Lab work returned showing no acute concerning abnormalities. I do not believe repeat troponin is necessary. EKG shows no acute concerning abnormalities. The computer reads is accelerated junctional rhythm other do believe am seeing some P-waves. There is quite a bit of artifact. Overall looks non concerning Sodium appears to be as baseline. Patient is alcohol level was 0.07 %. CT reviewed by myself the radiologist showed no acute concerning abnormalities. Patient does admit patient has a history of this lightheadedness and falls. Likely due to Wernicke-Korsakoff syndrome. On my review vital signs are stable throughout time in in the emergency department. Oximetry stayed in the mid to high 90s. satellite project site monitor showed no concerning arrhythmias. Is doing well and is safe for discharge. Patient agrees this plan. Lab Data Labs: Lab Results 01/20/25 Range/Units 17:08 WBC 9.43 (4.50-11.00) K/uL RBC 3.90 L (4.30-5.90) m/uL Hgb 12.9 L (13.5-17.5) gm/dL Hct 37.5 (37.0-53.0) % MCV 96 (80-100) fL MCH 33 (26-34) pg MCHC 34 (32-36) gm/dL RDW Coeff of Delvis 13.8 (11.5-15.5) % Plt Count 244 (140-440) K/uL Neut % (Auto) 71.6 (42.0-72.0) % Lymph % (Auto) 18.3 L (20-44) % Harney % (Auto) 8.0 (0.0-11.0) % Eos % (Auto) 1.5 (0.0-7.0) % Baso % (Auto) 0.4 (0.0-3.0) % Neut # (Auto) 6.75 (1.7-7.0) K/uL Lymph # (Auto) 1.70 (0.90-2.90) K/uL Harney # (Auto) 0.80 (0.00-0.90) K/UL Eos # (Auto) 0.14 (0.00-0.50) K/uL Baso # (Auto) 0.04 (0.00-0.30) K/uL Abs Immat Gran (auto) 0.02 (0.00-0.30) K/uL Imm/Tot Granulo (auto) 0.2 % Sodium 129 L (135-149) mmol/L Potassium 4.2 (3.6-5.1) mmol/L Chloride 99 (96-114) mmol/L Carbon Dioxide 18 L (20-32) mmol/L Anion Gap 12 (7-15) mEq/L BUN 13 (7-30) mg/dL Creatinine 1.3 (0.5-1.5) mg/dL Estimated Creat Clear 48.96 Estimated GFR 58 ml/min Glucose 83 (60-115) mg/dL Calcium 9.2 (8.4-10.6) mg/dL Troponin I < 0.01 (0.01-0.04) ng/mL Ethyl Alcohol 0.07 H (0.01-0.03) % Imaging Data CT scan - head: Attestation: I have reviewed the pertinent imaging results. Radiologist's impression: 1. No acute intracranial abnormality. 2. 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 3. Similar moderate parenchymal volume loss and advanced chronic small vessel ischemic changes. 4. No calvarial fractures. Please note that all CT scans at this facility use dose modulation, iterative reconstruction, and/or weight-based dosing when appropriate to reduce radiation dose to as low as reasonably achievable. Dictated by Amanuel Gracia MD @ 01/20/2025 6:06:[address] scan cervical spine: Attestation: I have reviewed the pertinent imaging results. Radiologist's impression: 1. No convincing radiographic evidence of acute osseous injury. 2. Scattered degenerative changes of the cervical spine. Please note that all CT scans at this facility use dose modulation, iterative reconstruction, and/or weight-based dosing when appropriate to reduce radiation dose to as low as reasonably achievable. Dictated by Amanuel Gracia MD @ 01/20/2025 6:16:37 PM ECG Data Attestation: I personally reviewed and interpreted this ECG as follows: Prior ECG tracings: available for review Interpretation: Normal sinus rhythm rate 72 beats per minute, normal intervals, left axis, no ST or T-wave abnormalities. Appears similar previous EKGs on file Discharge Plan Discharge Clinical Impression: Unstable gait Accident due to mechanical fall without injury Qualifiers: Encounter type: initial encounter Qualified Code(s): W19.XXXA - Unspecified fall, initial encounter Patient Disposition: Home, Self-Care Condition: Stable Instructions: Fall Prevention for Older Adults (ED) Additional Instructions: Make sure your careful when you are walking. You are at an risk increase of falls. Return to emergency department for new or worsening symptoms Prescriptions: No Action multivitamin with folic acid [Thera] 400 mcg tablet 1 tab PO DAILY Qty: 90 3RF amlodipine 10 mg tablet 10 mg PO HS Qty: 90 3RF esomeprazole magnesium 20 mg capsule,delayed release(DR/EC) 20 mg PO DAILY Qty: 90 3RF folic acid 1 mg tablet 1 mg PO DAILY Qty: 90 0RF allopurinol 300 mg tablet 300 mg PO HS Qty: 90 1RF thiamine HCl (vitamin B1) [Vitamin B-1] 100 mg tablet 100 mg PO DAILY Qty: 90 0RF Follow Up/Referrals: Darcy Allen MD [Primary Care Provider, Family Practice] Stand Alone Forms: [employer] Info Instructions
[2025-01-20 17:32] LABS: Hematocrit 37.5 % (37.0-53.0); Hemoglobin* 12.9 gm/dL (13.5-17.5); Immature Granulocytes Abs Auto 0.02 K/uL (0.00-0.30); Immature Granulocytes Pct Auto 0.2 %; Lymphocytes Absolute Auto 1.70 K/uL (0.90-2.90); Mean Corpuscular HGB Conc 34 gm/dL (32-36); Mean Corpuscular Hemoglobin 33 pg (26-34); Mean Corpuscular Volume 96 fL (80-100); RDW Coefficient of Variation % 13.8 % (11.5-15.5); Red Blood Count 3.90 m/uL (4.30-5.90); Slide Review Reflex No; White Blood Count* 9.43 K/uL (4.50-11.00)
[2025-01-20 18:21] LABS: Chloride* 99 mmol/L (96-114); Sodium* 129 mmol/L (135-149)
[2025-01-20 18:22] LABS: Potassium* 4.2 mmol/L (3.6-5.1)
[2025-01-20 18:24] LABS: Anion Gap 12 mEq/L (7-15); Blood Urea Nitrogen* 13 mg/dL (7-30); Carbon Dioxide* 18 mmol/L (20-32); Creatinine* 1.3 mg/dL (0.5-1.5); Est. Creatinine Clearance* 48.96; Estimated Glomerular Filt Rate 58 ml/min
[2025-01-20 18:25] LABS: Calcium* 9.2 mg/dL (8.4-10.6); Ethanol* 0.07 % (0.01-0.03); Glucose* 83 mg/dL (60-115)
== END 2025-01-20 20:19 | disposition home or self-care (01) ==
PROVIDERS: Emergency Provider Student in an Organized Health Care Education/Training Program; PCP Family Medicine
DX: R26.81 Unsteadiness on feet (principal); F10.129 Alcohol abuse with intoxication, unspecified; W19.XXXA Unspecified fall, initial encounter
CPT/HCPCS: 36415; 70450; 72125; 80048; 82077; 84484; 85025; 93005; 99284; 99285

== ENCOUNTER 2025-01-20 20:08 | Outpatient (CLI) | payer MEDICARE, SELFPAY | END 2025-01-20 20:09 | disposition home or self-care (01) | LOC: AMB 01-24 11:05 | PROVIDERS: PCP Family Medicine; Visit Provider Student in an Organized Health Care Education/Training Program | DX: R53.1 Weakness (principal) | CPT/HCPCS: A0425; A0428 ==

== ENCOUNTER 2025-01-31 08:38 | Outpatient (CLI) | payer MEDICARE, SELFPAY | END 2025-01-31 08:39 | disposition home or self-care (01) | PROVIDERS: PCP Family Medicine; Visit Provider Student in an Organized Health Care Education/Training Program | DX: R41.82 Altered mental status, unspecified (principal) | CPT/HCPCS: A0425; A0427 ==

== ENCOUNTER 2025-01-31 09:14 | Emergency (ER) | payer MEDICARE, SELFPAY ==
[2025-01-31] VITALS (15 sets, daily range): BP systolic 125–145; BP diastolic 66–96; PULSE 71–89; RESP 16; TEMP 37.1; O2SAT 94–99; BMI 21.5
--- OUTSIDE RECORDS SUMMARY | 2025-01-31 09:16 | XMS_ITS | Clinical Summary ---
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 TRIGLYCERIDES 162(H) <150 mg/dL [facility] HDL CHOLESTEROL 50 >40 mg/dL [facility] CHOL/HDL RATIO 3.[address] [facility] LDL CHOLESTEROL 107 <131 mg/dL [facility] PATIENT STATUS Fasting [facility] Blood specimen (specimen) BLOOD SPECIMEN / Unknown 03/21/2011 7:49 AM CDT 03/21/2011 7:44 AM CDT us Jenni Monroe MD CHEMISTRY Final R esult [facility] [address] [place] [address] from Last 3 Months or Most Recently Relevant to Health Maintenance Additional Health Concerns Infection Onset Date Last Indicated ESBL Comment:Order contact precautions. Order consult to Infection Prevention to determine if patient may be removed from precautions. 10/07/2016 10/07/2016 Insurance * Guarantor: Danielito Valenzuela Account Type Relation to Patient Date of Phone Billing Address Personal/Family Self 1950 [address] [place] [address] MEDICARE PART B HB ONLY MEDICARE PART A HB ONLY [employer] PPO MR Advance Directives Documents on File Type Date Recorded Patient It Network Engineer Expl anation POLST 10/08/2016 11:11 AM 09/30/2016 [...] who discussed with his siblings Care Teams Shuttle Filler Relationship Specialty Start Date End Date Darcy Allen MD [address] [place] [id number] PCP - General Family Practice 07/24/16
--- NOTE | 2025-01-31 09:37 | CRLHL7_ITS ---
For Patients: As a result of the Century Cures Act, medical imaging exams and procedure reports are released immediately into your electronic medical record. You may view this report before your referring provider. If you have questions, please contact your health care provider. INDICATION: Altered mental status COMPARISON: January 20, 2025 TECHNIQUE: CT examination of the head was performed as axial sections without intravenous contrast. Images were obtained from the vertex of the skull through the skull base. Please note that all CT scans at this facility use dose modulation, iterative reconstruction, and/or weight-based dosing when appropriate to reduce radiation dose to as low as reasonably achievable. FINDINGS: The brain shows no sign of mass lesion, mass effect, hemorrhage, or edema. There are involutional changes. There is moderate to severe cortical atrophy and there is moderate to severe white matter disease. There is no hydrocephalus. There are areas of encephalomalacia unchanged consistent with remote infarcts. This includes right frontal lobe and bilateral occipital lobes. The visualized portions of the orbits are normal in appearance. The osseous structures are normal in appearance with no sign of abnormality in the skull base or calvarium. There is no acute focal findings IMPRESSION: Moderate to severe involutional changes consistent with cortical atrophy and white matter disease. 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 This involves the right frontal lobe and both occipital lobes. No acute appearing finding. Please note that all CT scans at this facility use dose modulation, iterative reconstruction, and/or weight-based dosing when appropriate to reduce radiation dose to as low as reasonably achievable. Dictated by Vahe Mason MD @ 01/31/2025 10:01:28 AM (Electronically Signed)
--- NOTE | 2025-01-31 10:00 | ED_ITS ---
HPI - General Adult General Date Seen: 01/31/25 Chief complaint: Neuro Symptoms/Altered Deficit Stated complaint: confusion Time Seen by Provider: 01/31/25 09:26 Source: patient and EMS Mode of arrival: EMS Limitations: no limitations History of Present Illness HPI narrative: Patient is a 74-year-old patient with history of Wernicke-Korsakoff syndrome presenting to the emergency department via EMS for altered mental status. Patient's home health aide came to check on them this morning and patient seemed more confused than normal. Was not oriented to time or situation. Was oriented to self. He was seen on 01/20 for a fall and dizziness. Evaluation at that time was unremarkable and was discharged back. Blood sugar was 122. Vital signs for EMS were stable. Patient was able answer some questions appropriately. The main issue was then noticed an increase and inability to have conversations. Due to this patient was sent to the emergency department. Denies fevers, chills, chest pain, shortness of breath, headache, lightheadedness, dizziness, weakness, numbness, abdominal pain. States just feels dizzy. Patient is chronically dizzy Related Data Previous Rx's ?Medication ?Instructions ?Recorded multivitamin with folic acid 400 1 tab PO DAILY #90 ta bs 08/14/22 mcg tablet (Thera) amlodipine 10 mg tablet 10 mg PO HS #90 tabs 4 esomeprazole magnesium 20 mg 20 mg PO DAILY #90 caps 0 02/11/24 capsule,delayed release folic acid 1 mg tablet 1 mg PO DAILY #90 tabs 06/29 allopurinol 300 mg tablet 300 mg PO HS #90 tabs thiamine HCl (vitamin B1) 100 mg 100 mg PO DAILY #90 t abs 11/09/24 tablet (Vitamin B-1) Allergies Allergy/AdvReac Type Severity Reaction Status Date / Time indomethacin Allergy Verified 01/20/25 15:36 Review of Systems Status of ROS: Reports: 10 or more systems reviewed and unremarkable except as noted in History and below PFSH PFS Medical History Urinary tract infection ?N39.0 - Urinary tract infection, site not specified (ICD-10) 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 ?I69.319 - Unspecified symptoms and signs involving cognitive functions following cerebral infarction (ICD-10) Left rib fracture ?S22.32XA - Fracture of one rib, left side, initial encounter for closed fracture (ICD-10) Right humeral fracture ?S42.301A - Unspecified fracture of shaft of humerus, right arm, initial encounter for closed fracture (ICD-10) Adult failure to thrive (~03/2022) ?R62.7 - Adult failure to thrive (ICD-10) Memory deficit ?R41.3 - Other amnesia (ICD-10) POLST (Physician Orders for Life-Sustaining Treatment) ?Z78.9 - Other specified health status (ICD-10) Recurrent falls while walking (04/2021) ?R29.6 - Repeated falls (ICD-10) Gout (2016) ?M10.9 - Gout, unspecified (ICD-10) Postoperative intra-abdominal abscess (2016) ?T81.43XA - Infection following a procedure, organ and space surgical site, initial encounter (ICD-10) Normal stress echocardiography (~04/2017) Health care directive on file (05/31/21) ?Z78.9 - Other specified health status (ICD-10) Durable power of commercial litigation attorney in chart (05/31/21) Duodenal ulcer with perforation (07/2016) ?K26.5 - Chronic or unspecified duodenal ulcer with perforation (ICD-10) Closed fracture of proximal end of right humerus ?S42.201A - Unspecified fracture of upper end of right humerus, initial encounter for closed fracture (ICD-10) Cellulitis of right hand excluding fingers and thumb (~03/2022) ?L03.113 - Cellulitis of right upper limb (ICD-10) Anemia ?D64.9 - Anemia, unspecified (ICD-10) Abnormal ultrasound of abdomen (~04/2021) ?R93.5 - Abnormal findings on diagnostic imaging of other abdominal regions, including retroperitoneum (ICD-10) Mild protein-calorie malnutrition ?E44.1 - Mild protein-calorie malnutrition (ICD-10) Wernicke-Korsakoff syndrome (~03/2022) ?F04 - Amnestic disorder due to known physiological condition (ICD-10) Poor dentition ?K08.9 - Disorder of teeth and supporting structures, unspecified (ICD-10) Alcoholism ?F10.20 - Alcohol dependence, uncomplicated (ICD-10) Cognitive decline ?R41.89 - Other symptoms and signs involving cognitive functions and awareness (ICD-10) Unstable gait ?R26.81 - Unsteadiness on feet (ICD-10) History of DVT of lower extremity (~04/2021) ?Z86.718 - Personal history of other venous thrombosis and embolism (ICD-10) Personal history of peptic ulcer disease ?Z87.11 - Personal history of peptic ulcer disease (ICD-10) Polyarticular gout ?M10.9 - Gout, unspecified (ICD-10) GERD (gastroesophageal reflux disease) ?K21.9 - Gastro-esophageal reflux disease without esophagitis (ICD-10) Hypertension ?I10 - Essential (primary) hypertension (ICD-10) Surgical History History of anterior cruciate ligament surgery (2005) ?Z98.890 - Other specified postprocedural states (ICD-10) History of ventral hernia repair (2017) ?Z98.890 - Other specified postprocedural states (ICD-10) ?Z87.19 - Personal history of other diseases of the digestive system (ICD-10) Status post left knee replacement (04/2019) ?Z96.652 - Presence of left artificial knee joint (ICD-10) History of total knee replacement (07/2016) ?Z96.659 - Presence of unspecified artificial knee joint (ICD-10) History of abdominal surgery (07/2016) ?Z98.890 - Other specified postprocedural states (ICD-10) Family History Father No problems noted. 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 . 3 adult kids. Lives in [facility] living, non does not drive Non smoker, quit age 31 10 pack years prior 4 /drinks a week, chronic alcoholism Designates son, Danielito, and daughter, Britta, as his power of commercial litigation attorney for health should that be required. What is your current living situation?: I presently have a place to live Problems where you live: pests, such as bugs, ants, or mice Problems where you live details: spring bugs In the past 12 months, utilities in danger of being shut off: no In past 12 months, lack of transportation kept you from medical appts, meetings, work, or getting things needed for daily living: yes In the past 12 mos, have been you worried that your food would run out before you had money to buy more?: never true In the past 12 mos, the food you bought just didn't last and you didn't have money to buy more?: never true Highest level of school completed/degree received: some college, no degree Smoking Status: Former smoker What tobacco products do you use: cigarettes Years smoked: 0.5 Smoking quit date/years: >15 years ago and cigars Do you use any of these nicotine containing products: None Second hand tobacco smoke exposure: No How often do you have a drink containing alcohol: 4 or more times a week Alcohol type: beer How many standard drinks containing alcohol do you have on a typical day: 3 or 4 How often do you have six or more drinks on one occasion: Less than monthly AUDIT-C Alcohol total score: 6 Non-prescribed substance use: denies use Caffeine: Yes (pop) How often does anyone, including family, friends and others, physically hurt you : never How often does anyone, including family, friends and others, insult or talk down to you: never How often does anyone, including family, friends and others, threaten you with harm: never How often does anyone, including family, friends and others, scream or curse at you: sometimes service: Yes (medic in [facility]) Health Related Social Needs: Inadequate housing (Z59.1), transportation insecurity (Z59.82) and Other personal risk factors, not elsewhere classified (Z91.89) Exam Narrative: Exam Narrative: Const: Well-nourished, Well-developed, in mild distress Eyes: PERRL, no conjunctival injection, and symmetrical lids HENT: Atraumatic external nose and ears. Moist mucous membranes. Neck: Symmetric, trachea midline, No thyromegaly. CVS: RRR, No murmurs or gallops. Peripheral pulses 2+ and equal in all extremities RESP: Unlabored respiratory effort. Clear to auscultation bilaterally. GI: Nontender/Nondistended, No rebound or guarding. MSK:Extremities w/o deformity, Normal Active ROM Skin: Warm, Dry. No rashes or lesions. Neuro: Normal Muscle tone, No focal neurological deficits. Psych: Awake, Alert, & Oriented to self. Was able tell me the date other than the year. Thought it was 2012. Has some orientation to situation Const: Vital Signs, click to edit/add: Vital Signs - 24 hr 01/31/25 09:16 Temperature 98.8 F Pulse Rate [Right Radial] 72 Respiratory Rate 16 Blood Pressure [Le ft Upper Arm] 145/84 H Pulse Oximetry 98 Oxygen Delivery Me thod Room Air Course Vital Signs Vital signs: Initial Vital Signs Temperature 98.8 F 01/31/25 09:16 Temperature Source Temporal Artery Scan 01/31/25 09:16 Pulse Rate 72 01/31/25 09:16 Pulse Rhythm Regular 01/31/25 09:16 Respiratory Rate 16 01/31/25 09:16 Blood Pressure 145/84 H 01/31/25 09:16 Blood Pressure Mean 104 01/31/25 09:16 Pulse Oximetry 98 01/31/25 09:16 Oxygen Delivery Method Room Air 01/31/25 09:16 Vital Signs Temperature 98.8 F 01/31/25 09:16 Pulse Rate 72 01/31/25 09:16 Respiratory Rate 16 01/31/25 09:16 Blood Pressure 145/84 H 01/31/25 09:16 Pulse Oximetry 98 01/31/25 09:16 Oxygen Delivery Method Room Air 01/31/25 09:16 Temperature 98.8 F 01/31/25 09:16 Pulse Rate 72 01/31/25 09:16 Respiratory Rate 16 01/31/25 09:16 Blood Pressure 145/84 H 01/31/25 09:16 Pulse Oximetry 98 01/31/25 09:16 Oxygen Delivery Method Room Air 01/31/25 09:16 Medications Administered Medications: Discontinued Medications Generic Name Dose Route Start Last Admin Trade Name Freq PRN Reason Stop Dose Admin Thiamine HCl 500 mg/ Sodium 105 mls @ 105 mls/hr 01/31/25 10:33 01/31/25 10:56 Chloride IVPB 01/31/25 10:34 105 mls/hr ONCE ONE Administration Medical Decision Making MDM Narrative Medical decision making narrative: Patient is a 74-year-old male to female transgender presenting for altered mental status. Patient is able to speak to me appropriately and a tumor seen this patient 11 days ago and does not seem too far off from how the patient appeared at that time. A lot of his symptoms could be related to the Wernicke- Korsakoff syndrome. Does have known alcohol abuse disorder. Could also have electrolyte issues. Chronically hyponatremic. Will order CT scan of the head to look for intracranial issues. Will also order CBC, CMP, EKG, troponin, magnesium, urinalysis, viral swab. Lab work returned showing no acute abnormalities. The patient's sodium is actually improved compared to his baseline. No signs of an infection. Troponin within normal limits. EKG shows no concerning findings. CT scan the brain shows no acute concerning abnormalities. Family are now on the room they state the patient has been acting completely normal since they got here. I do believe the patient's mentation when he arrived is his mental baseline. This is likely all still related to the Wernicke-Korsakoff syndrome. I believe he is safe for discharge in family agrees with this plan Lab Data Labs: Lab Results 01/31/25 01/31/25 01/31/25 Range/Units 10:00 10:10 10:30 WBC 6.44 (4.50-11.00) K/uL RBC 3.56 L (4.30-5.90) m/uL Hgb 11.8 L (13.5-17.5) gm/dL Hct 34.5 L (37.0-53.0) % MCV 97 (80-100) fL MCH 33 (26-34) pg MCHC 34 (32-36) gm/dL RDW Coeff of Delvis 14.2 (11.5-15.5) % Plt Count 206 (140-440) K/uL Neut % (Auto) 77.4 H (42.0-72.0) % Lymph % (Auto) 15.4 L (20-44) % Bradley % (Auto) 5.6 (0.0-11.0) % Eos % (Auto) 1.1 (0.0-7.0) % Baso % (Auto) 0.5 (0.0-3.0) % Neut # (Auto) 5.00 (1.7-7.0) K/uL Lymph # (Auto) 1.00 (0.90-2.90) K/uL Bradley # (Auto) 0.40 (0.00-0.90) K/UL Eos # (Auto) 0.07 (0.00-0.50) K/uL Baso # (Auto) 0.03 (0.00-0.30) K/uL Abs Immat Gran (auto) 0.00 (0.00-0.30) K/uL Imm/Tot Granulo (auto) 0.0 % Sodium 132 L (135-149) mmol/L Potassium 3.7 (3.6-5.1) mmol/L Chloride 103 (96-114) mmol/L Carbon Dioxide 24 (20-32) mmol/L Anion Gap 5 L (7-15) mEq/L BUN 8 (7-30) mg/dL Creatinine 1.1 (0.5-1.5) mg/dL Estimated Creat Clear 57.56 Estimated GFR 71 ml/min Glucose 114 (60-115) mg/dL Calcium 9.0 (8.4-10.6) mg/dL Magnesium 2.0 (1.5-2.6) mg/dL Total Bilirubin 0.6 (0.1-1.5) mg/dL AST 24 (12-35) U/L ALT 12 (4-50) U/L Alkaline Phosphatase 70 (40-150) U/L Total Protein 7.0 (6.0-8.3) g/dL Albumin 4.1 (3.3-5.0) g/dL Urine Color Yellow (Yellow) Urine Appearance Clear (Clear) Urine pH 6.5 (5.0-8.5) Ur Specific Spencer 1.020 (1.000-1.030) Urine Protein Negative (Negative) Urine Glucose (UA) Negative (Negative) Urine Ketones Negative (Negative) Urine Blood Negative (Negative) Urine Nitrite Negative (Negative) Urine Bilirubin Negative (Negative) Urine Urobilinogen 0.2 (0.2-1.0) Ur Leukocyte Esterase Negative (Negative) Urine RBC 0-2 (0-2) Urine WBC 0-2 (0-5) Ur Squamous Epith Cells Few (None-Few) Urine Bacteria Few A (None) SARS-CoV-2 (PCR) Negative SARS-CoV-2 (Negative) Influenza Type A (PCR) Negative PCR FLU A (Negative) Influenza Type B (PCR) Negative PCR FLU B (Negative) RSV (PCR) Negative PCR RSV (Negative) POC Troponin I 0.02 (0.01-0.04) ng/ml Imaging Data CT scan head: Attestation: I have reviewed the pertinent imaging results. Radiologist's impression: Moderate to severe involutional changes consistent with cortical atrophy and white matter disease. 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 This involves the right frontal lobe and both occipital lobes. No acute appearing finding. Please note that all CT scans at this facility use dose modulation, iterative reconstruction, and/or weight-based dosing when appropriate to reduce radiation dose to as low as reasonably achievable. Dictated by Vahe Mason MD @ 01/31/2025 10:01:28 AM ECG Data Attestation: I personally reviewed and interpreted this ECG as follows: Prior ECG tracings: available for review Interpretation: Normal sinus rhythm with rate 75 beats per minute, left axis deviation, normal intervals, no ST or T-wave abnormalities. Appears similar previous EKG on file. Discharge Plan Discharge Clinical Impression: Acute confusion Patient Disposition: Home w/ Parent or Adult Condition: Stable Instructions: Acute Delirium (ED) Additional Instructions: Patient's mentation seemed at his baseline when he arrived. Unsure if he was worse at the assisted living. All the symptoms may be related to his Wernicke-Korsakoff syndrome. Return to emergency department for new or worsening symptoms. Follow up with his primary care provider Prescriptions: No Action multivitamin with folic acid [Thera] 400 mcg tablet 1 tab PO DAILY Qty: 90 3RF amlodipine 10 mg tablet 10 mg PO HS Qty: 90 3RF esomeprazole magnesium 20 mg capsule,delayed release(DR/EC) 20 mg PO DAILY Qty: 90 3RF folic acid 1 mg tablet 1 mg PO DAILY Qty: 90 0RF allopurinol 300 mg tablet 300 mg PO HS Qty: 90 1RF thiamine HCl (vitamin B1) [Vitamin B-1] 100 mg tablet 100 mg PO DAILY Qty: 90 0RF Follow Up/Referrals: Darcy Allen MD [Primary Care Provider, Family Practice] Stand Alone Forms: [employer] Info Instructions
[2025-01-31 10:18] LABS: Hematocrit 34.5 % (37.0-53.0); Hemoglobin* 11.8 gm/dL (13.5-17.5); Immature Granulocytes Abs Auto 0.00 K/uL (0.00-0.30); Immature Granulocytes Pct Auto 0.0 %; Mean Corpuscular HGB Conc 34 gm/dL (32-36); Mean Corpuscular Hemoglobin 33 pg (26-34); Mean Corpuscular Volume 97 fL (80-100); RDW Coefficient of Variation % 14.2 % (11.5-15.5); Red Blood Count 3.56 m/uL (4.30-5.90); White Blood Count* 6.44 K/uL (4.50-11.00)
[2025-01-31 10:22] LABS: Troponin, Point-of-Care* 0.02 ng/ml (0.01-0.04)
[2025-01-31 10:23] LABS: Lymphocytes Absolute Auto 1.00 K/uL (0.90-2.90); Slide Review Reflex No
[2025-01-31 10:31] LABS: Chloride* 103 mmol/L (96-114)
[2025-01-31 10:32] LABS: Albumin* 4.1 g/dL (3.3-5.0); Potassium* 3.7 mmol/L (3.6-5.1); Sodium* 132 mmol/L (135-149)
[2025-01-31 10:34] LABS: Anion Gap 5 mEq/L (7-15); Blood Urea Nitrogen* 8 mg/dL (7-30); Carbon Dioxide* 24 mmol/L (20-32); Creatinine* 1.1 mg/dL (0.5-1.5); Est. Creatinine Clearance* 57.56; Estimated Glomerular Filt Rate 71 ml/min
[2025-01-31 10:35] LABS: Appearance Urine Clear (Clear)
[2025-01-31 10:35] LABS: Alanine Aminotransferase* 12 U/L (4-50); Alkaline Phosphatase* 70 U/L (40-150); Aspartate Amino Transferase* 24 U/L (12-35); Bilirubin Total* 0.6 mg/dL (0.1-1.5); Calcium* 9.0 mg/dL (8.4-10.6); Glucose* 114 mg/dL (60-115); Total Protein* 7.0 g/dL (6.0-8.3)
[2025-01-31 10:56] LABS: PCR FLU A Negative PCR FLU A (Negative); PCR FLU B Negative PCR FLU B (Negative); PCR RSV Negative PCR RSV (Negative); SARS PCR* Negative SARS-CoV-2 (Negative)
[2025-01-31] MEDS: THIAMINE 500 MG in 0.9 % SODIUM CHLORIDE 100 ml 100 ML 105 MG IVPB (10:56)
== END 2025-01-31 12:15 | disposition home or self-care (01) ==
PROVIDERS: Emergency Provider Student in an Organized Health Care Education/Training Program; PCP Family Medicine
DX: R41.0 Disorientation, unspecified (principal); R42 Dizziness and giddiness
CPT/HCPCS: 36415; 70450; 80053; 81001; 83735; 84484; 85025; 87086; 87631; 93005; 96374; 99284; 99285; J3411

== ENCOUNTER 2025-01-31 18:35 | Outpatient (CLI) | payer MEDICARE, SELFPAY | END 2025-01-31 18:36 | disposition home or self-care (01) | PROVIDERS: PCP Family Medicine; Visit Provider Student in an Organized Health Care Education/Training Program | DX: R41.0 Disorientation, unspecified (principal) | CPT/HCPCS: A0425; A0427 ==

== ENCOUNTER 2025-01-31 19:25 | Emergency (ER) | payer MEDICARE, SELFPAY ==
--- OUTSIDE RECORDS SUMMARY | 2016-12-10 04:45 | XMS_ITS | Continuity of Care Document ---
Author Organization [facility] Address [address] [address] [place] [address] Phone Care Team Providers Care Orange Peel Operator Name Role Phone Dileep Strange MD Unavailable Unavailable Procedures Procedure Date Subsqt Hosp-da E&m Minr Compl 7 Ugi Endo; W/dilat Outlet-any M 17 Unlisted Proc Intestine Init Inpt Cons New/est Mod-hi 7 Advance Directives Directive Yes / No Effective Date File Name No Information Encounters Encounter Description Practice Location Reason(s) For Visit Diagnoses Date Provider Providers Copied on Encounter [facility], [address] [address], [place], [place], [id number], tel:[phone] [facility] No Information 7 Alexandr Falk. [address] [place] [address], [id number], [place]. tel:[phone] Subsqt Hosp-da E&m Minr Compl [facility], [address] [address], [place], [address], [place] tel:[phone] [facility] No Information 7 Kris Franklin. [address], [id number], [place]. tel:[phone] Referring Provider: Darcy Allen MD, [address] [place], [address]. tel:[phone] [facility], [address] [address], [place], [address], [place] tel:[phone] [facility] No Information 7 Tin Aparicio. [address] [facility], [facility] [address], [place], [place], [id number], [place]. tel:[phone] Referring Provider: Darcy Allen MD, [address] [place], [address]. tel:[phone] Init Inpt Cons New/est Mod-hi [facility], [address] [address], [place], [place], [address], [place] tel:[phone] [facility] No Information Sep-2 0 7 Mariya VALDEZ Reynaldo. [address] [facility] 500, [place], [place], [id number], [place]. tel:[phone] Referring Provider: Darcy Allen MD, [address] [place], [address]. tel:[phone] Family History Family Member Type Diagnosis Age At Onset No Information Payers Payer name Insurance type Covered alliance party ID Authorgisella mckenna(s) Blue Cross Of [facility] [id number] Medicare NGS MB [id number] Social History Type Description Quantity Date Captured [...]
--- OUTSIDE RECORDS SUMMARY | 2016-12-10 04:45 | XMS_ITS | Continuity of Care Document ---
Author Organization [facility] Address [address] [address] [place] [address] Phone Care Team Providers Care Brassiere Cup Mold Cutter Name Role Phone Dileep Strange MD Unavailable Unavailable Procedures Procedure Date Subsqt Hosp-da E&m Minr Compl 7 Ugi Endo; W/dilat Outlet-any M 17 Unlisted Proc Intestine Init Inpt Cons New/est Mod-hi 7 Advance Directives Directive Yes / No Effective Date File Name No Information Encounters Encounter Description Practice Location Reason(s) For Visit Diagnoses Date Provider Providers Copied on Encounter [facility], [address] [address], [place], [place], [id number], tel:[phone] [facility] No Information 7 Alexandr Falk. [address] [place] [address], [id number], [place]. tel:[phone] Subsqt Hosp-da E&m Minr Compl [facility], [address] [address], [place], [address], [place] tel:[phone] [facility] No Information 7 Kris Franklin. [address], [id number], [place]. tel:[phone] Referring Provider: Darcy Allen MD, [address] [place], [address]. tel:[phone] [facility], [address] [address], [place], [address], [place] tel:[phone] [facility] No Information 7 Tin Aparicio. [address] [facility] 500, [place], [place], [address], [place]. tel:[phone] Referring Provider: Darcy Allen MD, [address] [place], [address]. tel:[phone] Init Inpt Cons New/est Mod-hi [facility], [address] [address], [place], [place], [address], [place] tel:[phone] [facility] No Information Sep-2 0 7 Mariya VALDEZ Reynaldo. [address] [facility] 500, [place], [place], [address], [place]. tel:[phone] Referring Provider: Darcy Allen MD, [address] [place], [address]. tel:[phone] Family History Family Member Type Diagnosis Age At Onset No Information Payers Payer name Insurance type Covered green party ID Authorgisella mckenna(s) Blue Cross Of [facility] [id number] Medicare NGS MB [id number] Social History Type Description Quantity Date Captured [...]
[2025-01-31 19:31] VITALS: BP 144/87; PULSE 82; RESP 18; TEMP 36.8; O2SAT 97; BMI 23.7
--- NOTE | 2025-01-31 21:15 | ED.GENADULT ---
HPI - General Adult General Date Seen: 01/31/25 Chief complaint: Altered Mental Status Stated complaint: Confusion Time Seen by Provider: 01/31/25 19:40 Limitations: other History of Present Illness HPI narrative: Patient is a 74-year-old male to female transgender woman who prefers to go by Ree here by EMS for the 2nd time today for possible confusion. She was here earlier today and had an evaluation that was unrevealing, discharged to home. She lives in an independent living at [facility]. At baseline, she has some underlying dementia and cognitive difficulties, and was felt to be at baseline though it both the evaluating physician earlier as well as her family, who did not have any concerns. This evening, according to paramedics she called EMS by calling her life link button. According to her, she tells me that someone at the facility called and she is not sure why. It is unclear to me whether she pushed the button and staff came and then called 911 or if she actually called 911 herself. In any case, at this time she does not have any specific complaints. She tells me she did not have any falls or injuries, does not have any pain, has not had any illness such as vomiting, fevers, diarrhea etcetera. She is known to is still drink, has a history of Wernicke-Korsakoff and was given some thymine earlier today. Paramedics noted some kind of visual concern with ability to look to the right, but she denies any visual problems to me at this time. She is chronically unsteady and uses a walker to get around. Paramedics reported concerns about her ability to live independently, but again family was here earlier today and did not express any similar concerns. She herself does not express that she wishes to look into alternate living arrangement. Related Data Previous Rx's ?Medication ?Instructions ?Recorded multivitamin with folic acid 400 1 tab PO DAILY #90 tabs 08/14/22 mcg tablet (Thera) amlodipine 10 mg tablet 10 mg PO HS #90 tabs 02/11/24 esomeprazole magnesium 20 mg 20 mg PO DAILY #90 caps 02/11/24 capsule,delayed release folic acid 1 mg tablet 1 mg PO DAILY #90 tabs 06/29/24 allopurinol 300 mg tablet 300 mg PO HS #90 tabs 09/21/24 thiamine HCl (vitamin B1) 100 mg 100 mg PO DAILY #90 tabs 11/09/24 tablet (Vitamin B-1) Allergies Allergy/AdvReac Type Severity Reaction Status Date / Time indomethacin Allergy Verified 01/20/25 15:36 Review of Systems Status of ROS: Reports: 10 or more systems reviewed and unremarkable except as noted in History and below [facility] Medical History Urinary tract infection ?N39.0 - Urinary tract infection, site not specified (ICD-10) 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 ?I69.319 - Unspecified symptoms and signs involving cognitive functions following cerebral infarction (ICD-10) Left rib fracture ?S22.32XA - Fracture of one rib, left side, initial encounter for closed fracture (ICD-10) Right humeral fracture ?S42.301A - Unspecified fracture of shaft of humerus, right arm, initial encounter for closed fracture (ICD-10) Adult failure to thrive (~03/2022) ?R62.7 - Adult failure to thrive (ICD-10) Memory deficit ?R41.3 - Other amnesia (ICD-10) POLST (Physician Orders for Life-Sustaining Treatment) ?Z78.9 - Other specified health status (ICD-10) Recurrent falls while walking (04/2021) ?R29.6 - Repeated falls (ICD-10) Gout (2016) ?M10.9 - Gout, unspecified (ICD-10) Postoperative intra-abdominal abscess (2017) ?T81.43XA - Infection following a procedure, organ and space surgical site, initial encounter (ICD-10) Normal stress echocardiography (~04/2017) Health care directive on file (05/31/21) ?Z78.9 - Other specified health status (ICD-10) Durable power of tax attorney in chart (05/31/21) Duodenal ulcer with perforation (07/2016) ?K26.5 - Chronic or unspecified duodenal ulcer with perforation (ICD-10) Closed fracture of proximal end of right humerus ?S42.201A - Unspecified fracture of upper end of right humerus, initial encounter for closed fracture (ICD-10) Cellulitis of right hand excluding fingers and thumb (~03/2022) ?L03.113 - Cellulitis of right upper limb (ICD-10) Anemia ?D64.9 - Anemia, unspecified (ICD-10) Abnormal ultrasound of abdomen (~04/2021) ?R93.5 - Abnormal findings on diagnostic imaging of other abdominal regions, including retroperitoneum (ICD-10) Mild protein-calorie malnutrition ?E44.1 - Mild protein-calorie malnutrition (ICD-10) Wernicke-Korsakoff syndrome (~03/2022) ?F04 - Amnestic disorder due to known physiological condition (ICD-10) Poor dentition ?K08.9 - Disorder of teeth and supporting structures, unspecified (ICD-10) Alcoholism ?F10.20 - Alcohol dependence, uncomplicated (ICD-10) Cognitive decline ?R41.89 - Other symptoms and signs involving cognitive functions and awareness (ICD-10) Unstable gait ?R26.81 - Unsteadiness on feet (ICD-10) History of DVT of lower extremity (~04/2021) ?Z86.718 - Personal history of other venous thrombosis and embolism (ICD-10) Personal history of peptic ulcer disease ?Z87.11 - Personal history of peptic ulcer disease (ICD-10) Polyarticular gout ?M10.9 - Gout, unspecified (ICD-10) GERD (gastroesophageal reflux disease) ?K21.9 - Gastro-esophageal reflux disease without esophagitis (ICD-10) Hypertension ?I10 - Essential (primary) hypertension (ICD-10) Surgical History History of anterior cruciate ligament surgery (2005) ?Z98.890 - Other specified postprocedural states (ICD-10) History of ventral hernia repair (2017) ?Z98.890 - Other specified postprocedural states (ICD-10) ?Z87.19 - Personal history of other diseases of the digestive system (ICD-10) Status post left knee replacement (04/2019) ?Z96.652 - Presence of left artificial knee joint (ICD-10) History of total knee replacement (07/2016) ?Z96.659 - Presence of unspecified artificial knee joint (ICD-10) History of abdominal surgery (07/2016) ?Z98.890 - Other specified postprocedural states (ICD-10) Family History Father No problems noted. 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 . 3 adult kids. Lives in [facility] independent living, non does not drive Non smoker, quit age 31 10 pack years prior 4 /drinks a week, chronic alcoholism Designates son, Danielito, and daughter, Britta, as his power of tax attorney for health should that be required. What is your current living situation?: I presently have a place to live Problems where you live: pests, such as bugs, ants, or mice Problems where you live details: spring bugs In the past 12 months, utilities in danger of being shut off: no In past 12 months, lack of transportation kept you from medical appts, meetings, work, or getting things needed for daily living: yes In the past 12 mos, have been you worried that your food would run out before you had money to buy more?: never true In the past 12 mos, the food you bought just didn't last and you didn't have money to buy more?: never true Highest level of school completed/degree received: some college, no degree Smoking Status: Former smoker What tobacco products do you use: cigarettes Years smoked: 0.5 Smoking quit date/years: >15 years ago and cigars Do you use any of these nicotine containing products: None Second hand tobacco smoke exposure: No How often do you have a drink containing alcohol: 4 or more times a week Alcohol type: beer How many standard drinks containing alcohol do you have on a typical day: 5 or 6 How often do you have six or more drinks on one occasion: Less than monthly AUDIT-C Alcohol total score: 7 Non-prescribed substance use: denies use Caffeine: Yes (pop) How often does anyone, including family, friends and others, physically hurt you: never How often does anyone, including family, friends and others, insult or talk down to you: never How often does anyone, including family, friends and others, threaten you with harm: never How often does anyone, including family, friends and others, scream or curse at you: sometimes service: Yes (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 Head: Normocephalic, atraumatic. Facies are male with full facial hair. Eyes: Sclera clear. Pupils equal and reactive. ENT: Mucous membranes moist. Neck: Supple without adenopathy. Heart: Regular rate and rhythm without murmur. Lungs: Clear. No increased work of breathing, crackles or wheezes. Abdomen: Soft, nontender to palpation. Extremities: Well perfused, pulses intact. No significant edema. Neurologic: Alert, conversant. Speech fluent, face symmetric. Moves all extremities equally. Not oriented to place or date, which looking back through record seems to be baseline. Does follow commands and answers other questions appropriately. Skin: Warm, dry well perfused. Affect: Normal. Mildly disheveled. Const: Vital Signs, click to edit/add: Vital Signs - 24 hr 01/31/25 19:31 01/31/25 21:30 Temperature 98.3 F Pulse Rate [Left P ulse Oximeter] 82 88 Respiratory Rate 18 20 Blood Pressure [Ri ght Upper Arm] 144/87 H 130/104 H Pulse Oximetry 97 97 Oxygen Delivery Me thod Room Air Room Air Course Course ED Course: I reviewed records from earlier today. She does have a history of hyponatremia but sodium earlier today was 132. I will recheck electrolytes, LFTs and get an ammonia level as well as a TSH and a blood alcohol. At this time, it is a little unclear how she ended up back in the ER. If labs are normal and she is ambulatory at her usual level, I do not see clear indication for admission. Labs here are within normal limits. She is up and ambulatory to the bathroom without difficulty. I did talk with her about her living situation, she says she really does not want to live anywhere where somebody else would be in charge of what she does. She does acknowledge that sometime she is not sure what the right answer is in terms of her living situation. I think this is something that family should likely address, but given that there is not a clear direction tonight toward a change in living arrangements, and given that she seems to be at baseline as best as I can tell, based on reports of family members earlier today, I do not see a reason that she cannot be discharged home tonight. Vital Signs Vital signs: Initial Vital Signs Temperature 98.3 F 01/31/25 19:31 Temperature Source Temporal Artery Scan 01/31/25 19:31 Pulse Rate 82 01/31/25 19:31 Pulse Rhythm Regular 01/31/25 19:31 Respiratory Rate 18 01/31/25 19:31 Blood Pressure 144/87 H 01/31/25 19:31 Blood Pressure Mean 106 H 01/31/25 19:31 Blood Pressure Position Sitting 01/31/25 19:31 Pulse Oximetry 97 01/31/25 19:31 Oxygen Delivery Method Room Air 01/31/25 19:31 Vital Signs Temperature 98.3 F 01/31/25 19:31 Pulse Rate 82 01/31/25 19:31 Respiratory Rate 18 01/31/25 19:31 Blood Pressure 144/87 H 01/31/25 19:31 Pulse Oximetry 97 01/31/25 19:31 Oxygen Delivery Method Room Air 01/31/25 19:31 Temperature 98.3 F 01/31/25 19:31 Pulse Rate 88 01/31/25 21:30 Respiratory Rate 20 01/31/25 21:30 Blood Pressure 130/104 H 01/31/25 21:30 Pulse Oximetry 97 01/31/25 21:30 Oxygen Delivery Method Room Air 01/31/25 21:30 Medical Decision Making Lab Data Lab results reviewed: Yes I reviewed the patient's lab results Labs: Lab Results 01/31/25 Range/Units 20:57 Sodium 133 L (135-149) mmol/L Potassium 3.5 L (3.6-5.1) mmol/L Chloride 103 (96-114) mmol/L Carbon Dioxide 25 (20-32) mmol/L Anion Gap 5 L (7-15) mEq/L BUN 10 (7-30) mg/dL Creatinine 1.2 (0.5-1.5) mg/dL Estimated Creat Clear 56.61 Estimated GFR 64 ml/min Glucose 103 (60-115) mg/dL Calcium 9.4 (8.4-10.6) mg/dL Total Bilirubin 0.7 (0.1-1.5) mg/dL Direct Bilirubin 0.1 (0.0-0.5) mg/dL AST 24 (12-35) U/L ALT 11 (4-50) U/L Alkaline Phosphatase 67 (40-150) U/L Ammonia < 8.7 L (13.1-30.0) umol/L Total Protein 7.2 (6.0-8.3) g/dL Albumin 4.1 (3.3-5.0) g/dL TSH 3.150 (0.270-4.200) uIU/mL Ethyl Alcohol < 0.01 (0.01-0.03) % Discharge Plan Discharge Clinical Impression: Suspected condition not found Patient Disposition: Home, Self-Care Condition: Unchanged Additional Instructions: Labs are normal tonight, and were normal earlier today. Exam seems to be at baseline, based on our previous records. You may want to consider a different living arrangement with more assistance, this is something you can talk with your family about. Prescriptions: No Action multivitamin with folic acid [Thera] 400 mcg tablet 1 tab PO DAILY Qty: 90 3RF amlodipine 10 mg tablet 10 mg PO HS Qty: 90 3RF esomeprazole magnesium 20 mg capsule,delayed release(DR/EC) 20 mg PO DAILY Qty: 90 3RF folic acid 1 mg tablet 1 mg PO DAILY Qty: 90 0RF allopurinol 300 mg tablet 300 mg PO HS Qty: 90 1RF thiamine HCl (vitamin B1) [Vitamin B-1] 100 mg tablet 100 mg PO DAILY Qty: 90 0RF Follow Up/Referrals: Darcy Allen MD [Primary Care Provider, Family Practice] Stand Alone Forms: [employer] Info Instructions
[2025-01-31 21:30] VITALS: BP 130/104; PULSE 88; RESP 20; O2SAT 97
[2025-01-31 21:38] LABS: Albumin* 4.1 g/dL (3.3-5.0); Chloride* 103 mmol/L (96-114)
[2025-01-31 21:39] LABS: Potassium* 3.5 mmol/L (3.6-5.1); Sodium* 133 mmol/L (135-149)
[2025-01-31 21:41] LABS: Alanine Aminotransferase* 11 U/L (4-50); Anion Gap 5 mEq/L (7-15); Aspartate Amino Transferase* 24 U/L (12-35); Blood Urea Nitrogen* 10 mg/dL (7-30); Carbon Dioxide* 25 mmol/L (20-32); Creatinine* 1.2 mg/dL (0.5-1.5); Est. Creatinine Clearance* 56.61; Estimated Glomerular Filt Rate 64 ml/min
[2025-01-31 21:42] LABS: Alkaline Phosphatase* 67 U/L (40-150); Bilirubin Direct* 0.1 mg/dL (0.0-0.5); Bilirubin Total* 0.7 mg/dL (0.1-1.5); Calcium* 9.4 mg/dL (8.4-10.6); Glucose* 103 mg/dL (60-115); Total Protein* 7.2 g/dL (6.0-8.3)
[2025-01-31 21:43] LABS: Ammonia* < 8.7 umol/L (13.1-30.0); Ethanol* < 0.01 % (0.01-0.03)
[2025-01-31 22:13] LABS: TSH With Reflex to FT4* 3.150 uIU/mL (0.270-4.200)
--- NOTE | 2025-01-31 22:52 | ED.NURSE ---
pt ambulated with walker to restroom and back to room with no problems
== END 2025-02-01 00:20 | disposition home or self-care (01) ==
PROVIDERS: Emergency Provider Emergency Medicine; PCP Family Medicine
DX: R41.0 Disorientation, unspecified (principal)
CPT/HCPCS: 36415; 70450; 80048; 80053; 80076; 81001; 82077; 82140; 83735; 84443; 84484; 85025; 87086; 87637; 93005; 96374; 99283; 99284; 99285; J3411

== ENCOUNTER 2025-02-01 02:00 | Outpatient (CLI) | payer MEDICARE, SELFPAY | END 2025-02-01 02:01 | disposition home or self-care (01) | PROVIDERS: PCP Family Medicine; Visit Provider Family Medicine | DX: R41.82 Altered mental status, unspecified (principal) | CPT/HCPCS: A0425; A0429 ==

== ENCOUNTER 2025-02-01 02:15 | Inpatient (IN) | payer MEDICARE, SELFPAY ==
--- OUTSIDE RECORDS SUMMARY | 2016-12-10 04:45 | XMS_ITS | Continuity of Care Document ---
Author Organization [facility] Address [address] [address] [place] [address] Phone Care Team Providers Care Claims Account Specialist Name Role Phone Dileep Strange MD Unavailable Unavailable Procedures Procedure Date Subsqt Hosp-da E&m Minr Compl 7 Ugi Endo; W/dilat Outlet-any M 17 Unlisted Proc Intestine Init Inpt Cons New/est Mod-hi 7 Advance Directives Directive Yes / No Effective Date File Name No Information Encounters Encounter Description Practice Location Reason(s) For Visit Diagnoses Date Provider Providers Copied on Encounter [facility], [address] [address], [place], [place], [id number], tel:[phone] [facility] No Information 7 Alexandr Falk. [address] [place] [address], [id number], [place]. tel:[phone] Subsqt Hosp-da E&m Minr Compl [facility], [address] [address], [place], [id number], [place] tel:[phone] [facility] No Information 7 Kris Franklin. [address], [id number], [place]. tel:[phone] Referring Provider: Darcy Allen MD, [address] [place], [address]. tel:[phone] [facility], [address] [address], [place], [address], [place] tel:[phone] [facility] No Information 7 Tin Aparicio. [address] [facility] [address], [place], [place], [id number], [place]. tel:[phone] Referring Provider: Darcy Allen MD, [address] [place], [address]. tel:[phone] Init Inpt Cons New/est Mod-hi [facility], [address] [address], [place], [place], [id number], [place] tel:[phone] [facility] No Information Sep-2 0 7 Mariya VALDEZ Reynaldo. [address] [facility] 500, [place], [place], [id number], [place]. tel:[phone] Referring Provider: Darcy Allen MD, [address] [place], [address]. tel:[phone] Family History Family Member Type Diagnosis Age At Onset No Information Payers Payer name Insurance type Covered green party ID Authorgisella mckenna(s) Blue Cross Of [facility] [id number] Medicare NGS MB [id number] Social History Type Description Quantity Date Captured Comments Sex Male Smoking Status No Information Chief Complaint And Reason For Visit No Information Reason For Referral Reason For Referral No Information History Of Present Illness Encounter Date Complaint History Of Prese nt Illness No Information Functional Status Date Functional Assessmen t No Information Instructions Date Instruction Additional Infor mation No Information Assessments Type Assessment Date No Information Patient Care Teams Name Effective Dates (start - stop) Status Members No Information
--- OUTSIDE RECORDS SUMMARY | 2016-12-10 04:45 | XMS_ITS | Continuity of Care Document ---
Author Organization [facility] Address [address] [address] [place] [address] Phone Care Team Providers Care Supervisor Estimator And Drafter Name Role Phone Dileep Strange MD Unavailable Unavailable Procedures Procedure Date Subsqt Hosp-da E&m Minr Compl 7 Ugi Endo; W/dilat Outlet-any M 17 Unlisted Proc Intestine Init Inpt Cons New/est Mod-hi 7 Advance Directives Directive Yes / No Effective Date File Name No Information Encounters Encounter Description Practice Location Reason(s) For Visit Diagnoses Date Provider Providers Copied on Encounter [facility], [address] [address], [place], [place], [id number], tel:[phone] [facility] No Information 7 Alexandr Falk. [address] [place] [address], [id number], [place]. tel:[phone] Subsqt Hosp-da E&m Minr Compl [facility], [address] [address], [place], [address], [place] tel:[phone] [facility] No Information 7 Kris Franklin. [address], [id number], [place]. tel:[phone] Referring Provider: Darcy Allen MD, [address] [place], [address]. tel:[phone] [facility], [address] [address], [place], [id number], [place] tel:[phone] [facility] No Information 7 Tin Aparicio. [address] [facility], [facility] 500, [place], [place], [address], [place]. tel:[phone] Referring Provider: Darcy Allen MD, [address] [place], [address]. tel:[phone] Init Inpt Cons New/est Mod-hi [facility], [address] [address], [place], [place], [id number], [place] tel:[phone] [facility] No Information Sep-2 0 7 Mariya VALDEZ Reynaldo. [address] [facility] [address], [place], [place], [id number], [place]. tel:[phone] Referring Provider: Darcy Allen MD, [address] [place], [address]. tel:[phone] Family History Family Member Type Diagnosis Age At Onset No Information Payers Payer name Insurance type Covered alliance party ID Authorgisella mckenna(s) Blue Cross Of [facility] [id number] Medicare NGS MB [id number] Social History Type Description Quantity Date Captured [...]
[2025-02-01] VITALS (14 sets, daily range): BP systolic 106–148; BP diastolic 74–98; PULSE 65–96; RESP 14–18; TEMP 35.9–36.5; O2SAT 97–98; BMI 23.7; BMI 24.8
--- OUTSIDE RECORDS SUMMARY | 2025-02-01 02:17 | XMS_ITS | Clinical Summary ---
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 Gender Identity Not on file Sexual Orientation [...] CDT) CHOLESTEROL,TOTAL 189 110 - 199 mg/dL [facility] TRIGLYCERIDES 162(H) <150 mg/dL [facility] HDL CHOLESTEROL 50 >40 mg/dL [facility] CHOL/HDL RATIO 3.78 <4.51 [facility] LDL CHOLESTEROL 107 <131 mg/dL [facility] PATIENT STATUS Fasting [facility] Blood specimen (specimen) BLOOD SPECIMEN / Unknown 03/21/2011 7:49 AM CDT 03/21/2011 7:44 AM CDT us Jenni Monroe MD CHEMISTRY Final R esult [facility] [address] [place] [address] from Last 3 Months or Most Recently Relevant to Health Maintenance Additional Health Concerns Infection Onset Date Last Indicated ESBL Comment:Order contact precautions. Order consult to Infection Prevention to determine if patient may be removed from precautions. 10/07/2016 10/07/2016 Insurance * Guarantor: Danielito Valenzuela Account Type Relation to Patient Date of Phone Billing Address Personal/Family Self 1950 [address] [place] [address] MEDICARE PART B HB ONLY MEDICARE PART A HB ONLY [employer] PPO MR Advance Directives Documents on File Type Date Recorded Patient Coil Taper Expl anation POLST 10/08/2016 11:11 AM 09/30/2016 [...] who discussed with his siblings Care Teams Property And Supply Officer Relationship Specialty Start Date End Date Darcy Allen MD [address] [place] [id number] PCP - General Family Practice 07/24/16
--- NOTE | 2025-02-01 02:24 | ED.GENADULT ---
HPI - General Adult General Chief complaint: Altered Mental Status Stated complaint: confusion Time Seen by Provider: 02/01/25 02:24 History of Present Illness HPI narrative: pt found outside. Pt reports falling . Pt used call light to get help. Blood sugar 127. Pt Knowns name, , and location. Pt states no new head, neck, hip , back, leg or arm pain from fall. Pt remembers events of fall. Pt does state right arm pain , states its old pain. Pt does not know current president, or date. 74-year-old male to female identifies as ?Ree returning to the emergency department via EMS directly after being discharged from this facility without significant findings beyond dementia, some degree of confusion with a history of Wernicke-Korsakoff syndrome. Family is unavailable. Third visit in 15 hours. Had been provided a ride home. Does not sound as though actually made it in the door of her independent apartment at [facility]. History of recurrent falls an unstable gait and apparently fell outside apartment and used alert to call for help. No new pain reported. Borrowed hospital walker to get home. Says fell on her ass and needed help. Would refer to prior documentation from 2 visits over the last number of hours. Related Data Home Medications ?Medication ?Instructions ?Recorded ?Confirmed aspirin 325 mg tablet,delayed 650 mg PO BID PRN 02/01/25 02/01/25 release Previous Rx's ?Medication ?Instructions ?Recorded multivitamin with folic acid 400 1 tab PO DAILY #90 tabs 08/14/22 mcg tablet (Thera) amlodipine 10 mg tablet 10 mg PO HS #90 tabs 02/11/24 esomeprazole magnesium 20 mg 20 mg PO DAILY #90 caps 02/11/24 capsule,delayed release folic acid 1 mg tablet 1 mg PO DAILY #90 tabs 06/29/24 allopurinol 300 mg tablet 300 mg PO HS #90 tabs 09/21/24 thiamine HCl (vitamin B1) 100 mg 100 mg PO DAILY #90 tabs 11/09/24 tablet (Vitamin B-1) Allergies Allergy/AdvReac Type Severity Reaction Status Date / Time indomethacin Allergy Verified 01/20/25 15:36 Review of Systems Status of ROS: Reports: 6 or more systems reviewed and unremarkable except as noted in History and below [facility] Medical History Urinary tract infection ?N39.0 - Urinary tract infection, site not specified (ICD-10) 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 ?I69.319 - Unspecified symptoms and signs involving cognitive functions following cerebral infarction (ICD-10) Left rib fracture ?S22.32XA - Fracture of one rib, left side, initial encounter for closed fracture (ICD-10) Right humeral fracture ?S42.301A - Unspecified fracture of shaft of humerus, right arm, initial encounter for closed fracture (ICD-10) Adult failure to thrive (~03/2022) ?R62.7 - Adult failure to thrive (ICD-10) Memory deficit ?R41.3 - Other amnesia (ICD-10) POLST (Physician Orders for Life-Sustaining Treatment) ?Z78.9 - Other specified health status (ICD-10) Recurrent falls while walking (04/2021) ?R29.6 - Repeated falls (ICD-10) Gout (2016) ?M10.9 - Gout, unspecified (ICD-10) Postoperative intra-abdominal abscess (2016) ?T81.43XA - Infection following a procedure, organ and space surgical site, initial encounter (ICD-10) Normal stress echocardiography (~04/2017) Health care directive on file (05/31/21) ?Z78.9 - Other specified health status (ICD-10) Durable power of compliance attorney in chart (05/31/21) Duodenal ulcer with perforation (07/2016) ?K26.5 - Chronic or unspecified duodenal ulcer with perforation (ICD-10) Closed fracture of proximal end of right humerus ?S42.201A - Unspecified fracture of upper end of right humerus, initial encounter for closed fracture (ICD-10) Cellulitis of right hand excluding fingers and thumb (~03/2022) ?L03.113 - Cellulitis of right upper limb (ICD-10) Anemia ?D64.9 - Anemia, unspecified (ICD-10) Abnormal ultrasound of abdomen (~04/2021) ?R93.5 - Abnormal findings on diagnostic imaging of other abdominal regions, including retroperitoneum (ICD-10) Mild protein-calorie malnutrition ?E44.1 - Mild protein-calorie malnutrition (ICD-10) Wernicke-Korsakoff syndrome (~03/2022) ?F04 - Amnestic disorder due to known physiological condition (ICD-10) Poor dentition ?K08.9 - Disorder of teeth and supporting structures, unspecified (ICD-10) Alcoholism ?F10.20 - Alcohol dependence, uncomplicated (ICD-10) Cognitive decline ?R41.89 - Other symptoms and signs involving cognitive functions and awareness (ICD-10) Unstable gait ?R26.81 - Unsteadiness on feet (ICD-10) History of DVT of lower extremity (~04/2021) ?Z86.718 - Personal history of other venous thrombosis and embolism (ICD-10) Personal history of peptic ulcer disease ?Z87.11 - Personal history of peptic ulcer disease (ICD-10) Polyarticular gout ?M10.9 - Gout, unspecified (ICD-10) GERD (gastroesophageal reflux disease) ?K21.9 - Gastro-esophageal reflux disease without esophagitis (ICD-10) Hypertension ?I10 - Essential (primary) hypertension (ICD-10) Surgical History History of anterior cruciate ligament surgery (2005) ?Z98.890 - Other specified postprocedural states (ICD-10) History of ventral hernia repair (2017) ?Z98.890 - Other specified postprocedural states (ICD-10) ?Z87.19 - Personal history of other diseases of the digestive system (ICD-10) Status post left knee replacement (04/2019) ?Z96.652 - Presence of left artificial knee joint (ICD-10) History of total knee replacement (07/2016) ?Z96.659 - Presence of unspecified artificial knee joint (ICD-10) History of abdominal surgery (07/2016) ?Z98.890 - Other specified postprocedural states (ICD-10) Family History Father No problems noted. 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 . 3 adult kids. Lives in [facility] independent living, non does not drive Non smoker, quit age 31 10 pack years prior 4 /drinks a week, chronic alcoholism Designates son, Danielito, and daughter, Britta, as his power of compliance attorney for health should that be required. What is your current living situation?: I presently have a place to live Problems where you live: no known problems Problems where you live details: none In the past 12 months, utilities in danger of being shut off: no In past 12 months, lack of transportation kept you from medical appts, meetings, work, or getting things needed for daily living: no In the past 12 mos, have been you worried that your food would run out before you had money to buy more?: never true In the past 12 mos, the food you bought just didn't last and you didn't have money to buy more?: never true Highest level of school completed/degree received: some college, no degree Smoking Status: Former smoker What tobacco products do you use: cigarettes Years smoked: 0.5 Smoking quit date/years: >15 years ago and cigars Do you use any of these nicotine containing products: None Second hand tobacco smoke exposure: No How often do you have a drink containing alcohol: 4 or more times a week Alcohol type: beer How many standard drinks containing alcohol do you have on a typical day: 1 or 2 How often do you have six or more drinks on one occasion: Never AUDIT-C Alcohol total score: 4 Non-prescribed substance use: denies use Caffeine: No How often does anyone, including family, friends and others, physically hurt you: never How often does anyone, including family, friends and others, insult or talk down to you: rarely How often does anyone, including family, friends and others, threaten you with harm: never How often does anyone, including family, friends and others, scream or curse at you: never service: Yes Health Related Social Needs: Other personal risk factors, not elsewhere classified (Z91.89) Exam Narrative: Exam Narrative: Pleasant. Fully alert. A little disheveled. Of good energy. Cranial nerves 2-12 to be intact. Head is atraumatic. Speaking easily. Mostly edentulous. Breathing easily. Lungs are clear. Heart in regular rate and rhythm. Abdomen is soft nontender. Yellow [place] wrapping gauze at the left wrist. Scabbing small abrasion on the forearm. Lower extremities with black stockings covering. No defect in the stockings to suggest more injury. No pain to palpation over the legs. Trace dependent edema. Const: Vital Signs, click to edit/add: Vital Signs - 24 hr 02/01/25 09:42 Pulse Rate 96 Documenting provider has reviewed patient's vital signs: yes Course Vital Signs Vital signs: Initial Vital Signs Temperature 97 F L 02/01/25 02:18 Temperature Source Temporal Artery Scan 02/01/25 02:18 Pulse Rate 74 02/01/25 02:18 Pulse Rhythm Regular 02/01/25 02:18 Respiratory Rate 16 02/01/25 02:18 Blood Pressure 124/74 02/01/25 02:18 Blood Pressure Mean 90 02/01/25 02:18 Blood Pressure Position Semi-Fowlers 02/01/25 02:18 Pulse Oximetry 98 02/01/25 02:18 Oxygen Delivery Method Room Air 02/01/25 02:18 Vital Signs Temperature 97 F L 02/01/25 02:18 Pulse Rate 74 02/01/25 02:18 Respiratory Rate 16 02/01/25 02:18 Blood Pressure 124/74 02/01/25 02:18 Pulse Oximetry 98 02/01/25 02:18 Oxygen Delivery Method Room Air 02/01/25 02:18 Temperature 97.0 F L 02/02/25 07:40 Pulse Rate 71 02/02/25 07:40 Respiratory Rate 16 02/02/25 07:40 Blood Pressure 111/81 02/02/25 07:40 Pulse Oximetry 94 02/02/25 07:40 Oxygen Delivery Method Room Air 02/02/25 07:40 Medications Administered Medications: Generic Name Dose Route Start Last Admin Trade Name Bahman PRN Reason Stop Dose Admin Acetaminophen 650 mg 02/01/25 05:16 02/02/25 00:13 Acetaminophen 325 Mg Tablet PO 650 mg Q6H PRN Administration fever, headache, pain Allopurinol 300 mg 02/01/25 21:00 02/01/25 20:43 Allopurinol 300 Mg Tablet PO 300 mg HS MAYELA Administration Amlodipine Besylate 10 mg 02/01/25 21:00 02/01/25 20:44 Amlodipine 10 Mg Tablet PO 10 mg HS MAYELA Administration Enoxaparin Sodium 40 mg 02/01/25 21:00 02/01/25 20:44 Enoxaparin 40 Mg/0.4 Ml Inj SUBCUT 40 mg HS MAYELA Administration Folic Acid 1 mg 02/01/25 09:00 02/01/25 08:40 Folic Acid 1 Mg Tablet PO 1 mg DAILY MAYELA Administration Thiamine HCl 250 mg/ Sodium 102.5 mls @ 102.5 mls/hr 02/01/25 14:00 02/01/25 21:48 Chloride IVPB 02/04/25 09:01 Infused TID MAYELA Infusion Multivitamins/Minerals 1 tab 02/01/25 09:00 02/01/25 08:40 Multivitamin/Minerals 1 Tablet PO 1 tab DAILY MAYELA Administration Omeprazole 20 mg 02/01/25 09:00 02/01/25 08:40 Omeprazole [address] PO 20 mg DAILY MAYELA Administration Sodium Chloride 5 ml 02/01/25 09:00 02/01/25 20:40 Sodium Chloride 0.9 % (Flush) 10 Ml Syringe IVF 5 ml BID MAYELA Administration Sodium Chloride 250 ml 02/01/25 14:15 02/01/25 16:49 0.9 % Sodium Chloride 250 Ml IV 250 ml Q24H MAYELA Administration Discontinued Medications Generic Name Dose Route Start Last Admin Trade Name Jose Guadalupeq PRN Reason Stop Dose Admin Thiamine HCl 100 mg 02/01/25 05:30 02/01/25 06:07 Thiamine 100 Mg Tablet PO 02/03/25 05:31 100 mg Q24H MAYELA Administration Medical Decision Making MDM Narrative Medical decision making narrative: Appears to be demonstrating failure to thrive in current living situation. With recurrent visits I think will be necessary to admit from a social standpoint and reassess the needs and cares available. I do not think that any further workup is warranted at this time at least in the emergency department. Contacted hospitalist for admission. Medical Records Medical records reviewed: Yes I reviewed the patient's medical records Lab Data Labs: Lab Results 02/01/25 Range/Units 05:57 WBC 7.72 (4.50-11.00) K/uL RBC 3.68 L (4.30-5.90) m/uL Hgb 12.4 L (13.5-17.5) gm/dL Hct 35.6 L (37.0-53.0) % MCV 97 (80-100) fL MCH 34 (26-34) pg MCHC 35 (32-36) gm/dL RDW Coeff of [place] 14.1 (11.5-15.5) % Plt Count 199 (140-440) K/uL Neut % (Auto) 78.8 H (42.0-72.0) % Lymph % (Auto) 14.1 L (20-44) % [place] % (Auto) 6.2 (0.0-11.0) % Eos % (Auto) 0.4 (0.0-7.0) % Baso % (Auto) 0.4 (0.0-3.0) % Neut # (Auto) 6.10 (1.7-7.0) K/uL Lymph # (Auto) 1.10 (0.90-2.90) K/uL [place] # (Auto) 0.50 (0.00-0.90) K/UL Eos # (Auto) 0.03 (0.00-0.50) K/uL Baso # (Auto) 0.03 (0.00-0.30) K/uL Abs Immat Gran (auto) 0.01 (0.00-0.30) K/uL Imm/Tot Granulo (auto) 0.1 % Sodium 135 (135-149) mmol/L Potassium 3.4 L (3.6-5.1) mmol/L Chloride 103 (96-114) mmol/L Carbon Dioxide 25 (20-32) mmol/L Anion Gap 7 (7-15) mEq/L BUN 10 (7-30) mg/dL Creatinine 1.2 (0.5-1.5) mg/dL Estimated Creat Clear 56.61 Estimated GFR 64 ml/min Glucose 100 (60-115) mg/dL Calcium 9.4 (8.4-10.6) mg/dL Discharge Plan Discharge Clinical Impression: Fall, Unstable gait, Dementia, Failure to thrive Patient Disposition: Admitted As Observation Condition: Stable
--- NOTE | 2025-02-01 04:35 | W.PM.THH&P_ITS ---
Telehealth- H&P: HPI History of Present Illness Date Seen: 02/01/25 Chief complaint: confusion Narrative: Danielito Valenzuela was seen as an interactive telehealth visit. Nursing staff has assisted with interview and physical exam. Danielito Valenzuela is 74 years old male to female identifies as Ree, with past medical history significant for HTN, gout, history of alcohol dependence, Wernicke's Korsakoff syndrome, cognitive impairment/dementia, who lives in independent living is presenting to [place] emergency department with weakness and recurrent falls. Patient has been seen in the emergency department 3 times within 15 hours due to recurrent falls and confusions. However during each ER visit, patient had unremarkable vital signs, unremarkable lab work. CT head was negative. Patient was felt to be at the baseline and was discharged back to previous living arrangement. This time patient is coming in after discharge from the hospital. Patient fell outside apartment living and called EMS and came back to the emergency department. Patient is denying any new pain. Vitals remain unremarkable. Patient is oriented to date of , place but not her exact address, and date of . Patient is not oriented to today's date. Patient is also able to tell me she takes medications for blood pressure however unable to recall names. Patient does have significant history of alcohol dependence and currently reporting drinking 3-4 drinks a few times a week. Last drink was 2 to 3 days ago. Review of system was negative for any chest pain, shortness of breath, cough, abdominal pain, nausea vomiting, diarrhea. Patient reports last bowel movement was 3 hours ago. No headache, dizziness. Lab work from the previous admission showed WBC 6.4, hemoglobin 11.8, hematocrit 34.5, platelets 206. Sodium 133, potassium 3.5, chloride 103, CO2 25, BUN 10, creatinine 1.2, glucose 103. Magnesium 2.0, T. bili 0.7, AST 24, ALT 11, ammonia level less than 8.7, total protein 7.2, albumin 4.1, TSH 3.15. UA negative for infection. WBC 0-2. Blood alcohol level less than 0.01. Viral panel negative for SARS-CoV-2, influenza A, B, RSV. CT head showed moderate to severe changes consistent with cortical atrophy and white matter disease. Multifocal encephalomalacia related to old bilateral infarcts is unchanged. Hospitalist service was asked admit the patient for dementia, failure to cope. 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 ?I69.319 - Unspecified symptoms and signs involving cognitive functions following cerebral infarction (ICD-10) Left rib fracture ?S22.32XA - Fracture of one rib, left side, initial encounter for closed fracture (ICD-10) Right humeral fracture ?S42.301A - Unspecified fracture of shaft of humerus, right arm, initial encounter for closed fracture (ICD-10) Adult failure to thrive (~03/2022) ?R62.7 - Adult failure to thrive (ICD-10) Memory deficit ?R41.3 - Other amnesia (ICD-10) POLST (Physician Orders for Life-Sustaining Treatment) ?Z78.9 - Other specified health status (ICD-10) Recurrent falls while walking (04/2021) ?R29.6 - Repeated falls (ICD-10) Gout (2017) ?M10.9 - Gout, unspecified (ICD-10) Postoperative intra-abdominal abscess (2017) ?T81.43XA - Infection following a procedure, organ and space surgical site, initial encounter (ICD-10) Normal stress echocardiography (~04/2017) Health care directive on file (05/31/21) ?Z78.9 - Other specified health status (ICD-10) Durable power of privacy attorney in chart (05/31/21) Duodenal ulcer with perforation (07/2016) ?K26.5 - Chronic or unspecified duodenal ulcer with perforation (ICD-10) Closed fracture of proximal end of right humerus ?S42.201A - Unspecified fracture of upper end of right humerus, initial encounter for closed fracture (ICD-10) Cellulitis of right hand excluding fingers and thumb (~03/2022) ?L03.113 - Cellulitis of right upper limb (ICD-10) Anemia ?D64.9 - Anemia, unspecified (ICD-10) Abnormal ultrasound of abdomen (~04/2021) ?R93.5 - Abnormal findings on diagnostic imaging of other abdominal regions, including retroperitoneum (ICD-10) Mild protein-calorie malnutrition ?E44.1 - Mild protein-calorie malnutrition (ICD-10) Wernicke-Korsakoff syndrome (~03/2022) ?F04 - Amnestic disorder due to known physiological condition (ICD-10) Poor dentition ?K08.9 - Disorder of teeth and supporting structures, unspecified (ICD-10) Alcoholism ?F10.20 - Alcohol dependence, uncomplicated (ICD-10) Cognitive decline ?R41.89 - Other symptoms and signs involving cognitive functions and awareness (ICD-10) Unstable gait ?R26.81 - Unsteadiness on feet (ICD-10) History of DVT of lower extremity (~04/2021) ?Z86.718 - Personal history of other venous thrombosis and embolism (ICD-10) Personal history of peptic ulcer disease ?Z87.11 - Personal history of peptic ulcer disease (ICD-10) Polyarticular gout ?M10.9 - Gout, unspecified (ICD-10) GERD (gastroesophageal reflux disease) ?K21.9 - Gastro-esophageal reflux disease without esophagitis (ICD-10) Hypertension ?I10 - Essential (primary) hypertension (ICD-10) Surgical History History of anterior cruciate ligament surgery (2005) ?Z98.890 - Other specified postprocedural states (ICD-10) History of ventral hernia repair (2017) ?Z98.890 - Other specified postprocedural states (ICD-10) ?Z87.19 - Personal history of other diseases of the digestive system (ICD-10) Status post left knee replacement (04/2019) ?Z96.652 - Presence of left artificial knee joint (ICD-10) History of total knee replacement (07/2016) ?Z96.659 - Presence of unspecified artificial knee joint (ICD-10) History of abdominal surgery (07/2016) ?Z98.890 - Other specified postprocedural states (ICD-10) Family History Father No problems noted. 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 . 3 adult kids. Lives in [facility] independent living, non does not drive Non smoker, quit age 31 10 pack years prior 4 /drinks a week, chronic alcoholism Designates sonDanielito, and daughter, Britta, as his power of privacy attorney for health should that be required. What is your current living situation?: I presently have a place to live Problems where you live: pests, such as bugs, ants, or mice Problems where you live details: spring bugs In the past 12 months, utilities in danger of being shut off: no In past 12 months, lack of transportation kept you from medical appts, meetings, work, or getting things needed for daily living: yes In the past 12 mos, have been you worried that your food would run out before you had money to buy more?: never true In the past 12 mos, the food you bought just didn't last and you didn't have money to buy more?: never true Highest level of school completed/degree received: some college, no degree Smoking Status: Former smoker What tobacco products do you use: cigarettes Years smoked: 0.5 Smoking quit date/years: >15 years ago and cigars Do you use any of these nicotine containing products: None Second hand tobacco smoke exposure: No How often do you have a drink containing alcohol: 4 or more times a week Alcohol type: beer How many standard drinks containing alcohol do you have on a typical day: 5 or 6 How often do you have six or more drinks on one occasion: Less than monthly AUDIT-C Alcohol total score: 7 Non-prescribed substance use: denies use Caffeine: Yes (pop) How often does anyone, including family, friends and others, physically hurt you : never How often does anyone, including family, friends and others, insult or talk down to you: never How often does anyone, including family, friends and others, threaten you with harm: never How often does anyone, including family, friends and others, scream or curse at you: sometimes service: Yes (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 in 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) Health Related Social Needs: Inadequate housing (Z59.1), transportation insecurity (Z59.82) and Other personal risk factors, not elsewhere classified (Z91.89) Meds Home Medications and Allergies Home Medications ?Medication ?Instructions ?Recorded ?Confirmed ?Type multivitamin with folic acid 400 1 tab PO DAILY #90 ta bs 08/14/22 09/20/24 Rx mcg tablet (Thera) amlodipine 10 mg tablet 10 mg PO HS #90 tabs 4 09/20/24 Rx esomeprazole magnesium 20 mg 20 mg PO DAILY #90 caps 0 02/11/24 09/20/24 Rx capsule,delayed release folic acid 1 mg tablet 1 mg PO DAILY #90 tabs 06/2909/20/24 Rx allopurinol 300 mg tablet 300 mg PO HS #90 tabs Rx thiamine HCl (vitamin B1) 100 mg 100 mg PO DAILY #90 t abs 11/09/24 Rx tablet (Vitamin B-1) Allergies Allergy/AdvReac Type Severity Reaction Status Date / Time indomethacin Allergy Verified 01/20/25 15:36 Exam Narrative Exam Narrative: Physical Exam GENERAL: ?vital signs reviewed, in no distress HEENT: pupils are equal round and reactive to light, extraocular movements are grossly within normal limits and oral mucosa is moist. NECK: Supple HEART: Regular rate and rhythm without any rubs, murmurs, or gallops. LUNGS: Clear to auscultation bilaterally with good air movement throughout ABDOMEN: Observation from nurse assisted exam, abdomen appears soft, nontender, and nondistended with Positive bowel sounds noted. EXTREMITIES: Unable to lift right arm due to decreased ROM from prev shoulder injury. Neuro: PERLLA, EOMI, No nystagmus, tongue midline, no facial droop or slurred speech. no facial asymmetry. Shoulder shrug intact. 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 SKIN:? Observed warm and dry with color normal Const Vital Signs, click to edit/add: Vital Signs - 24 hr 02/01/25 02:18 Temperature 97 F L Pulse Rate [Left Pulse Oximeter] 74 Respiratory Rate 16 Blood Pressure [Right Upper Arm] 124/74 Pulse Oximetry 98 Oxygen Delivery Method Room Air Assessment and Plan Assessment and plan (1) Failure to thrive: Status: Acute (2) Dementia: Status: Acute (3) Fall: Status: Acute Plan Patient presented to emergency department 3 times within 15 hours for confusion and recurrent falls. Patient was found to have negative work up. Patient has a history of dementia and Warnicke Korsakoff syndrome with continuous use of alcohol which may be contributing to the current presentation. Plan - currently vitals, labs within normal limits - monitor for any alcohol withdrawal symptoms. - observe in hospital - PT/OT and psychotherapist social worker consult in am. - repeat blood work in am. # HTN - resume home amlodipine # DVT proph - [facility] Telehealth: Statement Statement Telehealth Visit: Today's History and Physical is provided via interactive telehealth by Malia Page MD.? Patient is located at [facility].? Provider is located at [employer] [facility].? Nursing staff assisted with the patient's exam. The visit being done today meets criteria for a telehealth visit and the patient or patient?s parent/guardian is aware the visit is a telehealth visit. Camera Start Time: 04:48 Camera End Time: 05:02
[2025-02-01] MEDS: THIAMINE 100 MG TABLET PO (06:07)
[2025-02-01 06:16] LABS: Hematocrit 35.6 % (37.0-53.0); Hemoglobin* 12.4 gm/dL (13.5-17.5); Immature Granulocytes Abs Auto 0.01 K/uL (0.00-0.30); Immature Granulocytes Pct Auto 0.1 %; Mean Corpuscular HGB Conc 35 gm/dL (32-36); Mean Corpuscular Hemoglobin 34 pg (26-34); Mean Corpuscular Volume 97 fL (80-100); RDW Coefficient of Variation % 14.1 % (11.5-15.5); Red Blood Count 3.68 m/uL (4.30-5.90); White Blood Count* 7.72 K/uL (4.50-11.00)
[2025-02-01 06:22] LABS: Lymphocytes Absolute Auto 1.10 K/uL (0.90-2.90); Slide Review Reflex No
[2025-02-01 06:33] LABS: Chloride* 103 mmol/L (96-114); Sodium* 135 mmol/L (135-149)
[2025-02-01 06:34] LABS: Potassium* 3.4 mmol/L (3.6-5.1)
[2025-02-01 06:37] LABS: Anion Gap 7 mEq/L (7-15); Blood Urea Nitrogen* 10 mg/dL (7-30); Calcium* 9.4 mg/dL (8.4-10.6); Carbon Dioxide* 25 mmol/L (20-32); Creatinine* 1.2 mg/dL (0.5-1.5); Est. Creatinine Clearance* 56.61; Estimated Glomerular Filt Rate 64 ml/min; Glucose* 100 mg/dL (60-115)
[2025-02-01] MEDS: FOLIC ACID 1 MG TABLET PO (08:40)
[2025-02-01] MEDS: MULTIVITAMIN/MINERALS 1 TABLET 1 TAB PO (08:40)
[2025-02-01] MEDS: OMEPRAZOLE 20 MG CAPSULE DR PO (08:40)
--- NOTE | 2025-02-01 11:25 | P.IMPN_ITS ---
Assessment and Plan Assessment and plan (1) Metabolic encephalopathy: Problem comment: Morning of 02/01 alert and oriented to person place, month. Per PT, unable to recognize a chair, a door, or a sink. Otherwise ambulating adequately with a walker Labs, including UA, unremarkable for infectious processes. UC showing mixed rosi, contaminates CT head 01/20 and 01/31 without acute abnormalities Vitally stable, afebrile Suspected in setting of chronic alcohol use, Wernicke's Initiate IV thiamine t.i.d. x3 days, continue MVI and folic acid Continue to monitor in hospital setting Status: Acute (2) Alcoholism: Problem comment: Reports anywhere from 2-10+ beers daily, Budweiser Unknown date of last drink. blood alcohol on 01/31 <0.01 CIWA protocol, score was 5 this morning Status: Chronic (3) Wernicke-Korsakoff syndrome: Problem comment: Patient has chronic cerebrovascular changes, chronic alcoholism acute mental status changes Status: Acute (4) Failure to thrive: Problem comment: living independently at [facility]. has a son involved in cares. patient has refused higher level of cares in the past social sciences research scientist for discharge planning / placement needs Status: Acute (5) Dementia: Problem comment: chronic per EMR acute altered mental status as above Status: Acute (6) Fall: Problem comment: acute on chronic recurrent. History of balance problems. currently reporting no pain or injuries related to falls over the last 24 hours PT/OT Status: Acute Plan changed to inpatient for acute mental status changes, metabolic encephalopathy. Continue CIWA. Continue PT/ OT. Page Designer to assist with discharge planning Total Time Spent Total Time Spent: Today I spent 60 minutes seeing the patient, reviewing Expanse and EPIC notes/diagnostics, discussing the care plan with our care time that includes social work, PT/OT, pharmacy, RT, retirement and documenting my impressions and plan in the medical record. Subjective Date Seen: 02/01/25 Interval history: patient is seen sitting up in a chair this morning. Having just gotten out of bed. Alert, oriented to person, place, month. Believes it is 2006. When asked how much she drinks, she reports 2, 3, 4 beers daily, preference is Budweiser. She tells another provider she drinks 10 beers daily. Currently, denies headache or dizziness. Denies chest pain or shortness of breath. Denies nausea, vomiting. Remains afebrile. CIWA score this morning is 5. physical therapy worked with patient late morning. reports she walks the hallways with a walker. However, in the room, she was unable to identify a door, a chair, or the sink. Unable to find these things in order to complete ADLs. Was able to see 4 fingers held up in front of her face and identify these however. Exam Narrative: Exam Narrative: PHYSICAL EXAM General: Pleasant, conversant, Disheveled, otherwiseNAD HEENT: Normocephalic, atraumatic, sclera white, EOMI, oral mucosa moist Cardiovascular: RRR, S1S2. No pitting edema Pulmonary: CTA bilaterally without rhonchi, rales, expiratory wheezes. No dyspnea on room air Abdominal: Soft, nondistended, NTTP Neurological: Alert, some confusion, cranial nerves intact, no focal findings Extremities: No gross joint deformity or swelling. AROMI. Neurovascularly intact Skin: Warm, dry. Const: Vital Signs, click to edit/add: Vital Signs - 24 hr 02/01/25 02:18 02/01/25 04:30 02/01/25 05:19 Temperature 97 F L 96.6 F L 96.6 F L Pulse Rate Pulse Rate [Left P ulse Oximeter] 74 Pulse Rate [Pulse Oximeter] 83 83 Respiratory Rate 16 16 16 Blood Pressure [Ri ght Arm] 146/98 H 146/98 H Blood Pressure [Ri ght Upper Arm] 124/74 Pulse Oximetry 98 97 97 Oxygen Delivery Me thod Room Air Room Air Room Air 02/01/25 06:22 02/01/25 07:51 02/01/25 07:56 Temperature 97.7 F 97.7 F Pulse Rate 65 Pulse Rate [Left P ulse Oximeter] Pulse Rate [Pulse Oximeter] 81 81 Respiratory Rate 18 18 Blood Pressure [Ri ght Arm] 148/89 H 148/89 H Blood Pressure [Ri ght Upper Arm] Pulse Oximetry 97 97 Oxygen Delivery Me thod Room Air Room Air 02/01/25 08:00 02/01/25 09:42 Temperature Pulse Rate 96 Pulse Rate [Left P ulse Oximeter] Pulse Rate [Pulse Oximeter] Respiratory Rate 18 Blood Pressure [Ri ght Arm] Blood Pressure [Ri ght Upper Arm] Pulse Oximetry Oxygen Delivery Me thod Labs Labs: Laboratory Results - last 24 hr 02/01/25 05:57 WBC 7.72 RBC 3.68 L Hgb 12.4 L Hct 35.6 L MCV 97 MCH 34 MCHC 35 RDW Coeff of Delvis 14.1 Plt Count 199 Neut % (Auto) 78.8 H Lymph % (Auto) 14.1 L Harmon % (Auto) 6.2 Eos % (Auto) 0.4 Baso % (Auto) 0.4 Neut # (Auto) 6.10 Lymph # (Auto) 1.10 Harmon # (Auto) 0.50 Eos # (Auto) 0.03 Baso # (Auto) 0.03 Abs Immat Gran (auto) 0.01 Imm/Tot Granulo (auto) 0.1 Sodium 135 Potassium 3.4 L Chloride 103 Carbon Dioxide 25 Anion Gap 7 BUN 10 Creatinine 1.2 Estimated Creat Clear 56.61 Estimated GFR 64 Glucose 100 Calcium 9.4
[2025-02-01] MEDS: THIAMINE 250 MG in 0.9 % SODIUM CHLORIDE 100 ml 100 ML 102.5 MG IVPB (14:18)
--- NOTE | 2025-02-01 16:01 | PC.SOCIAL ---
Discharge planning: OPAL met with patient to see how she felt things were going at home. Patient reports that things have been going well, but had those few falls yesterday. OPAL inquired if she could talk with patient's son and patient was agreeable. OPAL spoke with patient's son who states that patient receives nursing services a couple of times a week, but didn't know who these were through. Son states that he will be at the hospital around 330-400 and can meet with OPAL then. OPAL spoke with patient who states that she receives nursing and home care services twice a week, but didn't know the agency. Patient reports that all of these services are paid for by the [facility]. OPAL asked for consent to call the [facility] to determine who their case packer is and patient agreed. OPAL shared that she is working to find a safe discharge plan for patient. OPAL called the [facility] and found that patient's case packer is Lizzie - [phone]. OPAL called Lizzie and left requesting a call back. OPAL received call from Lizzie, case packer. Lizzie states that she has been working with patient for 1.5 years through an Alternative Care Waiver. OPAL updated Lizzie on the last 24 hours of ED visits and hospitalizations. Lizzie states that this comes as a shock as she hasn't heard any concerns from the nurse or home health aide and she met with patient on 12/20 and had no concerns. Lizzie states that patient has an RN come out 1x a week to assist with medication set-up, a home health aide that comes out 2x a week for bathing, and a homemaker, however, the homemaker has had difficulty getting in after coming back from a leave. All of these services are through [facility]. Lizzie also states that she orders incontinence products for the patient, and the only concern she has heard is that sometimes patient's apartment smells due to this which is why she is trying to get the homemaker back in place. Lizzie had no other concerns. OPAL to keep Lizzie updates. OPAL met with patient, patient's son, and patient's [id number]. OPAL informed patient and family of the recommendations for a safe discharge plan, which at this time are 24/7 supervision at home or moving into a facility with a higher level of care. Patient was unsure of this, but family feels like it is time. OPAL provided a list of Assisted Living Facilities and SW's phone number. Family would like for SW to contact [facility] to determine if they have any openings. SW to contact them on 02/01. SW to continue to assist with safe discharge plan.
--- NOTE | 2025-02-01 19:01 | PC.NURSE ---
End of Shift ([id number]): Patient pleasant and cooperative, A&O to self and occasionally place. VSS, afebrile. SpO2 maintained above 90% on RA. Tolerating regular diet, refused lunch. SBA with walker and gait belt to BR. ?
[2025-02-01] MEDS: THIAMINE 250 MG in 0.9 % SODIUM CHLORIDE 100 ml 100 ML 102 MG IVPB (20:39)
[2025-02-01] MEDS: SODIUM CHLORIDE 0.9 % (FLUSH) 10 ML SYRINGE 5 ML IVF (20:40)
[2025-02-01] MEDS: AMLODIPINE 10 MG TABLET PO (20:44)
[2025-02-01] MEDS: ENOXAPARIN 40 MG/0.4 ML INJ SUBCUT (20:44)
--- NOTE | 2025-02-01 21:41 | PC.NURSE ---
Patient goes by Ree, is up with one assist, gait belt, and walker. Patient Left forearm PIV patent. Patient CIWA completed as ordered. She denies any visual, tactile, and auditory hallucinations and behavior appropriate.
[2025-02-02] VITALS (15 sets, daily range): BP systolic 102–148; BP diastolic 62–95; PULSE 64–82; RESP 16–18; TEMP 35.8–36.6; O2SAT 94–99; BMI 24.5
[2025-02-02] MEDS: ACETAMINOPHEN 325 MG TABLET 650 MG PO ×3 (00:13→15:55)
--- NOTE | 2025-02-02 05:42 | PC.NURSE ---
End of shift note [id number]. Pt alert and oriented to self only. Afebrile. Pt reports 8/10 generalized ?stiffness? pain, managed with PRN medication.?Pt denies chest pain, SOB, and N/V. Pt is up SBA with walker and gait belt, voiding and tolerating a regular diet. ?Pt CIWAs sores throughout shift have been 4 due to pt not knowing place or date but sore may be inaccurate due to pt gordon of dementia.
[2025-02-02] MEDS: MULTIVITAMIN/MINERALS 1 TABLET 1 TAB PO (09:15)
[2025-02-02] MEDS: FOLIC ACID 1 MG TABLET PO (09:15)
[2025-02-02] MEDS: OMEPRAZOLE 20 MG CAPSULE DR PO (09:15)
[2025-02-02] MEDS: SODIUM CHLORIDE 0.9 % (FLUSH) 10 ML SYRINGE 5 ML IVF ×2 (09:16→21:27)
[2025-02-02] MEDS: THIAMINE 250 MG in 0.9 % SODIUM CHLORIDE 100 ml 100 ML 102.5 MG IVPB ×2 (09:16→14:48)
--- NOTE | 2025-02-02 11:52 | PM.IMPN1 ---
Assessment and Plan Assessment and plan (1) Metabolic encephalopathy: Problem comment: Morning of 02/01 alert and oriented to person place, month. Per PT, unable to recognize a chair, a door, or a sink. Otherwise ambulating adequately with a walker Labs, including UA, unremarkable for infectious processes. UC showing mixed rosi, contaminates CT head 01/20 and 01/31 without acute abnormalities Vitally stable, afebrile Suspected in setting of chronic alcohol use, Wernicke's Initiate IV thiamine t.i.d. x3 days, continue MVI and folic acid Continue to monitor in hospital setting 02/02 remains stable, no acute worsening Status: Acute (2) Alcoholism: Problem comment: Reports anywhere from 2-10+ beers daily, Budweiser Unknown date of last drink. blood alcohol on 01/31 <0.01 CIWA protocol, score 4 this morning Status: Chronic (3) Wernicke-Korsakoff syndrome: Problem comment: Patient has chronic cerebrovascular changes, chronic alcoholism Acute mental status changes Status: Acute (4) Failure to thrive: Problem comment: living independently at [facility]. has a son involved in cares. patient has refused higher level of cares in the past outreach and education social worker for discharge planning / placement needs - currently assessing for higher level of cares at [facility], patient in agreement Status: Acute (5) Dementia: Problem comment: chronic per EMR acute altered mental status as above Status: Acute (6) Fall: Problem comment: acute on chronic recurrent. History of balance problems. currently reporting no pain or injuries related to falls over the last 24 hours PT/OT Status: Acute Plan Awaiting placement Total Time Spent Total Time Spent: Today I spent 45 minutes seeing the patient, reviewing Expanse and EPIC notes/diagnostics, discussing the care plan with our care time that includes social work, PT/OT, pharmacy, RT, snf and documenting my impressions and plan in the medical record. Subjective Date Seen: 02/02/25 Interval history: Patient is seen lying bed this morning. Awake alert but remains confused. Oriented to self and date only this morning. Unlike yesterday when unable to identify a door or a chair with physical therapy, is able to do so today. Denies headache or dizziness currently. Denies chest pain or shortness of breath. Tolerating orals without nausea vomiting. When asked if he is in any pain, reports ?no, I am feeling pretty good right now. ? director of food and nutrition services discussed TCU placement with patient and his family yesterday. As of this morning, patient remains in agreement for placement. Exam Narrative: Exam Narrative: PHYSICAL EXAM General: Pleasant, conversant, NAD Cardiovascular: RRR, S1S2. No pitting edema Pulmonary: CTA bilaterally without rhonchi, rales, expiratory wheezes. No dyspnea on room air Neurological: Alert, confusion oriented only to self, cranial nerves intact, no focal findings Extremities: No gross joint deformity or swelling. AROMI. Neurovascularly intact Skin: Warm, dry. Const: Vital Signs, click to edit/add: Vital Signs - 24 hr 02/01/25 13:00 02/01/25 15:22 02/01/25 15:58 Temperature 97.6 F 97.3 F L Pulse Rate 77 Pulse Rate [Pulse Oximeter] 78 79 Respiratory Rate 18 18 Blood Pressure [Ri ght Arm] 106/85 126/85 Pulse Oximetry 98 98 [facility] Room Air 02/01/25 15:59 02/01/25 19:00 02/01/25 19:23 Temperature 96.7 F L 96.7 F L Pulse Rate Pulse Rate [Pulse Oximeter] 79 80 80 Respiratory Rate 18 14 16 Blood Pressure [Ri ght Arm] 141/95 H 141/95 H Pulse Oximetry 97 97 [facility] Room Air 02/02/25 00:05 02/02/25 00:16 02/02/25 03:20 Temperature 97.8 F 97.6 F Pulse Rate 82 Pulse Rate [Pulse Oximeter] 79 67 Respiratory Rate 16 16 Blood Pressure [Ri ght Arm] 148/95 H 120/72 Pulse Oximetry 94 97 [facility] Air Room Air 02/02/25 07:00 02/02/25 07:15 02/02/25 07:40 Temperature 97.0 F L Pulse Rate 75 Pulse Rate [Pulse Oximeter] 71 71 Respiratory Rate 16 16 Blood Pressure [Ri ght Arm] 111/81 Pulse Oximetry 94 [facility] Room Air 02/02/25 08:00 02/02/25 11:00 02/02/25 11:26 Temperature 97.0 F L 96.5 F L 96.5 F L Pulse Rate Pulse Rate [Pulse Oximeter] 71 71 71 Respiratory Rate 16 16 16 Blood Pressure [Ri ght Arm] 111/81 114/69 114/69 Pulse Oximetry 94 97 97 Oxygen Delivery Me thod Room Air Room Air Room Air
--- NOTE | 2025-02-02 15:23 | PC.SOCIAL ---
Addendum entered and electronically signed by Krys Heredia LCSW 02/02/25 15:54: SW spoke with patient's geriatric case manager Lizzie and updated her that now we are looking into short-term rehab for patient and discussed that the family should complete a MA application. SW asked if Lizzie knew about Rep Payee. Lizzie states that she does know that patient has one but hasn't been in contact with them as they are hard to contact. Lizzie states that AC waiver doesn't cover any SNF or KEIRY and patient needs to be on MA. SW to keep Lizzie updated with plan. Original Note: Discharge planning: SW met with patient to discuss recommendation of short-term rehab. Patient was apprehensive but agreeable. SW and patient reviewed list of [facility] SNF's. Patient states SW can send referral to [facility]. SW states she can see if [facility] is in network, as sometimes they can be with this insurance and patient was also agreeable to that. SW asked if patient could review the list more and find one more facility that SW can send to. Patient had concerns about transportation and SW states she can call patient's son to discuss this and talk about other facilities and patient was in agreement. SW spoke with patient's son who states he would drive patient to a facility when needed. Patient's son also thought that a referral should be sent to [facility]. SW spoke with patient who was in agreement for a referral being sent to [facility]. OPAL secure emailed referrals to [place], with [facility] and [facility], and Leyla at [facility]. Tex had follow-up questions and asked that SW inform patient of copay of 209.50 after 20 days, and that if for some reason patient couldn't discharge back home that it would be private pay of $500. OPAL met with patient, patient's son, and [id number] to inform them of the private pay cost and the private pay cost. No one had any objections to that at this time. OPAL inquired about financials and rep payee. Patient's [id number] states that someone manages the money, but they are unsure who and they aren't sure what the financial situation is like. OPAL reviewed chart and found that the Rep Payee is through [employer] and provided this information to patient and family. SW discussed starting a MA application as patient will need this to move into any assisted living or long-term care facility. SW updated Tex that family did not express concerns at this time with the cost.
--- NOTE | 2025-02-02 16:15 | PC.NURSE ---
Update-- Nurse to nurse report given to Alondra at [facility] for assessment and all questions were answered. She wanted to be sure that patient/ patient's family is aware that starting at day 21 (per her statement) there will be a $203.00 per day copay. She also stated that she will update social work tomorrow morning regarding possible acceptance.
--- NOTE | 2025-02-02 18:32 | PC.NURSE ---
End of shift-- Very pleasant and cooperative patient. Alert and oriented to person and occasionally place as per baseline. VSS, though briefly hypotensive per PT report, and pt is afebrile. SPO2 maintained >90% on RA. She denied any pain today, but did appear to wince with position changes and mentioned back feeling stiff. Pt was given Tylenol and stated improvement. LS CTA. Telemetry showed NSR. She denied nausea and ate 75% of 2 meals today without difficulty. Moderate, soft, partially incontinent BM this afternoon. Pt was up to the BR and chair with SBA, belt and walker and tolerated it well. YULIANA Saldivar joining in patient's care this afternoon.
[2025-02-02] MEDS: ENOXAPARIN 40 MG/0.4 ML INJ SUBCUT (21:25)
[2025-02-02] MEDS: THIAMINE 100 MG TABLET 200 MG PO (22:53)
--- NOTE | 2025-02-02 23:54 | PC.NURSE ---
[id number]: Pt. is pleasant. Alert, only oriented to self. VSS. Pt. CIWA q4hr. Score < 5. Pt. SBA with gaitbelt and walker. Thiamine now PO, as IV has been d/c per MD. See EMAR.
[2025-02-03] VITALS (7 sets, daily range): BP systolic 106–160; BP diastolic 69–97; PULSE 70–92; RESP 14–18; TEMP 36.2–36.4; O2SAT 95–98
[2025-02-03 06:17] LABS: Chloride* 106 mmol/L (96-114); Hematocrit 32.4 % (37.0-53.0); Hemoglobin* 11.1 gm/dL (13.5-17.5); Mean Corpuscular HGB Conc 34 gm/dL (32-36); Mean Corpuscular Hemoglobin 34 pg (26-34); Mean Corpuscular Volume 98 fL (80-100); Red Blood Count 3.31 m/uL (4.30-5.90); White Blood Count* 6.50 K/uL (4.50-11.00)
[2025-02-03 06:18] LABS: Potassium* 3.2 mmol/L (3.6-5.1); Sodium* 134 mmol/L (135-149)
[2025-02-03 06:21] LABS: Anion Gap 3 mEq/L (7-15); Blood Urea Nitrogen* 20 mg/dL (7-30); Calcium* 8.8 mg/dL (8.4-10.6); Carbon Dioxide* 25 mmol/L (20-32); Creatinine* 1.3 mg/dL (0.5-1.5); Est. Creatinine Clearance* 52.25; Estimated Glomerular Filt Rate 58 ml/min; Glucose* 100 mg/dL (60-115)
[2025-02-03 06:22] LABS: Slide Review Reflex No
--- NOTE | 2025-02-03 06:47 | PC.NURSE ---
[id number]: Pt pleasant, alert and oriented to self. Baseline dementia. VSS. CIWAs q4h, < 5. Denies pain. 1a with walker and gait belt, tolerated well. Pt in bed, appears to be resting, call light within reach.?
--- NOTE | 2025-02-03 09:10 | P.DS_ITS ---
DS: Providers Provider Date Seen: 02/03/25 Date of admission: 02/01/25 11:30 Primary care physician: Darcy Allen MD Admitting Clinician: Malia Page MD Consults: 02/01/25 04:47 Consult to Community Service Patrol Officer [CONS] Routine Comment: Reason for Consult:: Social Service Consult 02/01/25 05:16 Consult to Physical Therapy [CONS] Routine Comment: Reason(s) for PT Consult:: Balance Assessment Any Restrictions?:: No Restrictions Consult to Community Service Patrol Officer [CONS] Routine Comment: Reason for Consult:: Possible SNF placement 02/01/25 05:18 Consult to Occupational Therapy [CONS] Routine Comment: Reason(s) for OT Consult:: Evaluate and Treat Any Restrictions?:: No Restrictions Attending Physician on discharge: JOSE D Irizarry, JOHNC [facility] Hospitalist Date of Discharge: 02/03/25 DS: Diagnosis Discharge Diagnosis (1) Metabolic encephalopathy: Status: Acute Problem details: Morning of 02/01 alert and oriented to person place, month. Per PT, unable to recognize a chair, a door, or a sink. Otherwise ambulating adequately with a walker Labs, including UA, unremarkable for infectious processes. UC showing mixed rosi, contaminates CT head 01/20 and 01/31 without acute abnormalities Vitally stable, afebrile Suspected in setting of chronic alcohol use, Wernicke's Initiate IV thiamine t.i.d. x3 days, continue MVI and folic acid Continue to monitor in hospital setting 02/02 remains stable, no acute worsening Acute on chronic, recurrent, in setting of chronic alcohol use. On day of discharge, continues to improve. Oriented to self, place, date (still not year), and identifying surroundings without difficulty. (2) Alcoholism: Status: Chronic Problem details: Reports anywhere from 2-10+ beers daily, [employer] Unknown date of last drink. blood alcohol on 01/31 <0.01 CIWA protocol, score 4 this morning Prior to discharge, no significant withdrawals. Did not require anxiolytics. Should continue on home medications including thiamine, MVI, folic acid. (3) Wernicke-Korsakoff syndrome: Status: Acute Problem details: Patient has chronic cerebrovascular changes, chronic alcoholism Acute mental status changes Given history of chronic alcohol use, will likely continue to have acute exacerbations. Improving prior to discharge. Continuing home medications. (4) Failure to thrive: Status: Acute Problem details: living independently at [facility]. has a son involved in cares. patient has refused higher level of cares in the past social services assistant for discharge planning / placement needs - currently assessing for higher level of cares at [facility], patient in agreement Patient will discharge to TCU. Would benefit from long-term care given cognitive impairment and recurrent falls. (5) Dementia: Status: Acute Problem details: chronic per EMR acute altered mental status as above (6) Fall: Status: Acute Problem details: acute on chronic recurrent. History of balance problems. currently reporting no pain or injuries related to falls over the last 24 hours PT/OT (7) Hypokalemia: Status: Acute Problem details: Potassium 3.2, replace with oral supplement DS: Summary Hospital Course Hospital Course: Course of care and details as noted above. Admitted for acute on chronic, recurrent falls with acute encephalopathy in setting of chronic alcohol use, Wernicke-Korsakoff syndrome. Continued to improve over course of hospital stay, medically stable for discharge and transfer to TCU. Would recommend placement in long-term care. Remainder of chronic medical comorbidities were monitored and managed with home medications. Status at Discharge Functional status at discharge: uses cane/walker Overall status at discharge: patient is back to baseline Time Spent with Patient Time attestation: Total time spent providing and/or coordinating discharge services: Time spent: Greater than 30 minutes Exam Narrative: Exam Narrative: PHYSICAL EXAM General: Pleasant, conversant, NAD Cardiovascular: RRR Pulmonary: No dyspnea Neurological: Alert, answering questions appropriately, not entirely oriented but at baseline Skin: Warm, dry. Const: Vital Signs, click to edit/add: Vital Signs - 24 hr 02/02/25 11:00 02/02/25 11:26 02/02/25 14:51 Temperature 96.5 F L 96.5 F L 97.3 F L Pulse Rate Pulse Rate [Pulse Oximeter] 71 71 67 Respiratory Rate 16 16 16 Blood Pressure [Ri ght Arm] 114/69 114/69 102/62 Pulse Oximetry 97 97 96 Oxygen Delivery Me thod Room Air Room Air Room Air 02/02/25 15:00 02/02/25 15:00 02/02/25 15:12 Temperature 97 F L Pulse Rate 64 Pulse Rate [Pulse Oximeter] 70 70 Respiratory Rate 16 16 Blood Pressure [Ri ght Arm] 125/81 Pulse Oximetry 99 Oxygen Delivery Me thod Room Air 02/02/25 21:10 02/02/25 21:18 02/02/25 23:00 Temperature 97 F L 97 F L Pulse Rate Pulse Rate [Pulse Oximeter] 67 67 70 Respiratory Rate 16 16 18 Blood Pressure [Ri ght Arm] 117/80 117/80 Pulse Oximetry 97 97 Oxygen Delivery Me thod Room Air Room Air 02/03/25 00:00 02/03/25 03:00 02/03/25 04:00 Temperature 97.6 F 97.6 F 97.6 F Pulse Rate Pulse Rate [Pulse Oximeter] 70 74 74 Respiratory Rate 18 16 16 Blood Pressure [Ri ght Arm] 122/76 160/94 H 160/94 H Pulse Oximetry 96 95 95 Oxygen Delivery Me thod Room Air Room Air Room Air 02/03/25 07:00 02/03/25 08:00 02/03/25 09:07 Temperature 97.1 F L 97.1 F L Pulse Rate Pulse Rate [Pulse Oximeter] 76 76 92 Respiratory Rate 14 14 Blood Pressure [Ri ght Arm] 144/97 H 144/97 H 108/69 Pulse Oximetry 98 95 98 Oxygen Delivery Me thod Room Air Room Air Room Air DS: Data Data Completed and Pending Labs on day of discharge: Labs from last 24 hours 02/03/25 05:41 WBC 6.50 RBC 3.31 L Hgb 11.1 L Hct 32.4 L MCV 98 MCH 34 MCHC 34 Plt Count 203 Sodium 134 L Potassium 3.2 L Chloride 106 Carbon Dioxide 25 Anion Gap 3 L BUN 20 Creatinine 1.3 Estimated Creat Clear 52.25 Estimated GFR 58 Glucose [address] scan - head: Attestation: I have reviewed the pertinent imaging results. Radiologist's impression: The brain shows no sign of mass lesion, mass effect, hemorrhage, or edema. There are involutional changes. There is moderate to severe cortical atrophy and there is moderate to severe white matter disease. There is no hydrocephalus. There are areas of encephalomalacia unchanged consistent with remote infarcts. This includes right frontal lobe and bilateral occipital lobes. The visualized portions of the orbits are normal in appearance. The osseous structures are normal in appearance with no sign of abnormality in the skull base or calvarium. There is no acute focal findings IMPRESSION: Moderate to severe involutional changes consistent with cortical atrophy and white matter disease. 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 This involves the right frontal lobe and both occipital lobes. No acute appearing finding. Discharge Plan Discharge Disposition: Xfer [facility] Date of Admission: 02/01/25 11:30 Attending Provider on Discharge: Ai Kang Primary Care Provider: Darcy Allen Condition: Stable Anticipated Discharge Date/Time: 02/03/25 10:51 Discharge Medications: Continued aspirin 325 mg tablet,delayed release (DR/EC) 650 mg PO BID PRN multivitamin with folic acid [Thera] 400 mcg tablet 1 tab PO DAILY Qty: 90 3RF amlodipine 10 mg tablet 10 mg PO HS Qty: 90 3RF esomeprazole magnesium 20 mg capsule,delayed release(DR/EC) 20 mg PO DAILY Qty: 90 3RF folic acid 1 mg tablet 1 mg PO DAILY Qty: 90 0RF allopurinol 300 mg tablet 300 mg PO HS Qty: 90 1RF thiamine HCl (vitamin B1) [Vitamin B-1] 100 mg tablet 100 mg PO DAILY Qty: 90 0RF Discharge Orders: Discharge Order (Routine); Ordered 02/03/25 Ordered By: Ai Kang Activity Level: Activity as Tolerated Discharge Diet: Regular Follow Up Appointments: Darcy Allen MD [Primary Care Provider, Family Practice] Referral Note: Post hospital follow up 5-7 days [facility] Instructions Admit to: SNF Discharge Potential: Good Length of Stay: <30 days Can use facility standing orders?: Yes Code Status: Full Code Rehab Potential: Good Therapy: Physical Therapy and Occupational Therapy Therapy Orders: Evaluate and Treat Oxygen: No Urinary Catheter: No Orders are good >30 days: No Signature: JOSE D Irizarry, PA-C [facility] Hospitalist
[2025-02-03] MEDS: THIAMINE 100 MG TABLET 200 MG PO (09:33)
[2025-02-03] MEDS: MULTIVITAMIN/MINERALS 1 TABLET 1 TAB PO (09:34)
[2025-02-03] MEDS: FOLIC ACID 1 MG TABLET PO (09:34)
[2025-02-03] MEDS: OMEPRAZOLE 20 MG CAPSULE DR PO (09:34)
[2025-02-03] MEDS: POTASSIUM CHLORIDE 10 MEQ CAPSULE ER 40 MEQ PO (09:37)
--- NOTE | 2025-02-03 11:39 | PC.SOCIAL ---
Addendum entered by ABRAN Masterson 02/03/25 12:39: Discharge planning: elementary school social worker also notified Marcy Zeb at [facility]. of the pt discharging to [facility] in [place] today for short-term rehab. Social work to follow-up as needed. Addendum entered by ABRAN Masterson 02/03/25 12:26: Discharge planning: elementary school social worker notified pt's bottle caser, Lizzie, at [facility] #[phone], and notified her of the pt's discharge to [facility] for short-term rehab today. Social work to follow-up as needed. Original Note: Discharge planning: Pt was accepted to [facility] for short-term rehab in a private room/private bathroom. Pt accepted the room. Pt's son, Danielito, will transport the pt at 11:30am. Pre-admission screening was completed and the confirmation number was secure emailed to Tex Douglas at [facility]. [id number]. Discharge orders were also secure emailed to Tex Douglas at [facility]. No other social work needs were noted at this time. Social work to follow-up as needed.
== END 2025-02-03 12:00 | DRG 896 ==
LOC: ED 04:18 → MEDSURG 04:19
PROVIDERS: Physician Assistant; Admitting Provider Internal Medicine; Emergency Provider Family Medicine; PCP Family Medicine; Visit Provider Internal Medicine
DX: F10.26 Alcohol dependence with alcohol-induced persisting amnestic disorder (principal); G93.41 Metabolic encephalopathy; Z59.10 Inadequate housing, unspecified; F03.90 Unspecified dementia, unspecified severity, without behavioral disturbance, psychotic disturbance, mood disturbance, and anxiety; I10 Essential (primary) hypertension; R26.89 Other abnormalities of gait and mobility; K21.9 Gastro-esophageal reflux disease without esophagitis; Z59.82 Transportation insecurity; M10.9 Gout, unspecified; Z91.81 History of falling; Z86.718 Personal history of other venous thrombosis and embolism; E87.6 Hypokalemia; R41.0 Disorientation, unspecified; R42 Dizziness and giddiness
CPT/HCPCS: 36415; 70450; 80048; 80053; 80076; 81001; 82077; 82140; 83735; 84443; 84484; 85025; 85027; 87086; 87631; 93005; 96374; 97110; 97116; 97161; 97165; 97530; 97535; 99283; 99284; 99285; A9153; A9270; G0378; J1650; J3411; J7050

== ENCOUNTER 2025-02-09 15:44 | Outpatient (CLI) | payer MEDICARE, SELFPAY | END 2025-02-09 15:45 | disposition home or self-care (01) | PROVIDERS: PCP Family Medicine; Visit Provider Family Medicine | DX: E87.1 Hypo-osmolality and hyponatremia (principal); E87.6 Hypokalemia; F10.20 Alcohol dependence, uncomplicated; I10 Essential (primary) hypertension; Z13.0 Encounter for screening for diseases of the blood and blood-forming organs and certain disorders involving the immune mechanism | CPT/HCPCS: 80053; 80061; 82728 ==

== ENCOUNTER 2025-04-20 16:25 | Outpatient (CLI) | payer MEDICARE, SELFPAY | END 2025-04-20 16:26 | disposition home or self-care (01) | LOC: AMB 04-25 16:29 | PROVIDERS: PCP Family Medicine; Visit Provider Family Medicine | DX: R07.89 Other chest pain (principal) | CPT/HCPCS: A0425; A0433 ==

== ENCOUNTER 2025-04-20 17:00 | Emergency (ER) | payer MEDICARE, SELFPAY ==
[2025-04-20] VITALS (29 sets, daily range): BP systolic 84–138; BP diastolic 60–101; PULSE 74–88; RESP 10–38; TEMP 36.4; O2SAT 92–99; BMI 24.4
--- OUTSIDE RECORDS SUMMARY | 2025-04-20 17:02 | XMS_ITS | Clinical Summary ---
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 Gender Identity Not on file Sexual Orientation [...] booster 03/16/2022 03/16/2012 COVID-19 vaccine series ( - season) 2025 05/22/2021 Influenza Vaccine (#1) 2025 04/20/2016, 2007 RSV vaccine for adults or (1 - 1-dose 75+ series) 2026 Hepatitis B series for 19+ Aged Out N o longer eligible based on patient's age to complete this topic Procedures Procedure Name Priority Date/Time Associated Diagnosis Comments CBC WITH AUTO DIFFERENTIAL Routine 02/09/2025 8:55 AM CDT Muscle weakness (generalized) Essential (primary) hypertension COMP METABOLIC PANEL Routine 02/09/2025 8:55 AM CDT Muscle weakness (generalized) Essential (primary) hypertension CBC WITH AUTO DIFFERENTIAL Routine 02/09/2025 8:55 AM CDT Muscle weakness (generalized) Essential (primary) hypertension LIPID PANEL W REFLEX MEASURED LDL Routine 03/21/2011 7:49 AM CDT Lipid screening from Last 3 Months or Most Recently Relevant to Health Maintenance Results * (ABNORMAL) CBC WITH AUTO DIFFERENTIAL (02/09/2025 8:55 AM CDT) WHITE BLOOD COUNT 7.2 4.5 - 11.0 thou/cu mm 02/09/2025 10:40 AM [facility] RED BLOOD COUNT 3.74(L) 4.30 - 5.90 mil/cu mm 02/09/2025 10:40 AM [facility] HEMOGLOBIN 12.4(L) 13.5 - 17.5 g/dL 02/09/2025 10:40 AM [facility] HEMATOCRIT 36.7(L) 37.0 - 53.0 % 02/09/2025 10:40 AM [facility] MCV 98 80 - 100 fL 02/09/2025 10:40 AM [facility] MCH 33.2 26.0 - 34.0 pg 02/09/2025 10:40 AM [facility] MCHC 33.8 32.0 - 36.0 g/dL 02/09/2025 10:40 AM [facility] RDW 13.7 11.5 - 15.5 % 02/09/2025 10:40 AM [facility] PLATELET COUNT 269 140 - 440 thou/cu mm 02/09/2025 10:40 AM [facility] MPV 10.0 6.5 - 11.0 fL 02/09/2025 10:40 AM [facility] % NEUT 61.5 % 02/09/2025 10:40 AM [facility] % LYMPH 23.4 % 02/09/2025 10:40 AM [facility] % MONO 8.7 % 02/09/2025 10:40 AM [facility] % EOS 5.7 % 02/09/2025 10:40 AM [facility] % BASO 0.7 % 02/09/2025 10:40 AM [facility] ABSOLUTE NEUTROPHILS 4.5 1.7 - 7.0 thou/cu mm 02/09/2025 10:40 AM [facility] ABSOLUTE LYMPHOCYTES 1.7 0.9 - 2.9 thou/cu mm 02/09/2025 10:40 AM [facility] ABSOLUTE MONOCYTES 0.6 <0.9 thou/cu mm 02/09/2025 10:40 AM [facility] ABSOLUTE EOSINOPHILS 0.4 <0.5 thou/cu mm 02/09/2025 10:40 AM [facility] ABSOLUTE BASOPHILS 0.1 <0.3 thou/cu mm 02/09/2025 10:40 AM [facility] Blood BLOOD SPECIMEN / Unknown Butterfly / Unknown 02/09/2025 8:55 AM CDT 02/09/2025 9:10 AM T us Doctor Unknown HEMATOLOGY Final Result [facility] [address] [address] * (ABNORMAL) COMP METABOLIC PANEL (02/09/2025 8:55 AM [facility]) SODIUM 136 136 - 145 mmol/L 02/09/2025 9:52 AM [facility] POTASSIUM 4.2 3.5 - 5.1 mmol/L 02/09/2025 9:52 AM [facility] CHLORIDE 103 98 - 107 mmol/L 02/09/2025 9:52 AM [facility] CO2,TOTAL 19(L) 22 - 29 mmol/L 02/09/2025 9:52 AM [facility] ANION GAP 14 5 - 18 02/09/2025 9:52 AM [facility] GLUCOSE 96 70 - 99 mg/dL 02/09/2025 9:52 AM [facility] CALCIUM 9.3 8.8 - 10.4 mg/dL 02/09/2025 9:52 AM [facility] Comment: Reference ranges for this test were updated on 05/25/2024 to reflect our healthy population more accurately. Reference range changes are not retroactively applied to results, but previous results using the same methodology can be interpreted in the context of the new reference range. BUN 16 8 - 23 mg/dL 02/09/2025 9:52 AM [facility] CREATININE 1.08 0.70 - 1.20 mg/dL 02/09/2025 9:52 AM [facility] BUN/CREAT RATIO 15 10 - 20 9:52 AM [facility] eGFR 72(L) >90 mL/min/1. 73m2 02/09/2025 9:52 AM [facility] Comment:As of 2021, eG FR is calculated by the CKD-EPI creatinine equation without race adjustment. eGFR can be influenced by muscle mass, exercise, and diet. The reported eGFR is an estimation only and is only applicable if the renal function is stable. ALBUMIN 3.8(L) 4.0 - 4.9 g/dL 02/09/2025 9:52 AM T [facility] PROTEIN,TOTAL 6.9 6.0 - 8.0 g/dL 02/09/2025 9:52 AM [facility] BILIRUBIN,TOTAL 0.4 0.0 - 1.2 mg/dL 02/09/2025 9:52 AM T [facility] ALK PHOSPHATASE 70 40 - 129 IU/L 02/09/2025 9:52 AM [facility] ALT (SGPT) 11 10 - 50 IU/L 02/09/2025 9:52 AM [facility] AST (SGOT) 23 10 - 50 IU/L 02/09/2025 9:52 AM [facility] Blood BLOOD SPECIMEN / Unknown Butterfly / Unknown 02/09/2025 8:55 AM CDT 02/09/2025 9:10 AM CDT us Doctor Unknown CHEMISTRY Final Result [facility] [address] [place] [address] * (ABNORMAL) LIPID PANEL W REFLEX MEASURED LDL (03/21/2011 7:49 AM CDT) CHOLESTEROL,TOTAL 189 110 - 199 mg/dL [facility] TRIGLYCERIDES 162(H) <150 mg/dL [facility] HDL CHOLESTEROL 50 >40 mg/dL [facility] CHOL/HDL RATIO 3.78 <4.51 [facility] LDL CHOLESTEROL 107 <131 mg/dL [facility] PATIENT STATUS Fasting [facility] Blood specimen (specimen) BLOOD SPECIMEN / Unknown 03/21/2011 7:49 AM CDT 03/21/2011 7:44 AM CDT us Jenni Monroe MD CHEMISTRY Final R esult [facility] [address] [place] [address] from Last 3 Months or Most Recently Relevant to Health Maintenance Additional Health Concerns Infection Onset Date Last Indicated ESBL Comment:Order contact precautions. Order consult to Infection Prevention to determine if patient may be removed from precautions. 10/07/2016 10/07/2016 Insurance * Guarantor: Danielito Valenzuela Account Type Relation to Patient Date of Phone Billing Address Personal/Family Self 1950 [address] [place] [address] MEDICARE PART B HB ONLY MEDICARE PART A HB ONLY [employer] PPO MR Advance Directives Documents on File Type Date Recorded Patient Make Up Man Laure PUENTE 10/08/2016 11:11 AM 09/30/2016 * [...] who discussed with his siblings Care Teams Spray Gunner Relationship Specialty Start Date End Date Darcy Allen MD [address] [place] [address] PCP - General Family Practice 07/24/16
--- NOTE | 2025-04-20 17:29 | ED_ITS ---
HPI - General Adult General Chief complaint: Hypotension Stated complaint: sepsis Time Seen by Provider: 04/20/25 17:06 History of Present Illness HPI narrative: c/o hypotension , dizzy and lightheaded pt. was brought to the ED by [facility] after staff called EMS for the pt. having strange behavior. when EMS checked orthostatic on scene pt when from 103 laying to 77 standing with dizziness and lightheadedness . pt. states I felt fine this am, was fine walking to the bar, felt fine at bar for lunch and my walk home, but started to feel dizzy after arriving home. 75-year-old man identifies as Ree; trans identifies as female. Presents to the emergency department via EMS with concern low blood pressure. Says she has been feeling a little lightheaded over the last couple of days. Apparently this was noted again today after returning from the bar where she says she only had 2 16 oz beers including 16 oz of water. Started to feel a little more lightheaded upon returning home. Does have a history of recurrent falls in the setting of alcoholism and Wernicke-Korsakoff syndrome. She denies any recent falls. No dysuria. A little bit of diarrhea recently but that actually isn't unusual apparently. No pain anywhere. Denies fevers. Last admitted to this facility in mid January of this year with metabolic encephalopathy and alcoholism and failure to thrive was discharged to transitional care. Hypokalemia mild at that time as well. Blood pressure recheck at the time my interview is 110s over 60s Currently living in [facility] apartments independently. Related Data Home Medications ?Medication ?Instructions ?Recorded ?Confirmed aspirin 325 mg tablet,delayed 650 mg PO BID PRN 03/09/25 release Previous Rx's ?Medication ?Instructions ?Recorded allopurinol 300 mg tablet 300 mg PO HS #90 tabs amlodipine 5 mg tablet 5 mg PO QDAY #90 tabs esomeprazole magnesium 20 mg 20 mg PO DAILY #90 caps 0 02/09/25 capsule,delayed release folic acid 1 mg tablet 1 mg PO DAILY #90 tabs 02/09 multivitamin with folic acid 400 1 tab PO DAILY #90 ta bs 02/09/25 mcg tablet (Thera) thiamine HCl (vitamin B1) 100 mg 100 mg PO DAILY #90 t abs 02/09/25 tablet (Vitamin B-1) Allergies Allergy/AdvReac Type Severity Reaction Status Date / Time indomethacin Allergy Verified 04/20/25 17:11 Review of Systems Status of ROS: Reports: 6 or more systems reviewed and unremarkable except as noted in History and below 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 ?I69.319 - Unspecified symptoms and signs involving cognitive functions following cerebral infarction (ICD-10) Left rib fracture ?S22.32XA - Fracture of one rib, left side, initial encounter for closed fracture (ICD-10) Right humeral fracture ?S42.301A - Unspecified fracture of shaft of humerus, right arm, initial encounter for closed fracture (ICD-10) Adult failure to thrive (~03/2022) ?R62.7 - Adult failure to thrive (ICD-10) Memory deficit ?R41.3 - Other amnesia (ICD-10) POLST (Physician Orders for Life-Sustaining Treatment) ?Z78.9 - Other specified health status (ICD-10) Recurrent falls while walking (04/2021) ?R29.6 - Repeated falls (ICD-10) Gout (2016) ?M10.9 - Gout, unspecified (ICD-10) Postoperative intra-abdominal abscess (2017) ?T81.43XA - Infection following a procedure, organ and space surgical site, initial encounter (ICD-10) Normal stress echocardiography (~04/2017) Health care directive on file (05/31/21) ?Z78.9 - Other specified health status (ICD-10) Durable power of sports attorney in chart (05/31/21) Duodenal ulcer with perforation (07/2016) ?K26.5 - Chronic or unspecified duodenal ulcer with perforation (ICD-10) Closed fracture of proximal end of right humerus ?S42.201A - Unspecified fracture of upper end of right humerus, initial encounter for closed fracture (ICD-10) Cellulitis of right hand excluding fingers and thumb (~03/2022) ?L03.113 - Cellulitis of right upper limb (ICD-10) Anemia ?D64.9 - Anemia, unspecified (ICD-10) Abnormal ultrasound of abdomen (~04/2021) ?R93.5 - Abnormal findings on diagnostic imaging of other abdominal regions, including retroperitoneum (ICD-10) Mild protein-calorie malnutrition ?E44.1 - Mild protein-calorie malnutrition (ICD-10) Wernicke-Korsakoff syndrome (~03/2022) ?F04 - Amnestic disorder due to known physiological condition (ICD-10) Poor dentition ?K08.9 - Disorder of teeth and supporting structures, unspecified (ICD-10) Alcoholism ?F10.20 - Alcohol dependence, uncomplicated (ICD-10) Cognitive decline ?R41.89 - Other symptoms and signs involving cognitive functions and awareness (ICD-10) Unstable gait ?R26.81 - Unsteadiness on feet (ICD-10) History of DVT of lower extremity (~04/2021) ?Z86.718 - Personal history of other venous thrombosis and embolism (ICD-10) Personal history of peptic ulcer disease ?Z87.11 - Personal history of peptic ulcer disease (ICD-10) Polyarticular gout ?M10.9 - Gout, unspecified (ICD-10) GERD (gastroesophageal reflux disease) ?K21.9 - Gastro-esophageal reflux disease without esophagitis (ICD-10) Hypertension ?I10 - Essential (primary) hypertension (ICD-10) Surgical History History of anterior cruciate ligament surgery (2005) ?Z98.890 - Other specified postprocedural states (ICD-10) History of ventral hernia repair (2017) ?Z98.890 - Other specified postprocedural states (ICD-10) ?Z87.19 - Personal history of other diseases of the digestive system (ICD-10) Status post left knee replacement (04/2019) ?Z96.652 - Presence of left artificial knee joint (ICD-10) History of total knee replacement (07/2016) ?Z96.659 - Presence of unspecified artificial knee joint (ICD-10) History of abdominal surgery (07/2016) ?Z98.890 - Other specified postprocedural states (ICD-10) Family History Father No problems noted. 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 . 3 adult kids. Dipak friedman in [place] independent living, non does not drive Non smoker, quit age 31 10 pack years prior 4 /drinks a week, chronic alcoholism Designates sonDanielito, and daughter, Britta, as his power of sports attorney for health should that be required. What is your current living situation?: I presently have a place to live Problems where you live: no known problems Problems where you live details: none In the past 12 months, utilities in danger of being shut off: no In past 12 months, lack of transportation kept you from medical appts, meetings, work, or getting things needed for daily living: no In the past 12 mos, have been you worried that your food would run out before you had money to buy more?: never true In the past 12 mos, the food you bought just didn't last and you didn't have money to buy more?: never true Highest level of school completed/degree received: some college, no degree Smoking Status: Former smoker What tobacco products do you use: cigarettes Years smoked: 0.5 Smoking quit date/years: >15 years ago and cigars Do you use any of these nicotine containing products: None Second hand tobacco smoke exposure: No How often do you have a drink containing alcohol: 4 or more times a week Alcohol type: beer How many standard drinks containing alcohol do you have on a typical day: 1 or 2 How often do you have six or more drinks on one occasion: Never AUDIT-C Alcohol total score: 4 Non-prescribed substance use: denies use Caffeine: No How often does anyone, including family, friends and others, physically hurt you : never How often does anyone, including family, friends and others, insult or talk down to you: rarely How often does anyone, including family, friends and others, threaten you with harm: never How often does anyone, including family, friends and others, scream or curse at you: never service: Yes Health Related Social Needs: Other personal risk factors, not elsewhere classified (Z91.89) Exam Narrative: Exam Narrative: Pleasant. Appears of good energy. Appears to be mentating normally. A little tremulous. Skin is warm and dry. Does wear some compression stockings on the lower extremities. Appears well perfused. No palpable edema. Lungs are clear. Heart in regular rate and rhythm without murmur rub or gallop identified. Abdomen is soft and nontender. Does have brought in place with silicone inserts. Oropharynx is dry. Partially edentulous. Cranial nerves 2-12 intact. Pupils are 3 mm and equal. Head is atraumatic. Neck is supple nontender. Back nontender. I do not appreciate any rashes. Const: Vital Signs, click to edit/add: Vital Signs - 24 hr 04/20/25 17:12 04/20/25 17:34 04/20/25 17:35 Temperature 97.6 F Pulse Rate 74 79 Pulse Rate [Pulse Oximeter] 78 Respiratory Rate 16 Blood Pressure 110/63 Blood Pressure [Ri ght Upper Arm] 84/60 L Pulse Oximetry 98 96 [facility] 04/20/25 17:45 04/20/25 17:47 04/20/25 17:48 Temperature Pulse Rate 80 78 77 Pulse Rate [Pulse Oximeter] Respiratory Rate Blood Pressure 118/72 Blood Pressure [Ri ght Upper Arm] Pulse Oximetry 97 95 96 [facility] 04/20/25 18:00 04/20/25 18:15 04/20/25 18:19 Temperature Pulse Rate 76 76 81 Pulse Rate [Pulse Oximeter] Respiratory Rate 15 12 17 Blood Pressure Blood Pressure [Ri ght Upper Arm] Pulse Oximetry 96 96 99 [facility] 04/20/25 18:30 04/20/25 18:34 04/20/25 18:45 Temperature Pulse Rate 78 84 83 Pulse Rate [Pulse Oximeter] Respiratory Rate 10 L 10 L 15 Blood Pressure Blood Pressure [Ri ght Upper Arm] Pulse Oximetry 99 97 98 Oxygen Delivery Ri thod 04/20/25 18:49 04/20/25 18:59 04/20/25 19:00 Temperature Pulse Rate 88 85 81 Pulse Rate [Pulse Oximeter] Respiratory Rate 17 38 H 21 Blood Pressure Blood Pressure [Ri ght Upper Arm] Pulse Oximetry 98 97 99 [facility] 04/20/25 19:04 04/20/25 19:15 04/20/25 19:16 Temperature Pulse Rate 75 81 82 Pulse Rate [Pulse Oximeter] Respiratory Rate 19 10 L 13 Blood Pressure 128/78 120/82 Blood Pressure [Ri ght Upper Arm] Pulse Oximetry 97 97 97 Oxygen Delivery Me thod 04/20/25 19:30 04/20/25 19:31 04/20/25 19:45 Temperature Pulse Rate 80 78 81 Pulse Rate [Pulse Oximeter] Respiratory Rate 10 L Blood Pressure 118/68 Blood Pressure [Ri ght Upper Arm] Pulse Oximetry 98 97 96 Oxygen Delivery Me thod 04/20/25 19:46 04/20/25 20:01 04/20/25 20:15 Temperature Pulse Rate 79 83 80 Pulse Rate [Pulse Oximeter] Respiratory Rate 21 12 Blood Pressure 115/88 Blood Pressure [Ri ght Upper Arm] Pulse Oximetry 95 98 98 Oxygen Delivery Me thod 04/20/25 20:16 04/20/25 20:30 04/20/25 20:32 Temperature Pulse Rate 81 79 83 Pulse Rate [Pulse Oximeter] Respiratory Rate 13 15 13 Blood Pressure 129/79 124/84 Blood Pressure [Ri ght Upper Arm] Pulse Oximetry 97 96 96 Oxygen Delivery Me thod 04/20/25 20:48 04/20/25 20:49 Temperature Pulse Rate 80 83 Pulse Rate [Pulse Oximeter] Respiratory Rate Blood Pressure 138/101 H Blood Pressure [Ri ght Upper Arm] Pulse Oximetry 92 98 Oxygen Delivery Me thod Documenting provider has reviewed patient's vital signs: yes Course Vital Signs Vital signs: Initial Vital Signs Temperature 97.6 F 04/20/25 17:12 Temperature Source Temporal Artery Scan 04/20/25 17:12 Pulse Rate 78 04/20/25 17:12 Respiratory Rate 16 04/20/25 17:12 Blood Pressure 84/60 L 04/20/25 17:12 Blood Pressure Mean 68 L 04/20/25 17:12 Blood Pressure Position High-Fowlers 04/20/25 17:12 Pulse Oximetry 98 04/20/25 17:12 Oxygen Delivery Method Room Air 04/20/25 17:12 Vital Signs Temperature 97.6 F 04/20/25 17:12 Pulse Rate 78 04/20/25 17:12 Respiratory Rate 16 04/20/25 17:12 Blood Pressure 84/60 L 04/20/25 17:12 Pulse Oximetry 98 04/20/25 17:12 Oxygen Delivery Method Room Air 04/20/25 17:12 Temperature 97.6 F 04/20/25 17:12 Pulse Rate 83 04/20/25 20:49 Respiratory Rate 13 04/20/25 20:32 Blood Pressure 138/101 H 04/20/25 20:49 Pulse Oximetry 98 04/20/25 20:49 Oxygen Delivery Method Room Air 04/20/25 17:12 Medications Administered Medications: Discontinued Medications Generic Name Dose Route Start Last Admin Trade Name Bahman PRN Reason Stop Dose Admin Sodium Chloride 1,000 mls @ 1,000 mls/hr 04/20/25 17:39 04/20/25 19:50 0.9 % Sodium Chloride 1000 Ml IV 04/20/25 18:38 Infused .Q1H ONE Infusion Sodium Chloride 1,000 mls @ 1,200 mls/hr 04/20/25 19:48 04/20/25 21:01 0.9 % Sodium Chloride 1000 Ml IV 04/20/25 20:37 Infused .Q50M ONE Infusion Medical Decision Making MDM Narrative Medical decision making narrative: Will initiate IV hydration. Doubtless is dehydrated. Blood cultures will be collected as well. Monitor for vital stability. Standard labs. Does not appear to have any persistent symptoms to suggest acute neurological process. Arrhythmia might have contributed to symptoms but rhythm appears regular. Intoxication might play a role here to and will check for this. Also contributing likely is longstanding neurological sequelae of alcohol abuse/dependence. Initiated IV hydration. Subsequent blood pressures even prior to significant IV hydration in have already improved. Labs with mild hyponatremia. Most likely related to alcohol use. Did ultimately receive 2 L of normal saline. Creatinine was also bumped. Negative alcohol level Son later expresses concern of going home due to history of falls. After transitioning to [facility] after last hospitalization was discharged to home and son notes that she fell an hour later. I discussed this case with hospitalist. Agreed that challenging situation with regard to disposition. Has been well, improved over time in the emergency department. No events on monitoring cardiac or oximetry. Would like to go home. Discharged to care of son See patient discharge plan for further discussion I am relieved you are feeling better. Please be sure to get about only with your walker. Please do what you can to quit drinking alcohol. Return as needed. Medical Records Medical records reviewed: Yes I reviewed the patient's medical records Lab Data Lab results reviewed: Yes I reviewed the patient's lab results Labs: Lab Results 04/20/25 04/20/25 04/20/25 Range/Units 16:50 17:41 17:58 WBC 10.84 (4.50-11.00) K/uL RBC 3.70 L (4.30-5.90) m/uL Hgb 12.4 L (13.5-17.5) gm/dL Hct 35.6 L (37.0-53.0) % MCV 96 (80-100) fL MCH 34 (26-34) pg MCHC 35 (32-36) gm/dL RDW Coeff of Delvis 13.4 (11.5-15.5) % Plt Count 185 (140-440) K/uL Neut % (Auto) 74.8 H (42.0-72.0) % Lymph % (Auto) 15.4 L (20-44) % [place] % (Auto) 8.1 (0.0-11.0) % Eos % (Auto) 1.0 (0.0-7.0) % Baso % (Auto) 0.6 (0.0-3.0) % Neut # (Auto) 8.10 H (1.7-7.0) K/uL Lymph # (Auto) 1.70 (0.90-2.90) K/uL [place] # (Auto) 0.90 (0.00-0.90) K/UL Eos # (Auto) 0.11 (0.00-0.50) K/uL Baso # (Auto) 0.06 (0.00-0.30) K/uL Abs Immat Gran (auto) 0.01 (0.00-0.30) K/uL Imm/Tot Granulo (auto) 0.1 % Sodium 129 L (135-149) mmol/L Potassium 3.8 (3.6-5.1) mmol/L Chloride 96 (96-114) mmol/L Carbon Dioxide 20 (20-32) mmol/L Anion Gap 13 (7-15) mEq/L BUN 21 (7-30) mg/dL Creatinine 2.0 H (0.5-1.5) mg/dL Estimated Creat Clear 33.46 Estimated GFR 34 ml/min Glucose 103 (60-115) mg/dL Lactate 1.4 (0.5-1.9) mmol/L Calcium 8.9 (8.4-10.6) mg/dL Total Bilirubin 0.5 (0.1-1.5) mg/dL Direct Bilirubin 0.3 (0.0-0.5) mg/dL AST 25 (12-35) U/L ALT 13 (4-50) U/L Alkaline Phosphatase 80 (40-150) U/L Troponin I < 0.01 (0.01-0.04) ng/mL C-Reactive Protein < 0.5 L (0.5-1.0) mg/dL Total Protein 7.2 (6.0-8.3) g/dL Albumin 4.1 (3.3-5.0) g/dL Urine Color Dark yellow (Yellow) Urine Appearance Clear (Clear) Urine pH 6.5 (5.0-8.5) Ur Specific [place] 1.010 (1.000-1.030) Urine Protein Negative (Negative) Urine Glucose (UA) Negative (Negative) Urine Ketones Negative (Negative) Urine Blood Negative (Negative) Urine Nitrite Negative (Negative) Urine Bilirubin Negative (Negative) Urine Urobilinogen 0.2 (0.2-1.0) Ur Leukocyte Esterase Negative (Negative) Urine RBC 0-2 (0-2) Urine WBC 0-2 (0-5) Ur Squamous Epith Cells None (None-Few) Urine Bacteria None (None) Ethyl Alcohol < 0.01 (0.01-0.03) % SARS-CoV-2 (PCR) (Negative) Influenza Type A (PCR) (Negative) Influenza Type B (PCR) (Negative) POC Troponin I 0.02 (0.01-0.04) ng/ml 04/20/25 Range/Units 18:29 WBC (4.50-11.00) K/uL RBC (4.30-5.90) m/uL Hgb (13.5-17.5) gm/dL Hct (37.0-53.0) % MCV (80-100) fL MCH (26-34) pg MCHC (32-36) gm/dL RDW Coeff of Delvis (11.5-15.5) % Plt Count (140-440) K/uL Neut % (Auto) (42.0-72.0) % Lymph % (Auto) (20-44) % [place] % (Auto) (0.0-11.0) % Eos % (Auto) (0.0-7.0) % Baso % (Auto) (0.0-3.0) % Neut # (Auto) (1.7-7.0) K/uL Lymph # (Auto) (0.90-2.90) K/uL [place] # (Auto) (0.00-0.90) K/UL Eos # (Auto) (0.00-0.50) K/uL Baso # (Auto) (0.00-0.30) K/uL Abs Immat Gran (auto) (0.00-0.30) K/uL Imm/Tot Granulo (auto) % Sodium (135-149) mmol/L Potassium (3.6-5.1) mmol/L Chloride (96-114) mmol/L Carbon Dioxide (20-32) mmol/L Anion Gap (7-15) mEq/L BUN (7-30) mg/dL Creatinine (0.5-1.5) mg/dL Estimated Creat Clear Estimated GFR ml/min Glucose (60-115) mg/dL Lactate (0.5-1.9) mmol/L Calcium (8.4-10.6) mg/dL Total Bilirubin (0.1-1.5) mg/dL Direct Bilirubin (0.0-0.5) mg/dL AST (12-35) U/L ALT (4-50) U/L Alkaline Phosphatase (40-150) U/L Troponin I (0.01-0.04) ng/mL C-Reactive Protein (0.5-1.0) mg/dL Total Protein (6.0-8.3) g/dL Albumin (3.3-5.0) g/dL Urine Color (Yellow) Urine Appearance (Clear) Urine pH (5.0-8.5) Ur Specific [place] (1.000-1.030) Urine Protein (Negative) Urine Glucose (UA) (Negative) Urine Ketones (Negative) Urine Blood (Negative) Urine Nitrite (Negative) Urine Bilirubin (Negative) Urine Urobilinogen (0.2-1.0) Ur Leukocyte Esterase (Negative) Urine RBC (0-2) Urine WBC (0-5) Ur Squamous Epith Cells (None-Few) Urine Bacteria (None) Ethyl Alcohol (0.01-0.03) % SARS-CoV-2 (PCR) Negative SARS-CoV-2 (Negative) Influenza Type A (PCR) Negative PCR FLU A (Negative) Influenza Type B (PCR) Negative PCR FLU B (Negative) POC Troponin I (0.01-0.04) ng/ml ECG Data Attestation: I personally reviewed and interpreted this ECG as follows: (Normal sinus rhythm. Rate of 77) Discharge Plan Discharge Clinical Impression: Weakness, Hyponatremia, Alcohol dependence Patient Disposition: Home w/ Parent or Adult Condition: Improved Additional Instructions: I am relieved you are feeling better. Please be sure to get about only with your walker. Please do what you can to quit drinking alcohol. Return as needed. Activity Level: No Restrictions Discharge Diet: Regular Prescriptions: No Action esomeprazole magnesium 20 mg capsule,delayed release(DR/EC) 20 mg PO DAILY Qty: 90 3RF folic acid 1 mg tablet 1 mg PO DAILY Qty: 90 3RF multivitamin with folic acid [Thera] 400 mcg tablet 1 tab PO DAILY Qty: 90 3RF thiamine HCl (vitamin B1) [Vitamin B-1] 100 mg tablet 100 mg PO DAILY Qty: 90 3RF amlodipine 5 mg tablet 5 mg PO QDAY Qty: 90 3RF allopurinol 300 mg tablet 300 mg PO HS Qty: 90 3RF aspirin 325 mg tablet,delayed release (DR/EC) 650 mg PO BID PRN Follow Up/Referrals: Darcy Allen MD [Primary Care Provider, Family Practice] Stand Alone Forms: Current Mediath Info Instructions
[2025-04-20 18:11] LABS: Lactate* 1.4 mmol/L (0.5-1.9)
[2025-04-20 18:13] LABS: Hematocrit* 35.6 % (37.0-53.0); Hemoglobin* 12.4 gm/dL (13.5-17.5); Immature Granulocytes Abs Auto 0.01 K/uL (0.00-0.30); Immature Granulocytes Pct Auto 0.1 %; Mean Corpuscular HGB Conc 35 gm/dL (32-36); Mean Corpuscular Hemoglobin 34 pg (26-34); Mean Corpuscular Volume 96 fL (80-100); RDW Coefficient of Variation % 13.4 % (11.5-15.5); Red Blood Count* 3.70 m/uL (4.30-5.90); White Blood Count* 10.84 K/uL (4.50-11.00)
[2025-04-20 18:14] LABS: Lymphocytes Absolute Auto 1.70 K/uL (0.90-2.90); Slide Review Reflex No
[2025-04-20 18:20] LABS: Troponin, Point-of-Care* 0.02 ng/ml (0.01-0.04)
[2025-04-20 18:35] LABS: Chloride* 96 mmol/L (96-114)
[2025-04-20 18:36] LABS: Albumin* 4.1 g/dL (3.3-5.0); Potassium* 3.8 mmol/L (3.6-5.1); Sodium* 129 mmol/L (135-149)
[2025-04-20 18:38] LABS: Blood Urea Nitrogen* 21 mg/dL (7-30); Creatinine* 2.0 mg/dL (0.5-1.5); Est. Creatinine Clearance* 33.46; Estimated Glomerular Filt Rate 34 ml/min
[2025-04-20 18:39] LABS: Alanine Aminotransferase* 13 U/L (4-50); Alkaline Phosphatase* 80 U/L (40-150); Anion Gap 13 mEq/L (7-15); Aspartate Amino Transferase* 25 U/L (12-35); Bilirubin Direct* 0.3 mg/dL (0.0-0.5); Bilirubin Total* 0.5 mg/dL (0.1-1.5); Calcium* 8.9 mg/dL (8.4-10.6); Carbon Dioxide* 20 mmol/L (20-32); Glucose* 103 mg/dL (60-115); Total Protein* 7.2 g/dL (6.0-8.3)
[2025-04-20 18:51] LABS: Ethanol* < 0.01 % (0.01-0.03)
[2025-04-20 19:07] LABS: Appearance Urine Clear (Clear)
[2025-04-20 19:23] LABS: PCR FLU A Negative PCR FLU A (Negative); PCR FLU B Negative PCR FLU B (Negative); SARS PCR* Negative SARS-CoV-2 (Negative)
--- NOTE | 2025-04-21 12:27 | PC.SOCIAL ---
Discharge planning: section gang worker received a call from pt's ed case manager with [facility], Lizzie. Lizzie asked if the pt was still in the hospital. section gang worker explained that the pt was discharged from the ED yesterday and was not admitted. Lizzie asked if the pt was checked for a UTI while in the ED. section gang worker referred her to the Emergency Department for further clinical questions on this case. Social work to follow-up as needed.
== END 2025-04-20 21:52 | disposition home or self-care (01) ==
PROVIDERS: Emergency Provider Family Medicine; PCP Family Medicine
DX: I95.9 Hypotension, unspecified (principal); E87.1 Hypo-osmolality and hyponatremia; F10.20 Alcohol dependence, uncomplicated; F64.0 Transsexualism; Z91.81 History of falling; Y90.0 Blood alcohol level of less than 20 mg/100 ml
CPT/HCPCS: 36415; 80048; 80076; 81001; 82077; 83605; 84484; 85025; 86140; 87040; 87636; 93005; 96360; 96361; 99284; J7030